=== PATIENT | male | born 1950 | race Caucasian/White ===

== ENCOUNTER 2017-02-10 07:29 | Inpatient (IN) | payer MEDICARE, OTHER ==
[2017-02-10] VITALS (63 sets, daily range): BP systolic 94–143; BP diastolic 42–94; PULSE 73–86; RESP 20–28; TEMP 98.6–99; Ht 170.2 cm; Wt 90.9 kg
[~2017-02-10] VITALS: Ht 170.2 cm; Wt 90.9 kg
[~2017-02-10 07:29] MED LIST: EPINEPHrine 0.1 MG/ML SYG ONE; LIDOCAINE 100 MG SYRINGE ONE; NA BICARBONATE 8.4% 50 ML SYG ONE
--- NOTE | 2017-02-10 08:07 | ERA ---
ER Documentation Chief Complaint Date/Time DATE: 02/10/17 TIME: 728 Chief Complaint cardiac arrest HPI Patient was a witnessed cardiac arrest at approximately 6:50 AM According to paramedics, patient had approximately 7 minutes of downtime prior to biomedical engineering supervisor arrival. 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 tach/V. fib. Patient was intubated in the field with multiple rounds of ACLS protocol. Total transport time was approximately 20 minutes with total downtime of about 30 minutes prior to patient arrival in the emergency room. During that time, patient had no return of spontaneous circulation. Upon arrival, patient does have a pulse. I have reviewed the biomedical engineering supervisor pre-hospital care. Pre-hospital vital signs were reviewed. Pre-hospital diagnostic tests were reviewed. ROS All systems reviewed and are negative except as per history of present illness. Medications Home Meds Unable to Obtain Active Prescriptions or Reported Meds Allergies Allergies: Coded Allergies: Unable to Assess (Verified Allergy, Severe, 02/10/17) FmHx Unknown Physical Exam Vitals Cardiac arrest Physical Exam GENERAL: Patient is well-developed but in full cardiac arrest. HEENT: Airway is intubated. No evidence of head trauma. NECK: C-spine is soft and supple, there is no meningismus. There is no cervical lymphadenopathy. LUNGS: Patient is being ventilated through the endotracheal tube with lung sounds bilaterally. HEART: CPR in progress. ABDOMEN: Soft, nondistended EXTREMITIES: Patient has mottling bilaterally with no obvious trauma NEURO: GCS of 111. Patient has mid range but nonreactive pupils. Patient is making spontaneous respiratory effort. SKIN: Patient is mottled HEME/LYMPHATIC: There is no evidence of excessive bruising or lymphedema. Procedures/MDM Patient was taken immediately to a room where intubation was confirmed via auscultation. CPR was continued. ACLS protocol was continued. Patient received a dose of lidocaine when he returned into a pulseless V. tach. He received full ACLS protocol under my supervision including another episode of defibrillation and CPR. Patient did have good pulses with CPR. Initial EKG upon arrival after the patient regained pulses demonstrating evidence of a discoordinated ventricular wide-complex rhythm with likely ST elevation diffusely. At that time, 732, code STEMI was initiated. I then spoke with the janitor custodian soon thereafter. Patient was taken to the [facility] at that time. EKG interpretation: Uncoordinated ventricular rhythm at approximately 95 bpm Wide-complex QRS Large ST elevations anteriorly with inferior changes. Impression: Wide-complex rhythm with evidence of likely anterior ST elevation myocardial infarction Departure Diagnosis: Primary Impression: Cardiac arrest Additional Impressions: Ventricular fibrillation ST elevation myocardial infarction (STEMI) of anterior wall Condition: Critical DON ESCALANTE Feb 10, 2017 08:07
[2017-02-10 08:17] LABS: CALCIUM 8.3 mg/dl (8.4-10.2); CREATININE 1.31 mg/dl (0.61-1.24); POTASSIUM 3.3 mmol/L (3.5-5.1)
[2017-02-10 08:27] LABS: TROPONIN-I 0.052 ng/ml (0.00-0.12)
[2017-02-10] MEDS ORDERED: HEPARIN 1000 UNITS/ML 10 ML INJ IV ONE (09:00)
[2017-02-10] MEDS ORDERED: HEPARIN 1000 UNITS/ML 10 ML INJ IV PRN (09:00)
[2017-02-10] MEDS ORDERED: PROPOFOL 100 ML ONE (09:16)
--- NOTE | 2017-02-10 09:32 | SP ---
DATE OF PROCEDURE: 02/10/2017 INDICATION FOR PROCEDURE: 1. Cardiac arrest. 2. ST elevation myocardial infarction. 3. Cardiogenic shock. PROCEDURES: 1. Selective right and left coronary angiography. 2. Left heart catheterization with LV pressures. 3. Complex 100% totally occluded circumflex OM. PTCA stent with 2.75 x 32-mm drug-eluting stent. 4. Successful placement of intraaortic balloon pump. 5. Fluoroscopy. 6. Supervised procedural sedation. 7. Triple lumen central line placement. 8. Arterial catheter placement with A-line placement. PROCEDURE DETAILS: The patient is a 66-year-old male who was brought into [facility] Emergency Room via EMS after cardiac arrest. The patient was with his coworker, apparently passe d out. CPR was performed by EMS on arrival. Downtime was on 7 minutes, according to ER attending. The patient had return of circulation in the field, came into the ER. In ER the blood pressure was 110/78, with a pulse. Underwent another cardiac arrest with loss of pulse and ventricular fibrilla tion arrest, status post shock x2 in the ER. While he was arriving in the laboratory cureman he was still get ting CPR. Finally there was return of pulse and circulation on the laboratory cureman table. Immediately car diac catheterization was started. The patient was already intubated. The blood pressure was in the 60s and 70s systolic. Started on pressors. The right groin was accessed with a 6-Greek sheath. St arted with a guide catheter engaged into the left main over an 0.035 wire and found to have a total circumflex large OM1. Once the wire crossed the OM1 and STEVENSON 3 flow was started the patient was on 2 pressors, dopamine, as well as Zach-Synephrine at this time. Successful direct stenting with a 2.7 5 x 32-mm drug-eluting stent was placed. Following that the patient went into ventricular fibrillat ion arrest, status post shock on the cath table x1 again. Return of circulation. The right coronary artery was engaged and there was a mid RCA with a large 70% stenosis, which had STEVENSON 3 flow. At th is time we decided to place a balloon pump on the patient. The patient's blood pressure was 260s to 90s systolic. At this time the patient also had placement of a triple lumen IV fentanyl catheter in the left groin, as well as an A-line in the left groin. Following that the procedure was completed and all the groin and everything was sutured. The procedure was finished without any complications . The patient is on a balloon pump and 2 pressors, with still in cardiogenic shock. Augmented bloo d pressure was 110 to 120. The patient is sedated, intubated, and critically ill, on the cardiac ca th lab table. There is no family on the chart. The phone number which was found on the chart we tr ied to contact them, but unable to contact anybody or any family member. At this time, we have our savannah smith nurse to try to find the patient's family members to inform them of the patient's critical sta tus. CORONARY FINDINGS: 1. Left main: Mild diffuse disease. 2. LAD: Mild diffuse disease. 3. Circumflex: Large OM 100% thrombotic occluded. 4. Right coronary artery: Proximal 25% stenosis. The mid segment has a long segment of 70% stenosis , followed by distal segment mild diffuse disease. LEFT VENTRICULAR FINDINGS: LVEDP was 30 mmHg, very high. CONCLUSION: 1. Cardiac arrest. 2. Cardiogenic shock. 3. Acute closure of OM artery, successful intervention with 2.75 x 32-mm drug-eluting stent. RECOMMENDATIONS: 1. The patient is critically ill, transferred to the ICU. 2. Cangrelor IV continued. Plan to put in NG tube, critical care consultation, intraaortic balloon pump care. 3. A-line and central line placement. Switch medication to A-line and central line. Complete 2D e chocardiography. Try to find a family member. Patient still remains critically ill. Prognosis is ve ry guarded. The patient will require a CT head once the patient is stable to understand the neurol ogical status and brain damage after the multiple code and CPR. Dictated By: LENIN VILLALOBOS/ROLAN Conf#: [id number] DID#: [id number]
[2017-02-10] MEDS: PROPOFOL 100 ML IV SCH ×3 (10:00→21:06)
[2017-02-10] MEDS ORDERED: PHENYLephrine 20MG IN 250 ML 250 ML ONE (10:35)
[2017-02-10] MEDS ORDERED: NORepinephrine 8MG/250 ML (PMX 0 ML ONE (10:35)
--- NOTE | 2017-02-10 10:57 | CONS ---
Date/Time of Note Date/Time of Note DATE: 02/10/17 TIME: 10:53 Assessment/Plan Assessment/Plan Additional Assessment/Plan Ventilator setting; AC of 20, tidal volume 600, PEEP of 5, 100% FiO2. Patient currently on phenylephrine drip at 200 mics per minute, 420 mics per kilogram per minute, amiodarone drip via protocol. Dopamine at 10 mics per kilogram per minute. Assessment recommendations; 1. Patient admitted with cardiac arrest status post along CPR. Patient underwent emergent coronary angiography with stenting of circumflex lesion and placement of intra-aortic balloon pump. 2. At this time it is difficult to assess for any anoxic brain injury. However according to the records the patient was arousable therefore hypothermia protocol was not initiated. 3. Slight increase in serum creatinine possibly baseline. 4. Pulmonary edema. Continue current supportive care. Will obtain a blood gas. Once ABGs done I will make further recommendations. Will obtain follow-up chest x-ray in 24 hours. Add Zosyn 3.375 g every 8 hours. Gnosis is guarded. Consultation Date/Type/Reason Admit Date/Time Feb 10, 2017 at 08:37 Date of Consultation: Feb 10, 2017 Type of Consultation: Pulmonary/critical care Reason for Consultation Pulmonary consultation requested for evaluation and management of respiratory failure. History of presenting any; patient is a 66-year-old male who was brought into the emergency room after he sustained a witnessed cardiac arrest at work. Along CPR was done on site with multiple rounds of defibrillation. The patient was taken to the [facility] where the circumflex lesion was stented. Patient has been brought back to ICU on intra-aortic balloon pump orally intubated. History was obtained from medical records as well as from patient's at bedside. According to the patient has had no medical problems whatsoever until this morning when he had sudden cardiac arrest at work. Past medical history; none. Medications; reviewed. Allergies; none. Social history; most of any smoking alcohol or drug abuse. Family history; patient is he has 3 children. No stiff any coronary artery disease, diabetes or hypertension in the family. 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 Review of systems; unable to be obtained. General exam; elderly male, on ventilator via endotracheal tube. Sedated. Currently in no distress. Exam/Review of Systems Vital Signs Vitals Vital Signs Date Time Temp Pulse Resp B/P Pulse Ox O2 Delivery O2 Flow Rate FiO2 02/10/17 08:07 0 0 0/0 0 Exam HEENT exam is; supple neck, positive JVD. No lymphadenopathy. Midline trachea. No thyromegaly. Patient has fair dentition. Pupils are midsize and reactive to light bilaterally. Orally intubated. Chest examination; diminished but clear vessel. S1-S2 audible, no murmurs. Regular rhythm. Abdomen examination; soft, no organomegaly. Bowel sounds are absent. Extremity examination; no peripheral edema. Pulses 1+ bilaterally. No clubbing. 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 ONCE XX ; Start 02/10/17 at 09: 00; Stop 02/12/17 at 08:59 Propofol 100 ml @ 2.727 mls/ hr Q12H IV ; Start 02/10/17 at 10:00 Norepinephrine 250 ml @ 1.875 mls/ hr TITRATE IV ; Start 02/10/17 at 11:00 Phenylephrine HCl 250 ml @ 75 mls/hr TITRATE IV ; Start 02/10/17 at 11:00 Dopamine HCl/ Dextrose 250 ml @ 6.818 mls/ hr TITRATE IV ; Start 02/10/17 at 11 :00 ANGELINA VALDEZ 16, 2017 10:57
[2017-02-10 11:00] LABS: ADD SCAN DIFF NO
[2017-02-10] MEDS ORDERED: NORepinephrine 8MG/250 ML (PMX 250 ML IV SCH (11:00)
[2017-02-10] MEDS ORDERED: PHENYLephrine 20MG IN 250 ML 250 ML IV SCH (11:00)
[2017-02-10 11:06] LABS: BASOPHIL # 0.1 10^3/ul (0.0-0.1); BASOPHILS % 0.3 % (0.0-2.0); EOSINOPHILS # 0.1 10^3/ul (0.0-0.5); EOSINOPHILS % 0.4 % (0.0-7.0); HEMOGLOBIN 15.9 g/dl (14.0-18.0); LYMPHOCYTES # 2.2 10^3/ul (0.8-2.9); LYMPHOCYTES % 9.7 % (15.0-51.0); MEAN CORPUSCULAR HEMOGLOBIN 31.7 pg (29.0-33.0); MEAN CORPUSCULAR HGB CONC 34.6 g/dl (32.0-37.0); MEAN CORPUSCULAR VOLUME 91.8 fl (82.0-101.0); MEAN PLATELET VOLUME 10.4 fl (7.4-10.4); MONOCYTE # 0.5 10^3/ul (0.3-0.9); MONOCYTES % 2.2 % (0.0-11.0); NEUTROPHIL # 19.2 10^3/ul (1.6-7.5); NUCLEATED RED BLOOD CELLS% 0.1 /100WBC (0.0-0.0); PLATELET COUNT 317 10^3/UL (140-415); RED BLOOD COUNT 5.01 10^6/ul (4.70-6.10); RED CELL DISTRIBUTION WIDTH 12.5 % (11.5-14.5); WHITE BLOOD COUNT 22.9 10^3/ul (4.8-10.8)
[2017-02-10] MEDS: DOPamine-D5W 1.6 MG/ML 250 ML IV SCH ×2 (11:08→17:00)
[2017-02-10 11:11] LABS: AADO2 Arterial 600.6 mmHg (7.0-24.0); Arterial Base Excess -11.4 mmol/L (-3.0-3); Arterial COHb 0.3 % (0.0-3.0); Arterial Fraction of Oxyhgb 94.1 % (93.0-99.0); Arterial HCO3 13.7 mmol/L (22.0-26.0); Arterial MetHb 0.3 % (0.0-1.5); Arterial Total Hemglobin 16.7 g/dl (12.0-18.0); MODE VENT - AC
[2017-02-10 11:29] LABS: INR 1.1; PARTIAL THROMBOPLASTIN TIME 28.4 Sec (25.0-35.0); PROTIME 14.2 Sec (12.2-14.2); PT RATIO 1.1
--- NOTE | 2017-02-10 11:36 | RADRPT ---
PROCEDURE: Retroperitoneal US. CLINICAL INDICATION: Renal insufficiency TECHNIQUE: Multiple sonographic images of the kidneys and retroperitoneum were obtained. The imag es were reviewed on a PACS workstation. COMPARISON: No prior studies are available for comparison. FINDINGS: The kidneys are normal in size, contour, cortical thickness and cortical echogenicity. The right kidney measures 10.3 cm. The left kidney measures 9.6 cm. No kidney stones are visualized. There is no evidence for hydronephrosis. The urinary bladder is decompressed by a Mckeon catheter. RPTAT: AA IMPRESSION: Unremarkable retroperitoneal ultrasound. .Jose Roberto Bruce MD, MD Date Time Electronically viewed and signed by .Jose Roberto Bruce MD, on 02/10/2017 11:36 .S/
[2017-02-10] MEDS: HEPARIN 25000 UNITS/250 ML 250 ML IV SCH (11:56)
[2017-02-10] MEDS: PIPER-TAZO 3.375 GM IV (PMX) 100 ML IVPB SCH ×2 (12:06→21:56)
--- NOTE | 2017-02-10 12:21 | RADRPT ---
PROCEDURE: Chest Radiograph. CLINICAL INDICATION: Endotracheal tube placement TECHNIQUE: Single frontal chest radiograph. COMPARISON: None available FINDINGS: An endotracheal tube is in place with distal tip approximately 6.5 cm above the akiko. The patient is rotated, heart size is poorly evaluated.. There is an apparent balloon pump in place with dista l tip approximately 6 cm proximal to the aortic arch. No infiltrate or effusion is seen. The bone s are intact. IMPRESSION: 1. Endotracheal tube in place with distal tip approximately 6.5 cm above the akiko. 2. There is apparent aortic balloon pump in place with distal tip approximately 6 cm proximal to th e aortic arch. RPTAT: AA .Gagan Keys MD, MD Date Time Electronically viewed and signed by .Gagan Keys MD, on 02/10/2017 12:21 .B/
[2017-02-10] MEDS ORDERED: NACL 0.9% 3 ML SYG IV SCH (12:30)
[2017-02-10] MEDS ORDERED: HYDROCODONE/APAP (5/325) TAB PO PRN (12:30)
[2017-02-10] MEDS ORDERED: PHENYLephrine 160 MG in DEXTROSE 5% 484 ML IV SCH (13:00)
[2017-02-10] MEDS ORDERED: GLUCOSE GEL 15 GRAM TUBE BUCCAL PRN (13:30)
[2017-02-10] MEDS ORDERED: GLUCOSE GEL 15 GRAM TUBE PO PRN ×2 (13:30)
[2017-02-10] MEDS ORDERED: GLUCAGON 1 MG INJ IM PRN (13:30)
[2017-02-10] MEDS: SOD CHLORIDE 0.9% 1,000 ML IV SCH (13:44)
[2017-02-10] MEDS ORDERED: FUROSEMIDE 20 MG INJ IV ONE ×2 (14:00→21:30)
[2017-02-10] MEDS ORDERED: ALBUMIN HUMAN 25% 100 ML IV ONE (14:00)
[2017-02-10 14:05] LABS: ALBUMIN 4.4 g/dl (3.3-4.9); ALBUMIN/GLOBULIN RATIO 4.88; BILIRUBIN,INDIRECT 0.4 mg/dl (0-1.1); BILIRUBIN,TOTAL 0.4 mg/dl (0.2-1.3); CALCIUM 7.9 mg/dl (8.4-10.2); CREATININE 1.95 mg/dl (0.61-1.24); POTASSIUM 4.2 mmol/L (3.5-5.1); TOTAL PROTEIN 5.3 g/dl (6.1-8.1)
--- NOTE | 2017-02-10 14:05 | HP ---
DATE OF ADMISSION: 02/10/2017 TIME OF EVALUATION: 12:30 p.m. REASON FOR ADMISSION: Status post cardiac arrest. CONSULTATIONS: 1. Dr. Eliel Buckner, Interventional Cardiology. 2. Dr. Jay Bueno, Pulmonary. 3. Dr. Carmine Melo, Nephrology. HISTORY OF PRESENT ILLNESS: This is a 66-year-old male who has no past medical history as per the family, who had a witnessed cardiac arrest while he was at work. CPR was performed by EMS on arrival. The approximate downtime was 7 minutes, as per the ER physician. The patient had ROSC in the field. In the ER, the blood pressure was 110/78, with a pulse. He went to another cardiac arrest with loss of pulse and ventricular fibrillation and he had to be shocked twice in the ER, with return of spontaneous circulation. The patient was already intubated. The patient also had a low blood pressure and so he was started on pressors. The patient underwent emergent cardiac catheterization with intervention to the 100% occlusion of the obtuse marginal of left circumflex artery with placement of a drug-eluting stent. The patient was transferred to the intensive care unit for further management. PAST MEDICAL HISTORY: None, as per the family. PAST SURGICAL HISTORY: None, as per the family. HOME MEDICATIONS: None. ALLERGIES: NO KNOWN DRUG ALLERGIES. 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 He smokes tobacco, not on a routine basis. Occasional alcohol drinker. The family denies any illicit drug use. REVIEW OF SYSTEMS: Unable to elicit a review of systems because of the patient' s current status. PHYSICAL EXAMINATION: VITAL SIGNS: Temperature 98.8, pulse rate 88, respiratory rate 20, oxygen saturation 98% on 100% FIO2 via mechanical ventilator. GENERAL: This is an obese male, lying in bed, orally intubated. HEENT: Head is normocephalic and atraumatic. Eyes: Anicteric sclerae. Conjunctivae are clear. ENT: Nasal septum is midline. Oral mucosa is dry. Orally intubated. NECK: Supple. No JVD noticed. RESPIRATORY: Bilaterally diminished breath sounds. Orally intubated and mechanical ventilated, on AC mode ventilation. CARDIAC: S1, S2 heard. Regular rate and rhythm. The patient has an intraaortic balloon pump in place. ABDOMEN: Soft. Bowel sounds hypoactive. GENITOURINARY: The patient has a Mckeon catheter in place. The right groin has an arterial sheath connected to right groin intraaortic balloon pump. EXTREMITIES: No cyanosis, no clubbing, no edema. Peripheral pulses are palpable. NEUROLOGIC: The patient is sedated. He has bilateral soft wrist restraints on. LABORATORY AND DIAGNOSTIC DATA: WBC 22.9, hemoglobin 15.9, hematocrit 46.0, platelet count 317. Sodium 141, potassium 3.6, chloride 102, carbon dioxide 21 , anion gap 21, BUN 19, creatinine 1.3, glucose 295, calcium 8.3. Troponin I 0.052. Blood gas that was done on 100% FIO2 on a mechanical ventilator, pH of 7.28, pCO2 of 29.6, pO2 of 82.8, bicarbonate 13.7, oxygen saturation 94.7, base excess -11.4. PT 14.2, INR 1.13, PTT 28.4. Chest x-ray. Endotracheal tube in place, with the distal tip approximately 6.5 cm above the akiko. Intraaortic balloon pump with the distal tip approximately 6 cm proximal to the aortic arch. IMPRESSION: This is a 66-year-old male who was brought to the emergency room because of cardiac arrest, who had emergent left heart catheterization with angioplasty and placement of a stent to the obtuse marginal artery, with placement of an intraaortic balloon pump because of underlying cardiogenic shock. ASSESSMENT AND PLAN: 1. Cardiac arrest. Status post left heart catheterization and coronary angioplasty with placement of a stent and placement of intraaortic balloon pump. The patient is to be started on dual antiplatelet therapy, as per cardiology. Pending 2D echocardiogram. Cardiac medications to be initiated as per cardiology. The patient's underlying neuro status is unclear at this time. The patient is unstable to undergo any brain imaging at this time. The patient was not started on any hypothermia protocol since the patient was moving and was vaguely following commands. 2. Cardiogenic shock. Most probably secondary to underlying cardiac arrest. The patient is currently on pressors to optimize blood pressure. The patient is also on intraaortic counterpulsation therapy. 3. Leukocytosis. Etiology is unclear, most probably reactive in origin. The patient was started on empiric antibiotics by pulmonary. 4. Metabolic acidosis, most probably secondary to underlying cardiac arrest. Patient to be evaluated by nephrology. Bicarbonate management as per nephrology. 5. Acute kidney injury. Nonoliguric. Unknown baseline creatinine. Nephrotoxic drugs will be avoided on this patient. The patient will be adequately hydrated using IV fluids. 6. Hyperglycemia. A blood glucose of 295. It is unclear if the patient is diabetic. Will obtain a hemoglobin A1c. Will start the patient on sliding scale insulin. Plan. The patient will be admitted to the inpatient intensive care unit. The patient will remain a FULL CODE. Activities will be bed rest. He will be started on DVT prophylaxis and gastrointestinal prophylaxis. The rest of the patient's management will be based on the clinical course, the results of diagnostic studies, and inputs from the consultants. Based on the patient's clinical presentation, he most probably requires more than a 2-midnights' stay for further management and evaluation of his clinical presentation. The case and management of this patient was fully discussed with Dr. Almazan. HUBERT ALMAZAN MD, AM/ROLAN Conf#: [id number] DID#: [id number] [id number]
[2017-02-10 14:22] LABS: TROPONIN-I 52.2 ng/ml (0.00-0.12)
--- NOTE | 2017-02-10 14:35 | RADRPT ---
Vent Rate: 84 bpm RR Interval: 0 msec IN Interval: 162 msec QRS Duration: 78 msec QT Interval: 394 msec QTC Interval: 465 msec P-R-T Bruno: 69 - -10 - -13 degrees Normal sinus rhythm Possible Left atrial enlargement Nonspecific T wave abnormality Prolonged QT Abnormal ECG Electronically Signed By: Gibran Jimenes [id number]
[2017-02-10 14:47] LABS: AADO2 Arterial 321.7 mmHg (7.0-24.0); Arterial Base Excess -7.3 mmol/L (-3.0-3); Arterial COHb 0.3 % (0.0-3.0); Arterial Fraction of Oxyhgb 98.8 % (93.0-99.0); Arterial HCO3 16.8 mmol/L (22.0-26.0); Arterial MetHb 0.4 % (0.0-1.5); Arterial Total Hemglobin 17.3 g/dl (12.0-18.0); MODE VENT - AC
[2017-02-10] MEDS ORDERED: AMIODARONE 900 MG in DEXTROSE 5% 482 ML IV SCH (15:00)
[2017-02-10] MEDS ORDERED: POTASSIUM CHLORIDE 30 MEQ in DEXTROSE 5% 250 ML IVPB ONE (15:00)
[2017-02-10] MEDS: INSULIN ASPART [NOVOLOG] 3 ML PEN SC SCH ×3 (15:08→21:00)
[2017-02-10 15:14] LABS: ADD SCAN DIFF NO
[2017-02-10 15:15] LABS: BASOPHILS % 0.2 % (0.0-2.0); EOSINOPHILS % 0.1 % (0.0-7.0); HEMATOCRIT 45.3 % (42.0-52.0); HEMOGLOBIN 15.5 g/dl (14.0-18.0); LYMPHOCYTES # 1.4 10^3/ul (0.8-2.9); LYMPHOCYTES % 6.7 % (15.0-51.0); MEAN CORPUSCULAR HEMOGLOBIN 30.9 pg (29.0-33.0); MEAN CORPUSCULAR HGB CONC 34.2 g/dl (32.0-37.0); MEAN CORPUSCULAR VOLUME 90.4 fl (82.0-101.0); MEAN PLATELET VOLUME 10.4 fl (7.4-10.4); MONOCYTE # 1.4 10^3/ul (0.3-0.9); MONOCYTES % 6.6 % (0.0-11.0); NEUTROPHIL # 17.3 10^3/ul (1.6-7.5); NEUTROPHILS % 85.1 % (39.0-77.0); NUCLEATED RED BLOOD CELLS% 0.1 /100WBC (0.0-0.0); PLATELET COUNT 297 10^3/UL (140-415); RED BLOOD COUNT 5.01 10^6/ul (4.70-6.10); RED CELL DISTRIBUTION WIDTH 12.5 % (11.5-14.5); WHITE BLOOD COUNT 20.3 10^3/ul (4.8-10.8)
--- NOTE | 2017-02-10 15:55 | RADRPT ---
Echocardiogram Report Patient Name: GALEN UMAÑA Gender: Male Date: 1950 Study Date: 10-Feb-2017 Fence Gate Assembler: Isai Hancock RDCS Location: [facility] Ref. Physician: JOSE BUCKNER Quality: Good Procedures: Transthoracic echocardiogram with complete 2D, M-Mode, and doppler examination. Indications: Evaluate Left Ventricular function. 2D/M Mode Doppler Measurement Value Normal Ranges Measurement Value Normal Ranges LVIDd 2D 4.2 3.5 - 5.6 cm AV Peak Zachary 1.2 m/sec LVIDs 2D 2.4 2.1 - 4.1 cm AV Peak PG 6.0 mmHg FS 2D 42.1 % LVOT Peak Zachary 0.7 m/sec LVPWd 2D 1.2 0.6 - 1.1 cm LVOT Peak PG 2.0 mmHg IVSd 2D 1.4 0.6 - 1.1 cm MV E Peak Zachary 0.8 m/sec IVS/LVPW 2D 1.1 MV A Peak Zachary 0.5 m/sec AoR Diam 2D 2.9 2.0 - 3.7 cm MV E/A 1.6 LA/Ao 2D 1 0 - 1 MV Decel Time 176 msec EDV 2D 74.1 cm3 MV E/A 1.6 ESV 2D 14.3 cm3 TR Peak Zachary 2.7 m/sec LA Dimen 2D 3.6 2.3 - 4.0 cm TR Peak PG 29.0 mmHg RVSP 37.0 mmHg Findings Left Ventricle: Normal left ventricular systolic function. Normal left ventricular cavity size. Moderate concentric left ventricular hypertrophy. Ejection fraction is visually estimated at 55 %. Right Ventricle: Normal right ventricular size. Normal right ventricular systolic function. Left Atrium: The left atrium is normal in size. Right Atrium: The right atrium is normal in size. Mitral Valve: Mitral valve leaflets appear mildly thickened. Mild mitral annular calcification. There is trace to mild mitral valve regurgitation. Aortic Valve: No significant aortic stenosis or insufficiency. Aortic cusps appear mildly calcified. Tricuspid Valve: Normal appearance of the tricuspid valve. Estimated peak PA systolic pressure 37 mmHg. There is mild tricuspid regurgitation. Pulmonic Valve: Normal pulmonic valve appearance. Pericardium: Normal pericardium with no significant pericardial effusion. Aorta: Normal aortic root. IVC: Normal size and no respiratory collapse consistent with elevated right atrial pressure. Conclusions Normal left ventricular systolic function. Normal left ventricular cavity size. Moderate concentric left ventricular hypertrophy. Ejection fraction is visually estimated at 55 %. Normal right ventricular size. Normal right ventricular systolic function. Mitral valve leaflets appear mildly thickened. Mild mitral annular calcification. There is trace to mild mitral valve regurgitation. No significant aortic stenosis or insufficiency. Aortic cusps appear mildly calcified. Normal appearance of the tricuspid valve. Estimated peak PA systolic pressure 37 mmHg. There is mild tricuspid regurgitation. Electronically Signed By: Jose Buckner 10-Feb-2017 15:54:03 -0700 Patient Name: GLAEN UMAÑA Study Date: 10-Feb-2017 [id number]
[2017-02-10 16:27] LABS: ADD UMIC YES; UR BILIRUBIN (Dip) NEGATIVE (NEGATIVE); UR BLOOD (Dip) 3+ (NEGATIVE); UR CLARITY CLOUDY (CLEAR); UR COLOR LT. YELLOW (YELLOW); UR KETONES (Dip) NEGATIVE (NEGATIVE); UR LEUKOCYTE ESTERASE (Dip) NEGATIVE (NEGATIVE); UR NITRITE (Dip) NEGATIVE (NEGATIVE); UR TOTAL PROTEIN (Dip) 2+ (NEGATIVE); UR UROBILINOGEN (Dip) 0.2 E.U./dL (0.1-1.0)
[2017-02-10 17:07] LABS: UR BACTERIA MODERATE; UR TRANSITIONAL EPI CELL FEW
[2017-02-10] MEDS ORDERED: SODIUM BICARBONATE (IV ADD) 100 MEQ in DEXTROSE 5% 1,000 ML IV SCH (20:30)
[2017-02-10 20:53] LABS: TROPONIN-I 88.1 ng/ml (0.00-0.12)
[2017-02-10] MEDS ORDERED: SOD CHLORIDE 0.9% 1,000 ML IV ONE (21:30)
[2017-02-10] MEDS: ACETAMINOPHEN 325 MG TAB PO PRN (21:39)
[2017-02-10] MEDS ORDERED: DOPamine-D5W 1.6 MG/ML 250 ML ONE (23:16)
--- NOTE | 2017-02-10 23:48 | RADRPT ---
PROCEDURE: Abdominal series CLINICAL INDICATION: NG tube placement TECHNIQUE: AP abdomen supine and upright as well as a PA view of the chest. COMPARISON: Chest x-ray 02/10/2017 and abdominal ultrasound 02/10/2017 FINDINGS: An enteric tube is noted in the stomach. Abundance of stool is present in the colon and correlate w ith constipation. Mild spondylosis is present. The visualized lung bases are clear. There is a nonspecific, nonobstructive bowel gas pattern. No air-fluid levels are seen. No free ai r is evident. No abnormal calcifications project over the renal collecting systems. Imaged portions of the heart are normal. The osseus structures are unremarkable. IMPRESSION: 1. An enteric tube in stomach. 2. Abundance of stool in the colon and correlate with constipation RPTAT: HDC .Rebecca Pickens MD, Date Time Electronically viewed and signed by .Rebecca Pickens MD, on 02/10/2017 23:48 .C/
[2017-02-11] VITALS (111 sets, daily range): BP systolic 82–139; BP diastolic 37–81; PULSE 75–84; RESP 20–22; TEMP 98.4–99
--- NOTE | 2017-02-11 00:20 | CONS ---
DATE OF ADMISSION: 02/10/2017 DATE OF CONSULTATION: 02/10/2017 NEPHROLOGY CONSULTATION REFERRING PHYSICIAN: Nicolasa Navarro MD REASON FOR CONSULTATION: Acute kidney injury in a patient who presented with ST-elevation myocardia l infarctions, oliguria to anuria, and severe metabolic acidosis. HISTORY OF PRESENT ILLNESS: This is a 66-year-old male who has no significant past medical history as per the family, who had a witnessed cardiac arrest while he was at work and CPR was performed. E MS brought the patient to the [facility] Emergency Room, the patient is noted to h ave ST elevation myocardial infarction. The patient was immediately taken to cardiac catheterizatio n by Dr. Jose Buckner, and the patient went into cardiac arrest and had to be shocked twice in th e emergency room, with return of spontaneous circulation. He was intubated on ventilator. The deepali ent had a 100% occlusion of the obtuse marginal of the left circumflex artery with placement of a dr ug-eluting stent. Post-catheterization, he had intraaortic balloon pump and he has been admitted to the ICU under the care of the hospitalist service and nephrology was consulted because of oliguria to an anuria associated with acute kidney injury. REVIEW OF SYSTEMS: Unable to obtain from the patient since he is currently intubated and sedated on ventilator. PAST MEDICAL HISTORY: None, as per the family. PAST SURGICAL HISTORY: None, as per the family. HOME MEDICATIONS: None. ALLERGIES: NO KNOWN DRUG ALLERGIES. 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 He smokes tobacco, not on routine basis. Occasionall y drinks alcohol. Family denies any illicit drug use. FAMILY HISTORY: Unable to obtain from the patient. PHYSICAL EXAMINATION: VITAL SIGNS: Temperature 98.6, heart rate 79, respirations 20, blood pressure 127/80, saturation is 100% on FiO2 70%. GENERAL: The patient is currently sedated, intubated on ventilator. HEENT: ET tube in place. NECK: Supple. No jugular venous distention. No lymphadenopathy. LUNGS: Bilateral coarse breath sounds with minimal expiratory wheezing. HEART: S1, S2, tachycardia, no murmur. ABDOMEN: Soft, nontender, nondistended. EXTREMITIES: 1+ pitting edema with intra-aortic balloon pump in. GENITOURINARY: Mckeon catheter in place. The patient had a urine output of approximately 210, since the morning, after having albumin and Lasix. NEUROLOGICAL: Uncooperative for exam. PSYCHIATRIC: Uncooperative for exam. LABORATORY DATA/DIAGNOSTIC IMAGIN. Sodium 140, potassium 4.2, chloride 110, bicarbonate 17, BUN 25, creatinine 1.9, glucose 199, ca lcium 7.9. LFTs are slightly elevated. Troponin 52.2. WBC 22.9, hemoglobin 15.9, platelet count 3 17. Prothrombin time is 14.2, PTT 28.4, INR 1.1. 2. Urinalysis shows 3+ hemoglobin, 0.5% glucose, 2+ protein. IMPRESSION: This is a 66-year-old male who was brought in by paramedics for cardiac arrest and foun d to have ST elevation myocardial infarction. The patient was taken to cardiac catheterization imme diately and had a drug-eluting stent placement in the obtuse marginal. The patient is currently int ubated on ventilator and nephrology was consulted for: 1. Oliguric acute kidney injury, likely secondary to ischemic acute tubular necrosis from ST-elevat ion myocardial infarction and cardiogenic shock. 2. Cardiogenic shock. 3. Acute respiratory failure from cardiac arrest, currently intubated on ventilator. 4. Metabolic acidosis secondary to acute renal failure. 5. No significant past medical history, as per the family. PLAN: Thank you, Dr. Navarro, for this consultation. The patient currently seen in the ICU. He alr jenny received Lasix and albumin that I ordered before. So far, he has a urine output of 210 mL. Th e patient is currently on a Levophed drip and Zach-Synephrine drip for blood pressure support. The p atient is also on amiodarone drip in the morning, currently has been stopped. Due to the patient's acidosis with a bicarbonate level of 16.8, I will start the patient on D5 half NS with 2 ampules of sodium bicarbonate to run at 75 mL per hour. Ventilator care as per the pulmonary service. The patient is currently seen in the ICU. He is stat us post cardiac arrest and resuscitation attempts x2. Rule out any anoxic encephalopathy. We will continue to manage the patient for his renal failure and metabolic acidosis. The further plan will depend on the patient's course in the hospital. Meanwhile, I will order some urine studies, and also order the kidney ultrasound as a part of his re nal failure workup. Once again, thank you, Dr. Navarro, for this consultation. I will continue to follow this patient al simone with you. Total time spent in this patient's consultation, making assessment and plan, communicating with the patient's family member at bedside, and communicating with the nursing staff took more than 60 minut es. Dictated By: SAILAJA LOUIE MD, KP/ROLAN Conf#: [id number] DID#: [id number]
[2017-02-11] MEDS: INSULIN ASPART [NOVOLOG] 3 ML PEN SC SCH ×6 (01:00→20:45)
[2017-02-11] MEDS: PROPOFOL 100 ML IV SCH ×3 (01:39→20:08)
[2017-02-11 05:14] LABS: ADD SCAN DIFF NO
[2017-02-11] MEDS: PIPER-TAZO 3.375 GM IV (PMX) 100 ML IVPB SCH ×3 (05:22→22:04)
[2017-02-11] MEDS: PANTOPRAZOLE 40 MG INJ IV SCH ×2 (05:23→18:00)
[2017-02-11] MEDS: DOPamine 1,600 MG in DEXTROSE 5% 210 ML IV SCH (05:27)
[2017-02-11 05:50] LABS: ALBUMIN 3.4 g/dl (3.3-4.9); ALBUMIN/GLOBULIN RATIO 1.7; BILIRUBIN,INDIRECT 0.4 mg/dl (0-1.1); BILIRUBIN,TOTAL 0.4 mg/dl (0.2-1.3); CALCIUM 7.2 mg/dl (8.4-10.2); CREATININE 3.49 mg/dl (0.61-1.24); POTASSIUM 4.3 mmol/L (3.5-5.1); TOTAL PROTEIN 5.4 g/dl (6.1-8.1)
[2017-02-11 05:55] LABS: MAGNESIUM 1.6 mg/dl (1.7-2.5)
[2017-02-11 05:57] LABS: ABNORMAL IP MESSAGE 1; HEMATOCRIT 40.7 % (42.0-52.0); HEMOGLOBIN 14.4 g/dl (14.0-18.0); MEAN CORPUSCULAR HEMOGLOBIN 31.6 pg (29.0-33.0); MEAN CORPUSCULAR HGB CONC 35.4 g/dl (32.0-37.0); MEAN CORPUSCULAR VOLUME 89.3 fl (82.0-101.0); MEAN PLATELET VOLUME 11.2 fl (7.4-10.4); PLATELET COUNT 218 10^3/UL (140-415); RED BLOOD COUNT 4.56 10^6/ul (4.70-6.10); RED CELL DISTRIBUTION WIDTH 12.7 % (11.5-14.5); WHITE BLOOD COUNT 8.6 10^3/ul (4.8-10.8)
[2017-02-11] MEDS ORDERED: PANTOPRAZOLE 40 MG INJ IV SCH (06:00)
--- NOTE | 2017-02-11 08:06 | CONS ---
Date/Time of Note Date/Time of Note DATE: 02/11/17 TIME: 08:02 Assessment/Plan Assessment/Plan Additional Assessment/Plan Ventilator settings; AC of 20, tidal volume 600, PEEP of 5, 50% FiO2. Patient currently on amiodarone drip 0.5 mg/min, propofol 32 mics per kilogram per minute, IV heparin via protocol. Intra-aortic balloon pump at 1-1 augmentation. Assessment recommendations; 1. Patient admitted with cardiac arrest status post CPR, status post emergent coronary angiography with stenting of left circumflex lesion. 2. Mild pulmonary edema. 3. Worsening renal function. 4. Cardiac arrhythmia, patient currently in sinus rhythm. Continue current treatment. Monitor renal function. Patient maintaining adequate urine output around 30 mL/h. Obtain follow-up chest x-ray in 24 hours. 35 minutes of critical care time was spent E evaluating the patient. Consultation Date/Type/Reason Admit Date/Time Feb 10, 2017 at 08:37 Initial Consult Date 02/10/17 Type of Consultation: Pulmonary/critical care 24 HR Interval Summary Free Text/Dictation Patient condition remains critical. Still requiring full ventilator support. Also requiring intra-aortic balloon pump and one-to-one augmentation. Shins however has remained hemodynamically stable. General exam; elderly male, orally intubated, sedated. Currently in no distress. Exam/Review of Systems Vital Signs Vitals Vital Signs Date Time Temp Pulse Resp B/P Pulse Ox O2 Delivery O2 Flow Rate FiO2 02/11/17 07:00 75 20 95/47 100 02/11/17 06:00 Mechanical Ventilator 02/11/17 05:20 50 02/11/17 04:00 98.0 Intake and Output 02/10/17 02/10/17 02/11/17 15:00 23:00 07:00 Intake Total 755 ml 2336.190 ml 1223.386 ml Output Total 30 ml 340 ml 1200 ml Balance 725 ml 1996.190 ml 23.386 ml Exam HEENT exam is; supple neck, no JVD. No lymphadenopathy. Midline trachea. No thyromegaly. Patient has fair dentition. Pupils are equal and reactive to light. Chest examination; diminished but clear vessel. S1-S2 audible, no murmurs. Regular rhythm. Abdomen examination; soft, no organomegaly. Bowel sounds audible. Extremity examination; no peripheral edema. Patient does have a petechiae involving the abdomen and lower extremities. Pulses 1+ bilaterally. 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 Results Result Diagram: 02/11/17 0400 02/11/17 0400 Results 24 hrs Laboratory Tests Test 02/10/17 10:55 02/10/17 10:58 02/10/17 13:24 02/10/17 13:30 White Blood Count 22.9 H Red Blood Count 5.01 Hemoglobin 15.9 Hematocrit 46.0 Mean Corpuscular Volume 91.8 Mean Corpuscular Hemoglobin 31.7 Mean Corpuscular Hemoglobin Concent 34.6 Red Cell Distribution Width 12.5 Platelet Count 317 Mean Platelet Volume 10.4 Neutrophils % 84.0 H Lymphocytes % 9.7 L Monocytes % 2.2 Eosinophils % 0.4 Basophils % 0.3 Nucleated Red Blood Cells % 0.1 H Neutrophils # 19.2 H Lymphocytes # 2.2 Monocytes # 0.5 Eosinophils # 0.1 Basophils # 0.1 Nucleated Red Blood Cells # 0.0 Prothrombin Time 14.2 Prothrombin Time Ratio 1.1 INR International Normalized Ratio 1.10 Activated Partial Thromboplast Time 28.4 Hemoglobin A1c 6.2 H B-Type Natriuretic Peptide 511 H Thyroid Stimulating Hormone (TSH) 3.820 Free Thyroxine 0.89 Blood Gas Specimen Source Blood arterial Arterial Blood Date Drawn 02/10/2017 11:00:47 AM Arterial Blood pH (Temp corrected) 7.282 *L Arterial Blood pCO2 (Temp correct) 29.6 L Arterial Blood pO2 (Temp corrected) 82.8 Arterial Blood HCO3 13.7 L Arterial Blood Base Excess -11.4 L Arterial Blood Oxygen Saturation 94.7 L Tirso Test N/A Arterial Blood Gas Puncture Site A-Line Arterial Blood Carboxyhemoglobin 0.3 Arterial Blood Methemoglobin 0.3 Blood Gas A-a O2 Differential 600.6 H Oxyhemoglobin Percent 94.1 Total Hemoglobin 16.7 Blood Gas Temperature 37.0 Blood Gas Respiration Rate 20.0 Blood Gas Actual Respiration Rate 20 Blood Gas Modality VENT - AC FiO2 100.0 Blood Gas Tidal Volume 600.0 Blood Gas High PEEP Setting 5.0 Blood Gas Critical Value Read Back Dionne BIGGS RN Blood Gas Notified Whom TM Blood Gas Notified Time 02/10/2017 11:11:01 AM Bedside Glucose 189 Sodium Level 140 Potassium Level 4.2 Chloride Level 110 Carbon Dioxide Level 17 L Anion Gap 17 H Blood Urea Nitrogen 25 H Creatinine 1.95 H Glucose Level 199 Calcium Level 7.9 L Magnesium Level 2.3 Total Bilirubin 0.4 Direct Bilirubin 0.00 Indirect Bilirubin 0.4 Aspartate Amino Transf (AST/SGOT) 584 H Alanine Aminotransferase (ALT/SGPT) 283 H Alkaline Phosphatase 120 Creatine Kinase 8072 H Creatine Kinase Index 3.6 Creatinine Kinase MB (Mass) 287.00 H Troponin I 52.200 *H Total Protein 5.3 L Albumin 4.4 Globulin 0.90 L Albumin/Globulin Ratio 4.88 Test 02/10/17 13:49 02/10/17 14:00 02/10/17 15:05 02/10/17 16:54 Blood Gas Specimen Source Blood arterial Arterial Blood Date Drawn 02/10/2017 2:40:17 PM Arterial Blood pH (Temp corrected) 7.350 Arterial Blood pCO2 (Temp correct) 31.2 L Arterial Blood pO2 (Temp corrected) 360.1 H Arterial Blood HCO3 16.8 L Arterial Blood Base Excess -7.3 L Arterial Blood Oxygen Saturation 99.5 H Tirso Test N/A Arterial Blood Gas Puncture Site A-Line Arterial Blood Carboxyhemoglobin 0.3 Arterial Blood Methemoglobin 0.4 Blood Gas A-a O2 Differential 321.7 H Oxyhemoglobin Percent 98.8 Total Hemoglobin 17.3 Blood Gas Temperature 37.0 Blood Gas Respiration Rate 20.0 Blood Gas Actual Respiration Rate 20 Blood Gas Modality VENT - AC FiO2 100.0 Blood Gas Tidal Volume 600.0 Blood Gas High PEEP Setting 5.0 Blood Gas Notified Whom TM Blood Gas Notified Time 02/10/2017 2:46:55 PM Urine Color LT. YELLOW Urine Clarity CLOUDY H Urine pH 6.0 Urine Specific [place] 1.025 Urine Ketones NEGATIVE Urine Nitrite NEGATIVE Urine Bilirubin NEGATIVE Urine Urobilinogen 0.2 E.U./dL Urine Leukocyte Esterase NEGATIVE Urine Microscopic RBC 10-25 Urine Microscopic WBC 5-10 Urine Transitional Epithelial Cells FEW Urine Bacteria MODERATE Urine Hemoglobin 3+ H Urine Glucose 0.5% H Urine Total Protein 2+ H White Blood Count 20.3 H Red Blood Count 5.01 Hemoglobin 15.5 Hematocrit 45.3 Mean Corpuscular Volume 90.4 Mean Corpuscular Hemoglobin 30.9 Mean Corpuscular Hemoglobin Concent 34.2 Red Cell Distribution Width 12.5 Platelet Count 297 Mean Platelet Volume 10.4 Neutrophils % 85.1 H Lymphocytes % 6.7 L Monocytes % 6.6 Eosinophils % 0.1 Basophils % 0.2 Nucleated Red Blood Cells % 0.1 H Neutrophils # 17.3 H Lymphocytes # 1.4 Monocytes # 1.4 H Eosinophils # 0.0 Basophils # 0.0 Nucleated Red Blood Cells # 0.0 Bedside Glucose 159 Test 02/10/17 18:26 02/10/17 19:30 02/10/17 22:05 02/11/17 00:45 Activated Partial Thromboplast Time 78.9 *H 83.9 *H Creatine Kinase 9458 H Creatine Kinase Index 2.9 Creatinine Kinase MB (Mass) 276.00 H Troponin I 88.100 *H Bedside Glucose 126 Test 02/11/17 01:58 02/11/17 04:00 02/11/17 05:55 Bedside Glucose 117 138 White Blood Count 8.6 # Red Blood Count 4.56 L Hemoglobin 14.4 Hematocrit 40.7 L Mean Corpuscular Volume 89.3 Mean Corpuscular Hemoglobin 31.6 Mean Corpuscular Hemoglobin Concent 35.4 Red Cell Distribution Width 12.7 Platelet Count 218 # Mean Platelet Volume 11.2 H Neutrophils % 71.1 Lymphocytes % 19.7 Monocytes % 8.7 Eosinophils % 0.0 Basophils % 0.2 Nucleated Red Blood Cells % 0.0 Neutrophils # 6.1 Lymphocytes # 1.7 Monocytes # 0.8 Eosinophils # 0.0 Basophils # 0.0 Nucleated Red Blood Cells # 0.0 Activated Partial Thromboplast Time 78.0 *H Sodium Level 136 Potassium Level 4.3 Chloride Level 106 Carbon Dioxide Level 17 L Anion Gap 17 H Blood Urea Nitrogen 40 #H Creatinine 3.49 #H Glucose Level 142 # Uric Acid 8.0 H Calcium Level 7.2 L Phosphorus Level 2.0 L Magnesium Level 1.6 L Total Bilirubin 0.4 Direct Bilirubin 0.00 Indirect Bilirubin 0.4 Aspartate Amino Transf (AST/SGOT) 312 H Alanine Aminotransferase (ALT/SGPT) 190 H Alkaline Phosphatase 56 # Total Protein 5.4 L Albumin 3.4 # Globulin 2.00 Albumin/Globulin Ratio 1.70 Medications Medications Current Medications Miscellaneous Information Hold all Metformin ... ONCE XX ; Start 02/10/17 at 09: 00; Stop 02/12/17 at 08:59 Propofol 100 ml @ 2.727 mls/ hr Q12H IV Last administered on 02/11/17 06:59; Admin Dose 17.987 MLS/HR; Start 02/10/17 at 10:00 Piperacillin Sod/ Tazobactam Sod 100 ml @ 200 mls/hr Q8 IVPB Last administered on 02/11/17 05:22; Admin Dose 200 MLS/HR; Start 02/10/17 at 11:30 Phenylephrine HCl/ Dextrose (Zach-Syneph/D5W) 500 ml @ 18.75 mls/ hr TITRATE IV Last administered on 02/10/17 13:22; Admin Dose 26.25 MLS/HR; Start 02/10/17 at 13:00 Lorazepam (Ativan) 0.5 mg Q6H PRN IV ANXIETY; Start 02/10/17 at 12:30 Ondansetron HCl (Zofran Inj) 4 mg Q6H PRN IV NAUSEA AND/OR VOMITING; Start at 12:30 Acetaminophen (Tylenol Tab) 650 mg Q6H PRN PO PAIN LEVEL 1-3 OR FEVER Last administered on 02/10/17 21:39; Admin Dose 650 MG; Start 02/10/17 at 12:30 Acetaminophen/ Hydrocodone Bitart ([place] (5/325)) 1 tab Q6H PRN PO PAIN LEVEL 4 -6; Start 02/10/17 at 12:30 Morphine Sulfate (morphine) 2 mg Q4H PRN IV PAIN LEVEL 7-10; Start 02/10/17 at 12:30 Insulin Aspart NOVOLOG *MILD* ALGORITHM Q4 SC Last administered on 02/10/17 17 :10; Admin Dose 1 UNIT; Start 02/10/17 at 13:00 Sodium Chloride (NS) 1,000 ml @ 50 mls/hr Q20H IV Last administered on 13:44; Admin Dose 50 MLS/HR; Start 02/10/17 at 13:30 Miscellaneous Information 1 ea NOTE XX ; Start 02/10/17 at 13:30 Glucose (Glutose) 15 gm Q15M PRN PO DECREASED GLUCOSE; Start 02/10/17 at 13:30 Glucose (Glutose) 22.5 gm Q15M PRN PO DECREASED GLUCOSE; Start 02/10/17 at 13: 30 Dextrose (D50w Syringe) 25 ml Q15M PRN IV DECREASED GLUCOSE; Start 02/10/17 at 13:30 Dextrose (D50w Syringe) 50 ml Q15M PRN IV DECREASED GLUCOSE; Start 02/10/17 at 13:30 Glucagon (Glucagen) 1 mg Q15M PRN IM DECREASED GLUCOSE; Start 02/10/17 at 13:30 Glucose 15 gm 15 gm Q15M PRN BUCCAL DECREASED GLUCOSE; Start 02/10/17 at 13:30 Amiodarone HCl 900 mg/Dextrose 500 ml @ 0 mls/hr Q0M IV Last administered on 09:00; Admin Dose 33.4 MLS/HR; Start 02/10/17 at 15:00; Stop 02/11/17 at 14:59 Norepinephrine 16 mg/Dextrose 500 ml @ 0 mls/hr TITRATE IV ; Start 02/10/17 at 21:00 Dopamine HCl 1600 mg/Dextrose 250 ml @ 1.7 mls/hr TITRATE IV Last administered on 02/11/17 05:27; Admin Dose 8.52 MLS/HR; Start 02/10/17 at 18:00 Sodium Bicarbonate/ Dextrose (Na Bicarb/D5W) 1,100 ml @ 80 mls/hr [id number] IV Last administered on 02/10/17 21:06; Admin Dose 80 MLS/HR; Start 02/10/17 at 20 :30 Pantoprazole (Protonix Iv) 40 mg BID@06,18 IV Last administered on 02/11/17 05 :23; Admin Dose 40 MG; Start 02/11/17 at 06:00 ANGELINA VALDEZ 17, 2017 08:06
--- NOTE | 2017-02-11 09:25 | RADRPT ---
PROCEDURE: Chest 1 views. CLINICAL INDICATION: Shortness of breath TECHNIQUE: AP views of the chest was obtained. COMPARISON: Yesterday FINDINGS: The heart is large. Endotracheal tube is stable and appears in grossly appropriate location. Nasoga stric tube has its distal end in the expected location of the stomach. Aortic balloon pump continue s to have its proximal marker over the expected location of the mid descending thoracic aorta. The lungs are hypoinflated. Subsegmental atelectasis is seen in the left lower lobe. No consolidations are identified. No pneumothorax is seen. Osseous structures are unchanged. IMPRESSION: Cardiomegaly . Aortic balloon pump that continues to have its proximal marker in the mid descending thoracic aorta. Advancement by approximately 5 cm can be considered. Nasogastric tube with its distal end in the expected location of the stomach. Subsegmental atelectasis in the left lower lobe. RPTAT: AA .Remington Burgess MD, Date Time Electronically viewed and signed by .Remington Burgess MD, on 02/11/2017 09:25 .P/
[2017-02-11] MEDS: SOD CHLORIDE 0.9% 1,000 ML IV SCH (09:30)
--- NOTE | 2017-02-11 09:49 | PN ---
Date/Time of Note Date/Time of Note DATE: 02/11/17 TIME: 09:48 Assessment/Plan VTE Prophylaxis VTE Prophylaxis Intervention: heparin Lines/Catheters IV Catheter Type (from [facility]): A Line Urinary Cath still in place: Yes Reason Cath still needed: other (indicate) Assessment/Plan Chief Complaint/Hosp Course 1. Cardiac arrest. Status post left heart catheterization and coronary angioplasty with placement of a stent and placement of intraaortic balloon pump. The patient's underlying neuro status is unclear at this time. The patient is unstable to undergo any brain imaging at this time. The patient was not started on any hypothermia protocol since the patient was moving and was vaguely following commands. 2. Cardiogenic shock. Most probably secondary to underlying cardiac arrest. The patient is currently on pressors to optimize blood pressure. The patient is also on intraaortic counterpulsation therapy. 3. CAD. Status post coronary artery stenting. Initiation of antiplatelet therapy and statins will be deferred to cardiology. 2D echocardiogram showing preserved left ventricular ejection fraction. 4. Urinary tract infection. Continue antibiotics. 5. Metabolic acidosis. Most probably secondary to underlying cardiac arrest. Bicarbonate management as per nephrology. 6. Acute kidney injury. Nonoliguric. Unknown baseline creatinine. Nephrotoxic drugs will be avoided on this patient. The patient will be adequately hydrated using IV fluids. 7. Hyperglycemia. Hemoglobin A1c 6.2. Continue sliding scale insulin. 8. Transaminitis without hyperbilirubinemia. Most probably secondary to underlying shock. Trend LFTs. Avoid hepatotoxic medications. 9. Fluids, electrolytes, and nutrition. N.p.o. 10. DVT prophylaxis. On heparin drip. 11. Gastrointestinal prophylaxis. Proton pump inhibitors. 12. Plan. Continue intensive care monitoring. Weaning off IABP as per cardiology. Evaluation of neuro status with CT scan of the brain when the patient is more stable. Case discussed with Dr. Welch. Critical care time: 40 minutes. Problems: Subjective 24 Hr Interval Summary Free Text/Dictation Drips 1. Heparin 2. Amiodarone 3. Propofol 4. Dopamine 5. Zach-Synephrine Patient remains on IABP therapy. Had febrile episodes overnight. Exam/Review of Systems Vital Signs Vitals Vital Signs Date Time Temp Pulse Resp B/P Pulse Ox O2 Delivery O2 Flow Rate FiO2 02/11/17 09:14 79 20 99/53 99 02/11/17 08:00 50 02/11/17 07:59 98.4 02/11/17 06:00 Mechanical Ventilator Intake and Output 02/10/17 02/10/17 02/11/17 15:00 23:00 07:00 Intake Total 755 ml 2336.190 ml 1223.386 ml Output Total 30 ml 340 ml 1200 ml Balance 725 ml 1996.190 ml 23.386 ml Exam GENERAL: This is an obese male, lying in bed, orally intubated. HEENT: Head is normocephalic and atraumatic. Eyes: Anicteric sclerae. Conjunctivae are clear. ENT: Nasal septum is midline. Oral mucosa is dry. Orally intubated. NECK: Supple. No JVD noticed. RESPIRATORY: Bilaterally diminished breath sounds. Orally intubated and mechanical ventilated, on AC mode ventilation. CARDIAC: S1, S2 heard. Regular rate and rhythm. The patient has an intraaortic balloon pump in place. ABDOMEN: Soft. Bowel sounds hypoactive. GENITOURINARY: The patient has a Mckeon catheter in place. The right groin has an arterial sheath connected to right groin intraaortic balloon pump. EXTREMITIES: No cyanosis, no clubbing, no edema. Peripheral pulses are palpable. NEUROLOGIC: The patient is sedated. He has bilateral soft wrist restraints on. Results Result Diagram: 02/11/17 0400 02/11/17 0400 Results 24 hrs Laboratory Tests Test 02/10/17 10:55 02/10/17 10:58 02/10/17 13:24 02/10/17 13:30 White Blood Count 22.9 H Red Blood Count 5.01 Hemoglobin 15.9 Hematocrit 46.0 Mean Corpuscular Volume 91.8 Mean Corpuscular Hemoglobin 31.7 Mean Corpuscular Hemoglobin Concent 34.6 Red Cell Distribution Width 12.5 Platelet Count 317 Mean Platelet Volume 10.4 Neutrophils % 84.0 H Lymphocytes % 9.7 L Monocytes % 2.2 Eosinophils % 0.4 Basophils % 0.3 Nucleated Red Blood Cells % 0.1 H Neutrophils # 19.2 H Lymphocytes # 2.2 Monocytes # 0.5 Eosinophils # 0.1 Basophils # 0.1 Nucleated Red Blood Cells # 0.0 Prothrombin Time 14.2 Prothrombin Time Ratio 1.1 INR International Normalized Ratio 1.10 Activated Partial Thromboplast Time 28.4 Hemoglobin A1c 6.2 H B-Type Natriuretic Peptide 511 H Thyroid Stimulating Hormone (TSH) 3.820 Free Thyroxine 0.89 Blood Gas Specimen Source Blood arterial Arterial Blood Date Drawn 02/10/2017 11:00:47 AM Arterial Blood pH (Temp corrected) 7.282 *L Arterial Blood pCO2 (Temp correct) 29.6 L Arterial Blood pO2 (Temp corrected) 82.8 Arterial Blood HCO3 13.7 L Arterial Blood Base Excess -11.4 L Arterial Blood Oxygen Saturation 94.7 L Tirso Test N/A Arterial Blood Gas Puncture Site A-Line Arterial Blood Carboxyhemoglobin 0.3 Arterial Blood Methemoglobin 0.3 Blood Gas A-a O2 Differential 600.6 H Oxyhemoglobin Percent 94.1 Total Hemoglobin 16.7 Blood Gas Temperature 37.0 Blood Gas Respiration Rate 20.0 Blood Gas Actual Respiration Rate 20 Blood Gas Modality VENT - AC FiO2 100.0 Blood Gas Tidal Volume 600.0 Blood Gas High PEEP Setting 5.0 Blood Gas Critical Value Read Back L KALYAN RN Blood Gas Notified Whom TM Blood Gas Notified Time 02/10/2017 11:11:01 AM Bedside Glucose 189 Sodium Level 140 Potassium Level 4.2 Chloride Level 110 Carbon Dioxide Level 17 L Anion Gap 17 H Blood Urea Nitrogen 25 H Creatinine 1.95 H Glucose Level 199 Calcium Level 7.9 L Magnesium Level 2.3 Total Bilirubin 0.4 Direct Bilirubin 0.00 Indirect Bilirubin 0.4 Aspartate Amino Transf (AST/SGOT) 584 H Alanine Aminotransferase (ALT/SGPT) 283 H Alkaline Phosphatase 120 Creatine Kinase 8072 H Creatine Kinase Index 3.6 Creatinine Kinase MB (Mass) 287.00 H Troponin I 52.200 *H Total Protein 5.3 L Albumin 4.4 Globulin 0.90 L Albumin/Globulin Ratio 4.88 Test 02/10/17 13:49 02/10/17 14:00 02/10/17 15:05 02/10/17 16:54 Blood Gas Specimen Source Blood arterial Arterial Blood Date Drawn 02/10/2017 2:40:17 PM Arterial Blood pH (Temp corrected) 7.350 Arterial Blood pCO2 (Temp correct) 31.2 L Arterial Blood pO2 (Temp corrected) 360.1 H Arterial Blood HCO3 16.8 L Arterial Blood Base Excess -7.3 L Arterial Blood Oxygen Saturation 99.5 H Tirso Test N/A Arterial Blood Gas Puncture Site A-Line Arterial Blood Carboxyhemoglobin 0.3 Arterial Blood Methemoglobin 0.4 Blood Gas A-a O2 Differential 321.7 H Oxyhemoglobin Percent 98.8 Total Hemoglobin 17.3 Blood Gas Temperature 37.0 Blood Gas Respiration Rate 20.0 Blood Gas Actual Respiration Rate 20 Blood Gas Modality VENT - AC FiO2 100.0 Blood Gas Tidal Volume 600.0 Blood Gas High PEEP Setting 5.0 Blood Gas Notified Whom TM Blood Gas Notified Time 02/10/2017 2:46:55 PM Urine Color LT. YELLOW Urine Clarity CLOUDY H Urine pH 6.0 Urine Specific [place] 1.025 Urine Ketones NEGATIVE Urine Nitrite NEGATIVE Urine Bilirubin NEGATIVE Urine Urobilinogen 0.2 E.U./dL Urine Leukocyte Esterase NEGATIVE Urine Microscopic RBC 10-25 Urine Microscopic WBC 5-10 Urine Transitional Epithelial Cells FEW Urine Bacteria MODERATE Urine Hemoglobin 3+ H Urine Glucose 0.5% H Urine Total Protein 2+ H White Blood Count 20.3 H Red Blood Count 5.01 Hemoglobin 15.5 Hematocrit 45.3 Mean Corpuscular Volume 90.4 Mean Corpuscular Hemoglobin 30.9 Mean Corpuscular Hemoglobin Concent 34.2 Red Cell Distribution Width 12.5 Platelet Count 297 Mean Platelet Volume 10.4 Neutrophils % 85.1 H Lymphocytes % 6.7 L Monocytes % 6.6 Eosinophils % 0.1 Basophils % 0.2 Nucleated Red Blood Cells % 0.1 H Neutrophils # 17.3 H Lymphocytes # 1.4 Monocytes # 1.4 H Eosinophils # 0.0 Basophils # 0.0 Nucleated Red Blood Cells # 0.0 Bedside Glucose 159 Test 02/10/17 18:26 02/10/17 19:30 02/10/17 22:05 02/11/17 00:45 Activated Partial Thromboplast Time 78.9 *H 83.9 *H Creatine Kinase 9458 H Creatine Kinase Index 2.9 Creatinine Kinase MB (Mass) 276.00 H Troponin I 88.100 *H Bedside Glucose 126 Test 02/11/17 01:58 02/11/17 04:00 02/11/17 05:55 02/11/17 08:30 Bedside Glucose 117 138 125 White Blood Count 8.6 # Red Blood Count 4.56 L Hemoglobin 14.4 Hematocrit 40.7 L Mean Corpuscular Volume 89.3 Mean Corpuscular Hemoglobin 31.6 Mean Corpuscular Hemoglobin Concent 35.4 Red Cell Distribution Width 12.7 Platelet Count 218 # Mean Platelet Volume 11.2 H Neutrophils % 71.1 Lymphocytes % 19.7 Monocytes % 8.7 Eosinophils % 0.0 Basophils % 0.2 Nucleated Red Blood Cells % 0.0 Neutrophils # 6.1 Lymphocytes # 1.7 Monocytes # 0.8 Eosinophils # 0.0 Basophils # 0.0 Nucleated Red Blood Cells # 0.0 Activated Partial Thromboplast Time 78.0 *H Sodium Level 136 Potassium Level 4.3 Chloride Level 106 Carbon Dioxide Level 17 L Anion Gap 17 H Blood Urea Nitrogen 40 #H Creatinine 3.49 #H Glucose Level 142 # Uric Acid 8.0 H Calcium Level 7.2 L Phosphorus Level 2.0 L Magnesium Level 1.6 L Total Bilirubin 0.4 Direct Bilirubin 0.00 Indirect Bilirubin 0.4 Aspartate Amino Transf (AST/SGOT) 312 H Alanine Aminotransferase (ALT/SGPT) 190 H Alkaline Phosphatase 56 # Total Protein 5.4 L Albumin 3.4 # Globulin 2.00 Albumin/Globulin Ratio 1.70 Medications Medications Current Medications Miscellaneous Information Hold all Metformin ... ONCE XX ; Start 02/10/17 at 09: 00; Stop 02/12/17 at 08:59 Propofol 100 ml @ 2.727 mls/ hr Q12H IV Last administered on 02/11/17 06:59; Admin Dose 17.987 MLS/HR; Start 02/10/17 at 10:00 Piperacillin Sod/ Tazobactam Sod 100 ml @ 200 mls/hr Q8 IVPB Last administered on 02/11/17 05:22; Admin Dose 200 MLS/HR; Start 02/10/17 at 11:30 Phenylephrine HCl/ Dextrose (Zach-Syneph/D5W) 500 ml @ 18.75 mls/ hr TITRATE IV Last administered on 02/10/17 13:22; Admin Dose 26.25 MLS/HR; Start 02/10/17 at 13:00 Lorazepam (Ativan) 0.5 mg Q6H PRN IV ANXIETY; Start 02/10/17 at 12:30 Ondansetron HCl (Zofran Inj) 4 mg Q6H PRN IV NAUSEA AND/OR VOMITING; Start at 12:30 Acetaminophen (Tylenol Tab) 650 mg Q6H PRN PO PAIN LEVEL 1-3 OR FEVER Last administered on 02/10/17 21:39; Admin Dose 650 MG; Start 02/10/17 at 12:30 Acetaminophen/ Hydrocodone Bitart ([place] (5/325)) 1 tab Q6H PRN PO PAIN LEVEL 4 -6; Start 02/10/17 at 12:30 Morphine Sulfate (morphine) 2 mg Q4H PRN IV PAIN LEVEL 7-10; Start 02/10/17 at 12:30 Insulin Aspart NOVOLOG *MILD* ALGORITHM Q4 SC Last administered on 02/10/17 17 :10; Admin Dose 1 UNIT; Start 02/10/17 at 13:00 Sodium Chloride (NS) 1,000 ml @ 50 mls/hr Q20H IV Last administered on 13:44; Admin Dose 50 MLS/HR; Start 02/10/17 at 13:30 Miscellaneous Information 1 ea NOTE XX ; Start 02/10/17 at 13:30 Glucose (Glutose) 15 gm Q15M PRN PO DECREASED GLUCOSE; Start 02/10/17 at 13:30 Glucose (Glutose) 22.5 gm Q15M PRN PO DECREASED GLUCOSE; Start 02/10/17 at 13: 30 Dextrose (D50w Syringe) 25 ml Q15M PRN IV DECREASED GLUCOSE; Start 02/10/17 at 13:30 Dextrose (D50w Syringe) 50 ml Q15M PRN IV DECREASED GLUCOSE; Start 02/10/17 at 13:30 Glucagon (Glucagen) 1 mg Q15M PRN IM DECREASED GLUCOSE; Start 02/10/17 at 13:30 Glucose 15 gm 15 gm Q15M PRN BUCCAL DECREASED GLUCOSE; Start 02/10/17 at 13:30 Amiodarone HCl 900 mg/Dextrose 500 ml @ 0 mls/hr Q0M IV Last administered on 09:00; Admin Dose 33.4 MLS/HR; Start 02/10/17 at 15:00; Stop 02/11/17 at 14:59 Norepinephrine 16 mg/Dextrose 500 ml @ 0 mls/hr TITRATE IV ; Start 02/10/17 at 21:00 Dopamine HCl 1600 mg/Dextrose 250 ml @ 1.7 mls/hr TITRATE IV Last administered on 02/11/17 05:27; Admin Dose 8.52 MLS/HR; Start 02/10/17 at 18:00 Sodium Bicarbonate/ Dextrose (Na Bicarb/D5W) 1,100 ml @ 80 mls/hr [id number] IV Last administered on 02/10/17 21:06; Admin Dose 80 MLS/HR; Start 02/10/17 at 20 :30 Pantoprazole (Protonix Iv) 40 mg BID@06,18 IV Last administered on 02/11/17 05 :23; Admin Dose 40 MG; Start 02/11/17 at 06:00 HUBERT KUNZ NP Feb 11, 2017 09:49
[2017-02-11 09:51] LABS: PROTEIN/CREAT RATIO 1.94 RATIO
[2017-02-11] MEDS ORDERED: MAGNESIUM SULFATE 2 GM/50 ML 50 ML IVPB ONE (10:00)
[2017-02-11 10:04] LABS: LYMPHOCYTES # 1.2 10^3/ul (0.8-2.9); MONOCYTE # 0.4 10^3/ul (0.3-0.9); NEUTROPHIL # 5.2 10^3/ul (1.6-7.5)
[2017-02-11 10:06] LABS: POIKILOCYTOSIS 2+
[2017-02-11 10:07] LABS: BURR CELLS MANY
[2017-02-11 10:08] LABS: BARBITURATES Negative (NEGATIVE); BENZODIAZEPINES Positive (NEGATIVE); CANNABINOIDS Negative (NEGATIVE); COCAINE Negative (NEGATIVE); OPIATES Negative (NEGATIVE)
[2017-02-11] MEDS ORDERED: FUROSEMIDE 20 MG INJ IV ONE (12:00)
[2017-02-11] MEDS ORDERED: SOD CHLORIDE 0.9% 500 ML IV ONE (12:00)
[2017-02-11] MEDS ORDERED: POTASSIUM PHOSPHATE 15 MM in SOD CHLORIDE 0.9% 250 ML IVPB ONE (12:00)
[2017-02-11] MEDS ORDERED: ALBUMIN HUMAN 25% 100 ML IV ONE (12:00)
--- NOTE | 2017-02-11 12:18 | CONS ---
Date/Time of Note Date/Time of Note DATE: 02/11/17 TIME: 11:40 Consult Date/Type/Reason Admit Date/Time Feb 10, 2017 at 08:37 Initial Consult Date 02/10/17 Type of Consultation: Interventional Cardiology Objective Vital Signs Date Time Temp Pulse Resp B/P Pulse Ox O2 Delivery O2 Flow Rate FiO2 02/11/17 09:14 79 20 99/53 99 02/11/17 08:00 50 02/11/17 07:59 98.4 02/11/17 06:00 Mechanical Ventilator Intake and Output 02/10/17 02/10/17 02/11/17 15:00 23:00 07:00 Intake Total 755 ml 2336.190 ml 1223.386 ml Output Total 30 ml 340 ml 1200 ml Balance 725 ml 1996.190 ml 23.386 ml Results/Medications Result Diagram: 02/11/17 0400 02/11/17 0400 Results 24 hrs Laboratory Tests Test 02/10/17 13:24 02/10/17 13:30 02/10/17 13:49 02/10/17 14:00 Bedside Glucose 189 Sodium Level 140 Potassium Level 4.2 Chloride Level 110 Carbon Dioxide Level 17 L Anion Gap 17 H Blood Urea Nitrogen 25 H Creatinine 1.95 H Glucose Level 199 Calcium Level 7.9 L Magnesium Level 2.3 Total Bilirubin 0.4 Direct Bilirubin 0.00 Indirect Bilirubin 0.4 Aspartate Amino Transf (AST/SGOT) 584 H Alanine Aminotransferase (ALT/SGPT) 283 H Alkaline Phosphatase 120 Creatine Kinase 8072 H Creatine Kinase Index 3.6 Creatinine Kinase MB (Mass) 287.00 H Troponin I 52.200 *H Total Protein 5.3 L Albumin 4.4 Globulin 0.90 L Albumin/Globulin Ratio 4.88 Blood Gas Specimen Source Blood arterial Arterial Blood Date Drawn 02/10/2017 2:40:17 PM Arterial Blood pH (Temp corrected) 7.350 Arterial Blood pCO2 (Temp correct) 31.2 L Arterial Blood pO2 (Temp corrected) 360.1 H Arterial Blood HCO3 16.8 L Arterial Blood Base Excess -7.3 L Arterial Blood Oxygen Saturation 99.5 H Tirso Test N/A Arterial Blood Gas Puncture Site A-Line Arterial Blood Carboxyhemoglobin 0.3 Arterial Blood Methemoglobin 0.4 Blood Gas A-a O2 Differential 321.7 H Oxyhemoglobin Percent 98.8 Total Hemoglobin 17.3 Blood Gas Temperature 37.0 Blood Gas Respiration Rate 20.0 Blood Gas Actual Respiration Rate 20 Blood Gas Modality VENT - AC FiO2 100.0 Blood Gas Tidal Volume 600.0 Blood Gas High PEEP Setting 5.0 Blood Gas Notified Whom TM Blood Gas Notified Time 02/10/2017 2:46:55 PM Urine Color LT. YELLOW Urine Clarity CLOUDY H Urine pH 6.0 Urine Specific [place] 1.025 Urine Ketones NEGATIVE Urine Nitrite NEGATIVE Urine Bilirubin NEGATIVE Urine Urobilinogen 0.2 E.U./dL Urine Leukocyte Esterase NEGATIVE Urine Microscopic RBC 10-25 Urine Microscopic WBC 5-10 Urine Transitional Epithelial Cells FEW Urine Bacteria MODERATE Urine Hemoglobin 3+ H Urine Glucose 0.5% H Urine Total Protein 2+ H Test 02/10/17 15:05 02/10/17 16:54 02/10/17 18:26 02/10/17 19:30 White Blood Count 20.3 H Red Blood Count 5.01 Hemoglobin 15.5 Hematocrit 45.3 Mean Corpuscular Volume 90.4 Mean Corpuscular Hemoglobin 30.9 Mean Corpuscular Hemoglobin Concent 34.2 Red Cell Distribution Width 12.5 Platelet Count 297 Mean Platelet Volume 10.4 Neutrophils % 85.1 H Lymphocytes % 6.7 L Monocytes % 6.6 Eosinophils % 0.1 Basophils % 0.2 Nucleated Red Blood Cells % 0.1 H Neutrophils # 17.3 H Lymphocytes # 1.4 Monocytes # 1.4 H Eosinophils # 0.0 Basophils # 0.0 Nucleated Red Blood Cells # 0.0 Bedside Glucose 159 Activated Partial Thromboplast Time 78.9 *H Creatine Kinase 9458 H Creatine Kinase Index 2.9 Creatinine Kinase MB (Mass) 276.00 H Troponin I 88.100 *H Test 02/10/17 22:05 02/11/17 00:45 02/11/17 01:58 02/11/17 04:00 Bedside Glucose 126 117 Activated Partial Thromboplast Time 83.9 *H 78.0 *H White Blood Count 8.6 # Red Blood Count 4.56 L Hemoglobin 14.4 Hematocrit 40.7 L Mean Corpuscular Volume 89.3 Mean Corpuscular Hemoglobin 31.6 Mean Corpuscular Hemoglobin Concent 35.4 Red Cell Distribution Width 12.7 Platelet Count 218 # Mean Platelet Volume 11.2 H Neutrophils % 60.0 Band Neutrophils % 21.0 H Lymphocytes % 14.0 L Monocytes % 5.0 Eosinophils % Basophils % Nucleated Red Blood Cells % Neutrophils # 5.2 Lymphocytes # 1.2 Monocytes # 0.4 Eosinophils # Basophils # Nucleated Red Blood Cells # Poikilocytosis 2+ Sodium Level 136 Potassium Level 4.3 Chloride Level 106 Carbon Dioxide Level 17 L Anion Gap 17 H Blood Urea Nitrogen 40 #H Creatinine 3.49 #H Glucose Level 142 # Uric Acid 8.0 H Calcium Level 7.2 L Phosphorus Level 2.0 L Magnesium Level 1.6 L Total Bilirubin 0.4 Direct Bilirubin 0.00 Indirect Bilirubin 0.4 Aspartate Amino Transf (AST/SGOT) 312 H Alanine Aminotransferase (ALT/SGPT) 190 H Alkaline Phosphatase 56 # Total Protein 5.4 L Albumin 3.4 # Globulin 2.00 Albumin/Globulin Ratio 1.70 Triglycerides Level 102 Cholesterol Level 150 LDL Cholesterol, Calculated 80 HDL Cholesterol 50 Cholesterol/HDL Ratio 3.0 Test 02/11/17 05:55 02/11/17 06:00 02/11/17 08:30 Bedside Glucose 138 125 Urine Eosinophils % 0.0 Urine Random Creatinine 41.57 Urine Random Sodium 67 Urine Protein/Creatinine Ratio 1.94 Urine Total Protein 81.0 H Urine Opiates Screen Negative Urine Barbiturates Negative Urine Amphetamines Screen POSITIVE Urine Benzodiazepines Screen Positive Urine Cocaine Screen Negative Urine Cannabinoids Negative Medications Current Medications Miscellaneous Information Hold all Metformin ... ONCE XX ; Start 02/10/17 at 09: 00; Stop 02/12/17 at 08:59 Propofol 100 ml @ 2.727 mls/ hr Q12H IV Last administered on 02/11/17 06:59; Admin Dose 17.987 MLS/HR; Start 02/10/17 at 10:00 Piperacillin Sod/ Tazobactam Sod 100 ml @ 200 mls/hr Q8 IVPB Last administered on 02/11/17 05:22; Admin Dose 200 MLS/HR; Start 02/10/17 at 11:30 Phenylephrine HCl/ Dextrose (Zach-Syneph/D5W) 500 ml @ 18.75 mls/ hr TITRATE IV Last administered on 02/10/17 13:22; Admin Dose 26.25 MLS/HR; Start 02/10/17 at 13:00 Lorazepam (Ativan) 0.5 mg Q6H PRN IV ANXIETY; Start 02/10/17 at 12:30 Ondansetron HCl (Zofran Inj) 4 mg Q6H PRN IV NAUSEA AND/OR VOMITING; Start at 12:30 Acetaminophen (Tylenol Tab) 650 mg Q6H PRN PO PAIN LEVEL 1-3 OR FEVER Last administered on 02/10/17 21:39; Admin Dose 650 MG; Start 02/10/17 at 12:30 Acetaminophen/ Hydrocodone Bitart ([place] (5/325)) 1 tab Q6H PRN PO PAIN LEVEL 4 -6; Start 02/10/17 at 12:30 Morphine Sulfate (morphine) 2 mg Q4H PRN IV PAIN LEVEL 7-10; Start 02/10/17 at 12:30 Insulin Aspart NOVOLOG *MILD* ALGORITHM Q4 SC Last administered on 02/10/17 17 :10; Admin Dose 1 UNIT; Start 02/10/17 at 13:00 Sodium Chloride (NS) 1,000 ml @ 50 mls/hr Q20H IV Last administered on 13:44; Admin Dose 50 MLS/HR; Start 02/10/17 at 13:30 Miscellaneous Information 1 ea NOTE XX ; Start 02/10/17 at 13:30 Glucose (Glutose) 15 gm Q15M PRN PO DECREASED GLUCOSE; Start 02/10/17 at 13:30 Glucose (Glutose) 22.5 gm Q15M PRN PO DECREASED GLUCOSE; Start 02/10/17 at 13: 30 Dextrose (D50w Syringe) 25 ml Q15M PRN IV DECREASED GLUCOSE; Start 02/10/17 at 13:30 Dextrose (D50w Syringe) 50 ml Q15M PRN IV DECREASED GLUCOSE; Start 02/10/17 at 13:30 Glucagon (Glucagen) 1 mg Q15M PRN IM DECREASED GLUCOSE; Start 02/10/17 at 13:30 Glucose 15 gm 15 gm Q15M PRN BUCCAL DECREASED GLUCOSE; Start 02/10/17 at 13:30 Amiodarone HCl 900 mg/Dextrose 500 ml @ 0 mls/hr Q0M IV Last administered on 09:00; Admin Dose 33.4 MLS/HR; Start 02/10/17 at 15:00; Stop 02/11/17 at 14:59 Norepinephrine 16 mg/Dextrose 500 ml @ 0 mls/hr TITRATE IV ; Start 02/10/17 at 21:00 Dopamine HCl 1600 mg/Dextrose 250 ml @ 1.7 mls/hr TITRATE IV Last administered on 02/11/17 05:27; Admin Dose 8.52 MLS/HR; Start 02/10/17 at 18:00 Sodium Bicarbonate/ Dextrose (Na Bicarb/D5W) 1,100 ml @ 80 mls/hr [id number] IV Last administered on 02/10/17 21:06; Admin Dose 80 MLS/HR; Start 02/10/17 at 20 :30 Pantoprazole 40 mg 40 mg BID@06,18 IV Last administered on 02/11/17 05:23; Admin Dose 40 MG; Start 02/11/17 at 06:00 Magnesium Sulfate 50 ml @ 25 mls/hr ONCE ONCE IVPB ; Start 02/11/17 at 10:00; Stop 02/11/17 at 11:59 Potassium Phosphate/Sodium Chloride (K Phos (Mm)/NS) 255 ml @ 63.75 mls/ hr ONCE ONCE IVPB ; Start 02/11/17 at 12:00; Stop 02/11/17 at 15:59 Ticagrelor (Brilinta) 90 mg BID PO ; Start 02/11/17 at 12:00 Aspirin (Halfprin) 81 mg DAILY PO ; Start 02/11/17 at 12:00 Assessment/Plan Problems: (1) Cardiac arrest (2) Ventricular fibrillation (3) ST elevation myocardial infarction (STEMI) of anterior wall Additional Assessment/Plan Patient is still intubated hemodynamically stable Brandy MAP is 76. Plan to keep MAP around 60-65mmHg Cr bumped up likey shock will improve IV fluid FIO2 changed 30 IABP changed to 2:1 Plan to remove IABP tomorrow LENIN DOSHI MD Feb 11, 2017 12:18
[2017-02-11 12:32] LABS: ALBUMIN 3.1 g/dl (3.3-4.9); ALBUMIN/GLOBULIN RATIO 1.47; BILIRUBIN,INDIRECT 0.4 mg/dl (0-1.1); BILIRUBIN,TOTAL 0.4 mg/dl (0.2-1.3); CALCIUM 6.7 mg/dl (8.4-10.2); CREATININE 4.29 mg/dl (0.61-1.24); POTASSIUM 4.3 mmol/L (3.5-5.1); TOTAL PROTEIN 5.2 g/dl (6.1-8.1)
[2017-02-11 14:05] LABS: AADO2 Arterial 116.8 mmHg (7.0-24.0); Arterial Base Excess -8.3 mmol/L (-3.0-3); Arterial COHb 0.3 % (0.0-3.0); Arterial Fraction of Oxyhgb 93.9 % (93.0-99.0); Arterial HCO3 13.8 mmol/L (22.0-26.0); Arterial MetHb 0.3 % (0.0-1.5); Arterial Total Hemglobin 13.5 g/dl (12.0-18.0); MODE VENT - AC
[2017-02-11 14:05] LABS: AADO2 Arterial 221.8 mmHg (7.0-24.0); Allen Test ACCEPTAB; Arterial Base Excess -8.6 mmol/L (-3.0-3); Arterial COHb 0.2 % (0.0-3.0); Arterial Fraction of Oxyhgb 97.3 % (93.0-99.0); Arterial HCO3 14.2 mmol/L (22.0-26.0); Arterial MetHb 0.4 % (0.0-1.5); MODE VENT - AC
--- NOTE | 2017-02-11 14:27 | CONS ---
Date/Time of Note Date/Time of Note DATE: 02/11/17 TIME: 14:25 Assessment/Plan Assessment/Plan Additional Assessment/Plan 1. Oliguric acute kidney injury, likely secondary to ischemic acute tubular necrosis from ST-elevation myocardial infarction and cardiogenic shock. 2. Cardiogenic shock. 3. Acute respiratory failure from cardiac arrest, currently intubated on ventilator. 4. Metabolic acidosis secondary to acute renal failure. 5. No significant past medical history, as per the family. PLAN: U/o slightly better, but pt presistently acidotic, will increase Three ampoultes ot IVF Drip Continue Dopamine and zach for BP support IV albumin + 500 cc NS bolus followed by lasix 20mg iV x 1 dose today will follow up Consultation Date/Type/Reason Admit Date/Time Feb 10, 2017 at 08:37 Initial Consult Date 02/10/17 Type of Consultation: NEPHROLOGY Referring Provider: MARIAJOSE ALMAZAN 24 HR Interval Summary Free Text/Dictation remains intubated, BP stable with dopamine and neosynephrine, U/o 40 cc/hr BUn/Cr rising, HCo3 still low on ABG Exam/Review of Systems Vital Signs Vitals Vital Signs Date Time Temp Pulse Resp B/P Pulse Ox O2 Delivery O2 Flow Rate FiO2 02/11/17 12:00 76 02/11/17 11:30 20 98 50 02/11/17 09:14 99/53 02/11/17 07:59 98.4 02/11/17 06:00 Mechanical Ventilator Intake and Output 02/10/17 02/10/17 02/11/17 15:00 23:00 07:00 Intake Total 755 ml 2336.190 ml 1223.386 ml Output Total 30 ml 340 ml 1200 ml Balance 725 ml 1996.190 ml 23.386 ml Exam GENERAL: The patient is currently sedated, intubated on ventilator. HEENT: ET tube in place. NECK: Supple. No jugular venous distention. No lymphadenopathy. LUNGS: Bilateral coarse breath sounds with minimal expiratory wheezing. HEART: S1, S2, tachycardia, no murmur. ABDOMEN: Soft, nontender, nondistended. EXTREMITIES: 1+ pitting edema with intra-aortic balloon pump in. GENITOURINARY: Mckeon catheter in place. Results Result Diagram: 02/11/17 0400 02/11/17 1155 Results 24 hrs Laboratory Tests Test 02/10/17 15:05 02/10/17 16:54 02/10/17 18:26 02/10/17 19:30 White Blood Count 20.3 H Red Blood Count 5.01 Hemoglobin 15.5 Hematocrit 45.3 Mean Corpuscular Volume 90.4 Mean Corpuscular Hemoglobin 30.9 Mean Corpuscular Hemoglobin Concent 34.2 Red Cell Distribution Width 12.5 Platelet Count 297 Mean Platelet Volume 10.4 Neutrophils % 85.1 H Lymphocytes % 6.7 L Monocytes % 6.6 Eosinophils % 0.1 Basophils % 0.2 Nucleated Red Blood Cells % 0.1 H Neutrophils # 17.3 H Lymphocytes # 1.4 Monocytes # 1.4 H Eosinophils # 0.0 Basophils # 0.0 Nucleated Red Blood Cells # 0.0 Bedside Glucose 159 Activated Partial Thromboplast Time 78.9 *H Creatine Kinase 9458 H Creatine Kinase Index 2.9 Creatinine Kinase MB (Mass) 276.00 H Troponin I 88.100 *H Test 02/10/17 22:05 02/11/17 00:45 02/11/17 01:58 02/11/17 04:00 Bedside Glucose 126 117 Activated Partial Thromboplast Time 83.9 *H 78.0 *H White Blood Count 8.6 # Red Blood Count 4.56 L Hemoglobin 14.4 Hematocrit 40.7 L Mean Corpuscular Volume 89.3 Mean Corpuscular Hemoglobin 31.6 Mean Corpuscular Hemoglobin Concent 35.4 Red Cell Distribution Width 12.7 Platelet Count 218 # Mean Platelet Volume 11.2 H Neutrophils % 60.0 Band Neutrophils % 21.0 H Lymphocytes % 14.0 L Monocytes % 5.0 Eosinophils % Basophils % Nucleated Red Blood Cells % Neutrophils # 5.2 Lymphocytes # 1.2 Monocytes # 0.4 Eosinophils # Basophils # Nucleated Red Blood Cells # Poikilocytosis 2+ Sodium Level 136 Potassium Level 4.3 Chloride Level 106 Carbon Dioxide Level 17 L Anion Gap 17 H Blood Urea Nitrogen 40 #H Creatinine 3.49 #H Glucose Level 142 # Uric Acid 8.0 H Calcium Level 7.2 L Phosphorus Level 2.0 L Magnesium Level 1.6 L Total Bilirubin 0.4 Direct Bilirubin 0.00 Indirect Bilirubin 0.4 Aspartate Amino Transf (AST/SGOT) 312 H Alanine Aminotransferase (ALT/SGPT) 190 H Alkaline Phosphatase 56 # Total Protein 5.4 L Albumin 3.4 # Globulin 2.00 Albumin/Globulin Ratio 1.70 Triglycerides Level 102 Cholesterol Level 150 LDL Cholesterol, Calculated 80 HDL Cholesterol 50 Cholesterol/HDL Ratio 3.0 Test 02/11/17 05:55 02/11/17 06:00 02/11/17 07:12 02/11/17 08:30 Bedside Glucose 138 125 Urine Eosinophils % 0.0 Urine Random Creatinine 41.57 Urine Random Sodium 67 Urine Protein/Creatinine Ratio 1.94 Urine Total Protein 81.0 H Urine Opiates Screen Negative Urine Barbiturates Negative Urine Amphetamines Screen POSITIVE Urine Benzodiazepines Screen Positive Urine Cocaine Screen Negative Urine Cannabinoids Negative Blood Gas Specimen Source Blood arterial Arterial Blood Date Drawn 02/11/2017 7:50:47 AM Arterial Blood pH (Temp corrected) 7.395 Arterial Blood pCO2 (Temp correct) 23.7 L Arterial Blood pO2 (Temp corrected) 108.0 H Arterial Blood HCO3 14.2 L Arterial Blood Base Excess -8.6 L Arterial Blood Oxygen Saturation 97.9 Tirso Test ACCEPTAB Arterial Blood Gas Puncture Site Right Radial Arterial Blood Carboxyhemoglobin 0.2 Arterial Blood Methemoglobin 0.4 Blood Gas A-a O2 Differential 221.8 H Oxyhemoglobin Percent 97.3 Total Hemoglobin 14.0 Blood Gas Temperature 37.0 Blood Gas Respiration Rate 20.0 Blood Gas Actual Respiration Rate 20 Blood Gas Modality VENT - AC FiO2 50.0 Blood Gas Tidal Volume 600.0 Blood Gas Low PEEP Setting 5.0 Blood Gas Notified Whom RT Blood Gas Notified Time 02/11/2017 8:00:46 AM Test 02/11/17 11:55 02/11/17 12:00 Activated Partial Thromboplast Time 66.0 H Sodium Level 135 Potassium Level 4.3 Chloride Level 104 Carbon Dioxide Level 18 L Anion Gap 17 H Blood Urea Nitrogen 45 H Creatinine 4.29 H Glucose Level 127 Calcium Level 6.7 L Total Bilirubin 0.4 Direct Bilirubin 0.00 Indirect Bilirubin 0.4 Aspartate Amino Transf (AST/SGOT) 226 H Alanine Aminotransferase (ALT/SGPT) 166 H Alkaline Phosphatase 47 Total Protein 5.2 L Albumin 3.1 L Globulin 2.10 Albumin/Globulin Ratio 1.47 Blood Gas Specimen Source Blood arterial Arterial Blood Date Drawn 02/11/2017 1:25:44 PM Arterial Blood pH (Temp corrected) 7.427 Arterial Blood pCO2 (Temp correct) 21.4 L Arterial Blood pO2 (Temp corrected) 72.0 L Arterial Blood HCO3 13.8 L Arterial Blood Base Excess -8.3 L Arterial Blood Oxygen Saturation 94.5 L Tirso Test N/A Arterial Blood Gas Puncture Site A-Line Arterial Blood Carboxyhemoglobin 0.3 Arterial Blood Methemoglobin 0.3 Blood Gas A-a O2 Differential 116.8 H Oxyhemoglobin Percent 93.9 Total Hemoglobin 13.5 Blood Gas Temperature 37.0 Blood Gas Respiration Rate 20.0 Blood Gas Actual Respiration Rate 20 Blood Gas Modality VENT - AC FiO2 30.0 Blood Gas Tidal Volume 600.0 Blood Gas High PEEP Setting 5.0 Blood Gas Notified Whom TM Blood Gas Notified Time 02/11/2017 1:33:21 PM Medications Medications Current Medications Miscellaneous Information Hold all Metformin ... ONCE XX ; Start 02/10/17 at 09: 00; Stop 02/12/17 at 08:59 Propofol 100 ml @ 2.727 mls/ hr Q12H IV Last administered on 02/11/17 06:59; Admin Dose 17.987 MLS/HR; Start 02/10/17 at 10:00 Piperacillin Sod/ Tazobactam Sod 100 ml @ 200 mls/hr Q8 IVPB Last administered on 02/11/17 05:22; Admin Dose 200 MLS/HR; Start 02/10/17 at 11:30 Phenylephrine HCl/ Dextrose (Zach-Syneph/D5W) 500 ml @ 18.75 mls/ hr TITRATE IV Last administered on 02/10/17 13:22; Admin Dose 26.25 MLS/HR; Start 02/10/17 at 13:00 Lorazepam (Ativan) 0.5 mg Q6H PRN IV ANXIETY; Start 02/10/17 at 12:30 Ondansetron HCl (Zofran Inj) 4 mg Q6H PRN IV NAUSEA AND/OR VOMITING; Start at 12:30 Acetaminophen (Tylenol Tab) 650 mg Q6H PRN PO PAIN LEVEL 1-3 OR FEVER Last administered on 02/10/17 21:39; Admin Dose 650 MG; Start 02/10/17 at 12:30 Acetaminophen/ Hydrocodone Bitart ([place] (5/325)) 1 tab Q6H PRN PO PAIN LEVEL 4 -6; Start 02/10/17 at 12:30 Morphine Sulfate (morphine) 2 mg Q4H PRN IV PAIN LEVEL 7-10; Start 02/10/17 at 12:30 Insulin Aspart NOVOLOG *MILD* ALGORITHM Q4 SC Last administered on 02/10/17 17 :10; Admin Dose 1 UNIT; Start 02/10/17 at 13:00 Sodium Chloride (NS) 1,000 ml @ 50 mls/hr Q20H IV Last administered on 13:44; Admin Dose 50 MLS/HR; Start 02/10/17 at 13:30 Miscellaneous Information 1 ea NOTE XX ; Start 02/10/17 at 13:30 Glucose (Glutose) 15 gm Q15M PRN PO DECREASED GLUCOSE; Start 02/10/17 at 13:30 Glucose (Glutose) 22.5 gm Q15M PRN PO DECREASED GLUCOSE; Start 02/10/17 at 13: 30 Dextrose (D50w Syringe) 25 ml Q15M PRN IV DECREASED GLUCOSE; Start 02/10/17 at 13:30 Dextrose (D50w Syringe) 50 ml Q15M PRN IV DECREASED GLUCOSE; Start 02/10/17 at 13:30 Glucagon (Glucagen) 1 mg Q15M PRN IM DECREASED GLUCOSE; Start 02/10/17 at 13:30 Glucose 15 gm 15 gm Q15M PRN BUCCAL DECREASED GLUCOSE; Start 02/10/17 at 13:30 Norepinephrine 16 mg/Dextrose 500 ml @ 0 mls/hr TITRATE IV ; Start 02/10/17 at 21:00 Dopamine HCl 1600 mg/Dextrose 250 ml @ 1.7 mls/hr TITRATE IV Last administered on 02/11/17 05:27; Admin Dose 8.52 MLS/HR; Start 02/10/17 at 18:00 Sodium Bicarbonate/ Dextrose (Na Bicarb/D5W) 1,100 ml @ 80 mls/hr [id number] IV Last administered on 02/10/17 21:06; Admin Dose 80 MLS/HR; Start 02/10/17 at 20 :30 Pantoprazole 40 mg 40 mg BID@06,18 IV Last administered on 02/11/17 05:23; Admin Dose 40 MG; Start 02/11/17 at 06:00 Potassium Phosphate/Sodium Chloride (K Phos (Mm)/NS) 255 ml @ 63.75 mls/ hr ONCE ONCE IVPB ; Start 02/11/17 at 12:00; Stop 02/11/17 at 15:59 Ticagrelor (Brilinta) 90 mg BID PO ; Start 02/11/17 at 12:00 Aspirin (Halfprin) 81 mg DAILY PO ; Start 02/11/17 at 12:00 Atorvastatin Calcium (Lipitor) 80 mg HS NGT ; Start 02/11/17 at 21:00 SAILAJA LOUIE MD Feb 11, 2017 14:27
[2017-02-11] MEDS: SODIUM BICARBONATE (IV ADD) 150 MEQ in DEXTROSE 5% 1,000 ML IV SCH (15:28)
[2017-02-11] MEDS: ASPIRIN (EC) 81 MG TAB PO SCH (15:43)
[2017-02-11] MEDS: TICAGRELOR 90 MG TABLET PO SCH ×2 (15:43→20:37)
[2017-02-11] MEDS: ATORVASTATIN 80 MG TAB NGT SCH (20:37)
[2017-02-11] MEDS ORDERED: TICAGRELOR 90 MG TABLET PO SCH (21:00)
[2017-02-12] VITALS (85 sets, daily range): BP systolic 91–139; BP diastolic 51–83; PULSE 80–95; RESP 18–24
[2017-02-12] MEDS: INSULIN ASPART [NOVOLOG] 3 ML PEN SC SCH ×6 (01:00→21:00)
[2017-02-12] MEDS: PROPOFOL 100 ML IV SCH ×5 (01:51→19:25)
[2017-02-12 04:23] LABS: ADD SCAN DIFF NO
[2017-02-12 04:42] LABS: BASOPHILS % 0.2 % (0.0-2.0); EOSINOPHILS # 0.1 10^3/ul (0.0-0.5); EOSINOPHILS % 0.6 % (0.0-7.0); HEMATOCRIT 32.7 % (42.0-52.0); HEMOGLOBIN 11.5 g/dl (14.0-18.0); LYMPHOCYTES # 1.7 10^3/ul (0.8-2.9); LYMPHOCYTES % 17.3 % (15.0-51.0); MEAN CORPUSCULAR HEMOGLOBIN 31.2 pg (29.0-33.0); MEAN CORPUSCULAR HGB CONC 35.2 g/dl (32.0-37.0); MEAN CORPUSCULAR VOLUME 88.6 fl (82.0-101.0); MEAN PLATELET VOLUME 11.1 fl (7.4-10.4); MONOCYTE # 0.4 10^3/ul (0.3-0.9); MONOCYTES % 3.9 % (0.0-11.0); NEUTROPHIL # 7.5 10^3/ul (1.6-7.5); NEUTROPHILS % 77.3 % (39.0-77.0); PLATELET COUNT 149 10^3/UL (140-415); RED BLOOD COUNT 3.69 10^6/ul (4.70-6.10); RED CELL DISTRIBUTION WIDTH 13.3 % (11.5-14.5); WHITE BLOOD COUNT 9.7 10^3/ul (4.8-10.8)
[2017-02-12] MEDS: DOPamine 1,600 MG in DEXTROSE 5% 210 ML IV SCH (04:51)
[2017-02-12 04:59] LABS: INR 1.27; PT RATIO 1.3
[2017-02-12 05:00] LABS: PARTIAL THROMBOPLASTIN TIME 52.8 Sec (25.0-35.0)
[2017-02-12 05:03] LABS: ALBUMIN 3.3 g/dl (3.3-4.9); ALBUMIN/GLOBULIN RATIO 1.73; BILIRUBIN,INDIRECT 0.2 mg/dl (0-1.1); BILIRUBIN,TOTAL 0.2 mg/dl (0.2-1.3); CREATININE 5.78 mg/dl (0.61-1.24); TOTAL PROTEIN 5.2 g/dl (6.1-8.1)
[2017-02-12] MEDS: SOD CHLORIDE 0.9% 1,000 ML IV SCH (05:45)
[2017-02-12] MEDS: PANTOPRAZOLE 40 MG INJ IV SCH ×2 (05:46→17:15)
[2017-02-12] MEDS: PIPER-TAZO 3.375 GM IV (PMX) 100 ML IVPB SCH ×3 (05:51→21:35)
[2017-02-12 06:45] LABS: PHOSPHORUS 5.8 mg/dl (2.5-4.9)
[2017-02-12] MEDS: morphine 2 MG INJ IV PRN ×2 (07:43→11:43)
[2017-02-12] MEDS: ASPIRIN (EC) 81 MG TAB PO SCH (08:30)
[2017-02-12] MEDS: SODIUM BICARBONATE (IV ADD) 150 MEQ in DEXTROSE 5% 1,000 ML IV SCH ×2 (08:30→21:12)
[2017-02-12] MEDS: LORAZEPAM 2 MG INJ IV PRN ×2 (08:30→14:27)
[2017-02-12] MEDS: TICAGRELOR 90 MG TABLET PO SCH ×2 (08:32→21:11)
[2017-02-12] MEDS: HEPARIN 25000 UNITS/250 ML 250 ML IV SCH (08:35)
--- NOTE | 2017-02-12 09:01 | PN ---
Date/Time of Note Date/Time of Note DATE: 02/12/17 TIME: 08:58 Assessment/Plan VTE Prophylaxis VTE Prophylaxis Intervention: heparin Lines/Catheters IV C[facility]ter Type (from [facility] A Line Central line still needed: Yes Urinary Cath still in place: Yes Reason Cath still needed: other (indicate) Assessment/Plan Chief Complaint/Hosp Course 1. Cardiac arrest. Status post left heart catheterization and coronary angioplasty with placement of a stent and placement of intraaortic balloon pump. The patient's underlying neuro status is unclear at this time. The patient is unstable to undergo any brain imaging at this time. The patient was not started on any hypothermia protocol since the patient was moving and was vaguely following commands. 2. Cardiogenic shock. Most probably secondary to underlying cardiac arrest. The patient is currently on pressors to optimize blood pressure. The patient is also on intraaortic counterpulsation therapy. 3. CAD. Status post coronary artery stenting. Continue antiplatelet therapy. 2D echocardiogram showing preserved left ventricular ejection fraction. 4. Urinary tract infection. Continue antibiotics. 5. Metabolic acidosis. Most probably secondary to underlying cardiac arrest. Bicarbonate management as per nephrology. 6. Acute kidney injury. Nonoliguric. Unknown baseline creatinine. Nephrotoxic drugs will be avoided on this patient. The patient will be adequately hydrated using IV fluids. 7. Hyperglycemia. Hemoglobin A1c 6.2. Continue sliding scale insulin. 8. Transaminitis without hyperbilirubinemia. Most probably secondary to underlying shock. Trend LFTs. Avoid hepatotoxic medications. 9. Diarrhea. Stool studies sent. 10. Fluids, electrolytes, and nutrition. N.p.o. 11. DVT prophylaxis. On heparin drip. 12. Gastrointestinal prophylaxis. Proton pump inhibitors. 13. Plan. Continue intensive care monitoring. Weaning off IABP as per cardiology. Evaluation of neuro status with CT scan of the brain when the patient is more stable. Case discussed with Dr. Welch. Critical care time: 35 minutes. Problems: Subjective 24 Hr Interval Summary Free Text/Dictation Drips 1. Heparin 2. Bicarbonate 3. Propofol 4. Zach-Synephrine The patient remains on IABP. The patient started having diarrhea. Consequently the patient has a rectal tube. Exam/Review of Systems Vital Signs Vitals Vital Signs Date Time Temp Pulse Resp B/P Pulse Ox O2 Delivery O2 Flow Rate FiO2 02/12/17 08:00 30 02/12/17 07:30 93 20 137/83 95 Mechanical Ventilator 02/12/17 04:00 99.1 Intake and Output 02/11/17 02/11/17 02/12/17 15:00 23:00 07:00 Intake Total 157.18 ml 849.77 ml 1277.58 ml Output Total 180 ml 875 ml Balance 157.18 ml 669.77 ml 402.58 ml Exam GENERAL: This is an obese male, lying in bed, orally intubated. HEENT: Head is normocephalic and atraumatic. Eyes: Anicteric sclerae. Conjunctivae are clear. ENT: Nasal septum is midline. Oral mucosa is dry. Orally intubated. Orogastric tube in place NECK: Supple. No JVD noticed. RESPIRATORY: Bilaterally diminished breath sounds. Orally intubated and mechanical ventilated, on AC mode ventilation. CARDIAC: S1, S2 heard. Regular rate and rhythm. The patient has an intraaortic balloon pump in place. ABDOMEN: Soft. Bowel sounds hypoactive. GENITOURINARY: The patient has a Mckeon catheter in place. The right groin has an arterial sheath connected to right groin intraaortic balloon pump. Rectal tube in place. EXTREMITIES: No cyanosis, no clubbing, no edema. Pedal pulses by Doppler. NEUROLOGIC: The patient is sedated. He has bilateral soft wrist restraints on. Results Result Diagram: 02/12/17 0400 02/12/17 0400 Results 24 hrs Laboratory Tests Test 02/11/17 11:55 02/11/17 12:00 02/11/17 18:27 02/11/17 20:45 Activated Partial Thromboplast Time 66.0 H 60.3 H Sodium Level 135 Potassium Level 4.3 Chloride Level 104 Carbon Dioxide Level 18 L Anion Gap 17 H Blood Urea Nitrogen 45 H Creatinine 4.29 H Glucose Level 127 Calcium Level 6.7 L Total Bilirubin 0.4 Direct Bilirubin 0.00 Indirect Bilirubin 0.4 Aspartate Amino Transf (AST/SGOT) 226 H Alanine Aminotransferase (ALT/SGPT) 166 H Alkaline Phosphatase 47 Total Protein 5.2 L Albumin 3.1 L Globulin 2.10 Albumin/Globulin Ratio 1.47 Blood Gas Specimen Source Blood arterial Arterial Blood Date Drawn 02/11/2017 1:25:44 PM Arterial Blood pH (Temp corrected) 7.427 Arterial Blood pCO2 (Temp correct) 21.4 L Arterial Blood pO2 (Temp corrected) 72.0 L Arterial Blood HCO3 13.8 L Arterial Blood Base Excess -8.3 L Arterial Blood Oxygen Saturation 94.5 L Tirso Test N/A Arterial Blood Gas Puncture Site A-Line Arterial Blood Carboxyhemoglobin 0.3 Arterial Blood Methemoglobin 0.3 Blood Gas A-a O2 Differential 116.8 H Oxyhemoglobin Percent 93.9 Total Hemoglobin 13.5 Blood Gas Temperature 37.0 Blood Gas Respiration Rate 20.0 Blood Gas Actual Respiration Rate 20 Blood Gas Modality VENT - AC FiO2 30.0 Blood Gas Tidal Volume 600.0 Blood Gas High PEEP Setting 5.0 Blood Gas Notified Whom TM Blood Gas Notified Time 02/11/2017 1:33:21 PM Bedside Glucose 127 Test 02/12/17 01:06 02/12/17 04:00 02/12/17 04:41 02/12/17 08:29 Bedside Glucose 121 127 94 White Blood Count 9.7 Red Blood Count 3.69 L Hemoglobin 11.5 #L Hematocrit 32.7 L Mean Corpuscular Volume 88.6 Mean Corpuscular Hemoglobin 31.2 Mean Corpuscular Hemoglobin Concent 35.2 Red Cell Distribution Width 13.3 Platelet Count 149 # Mean Platelet Volume 11.1 H Neutrophils % 77.3 H Lymphocytes % 17.3 Monocytes % 3.9 Eosinophils % 0.6 Basophils % 0.2 Nucleated Red Blood Cells % 0.0 Neutrophils # 7.5 Lymphocytes # 1.7 Monocytes # 0.4 Eosinophils # 0.1 Basophils # 0.0 Nucleated Red Blood Cells # 0.0 Prothrombin Time 16.0 H Prothrombin Time Ratio 1.3 INR International Normalized Ratio 1.27 Activated Partial Thromboplast Time 52.8 H Sodium Level 131 L Potassium Level 4.0 Chloride Level 97 Carbon Dioxide Level 21 Anion Gap 17 H Blood Urea Nitrogen 61 H Creatinine 5.78 H Glucose Level 109 Calcium Level 6.0 L Phosphorus Level 5.8 #H Magnesium Level 2.0 Total Bilirubin 0.2 Direct Bilirubin 0.00 Indirect Bilirubin 0.2 Aspartate Amino Transf (AST/SGOT) 145 H Alanine Aminotransferase (ALT/SGPT) 119 H Alkaline Phosphatase 40 L Total Protein 5.2 L Albumin 3.3 Globulin 1.90 Albumin/Globulin Ratio 1.73 Medications Medications Current Medications Miscellaneous Information Hold all Metformin ... ONCE XX ; Start 02/10/17 at 09: 00; Stop 02/12/17 at 08:59 Propofol 100 ml @ 2.727 mls/ hr Q12H IV Last administered on 02/12/17 06:40; Admin Dose 24.543 MLS/HR; Start 02/10/17 at 10:00 Piperacillin Sod/ Tazobactam Sod 100 ml @ 200 mls/hr Q8 IVPB Last administered on 02/12/17 05:51; Admin Dose 200 MLS/HR; Start 02/10/17 at 11:30 Phenylephrine HCl/ Dextrose (Zach-Syneph/D5W) 500 ml @ 18.75 mls/ hr TITRATE IV Last administered on 02/10/17 13:22; Admin Dose 26.25 MLS/HR; Start 02/10/17 at 13:00 Lorazepam (Ativan) 0.5 mg Q6H PRN IV ANXIETY Last administered on 02/12/17 08: 30; Admin Dose 0.5 MG; Start 02/10/17 at 12:30 Ondansetron HCl (Zofran Inj) 4 mg Q6H PRN IV NAUSEA AND/OR VOMITING; Start at 12:30 Acetaminophen (Tylenol Tab) 650 mg Q6H PRN PO PAIN LEVEL 1-3 OR FEVER Last administered on 02/10/17 21:39; Admin Dose 650 MG; Start 02/10/17 at 12:30 Acetaminophen/ Hydrocodone Bitart ([place] (5/325)) 1 tab Q6H PRN PO PAIN LEVEL 4 -6; Start 02/10/17 at 12:30 Morphine Sulfate (morphine) 2 mg Q4H PRN IV PAIN LEVEL 7-10 Last administered on 02/12/17 07:43; Admin Dose 2 MG; Start 02/10/17 at 12:30 Insulin Aspart NOVOLOG *MILD* ALGORITHM Q4 SC Last administered on 02/10/17 17 :10; Admin Dose 1 UNIT; Start 02/10/17 at 13:00 Sodium Chloride (NS) 1,000 ml @ 50 mls/hr Q20H IV Last administered on 05:45; Admin Dose 50 MLS/HR; Start 02/10/17 at 13:30 Miscellaneous Information 1 ea NOTE XX ; Start 02/10/17 at 13:30 Glucose (Glutose) 15 gm Q15M PRN PO DECREASED GLUCOSE; Start 02/10/17 at 13:30 Glucose (Glutose) 22.5 gm Q15M PRN PO DECREASED GLUCOSE; Start 02/10/17 at 13: 30 Dextrose (D50w Syringe) 25 ml Q15M PRN IV DECREASED GLUCOSE; Start 02/10/17 at 13:30 Dextrose (D50w Syringe) 50 ml Q15M PRN IV DECREASED GLUCOSE; Start 02/10/17 at 13:30 Glucagon (Glucagen) 1 mg Q15M PRN IM DECREASED GLUCOSE; Start 02/10/17 at 13:30 Glucose 15 gm 15 gm Q15M PRN BUCCAL DECREASED GLUCOSE; Start 02/10/17 at 13:30 Norepinephrine 16 mg/Dextrose 500 ml @ 0 mls/hr TITRATE IV ; Start 02/10/17 at 21:00 Dopamine HCl/ Dextrose (D5W) 250 ml @ 1.7 mls/hr TITRATE IV Last administered on 02/12/17 04:51; Admin Dose 11.07 MLS/HR; Start 02/10/17 at 18:00 Pantoprazole (Protonix Iv) 40 mg BID@06,18 IV Last administered on 02/12/17 05 :46; Admin Dose 40 MG; Start 02/11/17 at 06:00 Ticagrelor (Brilinta) 90 mg BID PO Last administered on 02/12/17 08:32; Admin Dose 90 MG; Start 02/11/17 at 12:00 Aspirin (Halfprin) 81 mg DAILY PO Last administered on 02/12/17 08:30; Admin Dose 81 MG; Start 02/11/17 at 12:00 Atorvastatin Calcium 80 mg 80 mg HS NGT Last administered on 02/11/17 20:37; Admin Dose 80 MG; Start 02/11/17 at 21:00 Sodium Bicarbonate/ Dextrose (Na Bicarb/D5W) 1,150 ml @ 80 mls/hr [id number] IV Last administered on 02/12/17 08:30; Admin Dose 80 MLS/HR; Start 02/11/17 at 15 :28 HUBERT KUNZ NP Feb 12, 2017 09:01
--- NOTE | 2017-02-12 11:00 | CONS ---
Date/Time of Note Date/Time of Note DATE: 02/12/17 TIME: 10:56 Assessment/Plan Assessment/Plan Additional Assessment/Plan Ventilator setting; AC of 20, tidal volume 600, PEEP of 5, 30% FiO2. The patient currently on IV heparin via protocol dopamine drip at 10 mics per kilogram per minute, propofol 30 mics per kilogram per minute. Chest x-ray is pending. Assessment recommendations; 1. Patient admitted with cardiac arrest status post emergent coronary angiography with stenting of circumflex lesion. 2. Worsening serum creatinine, however patient maintaining adequate urine output at this point. 3. Metabolic acidosis. 4. Mild thrombocytopenia. 5. Patient not tolerating weaning from ventilator because of agitation once off sedation. Patient likely has sustained anoxic brain injury. 6. Currently no evidence of any infective process. Next #7. Improving hemodynamics. Patient however still requiring intra-aortic balloon pump. Continue current treatment. Will obtain follow-up chest x-ray. Patient is been followed by machine scallop cutter. Currently does not require hemodialysis. Prognosis is guarded on account of multiple comorbidities. Next 35 minutes critical care time spent evaluating the patient Consultation Date/Type/Reason Admit Date/Time Feb 10, 2017 at 08:37 Initial Consult Date 02/10/17 Type of Consultation: Pulmonary/critical care Referring Provider: MARIAJOSE ALMAZAN 24 HR Interval Summary Free Text/Dictation Patient condition remains critical. Remains sedated. Still requiring intra- aortic balloon pump although at 1 : 2 augmentation . Urine output is fair. General exam; elderly male, orally intubated, sedated. Currently in no distress. Exam/Review of Systems Vital Signs Vitals Vital Signs Date Time Temp Pulse Resp B/P Pulse Ox O2 Delivery O2 Flow Rate FiO2 02/12/17 10:00 88 20 114/60 96 Mechanical Ventilator 02/12/17 08:00 100.2 02/12/17 08:00 30 Intake and Output 02/11/17 02/11/17 02/12/17 15:00 23:00 07:00 Intake Total 157.18 ml 849.77 ml 1277.58 ml Output Total 180 ml 875 ml Balance 157.18 ml 669.77 ml 402.58 ml Exam HEENT exam is; supple neck, pupils are equal and reactive to light. Patient has fair dentition. Orally intubated. No JVD. No lymphadenopathy. Midline trachea. Chest examination; clear to auscultation. S1-S2 audible, no murmurs. Regular rhythm. Abdomen examination; soft, no organomegaly. Bowel sounds are audible. Extremity exam; no peripheral edema. Pulses 1+ bilaterally. MOBILE ENGINEER examination : patient is sedated. Results Result Diagram: 02/12/1739902/12/17399 Results 24 hrs Laboratory Tests Test 02/11/17 11:55 02/11/17 12:00 02/11/17 18:27 02/11/17 20:45 Activated Partial Thromboplast Time 66.0 H 60.3 H Sodium Level 135 Potassium Level 4.3 Chloride Level 104 Carbon Dioxide Level 18 L Anion Gap 17 H Blood Urea Nitrogen 45 H Creatinine 4.29 H Glucose Level 127 Calcium Level 6.7 L Total Bilirubin 0.4 Direct Bilirubin 0.00 Indirect Bilirubin 0.4 Aspartate Amino Transf (AST/SGOT) 226 H Alanine Aminotransferase (ALT/SGPT) 166 H Alkaline Phosphatase 47 Total Protein 5.2 L Albumin 3.1 L Globulin 2.10 Albumin/Globulin Ratio 1.47 Blood Gas Specimen Source Blood arterial Arterial Blood Date Drawn 02/11/2017 1:25:44 PM Arterial Blood pH (Temp corrected) 7.427 Arterial Blood pCO2 (Temp correct) 21.4 L Arterial Blood pO2 (Temp corrected) 72.0 L Arterial Blood HCO3 13.8 L Arterial Blood Base Excess -8.3 L Arterial Blood Oxygen Saturation 94.5 L Tirso Test N/A Arterial Blood Gas Puncture Site A-Line Arterial Blood Carboxyhemoglobin 0.3 Arterial Blood Methemoglobin 0.3 Blood Gas A-a O2 Differential 116.8 H Oxyhemoglobin Percent 93.9 Total Hemoglobin 13.5 Blood Gas Temperature 37.0 Blood Gas Respiration Rate 20.0 Blood Gas Actual Respiration Rate 20 Blood Gas Modality VENT - AC FiO2 30.0 Blood Gas Tidal Volume 600.0 Blood Gas High PEEP Setting 5.0 Blood Gas Notified Whom TM Blood Gas Notified Time 02/11/2017 1:33:21 PM Bedside Glucose 127 Test 02/12/17 01:06 02/12/17 04:00 02/12/17 04:41 02/12/17 08:29 Bedside Glucose 121 127 94 White Blood Count 9.7 Red Blood Count 3.69 L Hemoglobin 11.5 #L Hematocrit 32.7 L Mean Corpuscular Volume 88.6 Mean Corpuscular Hemoglobin 31.2 Mean Corpuscular Hemoglobin Concent 35.2 Red Cell Distribution Width 13.3 Platelet Count 149 # Mean Platelet Volume 11.1 H Neutrophils % 77.3 H Lymphocytes % 17.3 Monocytes % 3.9 Eosinophils % 0.6 Basophils % 0.2 Nucleated Red Blood Cells % 0.0 Neutrophils # 7.5 Lymphocytes # 1.7 Monocytes # 0.4 Eosinophils # 0.1 Basophils # 0.0 Nucleated Red Blood Cells # 0.0 Prothrombin Time 16.0 H Prothrombin Time Ratio 1.3 INR International Normalized Ratio 1.27 Activated Partial Thromboplast Time 52.8 H Sodium Level 131 L Potassium Level 4.0 Chloride Level 97 Carbon Dioxide Level 21 Anion Gap 17 H Blood Urea Nitrogen 61 H Creatinine 5.78 H Glucose Level 109 Calcium Level 6.0 L Phosphorus Level 5.8 #H Magnesium Level 2.0 Total Bilirubin 0.2 Direct Bilirubin 0.00 Indirect Bilirubin 0.2 Aspartate Amino Transf (AST/SGOT) 145 H Alanine Aminotransferase (ALT/SGPT) 119 H Alkaline Phosphatase 40 L Total Protein 5.2 L Albumin 3.3 Globulin 1.90 Albumin/Globulin Ratio 1.73 Medications Medications Current Medications Propofol 100 ml @ 2.727 mls/ hr Q12H IV Last administered on 02/12/17 06:40; Admin Dose 24.543 MLS/HR; Start 02/10/17 at 10:00 Piperacillin Sod/ Tazobactam Sod 100 ml @ 200 mls/hr Q8 IVPB Last administered on 02/12/17 05:51; Admin Dose 200 MLS/HR; Start 02/10/17 at 11:30 Phenylephrine HCl/ Dextrose (Zach-Syneph/D5W) 500 ml @ 18.75 mls/ hr TITRATE IV Last administered on 02/10/17 13:22; Admin Dose 26.25 MLS/HR; Start 02/10/17 at 13:00 Lorazepam (Ativan) 0.5 mg Q6H PRN IV ANXIETY Last administered on 02/12/17 08: 30; Admin Dose 0.5 MG; Start 02/10/17 at 12:30 Ondansetron HCl (Zofran Inj) 4 mg Q6H PRN IV NAUSEA AND/OR VOMITING; Start at 12:30 Acetaminophen (Tylenol Tab) 650 mg Q6H PRN PO PAIN LEVEL 1-3 OR FEVER Last administered on 02/10/17 21:39; Admin Dose 650 MG; Start 02/10/17 at 12:30 Acetaminophen/ Hydrocodone Bitart ([place] (5/325)) 1 tab Q6H PRN PO PAIN LEVEL 4 -6; Start 02/10/17 at 12:30 Morphine Sulfate (morphine) 2 mg Q4H PRN IV PAIN LEVEL 7-10 Last administered on 02/12/17 07:43; Admin Dose 2 MG; Start 02/10/17 at 12:30 Insulin Aspart NOVOLOG *MILD* ALGORITHM Q4 SC Last administered on 02/10/17 17 :10; Admin Dose 1 UNIT; Start 02/10/17 at 13:00 Sodium Chloride (NS) 1,000 ml @ 50 mls/hr Q20H IV Last administered on 05:45; Admin Dose 50 MLS/HR; Start 02/10/17 at 13:30 Miscellaneous Information 1 ea NOTE XX ; Start 02/10/17 at 13:30 Glucose (Glutose) 15 gm Q15M PRN PO DECREASED GLUCOSE; Start 02/10/17 at 13:30 Glucose (Glutose) 22.5 gm Q15M PRN PO DECREASED GLUCOSE; Start 02/10/17 at 13: 30 Dextrose (D50w Syringe) 25 ml Q15M PRN IV DECREASED GLUCOSE; Start 02/10/17 at 13:30 Dextrose (D50w Syringe) 50 ml Q15M PRN IV DECREASED GLUCOSE; Start 02/10/17 at 13:30 Glucagon (Glucagen) 1 mg Q15M PRN IM DECREASED GLUCOSE; Start 02/10/17 at 13:30 Glucose 15 gm 15 gm Q15M PRN BUCCAL DECREASED GLUCOSE; Start 02/10/17 at 13:30 Norepinephrine 16 mg/Dextrose 500 ml @ 0 mls/hr TITRATE IV ; Start 02/10/17 at 21:00 Dopamine HCl/ Dextrose (D5W) 250 ml @ 1.7 mls/hr TITRATE IV Last administered on 02/12/17 04:51; Admin Dose 11.07 MLS/HR; Start 02/10/17 at 18:00 Pantoprazole (Protonix Iv) 40 mg BID@18 IV Last administered on 02/12/17 05 :46; Admin Dose 40 MG; Start 02/11/17 at 06:00 Ticagrelor (Brilinta) 90 mg BID PO Last administered on 02/12/17 08:32; Admin Dose 90 MG; Start 02/11/17 at 12:00 Aspirin (Halfprin) 81 mg DAILY PO Last administered on 02/12/17 08:30; Admin Dose 81 MG; Start 02/11/17 at 12:00 Atorvastatin Calcium 80 mg 80 mg HS NGT Last administered on 02/11/17 20:37; Admin Dose 80 MG; Start 02/11/17 at 21:00 Sodium Bicarbonate/ Dextrose (Na Bicarb/D5W) 1,150 ml @ 80 mls/hr [id number] IV Last administered on 02/12/17 08:30; Admin Dose 80 MLS/HR; Start 02/11/17 at 15 :28 ANGELINA VALDEZ Feb 12, 2017 11:00
--- NOTE | 2017-02-12 11:26 | CONS ---
Date/Time of Note Date/Time of Note DATE: 02/12/17 TIME: 11:24 Consult Date/Type/Reason Admit Date/Time Feb 10, 2017 at 08:37 Initial Consult Date 02/10/17 Type of Consultation: Cardiology Ordering Provider: MARIAJOSE ALMAZAN Objective Vital Signs Date Time Temp Pulse Resp B/P Pulse Ox O2 Delivery O2 Flow Rate FiO2 02/12/17 10:00 88 20 114/60 96 Mechanical Ventilator 02/12/17 08:00 100.2 02/12/17 08:00 30 Intake and Output 02/11/17 02/11/17 02/12/17 14:59 22:59 06:59 Intake Total 157.18 ml 619.78 ml 1224.05 ml Output Total 150 ml 860 ml Balance 157.18 ml 469.78 ml 364.05 ml Results/Medications Result Diagram: 02/12/17 0400 02/12/17 0400 Results 24 hrs Laboratory Tests Test 02/11/17 11:55 02/11/17 12:00 02/11/17 18:27 02/11/17 20:45 Activated Partial Thromboplast Time 66.0 H 60.3 H Sodium Level 135 Potassium Level 4.3 Chloride Level 104 Carbon Dioxide Level 18 L Anion Gap 17 H Blood Urea Nitrogen 45 H Creatinine 4.29 H Glucose Level 127 Calcium Level 6.7 L Total Bilirubin 0.4 Direct Bilirubin 0.00 Indirect Bilirubin 0.4 Aspartate Amino Transf (AST/SGOT) 226 H Alanine Aminotransferase (ALT/SGPT) 166 H Alkaline Phosphatase 47 Total Protein 5.2 L Albumin 3.1 L Globulin 2.10 Albumin/Globulin Ratio 1.47 Blood Gas Specimen Source Blood arterial Arterial Blood Date Drawn 02/11/2017 1:25:44 PM Arterial Blood pH (Temp corrected) 7.427 Arterial Blood pCO2 (Temp correct) 21.4 L Arterial Blood pO2 (Temp corrected) 72.0 L Arterial Blood HCO3 13.8 L Arterial Blood Base Excess -8.3 L Arterial Blood Oxygen Saturation 94.5 L Tirso Test N/A Arterial Blood Gas Puncture Site A-Line Arterial Blood Carboxyhemoglobin 0.3 Arterial Blood Methemoglobin 0.3 Blood Gas A-a O2 Differential 116.8 H Oxyhemoglobin Percent 93.9 Total Hemoglobin 13.5 Blood Gas Temperature 37.0 Blood Gas Respiration Rate 20.0 Blood Gas Actual Respiration Rate 20 Blood Gas Modality VENT - AC FiO2 30.0 Blood Gas Tidal Volume 600.0 Blood Gas High PEEP Setting 5.0 Blood Gas Notified Whom TM Blood Gas Notified Time 02/11/2017 1:33:21 PM Bedside Glucose 127 Test 02/12/17 01:06 02/12/17 04:00 02/12/17 04:41 02/12/17 08:29 Bedside Glucose 121 127 94 White Blood Count 9.7 Red Blood Count 3.69 L Hemoglobin 11.5 #L Hematocrit 32.7 L Mean Corpuscular Volume 88.6 Mean Corpuscular Hemoglobin 31.2 Mean Corpuscular Hemoglobin Concent 35.2 Red Cell Distribution Width 13.3 Platelet Count 149 # Mean Platelet Volume 11.1 H Neutrophils % 77.3 H Lymphocytes % 17.3 Monocytes % 3.9 Eosinophils % 0.6 Basophils % 0.2 Nucleated Red Blood Cells % 0.0 Neutrophils # 7.5 Lymphocytes # 1.7 Monocytes # 0.4 Eosinophils # 0.1 Basophils # 0.0 Nucleated Red Blood Cells # 0.0 Prothrombin Time 16.0 H Prothrombin Time Ratio 1.3 INR International Normalized Ratio 1.27 Activated Partial Thromboplast Time 52.8 H Sodium Level 131 L Potassium Level 4.0 Chloride Level 97 Carbon Dioxide Level 21 Anion Gap 17 H Blood Urea Nitrogen 61 H Creatinine 5.78 H Glucose Level 109 Calcium Level 6.0 L Phosphorus Level 5.8 #H Magnesium Level 2.0 Total Bilirubin 0.2 Direct Bilirubin 0.00 Indirect Bilirubin 0.2 Aspartate Amino Transf (AST/SGOT) 145 H Alanine Aminotransferase (ALT/SGPT) 119 H Alkaline Phosphatase 40 L Total Protein 5.2 L Albumin 3.3 Globulin 1.90 Albumin/Globulin Ratio 1.73 Medications Current Medications Propofol 100 ml @ 2.727 mls/ hr Q12H IV Last administered on 02/12/17 11:07; Admin Dose 16.362 MLS/HR; Start 02/10/17 at 10:00 Piperacillin Sod/ Tazobactam Sod 100 ml @ 200 mls/hr Q8 IVPB Last administered on 02/12/17 05:51; Admin Dose 200 MLS/HR; Start 02/10/17 at 11:30 Phenylephrine HCl/ Dextrose (Zach-Syneph/D5W) 500 ml @ 18.75 mls/ hr TITRATE IV Last administered on 02/10/17 13:22; Admin Dose 26.25 MLS/HR; Start 02/10/17 at 13:00 Lorazepam (Ativan) 0.5 mg Q6H PRN IV ANXIETY Last administered on 02/12/17 08: 30; Admin Dose 0.5 MG; Start 02/10/17 at 12:30 Ondansetron HCl (Zofran Inj) 4 mg Q6H PRN IV NAUSEA AND/OR VOMITING; Start at 12:30 Acetaminophen (Tylenol Tab) 650 mg Q6H PRN PO PAIN LEVEL 1-3 OR FEVER Last administered on 02/10/17 21:39; Admin Dose 650 MG; Start 02/10/17 at 12:30 Acetaminophen/ Hydrocodone Bitart ([place] (5/325)) 1 tab Q6H PRN PO PAIN LEVEL 4 -6; Start 02/10/17 at 12:30 Morphine Sulfate (morphine) 2 mg Q4H PRN IV PAIN LEVEL 7-10 Last administered on 02/12/17 07:43; Admin Dose 2 MG; Start 02/10/17 at 12:30 Insulin Aspart NOVOLOG *MILD* ALGORITHM Q4 SC Last administered on 02/10/17 17 :10; Admin Dose 1 UNIT; Start 02/10/17 at 13:00 Sodium Chloride (NS) 1,000 ml @ 50 mls/hr Q20H IV Last administered on 05:45; Admin Dose 50 MLS/HR; Start 02/10/17 at 13:30 Miscellaneous Information 1 ea NOTE XX ; Start 02/10/17 at 13:30 Glucose (Glutose) 15 gm Q15M PRN PO DECREASED GLUCOSE; Start 02/10/17 at 13:30 Glucose (Glutose) 22.5 gm Q15M PRN PO DECREASED GLUCOSE; Start 02/10/17 at 13: 30 Dextrose (D50w Syringe) 25 ml Q15M PRN IV DECREASED GLUCOSE; Start 02/10/17 at 13:30 Dextrose (D50w Syringe) 50 ml Q15M PRN IV DECREASED GLUCOSE; Start 02/10/17 at 13:30 Glucagon (Glucagen) 1 mg Q15M PRN IM DECREASED GLUCOSE; Start 02/10/17 at 13:30 Glucose 15 gm 15 gm Q15M PRN BUCCAL DECREASED GLUCOSE; Start 02/10/17 at 13:30 Norepinephrine 16 mg/Dextrose 500 ml @ 0 mls/hr TITRATE IV ; Start 02/10/17 at 21:00 Dopamine HCl/ Dextrose (D5W) 250 ml @ 1.7 mls/hr TITRATE IV Last administered on 02/12/17 04:51; Admin Dose 11.07 MLS/HR; Start 02/10/17 at 18:00 Pantoprazole (Protonix Iv) 40 mg BID@06,18 IV Last administered on 02/12/17 05 :46; Admin Dose 40 MG; Start 02/11/17 at 06:00 Ticagrelor (Brilinta) 90 mg BID PO Last administered on 02/12/17 08:32; Admin Dose 90 MG; Start 02/11/17 at 12:00 Aspirin (Halfprin) 81 mg DAILY PO Last administered on 02/12/17 08:30; Admin Dose 81 MG; Start 02/11/17 at 12:00 Atorvastatin Calcium 80 mg 80 mg HS NGT Last administered on 02/11/17 20:37; Admin Dose 80 MG; Start 02/11/17 at 21:00 Sodium Bicarbonate/ Dextrose (Na Bicarb/D5W) 1,150 ml @ 80 mls/hr [id number] IV Last administered on 02/12/17 08:30; Admin Dose 80 MLS/HR; Start 02/11/17 at 15 :28 Vancomycin HCl (Vancomycin Oral Syringe) 250 mg Q6 NGT ; Start 02/12/17 at 12:00 Assessment/Plan Problems: (1) Cardiac arrest (2) Ventricular fibrillation (3) ST elevation myocardial infarction (STEMI) of anterior wall Additional Assessment/Plan Pt off IABP removed doing fine BP stable Cr bumped up I will start IV fluid on him will give him bolus 500cc off dopamine as well slowly plan to extubate him tomrorow if possible PSV trial as per critical care. LENIN Blankenship MD Feb 12, 2017 11:25
[2017-02-12] MEDS ORDERED: SOD CHLORIDE 0.9% 500 ML IV ONE (11:30)
[2017-02-12] MEDS: VANCOMYCIN HCL 250 MG/5ML POSYG NGT SCH ×2 (12:15→17:15)
[2017-02-12] MEDS ORDERED: SOD CHLORIDE 0.9% 1,000 ML IV SCH (12:30)
--- NOTE | 2017-02-12 14:38 | RADRPT ---
PROCEDURE: XR Abdomen. CLINICAL INDICATION: Abdomen pain. TECHNIQUE: AP supine abdomen x-ray. COMPARISON: 02/10/2017. FINDINGS: There is an enteric tube in the stomach. The bowel gas pattern is normal with no evidence of obstruction. There are no abnormal calcifications overlying the urinary tracts. There are mild degenerative changes of the spine. There is an intra-aortic balloon pump catheter en tering via the right femoral region and there are left femoral arterial and venous catheters. A Fol ey catheter is present in the bladder. IMPRESSION: 1. Tubes and lines as described above. 2. No evidence of bowel obstruction. RPTAT: QQ .Gt Johnson MD, MD Date Time Electronically viewed and signed by .Gt Johnson MD, MD on 02/12/2017 14:37 .R/
--- NOTE | 2017-02-12 16:24 | RADRPT ---
PROCEDURE: XR Chest. CLINICAL INDICATION: Shortness of breath. TECHNIQUE: Single frontal view. COMPARISON: 02/11/2017. FINDINGS: The endotracheal tube and nasogastric tube remain in satisfactory position. There is air space dise ase in the right mid and lower lung zones, worse than seen previously. Previously noted intra-aorti c balloon is not visualized. The heart is enlarged. There is a small right pleural effusion. There is no left pleural effusion. There is no pneumothorax. IMPRESSION: 1. Worse appearance of the right lung and small right pleural effusion. 2. Previously noted intra-aortic balloon pump not visualized. 3. Otherwise unremarkable study. RPTAT: QQ .Gt Johnson MD, MD Date Time Electronically viewed and signed by .Gt Johnson MD, on 02/12/2017 16:24 .R/
--- NOTE | 2017-02-12 20:46 | CONS ---
Date/Time of Note Date/Time of Note DATE: 02/12/17 TIME: 20:43 Assessment/Plan Assessment/Plan Additional Assessment/Plan 1. Oliguric acute kidney injury, likely secondary to ischemic acute tubular necrosis from ST-elevation myocardial infarction and cardiogenic shock. 2. Cardiogenic shock. 3. Acute respiratory failure from cardiac arrest, currently intubated on ventilator. 4. Metabolic acidosis secondary to acute renal failure. 5. No significant past medical history, as per the family. PLAN: on sodium bicarbonate drip, Yesterday pt received IVF, IV albumin with lasix, BUN/Cr rising, still Urine out put marginal, will avoid lasix today- continue IVF bicarbonate drip, IABP removed today, expecting renal function to improve after Ballon pump removal if no improvement in renal function by tomorrow then we will talk with family about possible need of dialysis Continue Dopamine and zach for BP support will follow up Consultation Date/Type/Reason Admit Date/Time Feb 10, 2017 at 08:37 Initial Consult Date 02/10/17 Type of Consultation: NEPHROLOGY Referring Provider: MARIAJOSE ALMAZAN 24 HR Interval Summary Free Text/Dictation s/p IV albumin with lasix and also given IVF bolus yesterday, today BUN/Cr rising, IABP removed today Exam/Review of Systems Vital Signs Vitals Vital Signs Date Time Temp Pulse Resp B/P Pulse Ox O2 Delivery O2 Flow Rate FiO2 02/12/17 19:37 84 20 100 30 02/12/17 18:00 106/59 Mechanical Ventilator 02/12/17 16:00 98.4 Intake and Output 02/11/17 02/11/17 02/12/17 15:00 23:00 07:00 Intake Total 157.18 ml 849.77 ml 1277.58 ml Output Total 180 ml 875 ml Balance 157.18 ml 669.77 ml 402.58 ml Exam GENERAL: The patient is currently sedated, intubated on ventilator. HEENT: ET tube in place. NECK: Supple. No jugular venous distention. No lymphadenopathy. LUNGS: Bilateral coarse breath sounds with minimal expiratory wheezing. HEART: S1, S2, tachycardia, no murmur. ABDOMEN: Soft, nontender, nondistended. EXTREMITIES: 1+ pitting edema GENITOURINARY: Mckeon catheter in place. Results Result Diagram: 6/18/17 0400 6/18/17 0400 Results 24 hrs Laboratory Tests Test 02/11/17 20:45 02/12/17 01:06 02/12/17 04:00 02/12/17 04:41 Bedside Glucose 127 121 127 White Blood Count 9.7 Red Blood Count 3.69 L Hemoglobin 11.5 #L Hematocrit 32.7 L Mean Corpuscular Volume 88.6 Mean Corpuscular Hemoglobin 31.2 Mean Corpuscular Hemoglobin Concent 35.2 Red Cell Distribution Width 13.3 Platelet Count 149 # Mean Platelet Volume 11.1 H Neutrophils % 77.3 H Lymphocytes % 17.3 Monocytes % 3.9 Eosinophils % 0.6 Basophils % 0.2 Nucleated Red Blood Cells % 0.0 Neutrophils # 7.5 Lymphocytes # 1.7 Monocytes # 0.4 Eosinophils # 0.1 Basophils # 0.0 Nucleated Red Blood Cells # 0.0 Prothrombin Time 16.0 H Prothrombin Time Ratio 1.3 INR International Normalized Ratio 1.27 Activated Partial Thromboplast Time 52.8 H Sodium Level 131 L Potassium Level 4.0 Chloride Level 97 Carbon Dioxide Level 21 Anion Gap 17 H Blood Urea Nitrogen 61 H Creatinine 5.78 H Glucose Level 109 Calcium Level 6.0 L Phosphorus Level 5.8 #H Magnesium Level 2.0 Total Bilirubin 0.2 Direct Bilirubin 0.00 Indirect Bilirubin 0.2 Aspartate Amino Transf (AST/SGOT) 145 H Alanine Aminotransferase (ALT/SGPT) 119 H Alkaline Phosphatase 40 L Total Protein 5.2 L Albumin 3.3 Globulin 1.90 Albumin/Globulin Ratio 1.73 Test 02/12/17 08:29 02/12/17 12:25 02/12/17 16:36 Bedside Glucose 94 100 104 Medications Medications Current Medications Propofol 100 ml @ 2.727 mls/ hr Q12H IV Last administered on 02/12/17 19:25; Admin Dose 16.362 MLS/HR; Start 02/10/17 at 10:00 Piperacillin Sod/ Tazobactam Sod 100 ml @ 200 mls/hr Q8 IVPB Last administered on 02/12/17 13:07; Admin Dose 200 MLS/HR; Start 02/10/17 at 11:30 Phenylephrine HCl/ Dextrose (Zach-Syneph/D5W) 500 ml @ 18.75 mls/ hr TITRATE IV Last administered on 02/10/17 13:22; Admin Dose 26.25 MLS/HR; Start 02/10/17 at 13:00 Lorazepam (Ativan) 0.5 mg Q6H PRN IV ANXIETY Last administered on 02/12/17 14: 27; Admin Dose 0.5 MG; Start 02/10/17 at 12:30 Ondansetron HCl (Zofran Inj) 4 mg Q6H PRN IV NAUSEA AND/OR VOMITING; Start at 12:30 Acetaminophen (Tylenol Tab) 650 mg Q6H PRN PO PAIN LEVEL 1-3 OR FEVER Last administered on 02/10/17 21:39; Admin Dose 650 MG; Start 02/10/17 at 12:30 Acetaminophen/ Hydrocodone Bitart ([place] (5/325)) 1 tab Q6H PRN PO PAIN LEVEL 4 -6; Start 02/10/17 at 12:30 Morphine Sulfate (morphine) 2 mg Q4H PRN IV PAIN LEVEL 7-10 Last administered on 02/12/17 11:43; Admin Dose 2 MG; Start 02/10/17 at 12:30 Insulin Aspart (Novolog Insulin Pen) NOVOLOG *MILD* ALGORITHM Q4 SC Last administered on 02/10/17 17:10; Admin Dose 1 UNIT; Start 02/10/17 at 13:00 Miscellaneous Information 1 ea NOTE XX ; Start 02/10/17 at 13:30 Glucose (Glutose) 15 gm Q15M PRN PO DECREASED GLUCOSE; Start 02/10/17 at 13:30 Glucose (Glutose) 22.5 gm Q15M PRN PO DECREASED GLUCOSE; Start 02/10/17 at 13: 30 Dextrose (D50w Syringe) 25 ml Q15M PRN IV DECREASED GLUCOSE; Start 02/10/17 at 13:30 Dextrose (D50w Syringe) 50 ml Q15M PRN IV DECREASED GLUCOSE; Start 02/10/17 at 13:30 Glucagon (Glucagen) 1 mg Q15M PRN IM DECREASED GLUCOSE; Start 02/10/17 at 13:30 Glucose 15 gm 15 gm Q15M PRN BUCCAL DECREASED GLUCOSE; Start 02/10/17 at 13:30 Norepinephrine 16 mg/Dextrose 500 ml @ 0 mls/hr TITRATE IV ; Start 02/10/17 at 21:00 Dopamine HCl/ Dextrose (D5W) 250 ml @ 1.7 mls/hr TITRATE IV Last administered on 02/12/17 04:51; Admin Dose 11.07 MLS/HR; Start 02/10/17 at 18:00 Pantoprazole (Protonix Iv) 40 mg BID@06,18 IV Last administered on 02/12/17 17 :15; Admin Dose 40 MG; Start 02/11/17 at 06:00 Ticagrelor (Brilinta) 90 mg BID PO Last administered on 02/12/17 08:32; Admin Dose 90 MG; Start 02/11/17 at 12:00 Aspirin (Halfprin) 81 mg DAILY PO Last administered on 02/12/17 08:30; Admin Dose 81 MG; Start 02/11/17 at 12:00 Atorvastatin Calcium 80 mg 80 mg HS NGT Last administered on 02/11/17 20:37; Admin Dose 80 MG; Start 02/11/17 at 21:00 Sodium Bicarbonate/ Dextrose (Na Bicarb/D5W) 1,150 ml @ 80 mls/hr [id number] IV Last administered on 02/12/17 08:30; Admin Dose 80 MLS/HR; Start 02/11/17 at 15 :28 Vancomycin HCl 250 mg 250 mg Q6 NGT Last administered on 02/12/17 17:15; Admin Dose 250 MG; Start 02/12/17 at 12:00 Sodium Chloride (NS) 1,000 ml @ 75 mls/hr [id number] IV Last administered on 02/12 11:55; Admin Dose 75 MLS/HR; Start 02/12/17 at 12:30 SAILAJA LOUIE MD Feb 12, 2017 20:46
[2017-02-12] MEDS: DEXTROSE 50% 50 ML SYRINGE IV PRN ×3 (21:09→21:39)
[2017-02-12] MEDS: ATORVASTATIN 80 MG TAB NGT SCH (21:10)
[2017-02-12] MEDS: DEXTROSE 5%-0.45% NACL 1,000 ML IV SCH (21:35)
[2017-02-12] MEDS ORDERED: DEXTROSE 50% 50 ML SYRINGE IV ONE (22:00)
[2017-02-13] VITALS (54 sets, daily range): BP systolic 92–134; BP diastolic 50–88; PULSE 70–96; RESP 18–24
[2017-02-13] MEDS: VANCOMYCIN HCL 250 MG/5ML POSYG NGT SCH ×3 (00:59→11:26)
[2017-02-13] MEDS: INSULIN ASPART [NOVOLOG] 3 ML PEN SC SCH ×6 (00:59→21:00)
[2017-02-13] MEDS: PIPER-TAZO 3.375 GM IV (PMX) 100 ML IVPB SCH ×3 (05:34→21:00)
[2017-02-13] MEDS: PANTOPRAZOLE 40 MG INJ IV SCH ×2 (05:34→18:28)
[2017-02-13] MEDS: PROPOFOL 100 ML IV SCH ×4 (05:35→20:07)
[2017-02-13 06:45] LABS: ADD SCAN DIFF NO
[2017-02-13 06:56] LABS: ABNORMAL IP MESSAGE 1; BASOPHILS % 0.1 % (0.0-2.0); EOSINOPHILS # 0.1 10^3/ul (0.0-0.5); EOSINOPHILS % 1.6 % (0.0-7.0); HEMOGLOBIN 10.4 g/dl (14.0-18.0); LYMPHOCYTES % 12.3 % (15.0-51.0); MEAN CORPUSCULAR HGB CONC 34.7 g/dl (32.0-37.0); MEAN CORPUSCULAR VOLUME 89.3 fl (82.0-101.0); MEAN PLATELET VOLUME 11.8 fl (7.4-10.4); MONOCYTE # 0.4 10^3/ul (0.3-0.9); MONOCYTES % 4.5 % (0.0-11.0); NEUTROPHIL # 6.7 10^3/ul (1.6-7.5); NEUTROPHILS % 81.3 % (39.0-77.0); PLATELET COUNT 116 10^3/UL (140-415); RED BLOOD COUNT 3.36 10^6/ul (4.70-6.10); RED CELL DISTRIBUTION WIDTH 13.7 % (11.5-14.5); WHITE BLOOD COUNT 8.3 10^3/ul (4.8-10.8)
--- NOTE | 2017-02-13 07:11 | PN ---
Date/Time of Note Date/Time of Note DATE: 02/13/17 TIME: 07:07 Assessment/Plan VTE Prophylaxis VTE Prophylaxis Intervention: SCD's Lines/Catheters IV Catheter Type (from [facility]): Peripheral IV Urinary Cath still in place: Yes Reason Cath still needed: other (indicate) Assessment/Plan Chief Complaint/Hosp Course 1. Cardiac arrest. Status post left heart catheterization and coronary angioplasty with placement of a stent and placement of intraaortic balloon pump. The patient's underlying neuro status is unclear at this time. The patient was not started on any hypothermia protocol since the patient was moving and was vaguely following commands. 2. Cardiogenic shock. Most probably secondary to underlying cardiac arrest. The patient is currently on pressors to optimize blood pressure. The patient is S/P intraaortic counterpulsation therapy. 3. CAD. Status post coronary artery stenting. Continue antiplatelet therapy. 2D echocardiogram showing preserved left ventricular ejection fraction. 4. Urinary tract infection. Continue antibiotics. 5. Metabolic acidosis. Most probably secondary to underlying cardiac arrest. Bicarbonate management as per nephrology. 6. Acute kidney injury. Nonoliguric. Unknown baseline creatinine. Nephrotoxic drugs will be avoided on this patient. The patient will be adequately hydrated using IV fluids. 7. Hyperglycemia. Hemoglobin A1c 6.2. Continue sliding scale insulin. 8. Transaminitis without hyperbilirubinemia. Most probably secondary to underlying shock. Trend LFTs. Avoid hepatotoxic medications. 9. C. difficile colitis. Continue enteric precautions. On enteral vancomycin. 10. Hypocalcemia. Most probably secondary to hypoalbuminemia. Will provide calcium supplements. 11. Fluids, electrolytes, and nutrition. N.p.o. 12. DVT prophylaxis. SCDs. 13. Gastrointestinal prophylaxis. Proton pump inhibitors. 14. Plan. Continue intensive care monitoring. Obtain neurology evaluation. Start OG tube feedings if not weaning. Case discussed with Dr. Weiss. Critical care time: 35 minutes. Problems: Subjective 24 Hr Interval Summary Free Text/Dictation The patient is off heparin drip. IABP was removed. Hypoglycemic last night. Exam/Review of Systems Vital Signs Vitals Vital Signs Date Time Temp Pulse Resp B/P Pulse Ox O2 Delivery O2 Flow Rate FiO2 02/13/17 05:25 91 20 92 30 02/13/17 02:15 118/63 Mechanical Ventilator 02/13/17 00:00 98.4 Intake and Output 02/12/17 02/12/17 02/13/17 15:00 23:00 07:00 Intake Total 2031.106 ml 1271.364 ml 679 ml Output Total 720 ml 160 ml 390 ml Balance 1311.106 ml 1111.364 ml 289 ml Exam GENERAL: This is an obese male, lying in bed, orally intubated. HEENT: Head is normocephalic and atraumatic. Eyes: Anicteric sclerae. Conjunctivae are clear. ENT: Nasal septum is midline. Oral mucosa is dry. Orally intubated. Orogastric tube in place NECK: Supple. No JVD noticed. RESPIRATORY: Bilaterally diminished breath sounds. Orally intubated and mechanical ventilated, on AC mode ventilation. CARDIAC: S1, S2 heard. Regular rate and rhythm. ABDOMEN: Soft. Bowel sounds hypoactive. GENITOURINARY: The patient has a Mckeon catheter in place. Rectal tube in place. EXTREMITIES: No cyanosis, no clubbing, no edema. Pedal pulses by Doppler. NEUROLOGIC: The patient is sedated. Results Result Diagram: 02/12/17 0400 02/12/17 0400 Results 24 hrs Laboratory Tests Test 02/12/17 08:29 02/12/17 12:25 02/12/17 16:36 02/12/17 21:05 Bedside Glucose 94 100 104 63 L Test 02/12/17 21:23 02/12/17 21:37 02/12/17 21:53 02/12/17 22:13 Bedside Glucose 61 L 54 L 100 166 Test 02/13/17 00:26 Bedside Glucose 141 Medications Medications Current Medications Propofol 100 ml @ 2.727 mls/ hr Q12H IV Last administered on 02/13/17 05:35; Admin Dose 21.816 MLS/HR; Start 02/10/17 at 10:00 Piperacillin Sod/ Tazobactam Sod 100 ml @ 200 mls/hr Q8 IVPB Last administered on 02/13/17 05:34; Admin Dose 200 MLS/HR; Start 02/10/17 at 11:30 Phenylephrine HCl/ Dextrose (Zach-Syneph/D5W) 500 ml @ 18.75 mls/ hr TITRATE IV Last administered on 02/10/17 13:22; Admin Dose 26.25 MLS/HR; Start 02/10/17 at 13:00 Lorazepam (Ativan) 0.5 mg Q6H PRN IV ANXIETY Last administered on 02/12/17 14: 27; Admin Dose 0.5 MG; Start 02/10/17 at 12:30 Ondansetron HCl (Zofran Inj) 4 mg Q6H PRN IV NAUSEA AND/OR VOMITING; Start at 12:30 Acetaminophen (Tylenol Tab) 650 mg Q6H PRN PO PAIN LEVEL 1-3 OR FEVER Last administered on 02/10/17 21:39; Admin Dose 650 MG; Start 02/10/17 at 12:30 Acetaminophen/ Hydrocodone Bitart ([place] (5/325)) 1 tab Q6H PRN PO PAIN LEVEL 4 -6; Start 02/10/17 at 12:30 Morphine Sulfate (morphine) 2 mg Q4H PRN IV PAIN LEVEL 7-10 Last administered on 02/12/17 11:43; Admin Dose 2 MG; Start 02/10/17 at 12:30 Insulin Aspart (Novolog Insulin Pen) NOVOLOG *MILD* ALGORITHM Q4 SC Last administered on 02/10/17 17:10; Admin Dose 1 UNIT; Start 02/10/17 at 13:00 Miscellaneous Information 1 ea NOTE XX ; Start 02/10/17 at 13:30 Glucose (Glutose) 15 gm Q15M PRN PO DECREASED GLUCOSE; Start 02/10/17 at 13:30 Glucose (Glutose) 22.5 gm Q15M PRN PO DECREASED GLUCOSE; Start 02/10/17 at 13: 30 Dextrose (D50w Syringe) 25 ml Q15M PRN IV DECREASED GLUCOSE Last administered on 02/12/17 21:23; Admin Dose 25 ML; Start 02/10/17 at 13:30 Dextrose (D50w Syringe) 50 ml Q15M PRN IV DECREASED GLUCOSE Last administered on 02/12/17 21:39; Admin Dose 50 ML; Start 02/10/17 at 13:30 Glucagon (Glucagen) 1 mg Q15M PRN IM DECREASED GLUCOSE; Start 02/10/17 at 13:30 Glucose 15 gm 15 gm Q15M PRN BUCCAL DECREASED GLUCOSE; Start 02/10/17 at 13:30 Norepinephrine 16 mg/Dextrose 500 ml @ 0 mls/hr TITRATE IV ; Start 02/10/17 at 21:00 Dopamine HCl/ Dextrose (D5W) 250 ml @ 1.7 mls/hr TITRATE IV Last administered on 02/12/17 04:51; Admin Dose 11.07 MLS/HR; Start 02/10/17 at 18:00 Pantoprazole (Protonix Iv) 40 mg BID@06,18 IV Last administered on 02/13/17 05 :34; Admin Dose 40 MG; Start 02/11/17 at 06:00 Ticagrelor (Brilinta) 90 mg BID PO Last administered on 02/12/17 21:11; Admin Dose 90 MG; Start 02/11/17 at 12:00 Aspirin (Halfprin) 81 mg DAILY PO Last administered on 02/12/17 08:30; Admin Dose 81 MG; Start 02/11/17 at 12:00 Atorvastatin Calcium 80 mg 80 mg HS NGT Last administered on 02/12/17 21:10; Admin Dose 80 MG; Start 02/11/17 at 21:00 Sodium Bicarbonate/ Dextrose (Na Bicarb/D5W) 1,150 ml @ 80 mls/hr [id number] IV Last administered on 02/12/17 21:12; Admin Dose 80 MLS/HR; Start 02/11/17 at 15 :28 Vancomycin HCl 250 mg 250 mg Q6 NGT Last administered on 02/13/17 05:34; Admin Dose 250 MG; Start 02/12/17 at 12:00 Dextrose/Sodium Chloride (D5-1/2ns) 1,000 ml @ 75 mls/hr [id number] IV Last administered on 02/12/17 21:35; Admin Dose 75 MLS/HR; Start 02/12/17 at 21:30 HUBERT KUNZ NP Feb 13, 2017 07:11
[2017-02-13 07:26] LABS: ALBUMIN 2.9 g/dl (3.3-4.9); ALBUMIN/GLOBULIN RATIO 1.38; BILIRUBIN,DIRECT 0.3 mg/dl (0.00-0.20); BILIRUBIN,INDIRECT 0.1 mg/dl (0-1.1); BILIRUBIN,TOTAL 0.4 mg/dl (0.2-1.3); CREATININE 6.95 mg/dl (0.61-1.24); POTASSIUM 3.4 mmol/L (3.5-5.1)
[2017-02-13 07:29] LABS: MAGNESIUM 1.8 mg/dl (1.7-2.5); PHOSPHORUS 6.6 mg/dl (2.5-4.9)
[2017-02-13 07:43] LABS: CALCIUM 5.3 mg/dl (8.4-10.2)
[2017-02-13] MEDS: ASPIRIN (EC) 81 MG TAB PO SCH (08:06)
[2017-02-13] MEDS: TICAGRELOR 90 MG TABLET PO SCH ×2 (08:07→21:01)
[2017-02-13] MEDS ORDERED: POTASSIUM CHLORIDE 250 ML IVPB ONE (09:00)
[2017-02-13] MEDS ORDERED: CALCIUM GLUCONATE 10% 1 GM in SOD CHLORIDE 0.9% 100 ML IVPB ONE (09:00)
[2017-02-13] MEDS: morphine 2 MG INJ IV PRN (10:10)
[2017-02-13] MEDS: SODIUM BICARBONATE (IV ADD) 150 MEQ in DEXTROSE 5% 1,000 ML IV SCH (10:23)
[2017-02-13] MEDS: DEXTROSE 5%-0.45% NACL 1,000 ML IV SCH (10:27)
--- NOTE | 2017-02-13 10:55 | RADRPT ---
PROCEDURE: CHEST 1VW CLINICAL INDICATION: Shortness of breath TECHNIQUE: Single frontal view of the chest was obtained COMPARISON: 02/12/2017 FINDINGS: Interval placement of endotracheal tube with the tip 5.3 cm akiko. The cardiac size is normal. Aortic vascular calcifications are demonstrated. There is no pulmonary vascular congestion. Stable trace bilateral effusions, right greater than left, with associated atelectasis.. Mild degenerative changes of the visualized osseous structures are visualized. IMPRESSION: 1. Interval intubation. 2. Stable bilateral effusions with associated atelectasis. RPTAT:PP .Levi Canas MD, MD Date Time Electronically viewed and signed by .Levi Canas MD, on 02/13/2017 10:55 .V/
[2017-02-13] MEDS: LORAZEPAM 2 MG INJ IV PRN (11:26)
--- NOTE | 2017-02-13 11:53 | CONS ---
Date/Time of Note Date/Time of Note DATE: 02/13/17 TIME: 11:49 Assessment/Plan Assessment/Plan Additional Assessment/Plan Chest x-ray was reviewed from today which is showing pulmonary vascular congestion and mild pulmonary edema. Endotracheal tube is at an adequate level. Assessment recommendations; 1. Patient admitted with cardiac arrest status post emergent angiography with stenting of circumflex lesion. 2. Patient also required intra-aortic balloon pump which has subsequently been removed now. Patient maintaining adequate hemodynamics. 3. Worsening renal failure. Oliguric. 4. Patient currently not in a position to be extubated. On account of renal failure and fluid overload. 5. Difficult to rule out some element of aspiration pneumonia. Discontinue vancomycin. Patient has been re-sedated and reverted back to assist control mode. Patient will need to be dialyzed. I did have a very detailed discussion the patient's family at bedside and answered all their questions. Prognosis is fair. 35 minutes of critical care time was spent evaluating the patient. Consultation Date/Type/Reason Admit Date/Time Feb 10, 2017 at 08:37 Initial Consult Date 02/10/17 Type of Consultation: Pulmonary/critical care Referring Provider: MARIAJOSE ALMAZAN 24 HR Interval Summary Free Text/Dictation Patient condition is markedly improved. The patient has been off sedation and is completely awake and alert and follows commands and moves all 4 extremities on command. The patient however was switched over to CPAP mode but is not able to handle that because of ensuing tachypnea and respiratory distress. The patient has been reverted back to assist control mode and re-sedated. General exam; elderly male, orally intubated, sedated. Currently in no distress. Exam/Review of Systems Vital Signs Vitals Vital Signs Date Time Temp Pulse Resp B/P Pulse Ox O2 Delivery O2 Flow Rate FiO2 02/13/17 11:27 105 20 86 30 02/13/17 11:00 124/62 CPAP Mechanical Ventilator 02/13/17 08:00 98.9 Intake and Output 02/12/17 02/12/17 02/13/17 15:00 23:00 07:00 Intake Total 2031.106 ml 1271.364 ml 955.816 ml Output Total 720 ml 160 ml 400 ml Balance 1311.106 ml 1111.364 ml 555.816 ml Exam HEENT exam; supple neck, positive JVD. No lymphadenopathy. Midline trachea. No thyromegaly. Orally intubated. Patient has good dentition. Pupils are midsize and reactive to light bilaterally. Chest examination; diminished but clear breath sounds bilaterally. S1-S2 audible, no murmurs. Regular rhythm. Abdomen examination; soft, no organomegaly. Bowel sounds audible. Nontender. Extremity examination; no peripheral edema. Pulses 1+ bilaterally. 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 Results Result Diagram: 02/13/17 0430 02/13/17 0430 Results 24 hrs Laboratory Tests Test 02/12/17 12:25 02/12/17 16:36 02/12/17 21:05 02/12/17 21:23 Bedside Glucose 100 104 63 L 61 L Test 02/12/17 21:37 02/12/17 21:53 02/12/17 22:13 02/13/17 00:26 Bedside Glucose 54 L 100 166 141 Test 02/13/17 04:30 02/13/17 07:03 02/13/17 08:03 02/13/17 09:24 White Blood Count 8.3 Red Blood Count 3.36 L Hemoglobin 10.4 L Hematocrit 30.0 L Mean Corpuscular Volume 89.3 Mean Corpuscular Hemoglobin 31.0 Mean Corpuscular Hemoglobin Concent 34.7 Red Cell Distribution Width 13.7 Platelet Count 116 #L Mean Platelet Volume 11.8 H Neutrophils % 81.3 H Lymphocytes % 12.3 L Monocytes % 4.5 Eosinophils % 1.6 Basophils % 0.1 Nucleated Red Blood Cells % 0.0 Neutrophils # 6.7 Lymphocytes # 1.0 Monocytes # 0.4 Eosinophils # 0.1 Basophils # 0.0 Nucleated Red Blood Cells # 0.0 Differential Comment AUTO w/SCAN Sodium Level 130 L Potassium Level 3.4 L Chloride Level 93 L Carbon Dioxide Level 24 Anion Gap 16 Blood Urea Nitrogen 72 H Creatinine 6.95 H Glucose Level 90 Calcium Level 5.3 *L Phosphorus Level 6.6 H Magnesium Level 1.8 Total Bilirubin 0.4 Direct Bilirubin 0.30 #H Indirect Bilirubin 0.1 Aspartate Amino Transf (AST/SGOT) 99 H Alanine Aminotransferase (ALT/SGPT) 91 H Alkaline Phosphatase 83 # Total Protein 5.0 L Albumin 2.9 L Globulin 2.10 Albumin/Globulin Ratio 1.38 Bedside Glucose 94 94 Ionized Calcium (Measured) 0.7 L Medications Medications Current Medications Propofol 100 ml @ 2.727 mls/ hr Q12H IV Last administered on 02/13/17 11:26; Admin Dose 21.816 MLS/HR; Start 02/10/17 at 10:00 Piperacillin Sod/ Tazobactam Sod 100 ml @ 200 mls/hr Q8 IVPB Last administered on 02/13/17 05:34; Admin Dose 200 MLS/HR; Start 02/10/17 at 11:30 Phenylephrine HCl/ Dextrose (Zach-Syneph/D5W) 500 ml @ 18.75 mls/ hr TITRATE IV Last administered on 02/10/17 13:22; Admin Dose 26.25 MLS/HR; Start 02/10/17 at 13:00 Lorazepam (Ativan) 0.5 mg Q6H PRN IV ANXIETY Last administered on 02/13/17 11: 26; Admin Dose 0.5 MG; Start 02/10/17 at 12:30 Ondansetron HCl (Zofran Inj) 4 mg Q6H PRN IV NAUSEA AND/OR VOMITING; Start at 12:30 Acetaminophen (Tylenol Tab) 650 mg Q6H PRN PO PAIN LEVEL 1-3 OR FEVER Last administered on 02/10/17 21:39; Admin Dose 650 MG; Start 02/10/17 at 12:30 Acetaminophen/ Hydrocodone Bitart ([place] (5/325)) 1 tab Q6H PRN PO PAIN LEVEL 4 -6; Start 02/10/17 at 12:30 Morphine Sulfate (morphine) 2 mg Q4H PRN IV PAIN LEVEL 7-10 Last administered on 02/13/17 10:10; Admin Dose 2 MG; Start 02/10/17 at 12:30 Insulin Aspart (Novolog Insulin Pen) NOVOLOG *MILD* ALGORITHM Q4 SC Last administered on 02/10/17 17:10; Admin Dose 1 UNIT; Start 02/10/17 at 13:00 Miscellaneous Information 1 ea NOTE XX ; Start 02/10/17 at 13:30 Glucose (Glutose) 15 gm Q15M PRN PO DECREASED GLUCOSE; Start 02/10/17 at 13:30 Glucose (Glutose) 22.5 gm Q15M PRN PO DECREASED GLUCOSE; Start 02/10/17 at 13: 30 Dextrose (D50w Syringe) 25 ml Q15M PRN IV DECREASED GLUCOSE Last administered on 02/12/17 21:23; Admin Dose 25 ML; Start 02/10/17 at 13:30 Dextrose (D50w Syringe) 50 ml Q15M PRN IV DECREASED GLUCOSE Last administered on 02/12/17 21:39; Admin Dose 50 ML; Start 02/10/17 at 13:30 Glucagon (Glucagen) 1 mg Q15M PRN IM DECREASED GLUCOSE; Start 02/10/17 at 13:30 Glucose 15 gm 15 gm Q15M PRN BUCCAL DECREASED GLUCOSE; Start 02/10/17 at 13:30 Norepinephrine 16 mg/Dextrose 500 ml @ 0 mls/hr TITRATE IV ; Start 02/10/17 at 21:00 Dopamine HCl/ Dextrose (D5W) 250 ml @ 1.7 mls/hr TITRATE IV Last administered on 02/12/17 04:51; Admin Dose 11.07 MLS/HR; Start 02/10/17 at 18:00 Pantoprazole (Protonix Iv) 40 mg BID@06,18 IV Last administered on 02/13/17 05 :34; Admin Dose 40 MG; Start 02/11/17 at 06:00 Ticagrelor (Brilinta) 90 mg BID PO Last administered on 02/13/17 08:07; Admin Dose 90 MG; Start 02/11/17 at 12:00 Aspirin (Halfprin) 81 mg DAILY PO Last administered on 02/13/17 08:06; Admin Dose 81 MG; Start 02/11/17 at 12:00 Atorvastatin Calcium 80 mg 80 mg HS NGT Last administered on 02/12/17 21:10; Admin Dose 80 MG; Start 02/11/17 at 21:00 Sodium Bicarbonate/ Dextrose (Na Bicarb/D5W) 1,150 ml @ 80 mls/hr [id number] IV Last administered on 02/13/17 10:23; Admin Dose 80 MLS/HR; Start 02/11/17 at 15 :28 Vancomycin HCl 250 mg 250 mg Q6 NGT Last administered on 02/13/17 11:26; Admin Dose 250 MG; Start 02/12/17 at 12:00 Dextrose/Sodium Chloride 1,000 ml @ 75 mls/hr [id number] IV Last administered on 02/13/17 10:27; Admin Dose 75 MLS/HR; Start 02/12/17 at 21:30 Potassium Chloride 250 ml @ 62.5 mls/hr ONCE ONCE IVPB Last administered on 10:22; Admin Dose 62.5 MLS/HR; Start 02/13/17 at 09:00; Stop 02/13/17 at 12:59 Fentanyl (Sublimaze) 100 ml @ 2.5 mls/hr TITRATE IV ; Start 02/13/17 at 11:30 ANGELINA VALDEZ Feb 13, 2017 11:53
--- NOTE | 2017-02-13 12:37 | CONS ---
Date/Time of Note Date/Time of Note DATE: 02/13/17 TIME: 12:31 Assessment/Plan Assessment/Plan Chief Complaint/Hosp Course 66 year old male admitted with STEMI with 100% left circumflex vessel occlusion requiring MIRA with intra-aortic balloon pump admitted to ICU for further management, remains intubated on sedation limited examination. Recommendations: may obtain baseline Routine EEG no seizures have been reported MRI Brain without contrast to assess for hypoxic injury will follow up again and reexamine off sedation Problems: Consultation Date/Type/Reason Admit Date/Time Feb 10, 2017 at 08:37 Date of Consultation: Feb 13, 2017 Type of Consultation: Neurology Reason for Consultation post cardiac arrest evaluate for hypoxic injury Referring Provider: HUBERT KUNZ [employer] Hx of Present Illness 66 year old male with no significant past medical history witnessed cardiac arrest while at work with CPR performed admitted with STEMI, requiring shock twice in ER with ROSC underwent emergent cardiac catheterization with 100% occlusion left circumflex artery s/p MIRA requiring intra-aortic balloon pump admitted to the ICU for further care, did not require hypothermia protocol, hospital course also c/by NEFTALI with severe metabolic acidosis. When sedation is held he is able to open his eyes, can follow simple commands, nods yes when family member asks if he in pain, requiring sedation due to severe agitation at this time. Subjective hx not possible: pt non-verbal, pt critical Social History Smoking Status: Unknown if ever smoked Exam/Review of Systems Vital Signs Vitals Vital Signs Date Time Temp Pulse Resp B/P Pulse Ox O2 Delivery O2 Flow Rate FiO2 02/13/17 11:27 105 20 86 30 02/13/17 11:00 124/62 CPAP Mechanical Ventilator 02/13/17 08:00 98.9 Intake and Output 02/12/17 02/12/17 02/13/17 15:00 23:00 07:00 Intake Total 2031.106 ml 1271.364 ml 955.816 ml Output Total 720 ml 160 ml 400 ml Balance 1311.106 ml 1111.364 ml 555.816 ml Exam intubated on sedation unable to arouse limited exam CN: pupils are 1 mm limited Doll's corneals and gag are present Motor no withdrawal to noxious Results Result Diagram: 02/13/17 0430 02/13/17 0430 Results 24 hrs Laboratory Tests Test 02/12/17 16:36 02/12/17 21:05 02/12/17 21:23 02/12/17 21:37 Bedside Glucose 104 63 L 61 L 54 L Test 02/12/17 21:53 02/12/17 22:13 02/13/17 00:26 02/13/17 04:30 Bedside Glucose 100 166 141 White Blood Count 8.3 Red Blood Count 3.36 L Hemoglobin 10.4 L Hematocrit 30.0 L Mean Corpuscular Volume 89.3 Mean Corpuscular Hemoglobin 31.0 Mean Corpuscular Hemoglobin Concent 34.7 Red Cell Distribution Width 13.7 Platelet Count 116 #L Mean Platelet Volume 11.8 H Neutrophils % 81.3 H Lymphocytes % 12.3 L Monocytes % 4.5 Eosinophils % 1.6 Basophils % 0.1 Nucleated Red Blood Cells % 0.0 Neutrophils # 6.7 Lymphocytes # 1.0 Monocytes # 0.4 Eosinophils # 0.1 Basophils # 0.0 Nucleated Red Blood Cells # 0.0 Differential Comment AUTO w/SCAN Sodium Level 130 L Potassium Level 3.4 L Chloride Level 93 L Carbon Dioxide Level 24 Anion Gap 16 Blood Urea Nitrogen 72 H Creatinine 6.95 H Glucose Level 90 Calcium Level 5.3 *L Phosphorus Level 6.6 H Magnesium Level 1.8 Total Bilirubin 0.4 Direct Bilirubin 0.30 #H Indirect Bilirubin 0.1 Aspartate Amino Transf (AST/SGOT) 99 H Alanine Aminotransferase (ALT/SGPT) 91 H Alkaline Phosphatase 83 # Total Protein 5.0 L Albumin 2.9 L Globulin 2.10 Albumin/Globulin Ratio 1.38 Test 02/13/17 07:03 02/13/17 08:03 02/13/17 09:24 02/13/17 11:58 Bedside Glucose 94 94 115 Ionized Calcium (Measured) 0.7 L Medications Medications Current Medications Propofol 100 ml @ 2.727 mls/ hr Q12H IV Last administered on 02/13/17 11:26; Admin Dose 21.816 MLS/HR; Start 02/10/17 at 10:00 Piperacillin Sod/ Tazobactam Sod 100 ml @ 200 mls/hr Q8 IVPB Last administered on 02/13/17 05:34; Admin Dose 200 MLS/HR; Start 02/10/17 at 11:30 Phenylephrine HCl/ Dextrose (Zach-Syneph/D5W) 500 ml @ 18.75 mls/ hr TITRATE IV Last administered on 02/10/17 13:22; Admin Dose 26.25 MLS/HR; Start 02/10/17 at 13:00 Lorazepam (Ativan) 0.5 mg Q6H PRN IV ANXIETY Last administered on 02/13/17 11: 26; Admin Dose 0.5 MG; Start 02/10/17 at 12:30 Ondansetron HCl (Zofran Inj) 4 mg Q6H PRN IV NAUSEA AND/OR VOMITING; Start at 12:30 Acetaminophen (Tylenol Tab) 650 mg Q6H PRN PO PAIN LEVEL 1-3 OR FEVER Last administered on 02/10/17 21:39; Admin Dose 650 MG; Start 02/10/17 at 12:30 Acetaminophen/ Hydrocodone Bitart ([place] (5/325)) 1 tab Q6H PRN PO PAIN LEVEL 4 -6; Start 02/10/17 at 12:30 Morphine Sulfate (morphine) 2 mg Q4H PRN IV PAIN LEVEL 7-10 Last administered on 02/13/17 10:10; Admin Dose 2 MG; Start 02/10/17 at 12:30 Insulin Aspart (Novolog Insulin Pen) NOVOLOG *MILD* ALGORITHM Q4 SC Last administered on 02/10/17 17:10; Admin Dose 1 UNIT; Start 02/10/17 at 13:00 Miscellaneous Information 1 ea NOTE XX ; Start 02/10/17 at 13:30 Glucose (Glutose) 15 gm Q15M PRN PO DECREASED GLUCOSE; Start 02/10/17 at 13:30 Glucose (Glutose) 22.5 gm Q15M PRN PO DECREASED GLUCOSE; Start 02/10/17 at 13: 30 Dextrose (D50w Syringe) 25 ml Q15M PRN IV DECREASED GLUCOSE Last administered on 02/12/17 21:23; Admin Dose 25 ML; Start 02/10/17 at 13:30 Dextrose (D50w Syringe) 50 ml Q15M PRN IV DECREASED GLUCOSE Last administered on 02/12/17 21:39; Admin Dose 50 ML; Start 02/10/17 at 13:30 Glucagon (Glucagen) 1 mg Q15M PRN IM DECREASED GLUCOSE; Start 02/10/17 at 13:30 Glucose 15 gm 15 gm Q15M PRN BUCCAL DECREASED GLUCOSE; Start 02/10/17 at 13:30 Norepinephrine 16 mg/Dextrose 500 ml @ 0 mls/hr TITRATE IV ; Start 02/10/17 at 21:00 Dopamine HCl/ Dextrose (D5W) 250 ml @ 1.7 mls/hr TITRATE IV Last administered on 02/12/17 04:51; Admin Dose 11.07 MLS/HR; Start 02/10/17 at 18:00 Pantoprazole (Protonix Iv) 40 mg BID@06,18 IV Last administered on 02/13/17 05 :34; Admin Dose 40 MG; Start 02/11/17 at 06:00 Ticagrelor (Brilinta) 90 mg BID PO Last administered on 02/13/17 08:07; Admin Dose 90 MG; Start 02/11/17 at 12:00 Aspirin (Halfprin) 81 mg DAILY PO Last administered on 02/13/17 08:06; Admin Dose 81 MG; Start 02/11/17 at 12:00 Atorvastatin Calcium 80 mg 80 mg HS NGT Last administered on 02/12/17 21:10; Admin Dose 80 MG; Start 02/11/17 at 21:00 Sodium Bicarbonate 150 meq/Dextrose 1,150 ml @ 80 mls/hr [id number] IV Last administered on 02/13/17 10:23; Admin Dose 80 MLS/HR; Start 02/11/17 at 15:28 Dextrose/Sodium Chloride 1,000 ml @ 75 mls/hr [id number] IV Last administered on 02/13/17 10:27; Admin Dose 75 MLS/HR; Start 02/12/17 at 21:30 Potassium Chloride 250 ml @ 62.5 mls/hr ONCE ONCE IVPB Last administered on 10:22; Admin Dose 62.5 MLS/HR; Start 02/13/17 at 09:00; Stop 02/13/17 at 12:59 Fentanyl (Sublimaze) 100 ml @ 2.5 mls/hr TITRATE IV ; Start 02/13/17 at 11:30 CRISTOPHER NEWELL MD Feb 13, 2017 12:37
[2017-02-13] MEDS: FENTAnyl (DRIP) 1000 mcg/100mL 100 ML IV SCH ×2 (13:27→15:49)
--- NOTE | 2017-02-13 15:18 | CONS ---
Date/Time of Note Date/Time of Note DATE: 02/13/17 TIME: 15:17 Consult Date/Type/Reason Admit Date/Time Feb 10, 2017 at 08:37 Initial Consult Date 02/10/17 Type of Consultation: Interventional Cardiology Ordering Provider: HUBERT KUNZ CLINICAL DATA SPECIALIST Objective Vital Signs Date Time Temp Pulse Resp B/P Pulse Ox O2 Delivery O2 Flow Rate FiO2 02/13/17 13:30 72 20 113/62 96 Mechanical Ventilator 02/13/17 13:20 30 02/13/17 12:00 98.9 Intake and Output 02/12/17 02/12/17 02/13/17 15:00 23:00 07:00 Intake Total 2031.106 ml 1271.364 ml 955.816 ml Output Total 720 ml 160 ml 400 ml Balance 1311.106 ml 1111.364 ml 555.816 ml Results/Medications Result Diagram: 02/13/17 0430 02/13/17 0430 Results 24 hrs Laboratory Tests Test 02/12/17 16:36 02/12/17 21:05 02/12/17 21:23 02/12/17 21:37 Bedside Glucose 104 63 L 61 L 54 L Test 02/12/17 21:53 02/12/17 22:13 02/13/17 00:26 02/13/17 04:30 Bedside Glucose 100 166 141 White Blood Count 8.3 Red Blood Count 3.36 L Hemoglobin 10.4 L Hematocrit 30.0 L Mean Corpuscular Volume 89.3 Mean Corpuscular Hemoglobin 31.0 Mean Corpuscular Hemoglobin Concent 34.7 Red Cell Distribution Width 13.7 Platelet Count 116 #L Mean Platelet Volume 11.8 H Neutrophils % 81.3 H Lymphocytes % 12.3 L Monocytes % 4.5 Eosinophils % 1.6 Basophils % 0.1 Nucleated Red Blood Cells % 0.0 Neutrophils # 6.7 Lymphocytes # 1.0 Monocytes # 0.4 Eosinophils # 0.1 Basophils # 0.0 Nucleated Red Blood Cells # 0.0 Differential Comment AUTO w/SCAN Sodium Level 130 L Potassium Level 3.4 L Chloride Level 93 L Carbon Dioxide Level 24 Anion Gap 16 Blood Urea Nitrogen 72 H Creatinine 6.95 H Glucose Level 90 Calcium Level 5.3 *L Phosphorus Level 6.6 H Magnesium Level 1.8 Total Bilirubin 0.4 Direct Bilirubin 0.30 #H Indirect Bilirubin 0.1 Aspartate Amino Transf (AST/SGOT) 99 H Alanine Aminotransferase (ALT/SGPT) 91 H Alkaline Phosphatase 83 # Total Protein 5.0 L Albumin 2.9 L Globulin 2.10 Albumin/Globulin Ratio 1.38 Test 02/13/17 07:03 02/13/17 08:03 02/13/17 09:24 02/13/17 11:58 Bedside Glucose 94 94 115 Ionized Calcium (Measured) 0.7 L Medications Current Medications Propofol 100 ml @ 2.727 mls/ hr Q12H IV Last administered on 02/13/17 11:26; Admin Dose 21.816 MLS/HR; Start 02/10/17 at 10:00 Piperacillin Sod/ Tazobactam Sod 100 ml @ 200 mls/hr Q8 IVPB Last administered on 02/13/17 13:28; Admin Dose 200 MLS/HR; Start 02/10/17 at 11:30 Phenylephrine HCl/ Dextrose (Zach-Syneph/D5W) 500 ml @ 18.75 mls/ hr TITRATE IV Last administered on 02/10/17 13:22; Admin Dose 26.25 MLS/HR; Start 02/10/17 at 13:00 Lorazepam (Ativan) 0.5 mg Q6H PRN IV ANXIETY Last administered on 02/13/17 11: 26; Admin Dose 0.5 MG; Start 02/10/17 at 12:30 Ondansetron HCl (Zofran Inj) 4 mg Q6H PRN IV NAUSEA AND/OR VOMITING; Start at 12:30 Acetaminophen (Tylenol Tab) 650 mg Q6H PRN PO PAIN LEVEL 1-3 OR FEVER Last administered on 02/10/17 21:39; Admin Dose 650 MG; Start 02/10/17 at 12:30 Acetaminophen/ Hydrocodone Bitart ([place] (5/325)) 1 tab Q6H PRN PO PAIN LEVEL 4 -6; Start 02/10/17 at 12:30 Morphine Sulfate (morphine) 2 mg Q4H PRN IV PAIN LEVEL 7-10 Last administered on 02/13/17 10:10; Admin Dose 2 MG; Start 02/10/17 at 12:30 Insulin Aspart (Novolog Insulin Pen) NOVOLOG *MILD* ALGORITHM Q4 SC Last administered on 02/10/17 17:10; Admin Dose 1 UNIT; Start 02/10/17 at 13:00 Miscellaneous Information 1 ea NOTE XX ; Start 02/10/17 at 13:30 Glucose (Glutose) 15 gm Q15M PRN PO DECREASED GLUCOSE; Start 02/10/17 at 13:30 Glucose (Glutose) 22.5 gm Q15M PRN PO DECREASED GLUCOSE; Start 02/10/17 at 13: 30 Dextrose (D50w Syringe) 25 ml Q15M PRN IV DECREASED GLUCOSE Last administered on 02/12/17 21:23; Admin Dose 25 ML; Start 02/10/17 at 13:30 Dextrose (D50w Syringe) 50 ml Q15M PRN IV DECREASED GLUCOSE Last administered on 02/12/17 21:39; Admin Dose 50 ML; Start 02/10/17 at 13:30 Glucagon (Glucagen) 1 mg Q15M PRN IM DECREASED GLUCOSE; Start 02/10/17 at 13:30 Glucose 15 gm 15 gm Q15M PRN BUCCAL DECREASED GLUCOSE; Start 02/10/17 at 13:30 Norepinephrine 16 mg/Dextrose 500 ml @ 0 mls/hr TITRATE IV ; Start 02/10/17 at 21:00 Dopamine HCl/ Dextrose (D5W) 250 ml @ 1.7 mls/hr TITRATE IV Last administered on 02/12/17 04:51; Admin Dose 11.07 MLS/HR; Start 02/10/17 at 18:00 Pantoprazole (Protonix Iv) 40 mg BID@06,18 IV Last administered on 02/13/17 05 :34; Admin Dose 40 MG; Start 02/11/17 at 06:00 Ticagrelor (Brilinta) 90 mg BID PO Last administered on 02/13/17 08:07; Admin Dose 90 MG; Start 02/11/17 at 12:00 Aspirin (Halfprin) 81 mg DAILY PO Last administered on 02/13/17 08:06; Admin Dose 81 MG; Start 02/11/17 at 12:00 Atorvastatin Calcium 80 mg 80 mg HS NGT Last administered on 02/12/17 21:10; Admin Dose 80 MG; Start 02/11/17 at 21:00 Dextrose/Sodium Chloride 1,000 ml @ 75 mls/hr [id number] IV Last administered on 02/13/17 10:27; Admin Dose 75 MLS/HR; Start 02/12/17 at 21:30 Fentanyl (Sublimaze) 100 ml @ 2.5 mls/hr TITRATE IV Last administered on 13:27; Admin Dose 5 MLS/HR; Start 02/13/17 at 11:30 Assessment/Plan Problems: (1) Cardiac arrest (2) Ventricular fibrillation (3) ST elevation myocardial infarction (STEMI) of anterior wall Additional Assessment/Plan S/P Cardiac arrest STEMI Vfib s/p PCI of OM doing fine off IABP BP is good EEG done pt is moving plan to do PSV trial tomorrow lebron lin and asa will ./LENIN Damon MD Feb 13, 2017 15:18
--- NOTE | 2017-02-13 17:37 | CONS ---
Date/Time of Note Date/Time of Note DATE: 02/13/17 TIME: 17:35 Assessment/Plan Assessment/Plan Additional Assessment/Plan 1. Oliguric acute kidney injury, likely secondary to ischemic acute tubular necrosis from ST-elevation myocardial infarction and cardiogenic shock. 2. Cardiogenic shock. 3. Acute respiratory failure from cardiac arrest, currently intubated on ventilator. 4. Metabolic acidosis secondary to acute renal failure. 5. No significant past medical history, as per the family. PLAN: d/c bicarbonate drip, continue tube feeding and D51/2 NS Urine output marginally low in last 24 hr, BUN/Cr rising, no plan for HD today, will monitor Renal function and urine output in AM and decide for it Continue Dopamine and zach for BP support will follow up Consultation Date/Type/Reason Admit Date/Time Feb 10, 2017 at 08:37 Initial Consult Date 02/10/17 Type of Consultation: NEPHROLOGY Referring Provider: HUBERT KUNZ NP 24 HR Interval Summary Free Text/Dictation urine output marginally low, only 400 Cc, BUN/Cr rising, Bp stable, getting EEG Exam/Review of Systems Vital Signs Vitals Vital Signs Date Time Temp Pulse Resp B/P Pulse Ox O2 Delivery O2 Flow Rate FiO2 02/13/17 16:00 73 02/13/17 15:16 20 93 30 02/13/17 13:30 113/62 Mechanical Ventilator 02/13/17 12:00 98.9 Intake and Output 02/12/17 02/12/17 02/13/17 15:00 23:00 07:00 Intake Total 2031.106 ml 1271.364 ml 955.816 ml Output Total 720 ml 160 ml 400 ml Balance 1311.106 ml 1111.364 ml 555.816 ml Results Result Diagram: 02/13/17 0430 02/13/17 0430 Results 24 hrs Laboratory Tests Test 02/12/17 21:05 02/12/17 21:23 02/12/17 21:37 02/12/17 21:53 Bedside Glucose 63 L 61 L 54 L 100 Test 02/12/17 22:13 02/13/17 00:26 02/13/17 04:30 02/13/17 07:03 Bedside Glucose 166 141 94 White Blood Count 8.3 Red Blood Count 3.36 L Hemoglobin 10.4 L Hematocrit 30.0 L Mean Corpuscular Volume 89.3 Mean Corpuscular Hemoglobin 31.0 Mean Corpuscular Hemoglobin Concent 34.7 Red Cell Distribution Width 13.7 Platelet Count 116 #L Mean Platelet Volume 11.8 H Neutrophils % 81.3 H Lymphocytes % 12.3 L Monocytes % 4.5 Eosinophils % 1.6 Basophils % 0.1 Nucleated Red Blood Cells % 0.0 Neutrophils # 6.7 Lymphocytes # 1.0 Monocytes # 0.4 Eosinophils # 0.1 Basophils # 0.0 Nucleated Red Blood Cells # 0.0 Differential Comment AUTO w/SCAN Sodium Level 130 L Potassium Level 3.4 L Chloride Level 93 L Carbon Dioxide Level 24 Anion Gap 16 Blood Urea Nitrogen 72 H Creatinine 6.95 H Glucose Level 90 Calcium Level 5.3 *L Phosphorus Level 6.6 H Magnesium Level 1.8 Total Bilirubin 0.4 Direct Bilirubin 0.30 #H Indirect Bilirubin 0.1 Aspartate Amino Transf (AST/SGOT) 99 H Alanine Aminotransferase (ALT/SGPT) 91 H Alkaline Phosphatase 83 # Total Protein 5.0 L Albumin 2.9 L Globulin 2.10 Albumin/Globulin Ratio 1.38 Test 02/13/17 08:03 02/13/17 09:24 02/13/17 11:58 02/13/17 16:09 Bedside Glucose 94 115 111 Ionized Calcium (Measured) 0.7 L Medications Medications Current Medications Propofol 100 ml @ 2.727 mls/ hr Q12H IV Last administered on 02/13/17 15:51; Admin Dose 21.816 MLS/HR; Start 02/10/17 at 10:00 Piperacillin Sod/ Tazobactam Sod 100 ml @ 200 mls/hr Q8 IVPB Last administered on 02/13/17 13:28; Admin Dose 200 MLS/HR; Start 02/10/17 at 11:30 Phenylephrine HCl/ Dextrose (Zach-Syneph/D5W) 500 ml @ 18.75 mls/ hr TITRATE IV Last administered on 02/10/17 13:22; Admin Dose 26.25 MLS/HR; Start 02/10/17 at 13:00 Lorazepam (Ativan) 0.5 mg Q6H PRN IV ANXIETY Last administered on 02/13/17 11: 26; Admin Dose 0.5 MG; Start 02/10/17 at 12:30 Ondansetron HCl (Zofran Inj) 4 mg Q6H PRN IV NAUSEA AND/OR VOMITING; Start at 12:30 Acetaminophen (Tylenol Tab) 650 mg Q6H PRN PO PAIN LEVEL 1-3 OR FEVER Last administered on 02/10/17 21:39; Admin Dose 650 MG; Start 02/10/17 at 12:30 Acetaminophen/ Hydrocodone Bitart ([place] (5/325)) 1 tab Q6H PRN PO PAIN LEVEL 4 -6; Start 02/10/17 at 12:30 Morphine Sulfate (morphine) 2 mg Q4H PRN IV PAIN LEVEL 7-10 Last administered on 02/13/17 10:10; Admin Dose 2 MG; Start 02/10/17 at 12:30 Insulin Aspart (Novolog Insulin Pen) NOVOLOG *MILD* ALGORITHM Q4 SC Last administered on 02/10/17 17:10; Admin Dose 1 UNIT; Start 02/10/17 at 13:00 Miscellaneous Information 1 ea NOTE XX ; Start 02/10/17 at 13:30 Glucose (Glutose) 15 gm Q15M PRN PO DECREASED GLUCOSE; Start 02/10/17 at 13:30 Glucose (Glutose) 22.5 gm Q15M PRN PO DECREASED GLUCOSE; Start 02/10/17 at 13: 30 Dextrose (D50w Syringe) 25 ml Q15M PRN IV DECREASED GLUCOSE Last administered on 02/12/17 21:23; Admin Dose 25 ML; Start 02/10/17 at 13:30 Dextrose (D50w Syringe) 50 ml Q15M PRN IV DECREASED GLUCOSE Last administered on 02/12/17 21:39; Admin Dose 50 ML; Start 02/10/17 at 13:30 Glucagon (Glucagen) 1 mg Q15M PRN IM DECREASED GLUCOSE; Start 02/10/17 at 13:30 Glucose 15 gm 15 gm Q15M PRN BUCCAL DECREASED GLUCOSE; Start 02/10/17 at 13:30 Norepinephrine 16 mg/Dextrose 500 ml @ 0 mls/hr TITRATE IV ; Start 02/10/17 at 21:00 Dopamine HCl/ Dextrose (D5W) 250 ml @ 1.7 mls/hr TITRATE IV Last administered on 02/12/17 04:51; Admin Dose 11.07 MLS/HR; Start 02/10/17 at 18:00 Pantoprazole (Protonix Iv) 40 mg BID@06,18 IV Last administered on 02/13/17 05 :34; Admin Dose 40 MG; Start 02/11/17 at 06:00 Ticagrelor (Brilinta) 90 mg BID PO Last administered on 02/13/17 08:07; Admin Dose 90 MG; Start 02/11/17 at 12:00 Aspirin (Halfprin) 81 mg DAILY PO Last administered on 02/13/17 08:06; Admin Dose 81 MG; Start 02/11/17 at 12:00 Atorvastatin Calcium 80 mg 80 mg HS NGT Last administered on 02/12/17 21:10; Admin Dose 80 MG; Start 02/11/17 at 21:00 Dextrose/Sodium Chloride 1,000 ml @ 75 mls/hr [id number] IV Last administered on 02/13/17 10:27; Admin Dose 75 MLS/HR; Start 02/12/17 at 21:30 Fentanyl (Sublimaze) 100 ml @ 2.5 mls/hr TITRATE IV Last administered on 15:49; Admin Dose 10 MLS/HR; Start 02/13/17 at 11:30 SAILAJA LOUIE MD Feb 13, 2017 17:37
[2017-02-13] MEDS: ATORVASTATIN 80 MG TAB NGT SCH (21:00)
[2017-02-14] VITALS (56 sets, daily range): BP systolic 89–167; BP diastolic 52–84; PULSE 71–93; RESP 11–27
[2017-02-14] MEDS: PROPOFOL 100 ML IV SCH ×8 (00:13→22:54)
[2017-02-14] MEDS: INSULIN ASPART [NOVOLOG] 3 ML PEN SC SCH ×6 (01:00→21:00)
[2017-02-14] MEDS: DEXTROSE 5%-0.45% NACL 1,000 ML IV SCH ×2 (01:02→14:07)
[2017-02-14] MEDS: FENTAnyl (DRIP) 1000 mcg/100mL 100 ML IV SCH ×3 (01:03→19:28)
[2017-02-14] MEDS: PANTOPRAZOLE 40 MG INJ IV SCH ×2 (06:17→17:45)
[2017-02-14] MEDS: PIPER-TAZO 3.375 GM IV (PMX) 100 ML IVPB SCH ×3 (06:17→21:10)
[2017-02-14 06:29] LABS: ADD SCAN DIFF NO
[2017-02-14 06:44] LABS: BASOPHILS % 0.2 % (0.0-2.0); EOSINOPHILS # 0.2 10^3/ul (0.0-0.5); EOSINOPHILS % 1.9 % (0.0-7.0); HEMOGLOBIN 9.7 g/dl (14.0-18.0); LYMPHOCYTES # 1.1 10^3/ul (0.8-2.9); LYMPHOCYTES % 12.6 % (15.0-51.0); MEAN CORPUSCULAR HEMOGLOBIN 32.1 pg (29.0-33.0); MEAN CORPUSCULAR HGB CONC 35.9 g/dl (32.0-37.0); MEAN CORPUSCULAR VOLUME 89.4 fl (82.0-101.0); MEAN PLATELET VOLUME 11.3 fl (7.4-10.4); MONOCYTE # 0.4 10^3/ul (0.3-0.9); MONOCYTES % 5.2 % (0.0-11.0); NEUTROPHIL # 6.7 10^3/ul (1.6-7.5); NEUTROPHILS % 79.6 % (39.0-77.0); PLATELET COUNT 141 10^3/UL (140-415); RED BLOOD COUNT 3.02 10^6/ul (4.70-6.10); RED CELL DISTRIBUTION WIDTH 13.8 % (11.5-14.5); WHITE BLOOD COUNT 8.4 10^3/ul (4.8-10.8)
[2017-02-14 07:04] LABS: ALBUMIN 2.9 g/dl (3.3-4.9); ALBUMIN/GLOBULIN RATIO 1.26; BILIRUBIN,DIRECT 0.8 mg/dl (0.00-0.20); BILIRUBIN,TOTAL 0.8 mg/dl (0.2-1.3); CREATININE 7.53 mg/dl (0.61-1.24); POTASSIUM 3.5 mmol/L (3.5-5.1); TOTAL PROTEIN 5.2 g/dl (6.1-8.1)
[2017-02-14 07:07] LABS: PHOSPHORUS 6.7 mg/dl (2.5-4.9)
[2017-02-14 07:13] LABS: CALCIUM 5.7 mg/dl (8.4-10.2)
[2017-02-14] MEDS: ASPIRIN (EC) 81 MG TAB PO SCH (08:33)
[2017-02-14] MEDS: TICAGRELOR 90 MG TABLET PO SCH ×2 (08:38→21:13)
--- NOTE | 2017-02-14 09:10 | CONS ---
Date/Time of Note Date/Time of Note DATE: 02/14/17 TIME: 09:06 Assessment/Plan Assessment/Plan Additional Assessment/Plan Ventilator setting; AC of 20, tidal volume 600, PEEP of 5, 30% FiO2. Patient currently on fentanyl drip at 100 mics per hour, propofol 50 mics per milligram per minute. Assessment recommendations; next 1. Patient admitted with cardiac arrest status post emergent coronary angiography with stenting of circumflex lesion. 2. Congestive heart failure with pulmonary edema. 3. Acute oliguric renal failure. 4. Possibly aspiration pneumonia. Continue current treatment. Patient will need to be dialyzed. Weaning from ventilator will be attempted once patient undergoes at least a couple of dialysis sessions for relief of pulmonary edema and fluid overload. Prognosis is guarded. Consultation Date/Type/Reason Admit Date/Time Feb 10, 2017 at 08:37 Initial Consult Date 02/10/17 Type of Consultation: Pulmonary/critical care Referring Provider: HUBERT KUNZ NP 24 HR Interval Summary Free Text/Dictation Patient condition remains critical. Patient failed a weaning trial from ventilator yesterday because of ensuing tachypnea and hypoxemia. Patient had to be re-sedated and reverted back to assist control mode. Patient has remained hemodynamically stable overnight and no untoward events reported. Brett; elderly male, on ventilator via endotracheal tube, sedated and currently in no distress. Exam/Review of Systems Vital Signs Vitals Vital Signs Date Time Temp Pulse Resp B/P Pulse Ox O2 Delivery O2 Flow Rate FiO2 02/14/17 08:00 30 02/14/17 06:30 82 20 89/67 96 02/14/17 06:00 Mechanical Ventilator 02/14/17 04:00 98.1 Intake and Output 02/13/17 02/13/17 02/14/17 15:00 23:00 07:00 Intake Total 1637.264 ml 1145.436 ml 1335.89 ml Output Total 445 ml 225 ml 305 ml Balance 1192.264 ml 920.436 ml 1030.89 ml Exam HEENT examination; supple neck, no JVD. No lymphadenopathy. Midline trachea. No thyromegaly. Patient has fair dentition. Pupils are equal and reactive to light bilaterally. Orally intubated. Chest examined; diminished breath sounds bilaterally. S1-S2 audible, no murmurs. Regular rhythm. Abdomen examination; soft, protuberant. No organomegaly. Bowel sounds audible. Extremity exam is; no peripheral edema. Pulses 1+ bilaterally. [place] TURNER exam is; patient is sedated. Results Result Diagram: 02/14/17 0430 02/14/17 0430 Results 24 hrs Laboratory Tests Test 02/13/17 09:24 02/13/17 11:58 02/13/17 16:09 02/13/17 20:59 Ionized Calcium (Measured) 0.7 L Bedside Glucose 115 111 93 Test 02/14/17 00:51 02/14/17 04:30 02/14/17 06:18 02/14/17 08:28 Bedside Glucose 95 117 113 White Blood Count 8.4 Red Blood Count 3.02 L Hemoglobin 9.7 L Hematocrit 27.0 L Mean Corpuscular Volume 89.4 Mean Corpuscular Hemoglobin 32.1 Mean Corpuscular Hemoglobin Concent 35.9 Red Cell Distribution Width 13.8 Platelet Count 141 # Mean Platelet Volume 11.3 H Neutrophils % 79.6 H Lymphocytes % 12.6 L Monocytes % 5.2 Eosinophils % 1.9 Basophils % 0.2 Nucleated Red Blood Cells % 0.0 Neutrophils # 6.7 Lymphocytes # 1.1 Monocytes # 0.4 Eosinophils # 0.2 Basophils # 0.0 Nucleated Red Blood Cells # 0.0 Sodium Level 132 L Potassium Level 3.5 Chloride Level 94 L Carbon Dioxide Level 20 L Anion Gap 22 H Blood Urea Nitrogen 81 H Creatinine 7.53 H Glucose Level 95 Calcium Level 5.7 *L Phosphorus Level 6.7 H Magnesium Level 2.0 Total Bilirubin 0.8 Direct Bilirubin 0.80 #H Indirect Bilirubin 0.0 Aspartate Amino Transf (AST/SGOT) 136 H Alanine Aminotransferase (ALT/SGPT) 102 H Alkaline Phosphatase 158 #H Total Protein 5.2 L Albumin 2.9 L Globulin 2.30 Albumin/Globulin Ratio 1.26 Medications Medications Current Medications Propofol 100 ml @ 2.727 mls/ hr Q12H IV Last administered on 02/14/17 06:21; Admin Dose 27.27 MLS/HR; Start 02/10/17 at 10:00 Piperacillin Sod/ Tazobactam Sod 100 ml @ 200 mls/hr Q8 IVPB Last administered on 02/14/17 06:17; Admin Dose 200 MLS/HR; Start 02/10/17 at 11:30 Phenylephrine HCl/ Dextrose (Zach-Syneph/D5W) 500 ml @ 18.75 mls/ hr TITRATE IV Last administered on 02/10/17 13:22; Admin Dose 26.25 MLS/HR; Start 02/10/17 at 13:00 Lorazepam (Ativan) 0.5 mg Q6H PRN IV ANXIETY Last administered on 02/13/17 11: 26; Admin Dose 0.5 MG; Start 02/10/17 at 12:30 Ondansetron HCl (Zofran Inj) 4 mg Q6H PRN IV NAUSEA AND/OR VOMITING; Start at 12:30 Acetaminophen (Tylenol Tab) 650 mg Q6H PRN PO PAIN LEVEL 1-3 OR FEVER Last administered on 02/10/17 21:39; Admin Dose 650 MG; Start 02/10/17 at 12:30 Acetaminophen/ Hydrocodone Bitart ([place] (5/325)) 1 tab Q6H PRN PO PAIN LEVEL 4 -6; Start 02/10/17 at 12:30 Morphine Sulfate (morphine) 2 mg Q4H PRN IV PAIN LEVEL 7-10 Last administered on 02/13/17 10:10; Admin Dose 2 MG; Start 02/10/17 at 12:30 Insulin Aspart (Novolog Insulin Pen) NOVOLOG *MILD* ALGORITHM Q4 SC Last administered on 02/10/17 17:10; Admin Dose 1 UNIT; Start 02/10/17 at 13:00 Miscellaneous Information 1 ea NOTE XX ; Start 02/10/17 at 13:30 Glucose (Glutose) 15 gm Q15M PRN PO DECREASED GLUCOSE; Start 02/10/17 at 13:30 Glucose (Glutose) 22.5 gm Q15M PRN PO DECREASED GLUCOSE; Start 02/10/17 at 13: 30 Dextrose (D50w Syringe) 25 ml Q15M PRN IV DECREASED GLUCOSE Last administered on 02/12/17 21:23; Admin Dose 25 ML; Start 02/10/17 at 13:30 Dextrose (D50w Syringe) 50 ml Q15M PRN IV DECREASED GLUCOSE Last administered on 02/12/17 21:39; Admin Dose 50 ML; Start 02/10/17 at 13:30 Glucagon (Glucagen) 1 mg Q15M PRN IM DECREASED GLUCOSE; Start 02/10/17 at 13:30 Glucose 15 gm 15 gm Q15M PRN BUCCAL DECREASED GLUCOSE; Start 02/10/17 at 13:30 Norepinephrine 16 mg/Dextrose 500 ml @ 0 mls/hr TITRATE IV ; Start 02/10/17 at 21:00 Dopamine HCl/ Dextrose (D5W) 250 ml @ 1.7 mls/hr TITRATE IV Last administered on 02/12/17 04:51; Admin Dose 11.07 MLS/HR; Start 02/10/17 at 18:00 Pantoprazole (Protonix Iv) 40 mg BID@06,18 IV Last administered on 02/14/17 06 :17; Admin Dose 40 MG; Start 02/11/17 at 06:00 Ticagrelor (Brilinta) 90 mg BID PO Last administered on 02/14/17 08:38; Admin Dose 90 MG; Start 02/11/17 at 12:00 Aspirin (Halfprin) 81 mg DAILY PO Last administered on 02/14/17 08:33; Admin Dose 81 MG; Start 02/11/17 at 12:00 Atorvastatin Calcium 80 mg 80 mg HS NGT Last administered on 02/13/17 21:00; Admin Dose 80 MG; Start 02/11/17 at 21:00 Dextrose/Sodium Chloride 1,000 ml @ 75 mls/hr [id number] IV Last administered on 02/14/17 01:02; Admin Dose 75 MLS/HR; Start 02/12/17 at 21:30 Fentanyl (Sublimaze) 100 ml @ 2.5 mls/hr TITRATE IV Last administered on 01:03; Admin Dose 10 MLS/HR; Start 02/13/17 at 11:30 ANGELINA VALDEZ 20, 2017 09:10
--- NOTE | 2017-02-14 09:48 | PN ---
Date/Time of Note Date/Time of Note DATE: 02/14/17 TIME: 09:34 Assessment/Plan VTE Prophylaxis VTE Prophylaxis Intervention: SCD's Lines/Catheters IV [facility] Central Line Central line still needed: Yes (pressor support) Urinary Cath still in place: Yes Reason Cath still needed: urinary retention Assessment/Plan Assessment/Plan 1. Cardiac arrest. Status post left heart catheterization and coronary angioplasty with placement of a stent and placement of intraaortic balloon pump. The patient's underlying neuro status is unclear at this time - MRI pending. The patient was not started on any hypothermia protocol since the patient was moving and was vaguely following commands. 2. Cardiogenic shock. Most probably secondary to underlying cardiac arrest. The patient is currently on pressors to optimize blood pressure. The patient is S/P intraaortic counterpulsation therapy + amphetamines 3. CAD. Status post coronary artery stenting. Continue antiplatelet therapy. 2D echocardiogram showing preserved left ventricular ejection fraction EF 55% 4. Sepsis 2/2 UTI + C diff . Continue antibiotics\ - added flagyl 5. Metabolic acidosis. Most probably secondary to underlying cardiac arrest. HCO3 weaned off - needs dialysis 6. Acute renal failure - multifactorial - 2/2 to cardiogenic shock - sepsis. Nonoliguric. Unknown baseline creatinine. Nephrotoxic drugs will be avoided on this patient. The patient will be adequately hydrated using IV fluids - recommend dialysis 7. Hyperglycemia. Hemoglobin A1c 6.2. Continue sliding scale insulin. 8. Transaminitis without hyperbilirubinemia. Most probably secondary to underlying shock. Trend LFTs. Avoid hepatotoxic medications. 9. Hypocalcemia. Most probably secondary to hypoalbuminemia. Will provide calcium supplements. - replete with dialysis 10. Fluids, electrolytes, and nutrition. N.p.o. 11. DVT prophylaxis. SCDs. 12. Gastrointestinal prophylaxis. Proton pump inhibitors. . Plan. Continue intensive care monitoring. Obtain neurology evaluation. Start OG tube feedings if not weaning. - Dialysis needs to be initiated. Critical care time: 55 minutes. Subjective 24 Hr Interval Summary Free Text/Dictation Patient had no overnight events. Was actively vomiting, spoke to his daughter, Marilin about the care plan. 30 minutes spent. Exam/Review of Systems Vital Signs Vitals Vital Signs Date Time Temp Pulse Resp B/P Pulse Ox O2 Delivery O2 Flow Rate FiO2 02/14/17 08:00 30 02/14/17 06:30 82 20 89/67 96 02/14/17 06:00 Mechanical Ventilator 02/14/17 04:00 98.1 Intake and Output 02/13/17 02/13/17 02/14/17 15:00 23:00 07:00 Intake Total 1637.264 ml 1145.436 ml 1335.89 ml Output Total 445 ml 225 ml 305 ml Balance 1192.264 ml 920.436 ml 1030.89 ml Exam Gen Christiano: intubated and sedated, responsive to suctioning HEENT: NC/AT, PERRLA, ETT in place, active mucus/vomiting noted around mouth NECK: supple, no thyromegaly THORAX: symmetrical, no obvious deformities CV: S1S2, RRR, no M/G/R Lungs: CTAB no W/C/R/R Abd: soft, NT/ND, +BS, no rebound, no guarding, protuberant, with rectal tube EXT: 1+ bilateral pitting edema, no ecchymosis, no clubbing, FROM Neuro: arousable, no acute changes noted Psych: difficult to assess Skin: C/D/I Results Result Diagram: 02/14/17 0430 02/14/17 0430 Results 24 hrs Laboratory Tests Test 02/13/17 11:58 02/13/17 16:09 02/13/17 20:59 02/14/17 00:51 Bedside Glucose 115 111 93 95 Test 02/14/17 04:30 02/14/17 06:18 02/14/17 08:28 White Blood Count 8.4 Red Blood Count 3.02 L Hemoglobin 9.7 L Hematocrit 27.0 L Mean Corpuscular Volume 89.4 Mean Corpuscular Hemoglobin 32.1 Mean Corpuscular Hemoglobin Concent 35.9 Red Cell Distribution Width 13.8 Platelet Count 141 # Mean Platelet Volume 11.3 H Neutrophils % 79.6 H Lymphocytes % 12.6 L Monocytes % 5.2 Eosinophils % 1.9 Basophils % 0.2 Nucleated Red Blood Cells % 0.0 Neutrophils # 6.7 Lymphocytes # 1.1 Monocytes # 0.4 Eosinophils # 0.2 Basophils # 0.0 Nucleated Red Blood Cells # 0.0 Sodium Level 132 L Potassium Level 3.5 Chloride Level 94 L Carbon Dioxide Level 20 L Anion Gap 22 H Blood Urea Nitrogen 81 H Creatinine 7.53 H Glucose Level 95 Calcium Level 5.7 *L Phosphorus Level 6.7 H Magnesium Level 2.0 Total Bilirubin 0.8 Direct Bilirubin 0.80 #H Indirect Bilirubin 0.0 Aspartate Amino Transf (AST/SGOT) 136 H Alanine Aminotransferase (ALT/SGPT) 102 H Alkaline Phosphatase 158 #H Total Protein 5.2 L Albumin 2.9 L Globulin 2.30 Albumin/Globulin Ratio 1.26 Bedside Glucose 117 113 Medications Medications Current Medications Propofol 100 ml @ 2.727 mls/ hr Q12H IV Last administered on 02/14/17 06:21; Admin Dose 27.27 MLS/HR; Start 02/10/17 at 10:00 Piperacillin Sod/ Tazobactam Sod 100 ml @ 200 mls/hr Q8 IVPB Last administered on 02/14/17 06:17; Admin Dose 200 MLS/HR; Start 02/10/17 at 11:30 Phenylephrine HCl/ Dextrose (Zach-Syneph/D5W) 500 ml @ 18.75 mls/ hr TITRATE IV Last administered on 02/10/17 13:22; Admin Dose 26.25 MLS/HR; Start 02/10/17 at 13:00 Lorazepam (Ativan) 0.5 mg Q6H PRN IV ANXIETY Last administered on 02/13/17 11: 26; Admin Dose 0.5 MG; Start 02/10/17 at 12:30 Ondansetron HCl (Zofran Inj) 4 mg Q6H PRN IV NAUSEA AND/OR VOMITING; Start at 12:30 Acetaminophen (Tylenol Tab) 650 mg Q6H PRN PO PAIN LEVEL 1-3 OR FEVER Last administered on 02/10/17 21:39; Admin Dose 650 MG; Start 02/10/17 at 12:30 Acetaminophen/ Hydrocodone Bitart ([place] (5/325)) 1 tab Q6H PRN PO PAIN LEVEL 4 -6; Start 02/10/17 at 12:30 Morphine Sulfate (morphine) 2 mg Q4H PRN IV PAIN LEVEL 7-10 Last administered on 02/13/17 10:10; Admin Dose 2 MG; Start 02/10/17 at 12:30 Insulin Aspart (Novolog Insulin Pen) NOVOLOG *MILD* ALGORITHM Q4 SC Last administered on 02/10/17 17:10; Admin Dose 1 UNIT; Start 02/10/17 at 13:00 Miscellaneous Information 1 ea NOTE XX ; Start 02/10/17 at 13:30 Glucose (Glutose) 15 gm Q15M PRN PO DECREASED GLUCOSE; Start 02/10/17 at 13:30 Glucose (Glutose) 22.5 gm Q15M PRN PO DECREASED GLUCOSE; Start 02/10/17 at 13: 30 Dextrose (D50w Syringe) 25 ml Q15M PRN IV DECREASED GLUCOSE Last administered on 02/12/17 21:23; Admin Dose 25 ML; Start 02/10/17 at 13:30 Dextrose (D50w Syringe) 50 ml Q15M PRN IV DECREASED GLUCOSE Last administered on 02/12/17 21:39; Admin Dose 50 ML; Start 02/10/17 at 13:30 Glucagon (Glucagen) 1 mg Q15M PRN IM DECREASED GLUCOSE; Start 02/10/17 at 13:30 Glucose 15 gm 15 gm Q15M PRN BUCCAL DECREASED GLUCOSE; Start 02/10/17 at 13:30 Norepinephrine 16 mg/Dextrose 500 ml @ 0 mls/hr TITRATE IV ; Start 02/10/17 at 21:00 Dopamine HCl/ Dextrose (D5W) 250 ml @ 1.7 mls/hr TITRATE IV Last administered on 02/12/17 04:51; Admin Dose 11.07 MLS/HR; Start 02/10/17 at 18:00 Pantoprazole (Protonix Iv) 40 mg BID@06,18 IV Last administered on 02/14/17 06 :17; Admin Dose 40 MG; Start 02/11/17 at 06:00 Ticagrelor (Brilinta) 90 mg BID PO Last administered on 02/14/17 08:38; Admin Dose 90 MG; Start 02/11/17 at 12:00 Aspirin (Halfprin) 81 mg DAILY PO Last administered on 02/14/17 08:33; Admin Dose 81 MG; Start 02/11/17 at 12:00 Atorvastatin Calcium 80 mg 80 mg HS NGT Last administered on 02/13/17 21:00; Admin Dose 80 MG; Start 02/11/17 at 21:00 Dextrose/Sodium Chloride 1,000 ml @ 75 mls/hr [id number] IV Last administered on 02/14/17 01:02; Admin Dose 75 MLS/HR; Start 02/12/17 at 21:30 Fentanyl 100 ml @ 2.5 mls/hr TITRATE IV Last administered on 02/14/17 01:03; Admin Dose 10 MLS/HR; Start 02/13/17 at 11:30 Metronidazole (Flagyl 500 Mg (Pmx)) 100 ml @ 100 mls/hr Q8 IVPB ; Start at 10:00; Status MIHIR SAUNDERS MD Feb 14, 2017 09:44
[2017-02-14] MEDS: metroNIDAZOLE 500 MG/NS (PMX) 100 ML IVPB SCH ×3 (10:07→21:10)
--- NOTE | 2017-02-14 10:26 | RADRPT ---
PROCEDURE: XR Chest. CLINICAL INDICATION: CHF TECHNIQUE: An AP view of the chest was obtained. COMPARISON: Chest x-ray dated 02/13/2017 FINDINGS: The endotracheal tube tip is approximately 3.8 cm above the akiko. The tip of the enteric tube ex tends below the left diaphragm. There are diffuse bilateral interstitial opacities with small bilateral pleural effusions. No pneu mothorax is seen. The cardiomediastinal silhouette is mildly enlarged . The osseous structures ar e unremarkable. IMPRESSION: 1. Diffuse bilateral interstitial opacities, most likely reflecting interstitial edema, although mu ltifocal pneumonia could have a similar appearance. Findings are increased when compared to the almas or examination. 2. Small bilateral pleural effusions. 3. Mild cardiomegaly. 4. Tubes and lines, as described above. RPTAT: HH .Sissy James MD, Date Time Electronically viewed and signed by .Sissy James MD, on 02/14/2017 10:25 .G/
--- NOTE | 2017-02-14 11:13 | CONS ---
Date/Time of Note Date/Time of Note DATE: 02/14/17 TIME: 11:08 Consult Date/Type/Reason Admit Date/Time Feb 10, 2017 at 08:37 Initial Consult Date 02/13/17 Type of Consultation: Neurology Reason for Consultation cardiac arrest eval for hypoxic injury, encephalopathy Ordering Provider: HUBERT KUNZ FIRE MANAGEMENT SPECIALIST Subjective This morning family at bedside, propofol held and he opens his eyes moving both arms in plane of bed spontaneously not following commands. He failed weaning trial from ventilator due to tachypnea, hypoxia yesterday, requiring sedation for agitation. ARF will require dialysis. Objective Vital Signs Date Time Temp Pulse Resp B/P Pulse Ox O2 Delivery O2 Flow Rate FiO2 02/14/17 10:30 77 20 110/58 96 02/14/17 10:00 Mechanical Ventilator 02/14/17 09:00 30 02/14/17 08:00 98.4 Intake and Output 02/13/17 02/13/17 02/14/17 15:00 23:00 07:00 Intake Total 1637.264 ml 1145.436 ml 1345.89 ml Output Total 445 ml 225 ml 305 ml Balance 1192.264 ml 920.436 ml 1040.89 ml Exam sedation held opens his eyes maintains arousal no specific gaze preference, orthophoric gaze CN: pupils 2 mm, corneals intact gag present Motor : moving arms in plane of the bed not following commands, asked to show 2 fingers on left hand unable to perform does raise his right arm spontaneously no spontaneous movement of legs minimal withdrawal to noxious stimuli Results/Medications Result Diagram: 02/14/17 0430 02/14/17 0430 Results 24 hrs Laboratory Tests Test 02/13/17 11:58 02/13/17 16:09 02/13/17 20:59 02/14/17 00:51 Bedside Glucose 115 111 93 95 Test 02/14/17 04:30 02/14/17 06:18 02/14/17 08:28 White Blood Count 8.4 Red Blood Count 3.02 L Hemoglobin 9.7 L Hematocrit 27.0 L Mean Corpuscular Volume 89.4 Mean Corpuscular Hemoglobin 32.1 Mean Corpuscular Hemoglobin Concent 35.9 Red Cell Distribution Width 13.8 Platelet Count 141 # Mean Platelet Volume 11.3 H Neutrophils % 79.6 H Lymphocytes % 12.6 L Monocytes % 5.2 Eosinophils % 1.9 Basophils % 0.2 Nucleated Red Blood Cells % 0.0 Neutrophils # 6.7 Lymphocytes # 1.1 Monocytes # 0.4 Eosinophils # 0.2 Basophils # 0.0 Nucleated Red Blood Cells # 0.0 Sodium Level 132 L Potassium Level 3.5 Chloride Level 94 L Carbon Dioxide Level 20 L Anion Gap 22 H Blood Urea Nitrogen 81 H Creatinine 7.53 H Glucose Level 95 Calcium Level 5.7 *L Phosphorus Level 6.7 H Magnesium Level 2.0 Total Bilirubin 0.8 Direct Bilirubin 0.80 #H Indirect Bilirubin 0.0 Aspartate Amino Transf (AST/SGOT) 136 H Alanine Aminotransferase (ALT/SGPT) 102 H Alkaline Phosphatase 158 #H Total Protein 5.2 L Albumin 2.9 L Globulin 2.30 Albumin/Globulin Ratio 1.26 Bedside Glucose 117 113 Medications Current Medications Propofol 100 ml @ 2.727 mls/ hr Q12H IV Last administered on 02/14/17 10:04; Admin Dose 27.27 MLS/HR; Start 02/10/17 at 10:00 Piperacillin Sod/ Tazobactam Sod 100 ml @ 200 mls/hr Q8 IVPB Last administered on 02/14/17 06:17; Admin Dose 200 MLS/HR; Start 02/10/17 at 11:30 Phenylephrine HCl/ Dextrose (Zach-Syneph/D5W) 500 ml @ 18.75 mls/ hr TITRATE IV Last administered on 02/10/17 13:22; Admin Dose 26.25 MLS/HR; Start 02/10/17 at 13:00 Lorazepam (Ativan) 0.5 mg Q6H PRN IV ANXIETY Last administered on 02/13/17 11: 26; Admin Dose 0.5 MG; Start 02/10/17 at 12:30 Ondansetron HCl (Zofran Inj) 4 mg Q6H PRN IV NAUSEA AND/OR VOMITING; Start at 12:30 Acetaminophen (Tylenol Tab) 650 mg Q6H PRN PO PAIN LEVEL 1-3 OR FEVER Last administered on 02/10/17 21:39; Admin Dose 650 MG; Start 02/10/17 at 12:30 Acetaminophen/ Hydrocodone Bitart ([place] (5/325)) 1 tab Q6H PRN PO PAIN LEVEL 4 -6; Start 02/10/17 at 12:30 Morphine Sulfate (morphine) 2 mg Q4H PRN IV PAIN LEVEL 7-10 Last administered on 02/13/17 10:10; Admin Dose 2 MG; Start 02/10/17 at 12:30 Insulin Aspart (Novolog Insulin Pen) NOVOLOG *MILD* ALGORITHM Q4 SC Last administered on 02/10/17 17:10; Admin Dose 1 UNIT; Start 02/10/17 at 13:00 Miscellaneous Information 1 ea NOTE XX ; Start 02/10/17 at 13:30 Glucose (Glutose) 15 gm Q15M PRN PO DECREASED GLUCOSE; Start 02/10/17 at 13:30 Glucose (Glutose) 22.5 gm Q15M PRN PO DECREASED GLUCOSE; Start 02/10/17 at 13: 30 Dextrose (D50w Syringe) 25 ml Q15M PRN IV DECREASED GLUCOSE Last administered on 02/12/17 21:23; Admin Dose 25 ML; Start 02/10/17 at 13:30 Dextrose (D50w Syringe) 50 ml Q15M PRN IV DECREASED GLUCOSE Last administered on 02/12/17 21:39; Admin Dose 50 ML; Start 02/10/17 at 13:30 Glucagon (Glucagen) 1 mg Q15M PRN IM DECREASED GLUCOSE; Start 02/10/17 at 13:30 Glucose 15 gm 15 gm Q15M PRN BUCCAL DECREASED GLUCOSE; Start 02/10/17 at 13:30 Norepinephrine 16 mg/Dextrose 500 ml @ 0 mls/hr TITRATE IV ; Start 02/10/17 at 21:00 Dopamine HCl/ Dextrose (D5W) 250 ml @ 1.7 mls/hr TITRATE IV Last administered on 02/12/17 04:51; Admin Dose 11.07 MLS/HR; Start 02/10/17 at 18:00 Pantoprazole (Protonix Iv) 40 mg BID@06,18 IV Last administered on 02/14/17 06 :17; Admin Dose 40 MG; Start 02/11/17 at 06:00 Ticagrelor (Brilinta) 90 mg BID PO Last administered on 02/14/17 08:38; Admin Dose 90 MG; Start 02/11/17 at 12:00 Aspirin (Halfprin) 81 mg DAILY PO Last administered on 02/14/17 08:33; Admin Dose 81 MG; Start 02/11/17 at 12:00 Atorvastatin Calcium 80 mg 80 mg HS NGT Last administered on 02/13/17 21:00; Admin Dose 80 MG; Start 02/11/17 at 21:00 Dextrose/Sodium Chloride 1,000 ml @ 75 mls/hr [id number] IV Last administered on 02/14/17 01:02; Admin Dose 75 MLS/HR; Start 02/12/17 at 21:30 Fentanyl 100 ml @ 2.5 mls/hr TITRATE IV Last administered on 02/14/17 10:04; Admin Dose 10 MLS/HR; Start 02/13/17 at 11:30 Metronidazole 100 ml @ 100 mls/hr Q8 IVPB Last administered on 02/14/17 10:07 ; Admin Dose 100 MLS/HR; Start 02/14/17 at 10:01 Calcium Gluconate/ Sodium Chloride (Ca Gluc/NS) 120 ml @ 60 mls/hr ONCE ONCE IVPB ; Start 02/14/17 at 11:30; Stop 02/14/17 at 13:29 Assessment/Plan Chief Complaint/Hosp Course 66 year old male admitted with STEMI with 100% left circumflex vessel occlusion requiring MIRA with intra-aortic balloon pump admitted to ICU for further management severe encephalopathy, failed weaning trial with ARF also planned for dialysis. Recommendations: severe encephalopathy- planned for dialysis difficult to assess his prognosis at this time due to active metabolic issues Baseline EEG performed, pending official review MRI Brain without contrast to assess for hypoxic injury discussed plan with family at bedside, advised to appoint a general merchandise salesperson for the entire family will continue to follow w further recommendations Problems: CRISTOPHER NEWELL MD Feb 14, 2017 11:13
[2017-02-14] MEDS ORDERED: CALCIUM GLUCONATE 10% 2 GM in SOD CHLORIDE 0.9% 100 ML IVPB ONE (11:30)
--- NOTE | 2017-02-14 16:26 | RADRPT ---
PROCEDURE: MR Brain without contrast. CLINICAL INDICATION: Cardiac arrest, evaluate for possible hypoxic injury. TECHNIQUE: An MRI of the brain was performed without contrast utilizing the following sequences: Sagittal T1 weighted, sagittal FLAIR, axial T1, axial FLAIR, axial T2 weighted, axial diffusion weig hted, axial ADC mapping. Images were reviewed on a PACS workstation. COMPARISON: No prior studies are available for comparison. FINDINGS: Diffusion weighted sequences demonstrate 2 mm area of white matter infarction involving the right co milly radiata white matter (axial series image 7). No additional areas of diffusion restriction is s een. There is expected normal anisotropy on the diffusion weighted sequences. There is susceptibil ity artifact overlying the left temporal lobe, which appears to be related to hearing aid, limiting evaluation of the left temporal lobe on several sequences. There is no intracranial hemorrhage, ext ra-axial fluid collection, mass lesion, midline shift or hydrocephalous. There is mild prominence o f the cerebral sulci, lateral and third ventricles. The basal cisterns are patent. There is mild to moderate patchy and confluent periventricular and subcortical white matter hypodensity Normal flow voids are visible the proximal intracranial arteries and dural sinuses, indicating patency. The mi dline structures are intact. There are moderate inflammatory changes of the bilateral ethmoid air cells and left sphenoid sinus a s well as mild inflammatory changes of the bilateral maxillary sinuses. The mastoid air cells and m iddle ear cavities are normally aerated. The orbits, calvarium and extracranial soft tissues are no rmal in appearance. The cerebellopontine angles are normal. No evidence of internal acoustic canal or cerebellopontine angle mass. IMPRESSION: 1. Punctate 2 mm area of diffusion restriction right martines radiata white matter, suggestive of acu te/recent white matter ischemia. 2. No intracranial hemorrhage, mass lesion or hydrocephalous. 3. Mild peripheral and central cerebral volume loss, within normal limits for age. 4. Mild to moderate patchy periventricular and subcortical white matter lesions, and a chronic micr oangiopathic changes. 5. No evidence of abnormal signal in the basal ganglia or loss of normal and a soft to the to sugge st extensive hypoxic ischemic injury at this time. The above findings were discussed with Patient's Nurse Margaret by telephone on 02/14/2017 4:23:34 PM. RPTAT: [facility]AS .Rohan Esparza MD, MD Date Time Electronically viewed and signed by .Rohan Esparza MD, MD on 02/14/2017 16:26 .S/
--- NOTE | 2017-02-14 17:27 | CONS ---
Date/Time of Note Date/Time of Note DATE: 02/14/17 TIME: 17:24 Consult Date/Type/Reason Admit Date/Time Feb 10, 2017 at 08:37 Initial Consult Date 02/10/17 Type of Consultation: Cardiology Ordering Provider: HUBERT KUNZ TYPEWRITER ALIGNER Objective Vital Signs Date Time Temp Pulse Resp B/P Pulse Ox O2 Delivery O2 Flow Rate FiO2 02/14/17 16:30 76 20 120/68 96 02/14/17 16:00 98.4 Mechanical Ventilator 02/14/17 12:55 30 Intake and Output 02/13/17 02/13/17 02/14/17 15:00 23:00 07:00 Intake Total 1637.264 ml 1145.436 ml 1345.89 ml Output Total 445 ml 225 ml 305 ml Balance 1192.264 ml 920.436 ml 1040.89 ml Results/Medications Result Diagram: 02/14/17 0430 02/14/17 0430 Results 24 hrs Laboratory Tests Test 02/13/17 20:59 02/14/17 00:51 02/14/17 04:30 02/14/17 06:18 Bedside Glucose 93 95 117 White Blood Count 8.4 Red Blood Count 3.02 L Hemoglobin 9.7 L Hematocrit 27.0 L Mean Corpuscular Volume 89.4 Mean Corpuscular Hemoglobin 32.1 Mean Corpuscular Hemoglobin Concent 35.9 Red Cell Distribution Width 13.8 Platelet Count 141 # Mean Platelet Volume 11.3 H Neutrophils % 79.6 H Lymphocytes % 12.6 L Monocytes % 5.2 Eosinophils % 1.9 Basophils % 0.2 Nucleated Red Blood Cells % 0.0 Neutrophils # 6.7 Lymphocytes # 1.1 Monocytes # 0.4 Eosinophils # 0.2 Basophils # 0.0 Nucleated Red Blood Cells # 0.0 Sodium Level 132 L Potassium Level 3.5 Chloride Level 94 L Carbon Dioxide Level 20 L Anion Gap 22 H Blood Urea Nitrogen 81 H Creatinine 7.53 H Glucose Level 95 Calcium Level 5.7 *L Phosphorus Level 6.7 H Magnesium Level 2.0 Total Bilirubin 0.8 Direct Bilirubin 0.80 #H Indirect Bilirubin 0.0 Aspartate Amino Transf (AST/SGOT) 136 H Alanine Aminotransferase (ALT/SGPT) 102 H Alkaline Phosphatase 158 #H Total Protein 5.2 L Albumin 2.9 L Globulin 2.30 Albumin/Globulin Ratio 1.26 Test 02/14/17 08:28 02/14/17 13:00 02/14/17 16:21 Bedside Glucose 113 125 88 Medications Current Medications Propofol 100 ml @ 2.727 mls/ hr Q12H IV Last administered on 02/14/17 15:59; Admin Dose 27.27 MLS/HR; Start 02/10/17 at 10:00 Piperacillin Sod/ Tazobactam Sod 100 ml @ 200 mls/hr Q8 IVPB Last administered on 02/14/17 14:06; Admin Dose 200 MLS/HR; Start 02/10/17 at 11:30 Phenylephrine HCl/ Dextrose (Zach-Syneph/D5W) 500 ml @ 18.75 mls/ hr TITRATE IV Last administered on 02/10/17 13:22; Admin Dose 26.25 MLS/HR; Start 02/10/17 at 13:00 Lorazepam (Ativan) 0.5 mg Q6H PRN IV ANXIETY Last administered on 02/13/17 11: 26; Admin Dose 0.5 MG; Start 02/10/17 at 12:30 Ondansetron HCl (Zofran Inj) 4 mg Q6H PRN IV NAUSEA AND/OR VOMITING; Start at 12:30 Acetaminophen (Tylenol Tab) 650 mg Q6H PRN PO PAIN LEVEL 1-3 OR FEVER Last administered on 02/10/17 21:39; Admin Dose 650 MG; Start 02/10/17 at 12:30 Acetaminophen/ Hydrocodone Bitart ([place] (5/325)) 1 tab Q6H PRN PO PAIN LEVEL 4 -6; Start 02/10/17 at 12:30 Morphine Sulfate (morphine) 2 mg Q4H PRN IV PAIN LEVEL 7-10 Last administered on 02/13/17 10:10; Admin Dose 2 MG; Start 02/10/17 at 12:30 Insulin Aspart (Novolog Insulin Pen) NOVOLOG *MILD* ALGORITHM Q4 SC Last administered on 02/10/17 17:10; Admin Dose 1 UNIT; Start 02/10/17 at 13:00 Miscellaneous Information 1 ea NOTE XX ; Start 02/10/17 at 13:30 Glucose (Glutose) 15 gm Q15M PRN PO DECREASED GLUCOSE; Start 02/10/17 at 13:30 Glucose (Glutose) 22.5 gm Q15M PRN PO DECREASED GLUCOSE; Start 02/10/17 at 13: 30 Dextrose (D50w Syringe) 25 ml Q15M PRN IV DECREASED GLUCOSE Last administered on 02/12/17 21:23; Admin Dose 25 ML; Start 02/10/17 at 13:30 Dextrose (D50w Syringe) 50 ml Q15M PRN IV DECREASED GLUCOSE Last administered on 02/12/17 21:39; Admin Dose 50 ML; Start 02/10/17 at 13:30 Glucagon (Glucagen) 1 mg Q15M PRN IM DECREASED GLUCOSE; Start 02/10/17 at 13:30 Glucose 15 gm 15 gm Q15M PRN BUCCAL DECREASED GLUCOSE; Start 02/10/17 at 13:30 Norepinephrine 16 mg/Dextrose 500 ml @ 0 mls/hr TITRATE IV ; Start 02/10/17 at 21:00 Dopamine HCl/ Dextrose (D5W) 250 ml @ 1.7 mls/hr TITRATE IV Last administered on 02/12/17 04:51; Admin Dose 11.07 MLS/HR; Start 02/10/17 at 18:00 Pantoprazole (Protonix Iv) 40 mg BID@06,18 IV Last administered on 02/14/17 06 :17; Admin Dose 40 MG; Start 02/11/17 at 06:00 Ticagrelor (Brilinta) 90 mg BID PO Last administered on 02/14/17 08:38; Admin Dose 90 MG; Start 02/11/17 at 12:00 Aspirin (Halfprin) 81 mg DAILY PO Last administered on 02/14/17 08:33; Admin Dose 81 MG; Start 02/11/17 at 12:00 Atorvastatin Calcium 80 mg 80 mg HS NGT Last administered on 02/13/17 21:00; Admin Dose 80 MG; Start 02/11/17 at 21:00 Dextrose/Sodium Chloride 1,000 ml @ 75 mls/hr [id number] IV Last administered on 02/14/17 14:07; Admin Dose 75 MLS/HR; Start 02/12/17 at 21:30 Fentanyl 100 ml @ 2.5 mls/hr TITRATE IV Last administered on 02/14/17 10:04; Admin Dose 10 MLS/HR; Start 02/13/17 at 11:30 Metronidazole (Flagyl 500 Mg (Pmx)) 100 ml @ 100 mls/hr Q8 IVPB Last administered on 02/14/17t 14:06; Admin Dose 100 MLS/HR; Start 02/14/17 at 10:01 Assessment/Plan Problems: (1) Cardiac arrest (2) Ventricular fibrillation (3) ST elevation myocardial infarction (STEMI) of anterior wall Additional Assessment/Plan Pt s/p [place] Cardiac arrest Intubated ARF pt cr bumpting up may need HD, K is stable Pt also has CT scan of head Pt has jarad in by Dr coleman will require HD MRI showing infarct likely ischemic due to arrest. will fu pt condition is still guarded. critically ill. d/w family with ur[place]ayan interpritor. LENIN DOSHI MD Feb 14, 2017 17:27
--- NOTE | 2017-02-14 17:35 | OPR ---
DATE OF OPERATION: PREOPERATIVE DIAGNOSIS: Renal failure. POSTOPERATIVE DIAGNOSIS: Renal failure. PROCEDURE PERFORMED: Right femoral hemodialysis catheter placement. SURGEON: Victorino Sanchez MD ANESTHESIA: Local. CONSENT: Risks, benefits, complications, alternative therapies explained to the patient and the [facility] addis and consent obtained. OPERATIVE TECHNIQUE: The patient was placed in supine position, prepped and draped in usual sterile fashion. Lidocaine 1% was used throughout the operation for local anesthesia. Access was gained i n the right common femoral vein. Guidewire was advanced through without any difficulty. Subcutaneo us tissues dilated. A 20 cm dialysis catheter advanced over guidewire, secured to skin using silk s utures. Both ports of the catheter were aspirated and injected using saline solution. The patient tolerated the procedure well. Dictated By: VICTORINO KABA/ROLAN Conf#: [id number] DID#: [id number]
--- NOTE | 2017-02-14 19:27 | CONS ---
Date/Time of Note Date/Time of Note DATE: 02/14/17 TIME: 19:24 Assessment/Plan Assessment/Plan Additional Assessment/Plan 1. Oliguric acute kidney injury, likely secondary to ischemic acute tubular necrosis from ST-elevation myocardial infarction and cardiogenic shock. did not improve,d started on HD on due to Oliguric NEFTALI with fluid overaload 2. Cardiogenic shock. 3. Acute respiratory failure from cardiac arrest, currently intubated on ventilator. 4. Metabolic acidosis secondary to acute renal failure. 5. No significant past medical history, as per the family. PLAN: Urine out put very low pt remains fluid overloaded and failed weaning, will plan for HD Initiation, to place [facility] HD catheter, Plan for 2 hr HD today and 3 hr HD tomorrow. will follow up Consultation Date/Type/Reason Admit Date/Time Feb 10, 2017 at 08:37 Initial Consult Date 02/10/17 Type of Consultation: NEPHROLOGY Referring Provider: HUBERT KUNZ VISCOSITY INSPECTOR 24 HR Interval Summary Free Text/Dictation failed weaning due to Pulmonary edema, BP stable Exam/Review of Systems Vital Signs Vitals Vital Signs Date Time Temp Pulse Resp B/P Pulse Ox O2 Delivery O2 Flow Rate FiO2 02/14/17 19:11 80 02/14/17 18:00 20 116/57 97 Mechanical Ventilator 02/14/17 17:20 30 02/14/17 16:00 98.4 Intake and Output 02/13/17 02/13/17 02/14/17 15:00 23:00 07:00 Intake Total 1637.264 ml 1145.436 ml 1345.89 ml Output Total 445 ml 225 ml 305 ml Balance 1192.264 ml 920.436 ml 1040.89 ml Exam GENERAL: The patient is currently sedated, intubated on ventilator. HEENT: ET tube in place. NECK: Supple. No jugular venous distention. No lymphadenopathy. LUNGS: Bilateral coarse breath sounds with minimal expiratory wheezing. HEART: S1, S2, tachycardia, no murmur. ABDOMEN: Soft, nontender, nondistended. EXTREMITIES: 1+ pitting edema GENITOURINARY: Mckeon catheter in place. Results Result Diagram: 02/14/17 0430 02/14/17 0430 Results 24 hrs Laboratory Tests Test 02/13/17 20:59 02/14/17 00:51 02/14/17 04:30 02/14/17 06:18 Bedside Glucose 93 95 117 White Blood Count 8.4 Red Blood Count 3.02 L Hemoglobin 9.7 L Hematocrit 27.0 L Mean Corpuscular Volume 89.4 Mean Corpuscular Hemoglobin 32.1 Mean Corpuscular Hemoglobin Concent 35.9 Red Cell Distribution Width 13.8 Platelet Count 141 # Mean Platelet Volume 11.3 H Neutrophils % 79.6 H Lymphocytes % 12.6 L Monocytes % 5.2 Eosinophils % 1.9 Basophils % 0.2 Nucleated Red Blood Cells % 0.0 Neutrophils # 6.7 Lymphocytes # 1.1 Monocytes # 0.4 Eosinophils # 0.2 Basophils # 0.0 Nucleated Red Blood Cells # 0.0 Sodium Level 132 L Potassium Level 3.5 Chloride Level 94 L Carbon Dioxide Level 20 L Anion Gap 22 H Blood Urea Nitrogen 81 H Creatinine 7.53 H Glucose Level 95 Calcium Level 5.7 *L Phosphorus Level 6.7 H Magnesium Level 2.0 Total Bilirubin 0.8 Direct Bilirubin 0.80 #H Indirect Bilirubin 0.0 Aspartate Amino Transf (AST/SGOT) 136 H Alanine Aminotransferase (ALT/SGPT) 102 H Alkaline Phosphatase 158 #H Total Protein 5.2 L Albumin 2.9 L Globulin 2.30 Albumin/Globulin Ratio 1.26 Test 02/14/17 08:28 02/14/17 13:00 02/14/17 16:21 Bedside Glucose 113 125 88 Medications Medications Current Medications Propofol 100 ml @ 2.727 mls/ hr Q12H IV Last administered on 02/14/17 15:59; Admin Dose 27.27 MLS/HR; Start 02/10/17 at 10:00 Piperacillin Sod/ Tazobactam Sod 100 ml @ 200 mls/hr Q8 IVPB Last administered on 02/14/17 14:06; Admin Dose 200 MLS/HR; Start 02/10/17 at 11:30 Phenylephrine HCl/ Dextrose (Zach-Syneph/D5W) 500 ml @ 18.75 mls/ hr TITRATE IV Last administered on 02/10/17 13:22; Admin Dose 26.25 MLS/HR; Start 02/10/17 at 13:00 Lorazepam (Ativan) 0.5 mg Q6H PRN IV ANXIETY Last administered on 02/13/17 11: 26; Admin Dose 0.5 MG; Start 02/10/17 at 12:30 Ondansetron HCl (Zofran Inj) 4 mg Q6H PRN IV NAUSEA AND/OR VOMITING; Start at 12:30 Acetaminophen (Tylenol Tab) 650 mg Q6H PRN PO PAIN LEVEL 1-3 OR FEVER Last administered on 02/10/17 21:39; Admin Dose 650 MG; Start 02/10/17 at 12:30 Acetaminophen/ Hydrocodone Bitart ([place] (5/325)) 1 tab Q6H PRN PO PAIN LEVEL 4 -6; Start 02/10/17 at 12:30 Morphine Sulfate (morphine) 2 mg Q4H PRN IV PAIN LEVEL 7-10 Last administered on 02/13/17 10:10; Admin Dose 2 MG; Start 02/10/17 at 12:30 Insulin Aspart (Novolog Insulin Pen) NOVOLOG *MILD* ALGORITHM Q4 SC Last administered on 02/10/17 17:10; Admin Dose 1 UNIT; Start 02/10/17 at 13:00 Miscellaneous Information 1 ea NOTE XX ; Start 02/10/17 at 13:30 Glucose (Glutose) 15 gm Q15M PRN PO DECREASED GLUCOSE; Start 02/10/17 at 13:30 Glucose (Glutose) 22.5 gm Q15M PRN PO DECREASED GLUCOSE; Start 02/10/17 at 13: 30 Dextrose (D50w Syringe) 25 ml Q15M PRN IV DECREASED GLUCOSE Last administered on 02/12/17 21:23; Admin Dose 25 ML; Start 02/10/17 at 13:30 Dextrose (D50w Syringe) 50 ml Q15M PRN IV DECREASED GLUCOSE Last administered on 02/12/17 21:39; Admin Dose 50 ML; Start 02/10/17 at 13:30 Glucagon (Glucagen) 1 mg Q15M PRN IM DECREASED GLUCOSE; Start 02/10/17 at 13:30 Glucose 15 gm 15 gm Q15M PRN BUCCAL DECREASED GLUCOSE; Start 02/10/17 at 13:30 Norepinephrine 16 mg/Dextrose 500 ml @ 0 mls/hr TITRATE IV ; Start 02/10/17 at 21:00 Dopamine HCl/ Dextrose (D5W) 250 ml @ 1.7 mls/hr TITRATE IV Last administered on 02/12/17 04:51; Admin Dose 11.07 MLS/HR; Start 02/10/17 at 18:00 Pantoprazole (Protonix Iv) 40 mg BID@06,18 IV Last administered on 02/14/17 17 :45; Admin Dose 40 MG; Start 02/11/17 at 06:00 Ticagrelor (Brilinta) 90 mg BID PO Last administered on 02/14/17 08:38; Admin Dose 90 MG; Start 02/11/17 at 12:00 Aspirin (Halfprin) 81 mg DAILY PO Last administered on 02/14/17 08:33; Admin Dose 81 MG; Start 02/11/17 at 12:00 Atorvastatin Calcium 80 mg 80 mg HS NGT Last administered on 02/13/17 21:00; Admin Dose 80 MG; Start 02/11/17 at 21:00 Dextrose/Sodium Chloride 1,000 ml @ 75 mls/hr [id number] IV Last administered on 02/14/17 14:07; Admin Dose 75 MLS/HR; Start 02/12/17 at 21:30 Fentanyl 100 ml @ 2.5 mls/hr TITRATE IV Last administered on 02/14/17 10:04; Admin Dose 10 MLS/HR; Start 02/13/17 at 11:30 Metronidazole (Flagyl 500 Mg (Pmx)) 100 ml @ 100 mls/hr Q8 IVPB Last administered on 02/14/17 14:06; Admin Dose 100 MLS/HR; Start 02/14/17 at 10:01 SAILAJA LOUIE MD Feb 14, 2017 19:27
[2017-02-14] MEDS: ATORVASTATIN 80 MG TAB NGT SCH (21:10)
[2017-02-14] MEDS: MIDAZOLAM (DRIP) 50 mg/50 mL 50 ML IV SCH (22:54)
[2017-02-15] VITALS (63 sets, daily range): BP systolic 97–141; BP diastolic 52–87; PULSE 65–94; RESP 15–22
[2017-02-15] MEDS: DEXTROSE 5%-0.45% NACL 1,000 ML IV SCH ×2 (02:03→17:32)
[2017-02-15] MEDS: INSULIN ASPART [NOVOLOG] 3 ML PEN SC SCH ×6 (02:03→21:00)
[2017-02-15] MEDS: PROPOFOL 100 ML IV SCH ×5 (02:04→22:11)
[2017-02-15] MEDS: PANTOPRAZOLE 40 MG INJ IV SCH ×2 (05:04→17:35)
[2017-02-15] MEDS: PIPER-TAZO 3.375 GM IV (PMX) 100 ML IVPB SCH (05:04)
[2017-02-15] MEDS: FENTAnyl (DRIP) 1000 mcg/100mL 100 ML IV SCH ×2 (05:05→14:22)
[2017-02-15] MEDS: MIDAZOLAM (DRIP) 50 mg/50 mL 50 ML IV SCH (05:05)
[2017-02-15] MEDS: metroNIDAZOLE 500 MG/NS (PMX) 100 ML IVPB SCH (05:05)
[2017-02-15 06:37] LABS: ADD SCAN DIFF NO
[2017-02-15 07:09] LABS: PHOSPHORUS 6.7 mg/dl (2.5-4.9)
[2017-02-15 07:21] LABS: ALBUMIN 3.1 g/dl (3.3-4.9); ALBUMIN/GLOBULIN RATIO 1.29; BILIRUBIN,DIRECT 1.2 mg/dl (0.00-0.20); BILIRUBIN,INDIRECT 0.1 mg/dl (0-1.1); BILIRUBIN,TOTAL 1.3 mg/dl (0.2-1.3); CREATININE 6.76 mg/dl (0.61-1.24); POTASSIUM 3.6 mmol/L (3.5-5.1); TOTAL PROTEIN 5.5 g/dl (6.1-8.1)
[2017-02-15 07:24] LABS: CALCIUM 5.8 mg/dl (8.4-10.2)
[2017-02-15 08:08] LABS: ABNORMAL IP MESSAGE 1; BASOPHILS % 0.2 % (0.0-2.0); EOSINOPHILS # 0.2 10^3/ul (0.0-0.5); EOSINOPHILS % 3.4 % (0.0-7.0); HEMATOCRIT 25.6 % (42.0-52.0); LYMPHOCYTES # 0.8 10^3/ul (0.8-2.9); LYMPHOCYTES % 15.8 % (15.0-51.0); MEAN CORPUSCULAR HGB CONC 34.4 g/dl (32.0-37.0); MEAN CORPUSCULAR VOLUME 93.1 fl (82.0-101.0); MONOCYTE # 0.4 10^3/ul (0.3-0.9); MONOCYTES % 7.8 % (0.0-11.0); NEUTROPHIL # 3.8 10^3/ul (1.6-7.5); NEUTROPHILS % 71.5 % (39.0-77.0); NUCLEATED RED BLOOD CELLS% 0.6 /100WBC (0.0-0.0); RED BLOOD COUNT 2.75 10^6/ul (4.70-6.10); RED CELL DISTRIBUTION WIDTH 14.3 % (11.5-14.5)
[2017-02-15 08:14] LABS: HEMOGLOBIN 8.8 g/dl (14.0-18.0); PLATELET COUNT 165 10^3/UL (140-415); WHITE BLOOD COUNT 5.5 10^3/ul (4.8-10.8)
[2017-02-15] MEDS: TICAGRELOR 90 MG TABLET PO SCH ×2 (08:33→21:55)
[2017-02-15] MEDS: ASPIRIN (EC) 81 MG TAB PO SCH (08:36)
--- NOTE | 2017-02-15 11:17 | CONS ---
Date/Time of Note Date/Time of Note DATE: 02/15/17 TIME: 11:11 Assessment/Plan Assessment/Plan Additional Assessment/Plan Ventilator setting; AC of 20, tidal volume 600, PEEP of 5, 80% FiO2. Patient currently on propofol drip at 30 mics per kilogram per minute. Fentanyl drip 100 mics per hour. Assessment recommendations; 1. Patient admitted with cardiac arrest status post emergent coronary angiography with stenting of circumflex lesion. 2. Oliguric renal failure, now requiring hemodialysis. 3. Fluid overload and pulmonary edema. 4. Episode of vomiting this morning. 5. Mild hyponatremia. 6. Possibly some element of aspiration pneumonia. Continue current treatment. Patient will need at least couple of more hemodialysis session before he can be evaluated for weaning from ventilator. Obtain a follow-up chest x-ray. Continue current antibiotics. Prognosis is guarded. 35 minutes critical care time was spent evaluating the patient. Consultation Date/Type/Reason Admit Date/Time Feb 10, 2017 at 08:37 Initial Consult Date 02/10/17 Type of Consultation: Pulmonary/critical care Referring Provider: HUBERT KUNZ NP 24 HR Interval Summary Free Text/Dictation Patient condition remains critical. Patient required hemodialysis yesterday. Has remained hemodynamically stable. No untoward events reported. General exam; elderly male, currently in no distress. Orally intubated. Exam/Review of Systems Vital Signs Vitals Vital Signs Date Time Temp Pulse Resp B/P Pulse Ox O2 Delivery O2 Flow Rate FiO2 02/15/17 09:00 78 20 101/58 95 Mechanical Ventilator 02/15/17 08:00 30 02/15/17 08:00 98.7 Intake and Output 02/14/17 02/14/17 02/15/17 14:59 22:59 06:59 Intake Total 910.89 ml 1548.62 ml 1117.89 ml Output Total 20 ml 2490 ml 210 ml Balance 890.89 ml -941.38 ml 907.89 ml Exam HEENT exam; supple neck, positive JVD. No lymphadenopathy. Midline trachea. No thyromegaly. Patient is orally intubated. Dentition is fair. Pupils are small bilaterally. Chest examination; diminished but clear vessel. S1-S2 audible, no murmurs. Regular rhythm. Abdomen examination; soft, protuberant. No organomegaly. Bowel sounds audible. Extremity exam is; trace edema. Pulses 1+ bilaterally. TWO WAY RADIO TECHNICIAN examination; patient is sedated. Results Result Diagram: 02/15/17 0621 02/15/17 0621 Results 24 hrs Laboratory Tests Test 02/14/17 13:00 02/14/17 16:21 02/14/17 21:09 02/15/17 02:03 Bedside Glucose 125 88 106 108 Test 02/15/17 05:04 02/15/17 06:21 02/15/17 08:43 Bedside Glucose 105 92 White Blood Count 5.5 # Red Blood Count 2.75 L Hemoglobin 8.8 L Hematocrit 25.6 L Mean Corpuscular Volume 93.1 Mean Corpuscular Hemoglobin 32.0 Mean Corpuscular Hemoglobin Concent 34.4 Red Cell Distribution Width 14.3 Platelet Count 165 Mean Platelet Volume 12.0 H Neutrophils % 71.5 Lymphocytes % 15.8 Monocytes % 7.8 Eosinophils % 3.4 Basophils % 0.2 Nucleated Red Blood Cells % 0.6 H Neutrophils # 3.8 Lymphocytes # 0.8 Monocytes # 0.4 Eosinophils # 0.2 Basophils # 0.0 Nucleated Red Blood Cells # 0.0 Sodium Level 128 L Potassium Level 3.6 Chloride Level 93 L Carbon Dioxide Level 20 L Anion Gap 19 H Blood Urea Nitrogen 69 H Creatinine 6.76 H Glucose Level 83 Calcium Level 5.8 *L Phosphorus Level 6.7 H Magnesium Level 2.0 Total Bilirubin 1.3 Direct Bilirubin 1.20 H Indirect Bilirubin 0.1 Aspartate Amino Transf (AST/SGOT) 217 #H Alanine Aminotransferase (ALT/SGPT) 132 H Alkaline Phosphatase 314 #H Total Protein 5.5 L Albumin 3.1 L Globulin 2.40 Albumin/Globulin Ratio 1.29 Medications Medications Current Medications Propofol 100 ml @ 2.727 mls/ hr Q12H IV Last administered on 02/15/17 10:41; Admin Dose 16.362 MLS/HR; Start 02/10/17 at 10:00 Piperacillin Sod/ Tazobactam Sod 100 ml @ 200 mls/hr Q8 IVPB Last administered on 02/15/17 05:04; Admin Dose 200 MLS/HR; Start 02/10/17 at 11:30 Phenylephrine HCl/ Dextrose (Zach-Syneph/D5W) 500 ml @ 18.75 mls/ hr TITRATE IV Last administered on 02/10/17 13:22; Admin Dose 26.25 MLS/HR; Start 02/10/17 at 13:00 Lorazepam (Ativan) 0.5 mg Q6H PRN IV ANXIETY Last administered on 02/13/17 11: 26; Admin Dose 0.5 MG; Start 02/10/17 at 12:30 Ondansetron HCl (Zofran Inj) 4 mg Q6H PRN IV NAUSEA AND/OR VOMITING; Start at 12:30 Acetaminophen (Tylenol Tab) 650 mg Q6H PRN PO PAIN LEVEL 1-3 OR FEVER Last administered on 02/10/17 21:39; Admin Dose 650 MG; Start 02/10/17 at 12:30 Acetaminophen/ Hydrocodone Bitart ([place] (5/325)) 1 tab Q6H PRN PO PAIN LEVEL 4 -6; Start 02/10/17 at 12:30 Morphine Sulfate (morphine) 2 mg Q4H PRN IV PAIN LEVEL 7-10 Last administered on 02/13/17 10:10; Admin Dose 2 MG; Start 02/10/17 at 12:30 Insulin Aspart (Novolog Insulin Pen) NOVOLOG *MILD* ALGORITHM Q4 SC Last administered on 02/10/17 17:10; Admin Dose 1 UNIT; Start 02/10/17 at 13:00 Miscellaneous Information 1 ea NOTE XX ; Start 02/10/17 at 13:30 Glucose (Glutose) 15 gm Q15M PRN PO DECREASED GLUCOSE; Start 02/10/17 at 13:30 Glucose (Glutose) 22.5 gm Q15M PRN PO DECREASED GLUCOSE; Start 02/10/17 at 13: 30 Dextrose (D50w Syringe) 25 ml Q15M PRN IV DECREASED GLUCOSE Last administered on 02/12/17 21:23; Admin Dose 25 ML; Start 02/10/17 at 13:30 Dextrose (D50w Syringe) 50 ml Q15M PRN IV DECREASED GLUCOSE Last administered on 02/12/17 21:39; Admin Dose 50 ML; Start 02/10/17 at 13:30 Glucagon (Glucagen) 1 mg Q15M PRN IM DECREASED GLUCOSE; Start 02/10/17 at 13:30 Glucose 15 gm 15 gm Q15M PRN BUCCAL DECREASED GLUCOSE; Start 02/10/17 at 13:30 Norepinephrine 16 mg/Dextrose 500 ml @ 0 mls/hr TITRATE IV ; Start 02/10/17 at 21:00 Dopamine HCl/ Dextrose (D5W) 250 ml @ 1.7 mls/hr TITRATE IV Last administered on 02/12/17 04:51; Admin Dose 11.07 MLS/HR; Start 02/10/17 at 18:00 Pantoprazole (Protonix Iv) 40 mg BID@06,18 IV Last administered on 02/15/17 05 :04; Admin Dose 40 MG; Start 02/11/17 at 06:00 Ticagrelor (Brilinta) 90 mg BID PO Last administered on 02/15/17 08:33; Admin Dose 90 MG; Start 02/11/17 at 12:00 Aspirin (Halfprin) 81 mg DAILY PO Last administered on 02/15/17 08:36; Admin Dose 81 MG; Start 02/11/17 at 12:00 Atorvastatin Calcium 80 mg 80 mg HS NGT Last administered on 02/14/17 21:10; Admin Dose 80 MG; Start 02/11/17 at 21:00 Dextrose/Sodium Chloride 1,000 ml @ 75 mls/hr [id number] IV Last administered on 02/15/17 02:03; Admin Dose 75 MLS/HR; Start 02/12/17 at 21:30 Fentanyl 100 ml @ 2.5 mls/hr TITRATE IV Last administered on 02/15/17 05:05; Admin Dose 10 MLS/HR; Start 02/13/17 at 11:30 Metronidazole 100 ml @ 100 mls/hr Q8 IVPB Last administered on 02/15/17 05:05 ; Admin Dose 100 MLS/HR; Start 02/14/17 at 10:01 Midazolam HCl (Versed) 50 ml @ 1 mls/hr TITRATE IV Last administered on 05:05; Admin Dose 3 MLS/HR; Start 02/14/17 at 23:00 Metoclopramide HCl (Reglan) 10 mg Q8 IV ; Start 02/15/17 at 14:00; Stop at 06:01 ANGELINA VALDEZ 21, 2017 11:16
--- NOTE | 2017-02-15 11:43 | CONS ---
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 WORKER Subjective remains on sedation due to agitation episodes of vomiting, received dialysis 02/14 for fluid overload, pulmonary edema ARF MRI Brain showed a tiny right martines radiata infarct no seizures Objective Vital Signs Date Time Temp Pulse Resp B/P Pulse Ox O2 Delivery O2 Flow Rate FiO2 02/15/17 09:00 78 20 101/58 95 Mechanical Ventilator 02/15/17 08:00 30 02/15/17 08:00 98.7 Intake and Output 02/14/17 02/14/17 02/15/17 15:00 23:00 07:00 Intake Total 1148.16 ml 1413.62 ml 1109.982 ml Output Total 30 ml 2495 ml 200 ml Balance 1118.16 ml -1081.38 ml 909.982 ml Exam sedation held opens his eyes maintains arousal no specific gaze preference, orthophoric gaze CN: pupils 2 mm, corneals intact gag present Motor : moving arms in plane of the bed not following commands, asked to show 2 fingers on left hand unable to perform does raise his right arm spontaneously no spontaneous movement of legs minimal withdrawal to noxious stimuli Results/Medications Result Diagram: 02/15/1762002/15/17 0621 Results 24 hrs Laboratory Tests Test 02/14/17 13:00 02/14/17 16:21 02/14/17 21:09 02/15/17 02:03 Bedside Glucose 125 88 106 108 Test 02/15/17 05:04 02/15/17 06:21 02/15/17 08:43 Bedside Glucose 105 92 White Blood Count 5.5 # Red Blood Count 2.75 L Hemoglobin 8.8 L Hematocrit 25.6 L Mean Corpuscular Volume 93.1 Mean Corpuscular Hemoglobin 32.0 Mean Corpuscular Hemoglobin Concent 34.4 Red Cell Distribution Width 14.3 Platelet Count 165 Mean Platelet Volume 12.0 H Neutrophils % 71.5 Lymphocytes % 15.8 Monocytes % 7.8 Eosinophils % 3.4 Basophils % 0.2 Nucleated Red Blood Cells % 0.6 H Neutrophils # 3.8 Lymphocytes # 0.8 Monocytes # 0.4 Eosinophils # 0.2 Basophils # 0.0 Nucleated Red Blood Cells # 0.0 Sodium Level 128 L Potassium Level 3.6 Chloride Level 93 L Carbon Dioxide Level 20 L Anion Gap 19 H Blood Urea Nitrogen 69 H Creatinine 6.76 H Glucose Level 83 Calcium Level 5.8 *L Phosphorus Level 6.7 H Magnesium Level 2.0 Total Bilirubin 1.3 Direct Bilirubin 1.20 H Indirect Bilirubin 0.1 Aspartate Amino Transf (AST/SGOT) 217 #H Alanine Aminotransferase (ALT/SGPT) 132 H Alkaline Phosphatase 314 #H Total Protein 5.5 L Albumin 3.1 L Globulin 2.40 Albumin/Globulin Ratio 1.29 Medications Current Medications Propofol 100 ml @ 2.727 mls/ hr Q12H IV Last administered on 02/15/17 10:41; Admin Dose 16.362 MLS/HR; Start 02/10/17 at 10:00 Piperacillin Sod/ Tazobactam Sod 100 ml @ 200 mls/hr Q8 IVPB Last administered on 02/15/17 05:04; Admin Dose 200 MLS/HR; Start 02/10/17 at 11:30 Phenylephrine HCl/ Dextrose (Zach-Syneph/D5W) 500 ml @ 18.75 mls/ hr TITRATE IV Last administered on 02/10/17 13:22; Admin Dose 26.25 MLS/HR; Start 02/10/17 at 13:00 Lorazepam (Ativan) 0.5 mg Q6H PRN IV ANXIETY Last administered on 02/13/17 11: 26; Admin Dose 0.5 MG; Start 02/10/17 at 12:30 Ondansetron HCl (Zofran Inj) 4 mg Q6H PRN IV NAUSEA AND/OR VOMITING; Start at 12:30 Acetaminophen (Tylenol Tab) 650 mg Q6H PRN PO PAIN LEVEL 1-3 OR FEVER Last administered on 02/10/17 21:39; Admin Dose 650 MG; Start 02/10/17 at 12:30 Acetaminophen/ Hydrocodone Bitart ([place] (5/325)) 1 tab Q6H PRN PO PAIN LEVEL 4 -6; Start 02/10/17 at 12:30 Morphine Sulfate (morphine) 2 mg Q4H PRN IV PAIN LEVEL 7-10 Last administered on 02/13/17 10:10; Admin Dose 2 MG; Start 02/10/17 at 12:30 Insulin Aspart (Novolog Insulin Pen) NOVOLOG *MILD* ALGORITHM Q4 SC Last administered on 02/10/17 17:10; Admin Dose 1 UNIT; Start 02/10/17 at 13:00 Miscellaneous Information 1 ea NOTE XX ; Start 02/10/17 at 13:30 Glucose (Glutose) 15 gm Q15M PRN PO DECREASED GLUCOSE; Start 02/10/17 at 13:30 Glucose (Glutose) 22.5 gm Q15M PRN PO DECREASED GLUCOSE; Start 02/10/17 at 13: 30 Dextrose (D50w Syringe) 25 ml Q15M PRN IV DECREASED GLUCOSE Last administered on 02/12/17 21:23; Admin Dose 25 ML; Start 02/10/17 at 13:30 Dextrose (D50w Syringe) 50 ml Q15M PRN IV DECREASED GLUCOSE Last administered on 02/12/17 21:39; Admin Dose 50 ML; Start 02/10/17 at 13:30 Glucagon (Glucagen) 1 mg Q15M PRN IM DECREASED GLUCOSE; Start 02/10/17 at 13:30 Glucose 15 gm 15 gm Q15M PRN BUCCAL DECREASED GLUCOSE; Start 02/10/17 at 13:30 Norepinephrine 16 mg/Dextrose 500 ml @ 0 mls/hr TITRATE IV ; Start 02/10/17 at 21:00 Dopamine HCl/ Dextrose (D5W) 250 ml @ 1.7 mls/hr TITRATE IV Last administered on 02/12/17 04:51; Admin Dose 11.07 MLS/HR; Start 02/10/17 at 18:00 Pantoprazole (Protonix Iv) 40 mg BID@06,18 IV Last administered on 02/15/17 05 :04; Admin Dose 40 MG; Start 02/11/17 at 06:00 Ticagrelor (Brilinta) 90 mg BID PO Last administered on 02/15/17 08:33; Admin Dose 90 MG; Start 02/11/17 at 12:00 Aspirin (Halfprin) 81 mg DAILY PO Last administered on 02/15/17 08:36; Admin Dose 81 MG; Start 02/11/17 at 12:00 Atorvastatin Calcium 80 mg 80 mg HS NGT Last administered on 02/14/17 21:10; Admin Dose 80 MG; Start 02/11/17 at 21:00 Dextrose/Sodium Chloride 1,000 ml @ 75 mls/hr [id number] IV Last administered on 02/15/17 02:03; Admin Dose 75 MLS/HR; Start 02/12/17 at 21:30 Fentanyl 100 ml @ 2.5 mls/hr TITRATE IV Last administered on 02/15/17 05:05; Admin Dose 10 MLS/HR; Start 02/13/17 at 11:30 Metronidazole 100 ml @ 100 mls/hr Q8 IVPB Last administered on 02/15/17 05:05 ; Admin Dose 100 MLS/HR; Start 02/14/17 at 10:01 Midazolam HCl (Versed) 50 ml @ 1 mls/hr TITRATE IV Last administered on 05:05; Admin Dose 3 MLS/HR; Start 02/14/17 at 23:00 Metoclopramide HCl (Reglan) 10 mg Q8 IV ; Start 02/15/17 at 14:00; Stop at 06:01 Assessment/Plan Chief Complaint/Hosp Course 66 year old male admitted with STEMI with 100% left circumflex vessel occlusion requiring MIRA with intra-aortic balloon pump admitted to ICU for further management severe encephalopathy, failed weaning trial with ARF receiving dialysis. MRI showed a tiny right martines radiata infarct presumably cardioembolic, no areas of involvement to suggest hypoxic ischemic encephalopathy Recommendations: severe encephalopathy due to metabolic issues receiving dialysis will continue serial exams to assess for improvement Problems: CRISTOPHER NEWELL MD Feb 15, 2017 11:43
--- NOTE | 2017-02-15 12:05 | PN ---
Date/Time of Note Date/Time of Note DATE: 02/15/17 TIME: 12:04 Assessment/Plan VTE Prophylaxis VTE Prophylaxis Intervention: SCD's Lines/Catheters IV Catheter Type (from Nrsg): Peripheral IV Urinary Cath still in place: Yes Reason Cath still needed: other (indicate) (critically ill) Assessment/Plan Assessment/Plan 66 yo M admitted following cardiac arrest 2/2 STEMI. #neuro: wean sedation as tolerated encephalopathy/agitation 2/2 ?anoxic component? from cardiac arrest: MRI with small infarct, neuro following EEG results pending #CV: cardiac arrest: sp LHC with angioplasty and IABP cardiogenic shock: cont BP control CAD: previous h/o stenting. most recent ED 55% #pulm: not yet ready for vent weaning per pipeliner #GI: LFTs elevated, suspect 2.2 shock. cont to trend stress ulcer prophx #renal: NEFTALI + metabolic acidosis. HD as per renal hypocalcemia: suspect 2/2 low albumin. replete as per renal #ID: sepsis 2/2 UTI +CDiff: abx as per ID #endo: preDm with a1c 6.2, cont SSI DVT prophx Had family meeting today facilitated by SW and video bread room hand. Family updated. Explained that plan is to monitor mental status closely and hopefully extubate pt within next 1-2 days. All questions answered to family's satisfaction Subjective 24 Hr Interval Summary Free Text/Dictation Pt seen this AM. Still not yet ready to wean off vent per nursing/pulm Exam/Review of Systems Vital Signs Vitals Vital Signs Date Time Temp Pulse Resp B/P Pulse Ox O2 Delivery O2 Flow Rate FiO2 02/15/17 12:03 68 02/15/17 09:00 20 101/58 95 Mechanical Ventilator 02/15/17 08:00 30 02/15/17 08:00 98.7 Intake and Output 02/14/17 02/14/17 02/15/17 14:59 22:59 06:59 Intake Total 910.89 ml 1548.62 ml 1117.89 ml Output Total 20 ml 2490 ml 210 ml Balance 890.89 ml -941.38 ml 907.89 ml Exam nad rrr lungs clear abd soft no rashes Results Result Diagram: 02/15/17 0621 02/15/17 0621 Results 24 hrs Laboratory Tests Test 02/14/17 13:00 02/14/17 16:21 02/14/17 21:09 02/15/17 02:03 Bedside Glucose 125 88 106 108 Test 02/15/17 05:04 02/15/17 06:21 02/15/17 08:43 Bedside Glucose 105 92 White Blood Count 5.5 # Red Blood Count 2.75 L Hemoglobin 8.8 L Hematocrit 25.6 L Mean Corpuscular Volume 93.1 Mean Corpuscular Hemoglobin 32.0 Mean Corpuscular Hemoglobin Concent 34.4 Red Cell Distribution Width 14.3 Platelet Count 165 Mean Platelet Volume 12.0 H Neutrophils % 71.5 Lymphocytes % 15.8 Monocytes % 7.8 Eosinophils % 3.4 Basophils % 0.2 Nucleated Red Blood Cells % 0.6 H Neutrophils # 3.8 Lymphocytes # 0.8 Monocytes # 0.4 Eosinophils # 0.2 Basophils # 0.0 Nucleated Red Blood Cells # 0.0 Sodium Level 128 L Potassium Level 3.6 Chloride Level 93 L Carbon Dioxide Level 20 L Anion Gap 19 H Blood Urea Nitrogen 69 H Creatinine 6.76 H Glucose Level 83 Calcium Level 5.8 *L Phosphorus Level 6.7 H Magnesium Level 2.0 Total Bilirubin 1.3 Direct Bilirubin 1.20 H Indirect Bilirubin 0.1 Aspartate Amino Transf (AST/SGOT) 217 #H Alanine Aminotransferase (ALT/SGPT) 132 H Alkaline Phosphatase 314 #H Total Protein 5.5 L Albumin 3.1 L Globulin 2.40 Albumin/Globulin Ratio 1.29 Medications Medications Current Medications Propofol 100 ml @ 2.727 mls/ hr Q12H IV Last administered on 02/15/17 10:41; Admin Dose 16.362 MLS/HR; Start 02/10/17 at 10:00 Piperacillin Sod/ Tazobactam Sod 100 ml @ 200 mls/hr Q8 IVPB Last administered on 02/15/17 05:04; Admin Dose 200 MLS/HR; Start 02/10/17 at 11:30 Phenylephrine HCl/ Dextrose (Zach-Syneph/D5W) 500 ml @ 18.75 mls/ hr TITRATE IV Last administered on 02/10/17 13:22; Admin Dose 26.25 MLS/HR; Start 02/10/17 at 13:00 Lorazepam (Ativan) 0.5 mg Q6H PRN IV ANXIETY Last administered on 02/13/17 11: 26; Admin Dose 0.5 MG; Start 02/10/17 at 12:30 Ondansetron HCl (Zofran Inj) 4 mg Q6H PRN IV NAUSEA AND/OR VOMITING; Start at 12:30 Acetaminophen (Tylenol Tab) 650 mg Q6H PRN PO PAIN LEVEL 1-3 OR FEVER Last administered on 02/10/17 21:39; Admin Dose 650 MG; Start 02/10/17 at 12:30 Acetaminophen/ Hydrocodone Bitart ([place] (5/325)) 1 tab Q6H PRN PO PAIN LEVEL 4 -6; Start 02/10/17 at 12:30 Morphine Sulfate (morphine) 2 mg Q4H PRN IV PAIN LEVEL 7-10 Last administered on 02/13/17 10:10; Admin Dose 2 MG; Start 02/10/17 at 12:30 Insulin Aspart (Novolog Insulin Pen) NOVOLOG *MILD* ALGORITHM Q4 SC Last administered on 02/10/17 17:10; Admin Dose 1 UNIT; Start 02/10/17 at 13:00 Miscellaneous Information 1 ea NOTE XX ; Start 02/10/17 at 13:30 Glucose (Glutose) 15 gm Q15M PRN PO DECREASED GLUCOSE; Start 02/10/17 at 13:30 Glucose (Glutose) 22.5 gm Q15M PRN PO DECREASED GLUCOSE; Start 02/10/17 at 13: 30 Dextrose (D50w Syringe) 25 ml Q15M PRN IV DECREASED GLUCOSE Last administered on 02/12/17 21:23; Admin Dose 25 ML; Start 02/10/17 at 13:30 Dextrose (D50w Syringe) 50 ml Q15M PRN IV DECREASED GLUCOSE Last administered on 02/12/17 21:39; Admin Dose 50 ML; Start 02/10/17 at 13:30 Glucagon (Glucagen) 1 mg Q15M PRN IM DECREASED GLUCOSE; Start 02/10/17 at 13:30 Glucose 15 gm 15 gm Q15M PRN BUCCAL DECREASED GLUCOSE; Start 02/10/17 at 13:30 Norepinephrine 16 mg/Dextrose 500 ml @ 0 mls/hr TITRATE IV ; Start 02/10/17 at 21:00 Dopamine HCl/ Dextrose (D5W) 250 ml @ 1.7 mls/hr TITRATE IV Last administered on 02/12/17 04:51; Admin Dose 11.07 MLS/HR; Start 02/10/17 at 18:00 Pantoprazole (Protonix Iv) 40 mg BID@06,18 IV Last administered on 02/15/17 05 :04; Admin Dose 40 MG; Start 02/11/17 at 06:00 Ticagrelor (Brilinta) 90 mg BID PO Last administered on 02/15/17 08:33; Admin Dose 90 MG; Start 02/11/17 at 12:00 Aspirin (Halfprin) 81 mg DAILY PO Last administered on 02/15/17 08:36; Admin Dose 81 MG; Start 02/11/17 at 12:00 Atorvastatin Calcium 80 mg 80 mg HS NGT Last administered on 02/14/17 21:10; Admin Dose 80 MG; Start 02/11/17 at 21:00 Dextrose/Sodium Chloride 1,000 ml @ 75 mls/hr [id number] IV Last administered on 02/15/17 02:03; Admin Dose 75 MLS/HR; Start 02/12/17 at 21:30 Fentanyl 100 ml @ 2.5 mls/hr TITRATE IV Last administered on 02/15/17 05:05; Admin Dose 10 MLS/HR; Start 02/13/17 at 11:30 Metronidazole 100 ml @ 100 mls/hr Q8 IVPB Last administered on 02/15/17 05:05 ; Admin Dose 100 MLS/HR; Start 02/14/17 at 10:01 Midazolam HCl (Versed) 50 ml @ 1 mls/hr TITRATE IV Last administered on 05:05; Admin Dose 3 MLS/HR; Start 02/14/17 at 23:00 Metoclopramide HCl (Reglan) 10 mg Q8 IV ; Start 02/15/17 at 14:00; Stop at 06:01 ROSA BOOTH MD Feb 15, 2017 12:05
--- NOTE | 2017-02-15 13:50 | RADRPT ---
PROCEDURE: Carotid ultrasound CLINICAL INDICATION: Stroke, carotid bruits TECHNIQUE: Kennedy scale, color doppler, spectral doppler ultrasound of the bilateral carotid and chay tebral arteries. This study indirectly references the measurement of the distal ICA diameter as the denominator for s tenosis measurement. Validated velocity measurements with angiographic measurements, velocity criter ia are extrapolated from diameter data as defined by: *Cartoid artery stenosis: kennedy-scale and Doppl er US diagnosis. Society of Radiologists in Ultrasound Consensus Conference. Radiology 2003; 229: 34 0-346. SRU Consensus Conference Criteria for the Diagnosis of Carotid Artery Stenosis* Degree of Stenosis, % ICA PSV, cm/sec Plaque Estimate, % ICA/CCA PSV Ratio Normal <125 None <2.0 <50 <125 <50 <2.0 50 69 125-230 >50 2.0-4.0 >70 but less than near occlusion >230 >50 <4.0 Near occlusion High, low, or undetectable Visible Variable Total occlusion Undetectable Visible, no detectable lumen Not applicable COMPARISON: No prior studies are available for comparison. FINDINGS: Location Right IXA654 cm/sec Prox ICA 75 cm/sec Mid ICA57 cm/sec Dist ICA50 cm/sec ECA92 cm/sec ICA/CCA0.8 Left NLH079 cm/sec Prox ICA 100 cm/sec Mid ICA91 cm/sec Dist ICA60 cm/sec PJU954 cm/sec ICA/CCA1.1 Plaque burden: Noncalcified appearing plaque involving the distal left common carotid artery without evidence of flow acceleration to suggest a hemodynamically significant stenosis.. Antegrade flow is seen within the vertebral arteries bilaterally. IMPRESSION: No evidence of a hemodynamically significant carotid stenosis. RPTAT: AADD .Wally Treviño MD, Date Time Electronically viewed and signed by .Wally Treviño MD, on 02/15/2017 13:50 .B/
[2017-02-15] MEDS ORDERED: LIDOCAINE 1% (MPF) 5 ML VIAL SC ONE (14:00)
[2017-02-15] MEDS: PIPER-TAZO 2.25 GM (PMX) 50 ML IVPB SCH ×2 (14:50→21:30)
[2017-02-15] MEDS: METOCLOPRAMIDE 10 MG INJ IV SCH ×2 (14:50→21:30)
[2017-02-15 16:02] LABS: AADO2 Arterial 497.3 mmHg (7.0-24.0); Allen Test ACCEPTAB; Arterial Base Excess -1.7 mmol/L (-3.0-3); Arterial COHb 0.3 % (0.0-3.0); Arterial Fraction of Oxyhgb 98.1 % (93.0-99.0); Arterial HCO3 21.7 mmol/L (22.0-26.0); Arterial MetHb 0.5 % (0.0-1.5); Arterial Total Hemglobin 8.8 g/dl (12.0-18.0); MODE VENT - AC
--- NOTE | 2017-02-15 16:04 | CONS ---
Date/Time of Note Date/Time of Note DATE: 02/15/17 TIME: 16:02 Assessment/Plan Assessment/Plan Additional Assessment/Plan 1. Oliguric acute kidney injury, likely secondary to ischemic acute tubular necrosis from ST-elevation myocardial infarction and cardiogenic shock. did not improve,d started on HD on due to Oliguric NEFTALI with fluid overaload 2. Cardiogenic shock. 3. Acute respiratory failure from cardiac arrest, currently intubated on ventilator. 4. Metabolic acidosis secondary to acute renal failure. 5. No significant past medical history, as per the family. PLAN: started on HD for fluid overload, BP stable Kirsten has stanley HD catheter, will continue HD today and also tomorrow CXR in AM to assess for pul congestion will follow up Consultation Date/Type/Reason Admit Date/Time Feb 10, 2017 at 08:37 Initial Consult Date 02/10/17 Type of Consultation: NEPHROLOGY Referring Provider: HUBERT KUNZ NP 24 HR Interval Summary Free Text/Dictation pt gets started on HD yesterday, remains intubated, BP stable, plan for HD today Exam/Review of Systems Vital Signs Vitals Vital Signs Date Time Temp Pulse Resp B/P Pulse Ox O2 Delivery O2 Flow Rate FiO2 02/15/17 14:42 66 20 02/15/17 13:03 100 30 02/15/17 12:00 98.5 102/67 Mechanical Ventilator Intake and Output 02/14/17 02/14/17 02/15/17 15:00 23:00 07:00 Intake Total 1148.16 ml 1413.62 ml 1109.982 ml Output Total 30 ml 2495 ml 200 ml Balance 1118.16 ml -1081.38 ml 909.982 ml Exam GENERAL: The patient is currently sedated, intubated on ventilator. HEENT: ET tube in place. NECK: Supple. No jugular venous distention. No lymphadenopathy. LUNGS: Bilateral coarse breath sounds with minimal expiratory wheezing. HEART: S1, S2, tachycardia, no murmur. ABDOMEN: Soft, nontender, nondistended. EXTREMITIES: 1+ pitting edema GENITOURINARY: Mckeon catheter in place. Results Result Diagram: 02/15/17 0621 02/15/17 0621 Results 24 hrs Laboratory Tests Test 02/14/17 16:21 02/14/17 21:09 02/15/17 02:03 02/15/17 05:04 Bedside Glucose 88 106 108 105 Test 02/15/17 06:21 02/15/17 08:43 02/15/17 13:47 White Blood Count 5.5 # Red Blood Count 2.75 L Hemoglobin 8.8 L Hematocrit 25.6 L Mean Corpuscular Volume 93.1 Mean Corpuscular Hemoglobin 32.0 Mean Corpuscular Hemoglobin Concent 34.4 Red Cell Distribution Width 14.3 Platelet Count 165 Mean Platelet Volume 12.0 H Neutrophils % 71.5 Lymphocytes % 15.8 Monocytes % 7.8 Eosinophils % 3.4 Basophils % 0.2 Nucleated Red Blood Cells % 0.6 H Neutrophils # 3.8 Lymphocytes # 0.8 Monocytes # 0.4 Eosinophils # 0.2 Basophils # 0.0 Nucleated Red Blood Cells # 0.0 Sodium Level 128 L Potassium Level 3.6 Chloride Level 93 L Carbon Dioxide Level 20 L Anion Gap 19 H Blood Urea Nitrogen 69 H Creatinine 6.76 H Glucose Level 83 Calcium Level 5.8 *L Phosphorus Level 6.7 H Magnesium Level 2.0 Total Bilirubin 1.3 Direct Bilirubin 1.20 H Indirect Bilirubin 0.1 Aspartate Amino Transf (AST/SGOT) 217 #H Alanine Aminotransferase (ALT/SGPT) 132 H Alkaline Phosphatase 314 #H Total Protein 5.5 L Albumin 3.1 L Globulin 2.40 Albumin/Globulin Ratio 1.29 Bedside Glucose 92 108 Medications Medications Current Medications Propofol 100 ml @ 2.727 mls/ hr Q12H IV Last administered on 02/15/17 10:41; Admin Dose 16.362 MLS/HR; Start 02/10/17 at 10:00 Phenylephrine HCl/ Dextrose (Zach-Syneph/D5W) 500 ml @ 18.75 mls/ hr TITRATE IV Last administered on 02/10/17 13:22; Admin Dose 26.25 MLS/HR; Start 02/10/17 at 13:00 Lorazepam (Ativan) 0.5 mg Q6H PRN IV ANXIETY Last administered on 02/13/17 11: 26; Admin Dose 0.5 MG; Start 02/10/17 at 12:30 Ondansetron HCl (Zofran Inj) 4 mg Q6H PRN IV NAUSEA AND/OR VOMITING; Start at 12:30 Acetaminophen (Tylenol Tab) 650 mg Q6H PRN PO PAIN LEVEL 1-3 OR FEVER Last administered on 02/10/17 21:39; Admin Dose 650 MG; Start 02/10/17 at 12:30 Acetaminophen/ Hydrocodone Bitart ([place] (5/325)) 1 tab Q6H PRN PO PAIN LEVEL 4 -6; Start 02/10/17 at 12:30 Morphine Sulfate (morphine) 2 mg Q4H PRN IV PAIN LEVEL 7-10 Last administered on 02/13/17 10:10; Admin Dose 2 MG; Start 02/10/17 at 12:30 Insulin Aspart (Novolog Insulin Pen) NOVOLOG *MILD* ALGORITHM Q4 SC Last administered on 02/10/17 17:10; Admin Dose 1 UNIT; Start 02/10/17 at 13:00 Miscellaneous Information 1 ea NOTE XX ; Start 02/10/17 at 13:30 Glucose (Glutose) 15 gm Q15M PRN PO DECREASED GLUCOSE; Start 02/10/17 at 13:30 Glucose (Glutose) 22.5 gm Q15M PRN PO DECREASED GLUCOSE; Start 02/10/17 at 13: 30 Dextrose (D50w Syringe) 25 ml Q15M PRN IV DECREASED GLUCOSE Last administered on 02/12/17 21:23; Admin Dose 25 ML; Start 02/10/17 at 13:30 Dextrose (D50w Syringe) 50 ml Q15M PRN IV DECREASED GLUCOSE Last administered on 02/12/17 21:39; Admin Dose 50 ML; Start 02/10/17 at 13:30 Glucagon (Glucagen) 1 mg Q15M PRN IM DECREASED GLUCOSE; Start 02/10/17 at 13:30 Glucose 15 gm 15 gm Q15M PRN BUCCAL DECREASED GLUCOSE; Start 02/10/17 at 13:30 Norepinephrine 16 mg/Dextrose 500 ml @ 0 mls/hr TITRATE IV ; Start 02/10/17 at 21:00 Dopamine HCl/ Dextrose (D5W) 250 ml @ 1.7 mls/hr TITRATE IV Last administered on 02/12/17 04:51; Admin Dose 11.07 MLS/HR; Start 02/10/17 at 18:00 Pantoprazole (Protonix Iv) 40 mg BID@,18 IV Last administered on 02/15/17 05 :04; Admin Dose 40 MG; Start 02/11/17 at 06:00 Ticagrelor (Brilinta) 90 mg BID PO Last administered on 02/15/17 08:33; Admin Dose 90 MG; Start 02/11/17 at 12:00 Aspirin (Halfprin) 81 mg DAILY PO Last administered on 02/15/17 08:36; Admin Dose 81 MG; Start 02/11/17 at 12:00 Atorvastatin Calcium 80 mg 80 mg HS NGT Last administered on 02/14/17 21:10; Admin Dose 80 MG; Start 02/11/17 at 21:00 Dextrose/Sodium Chloride 1,000 ml @ 75 mls/hr [id number] IV Last administered on 02/15/17 02:03; Admin Dose 75 MLS/HR; Start 02/12/17 at 21:30 Fentanyl 100 ml @ 2.5 mls/hr TITRATE IV Last administered on 02/15/17 14:22; Admin Dose 10 MLS/HR; Start 02/13/17 at 11:30 Midazolam HCl (Versed) 50 ml @ 1 mls/hr TITRATE IV Last administered on 05:05; Admin Dose 3 MLS/HR; Start 02/14/17 at 23:00 Metoclopramide HCl 10 mg 10 mg Q8 IV Last administered on 02/15/17 14:50; Admin Dose 10 MG; Start 02/15/17 at 14:00; Stop 02/16/17 at 06:01 Piperacillin Sod/ Tazobactam Sod (Zosyn 2.25gm/ 50ml (Pmx)) 50 ml @ 200 mls/hr Q8 IVPB Last administered on 02/15/17 14:50; Admin Dose 200 MLS/HR; Start at 13:00 Vancomycin HCl (Vancomycin Oral Syringe) 250 mg Q6 NGT ; Start 02/15/17 at 18:00 SAILAJA LOUIE MD Feb 15, 2017 16:03
[2017-02-15] MEDS: VANCOMYCIN HCL 250 MG/5ML POSYG NGT SCH ×2 (17:35→23:49)
[2017-02-15] MEDS: DEXTROSE 50% 50 ML SYRINGE IV PRN (17:53)
[2017-02-15] MEDS ORDERED: AMPICILLIN 500 MG CAP PO SCH (18:00)
--- NOTE | 2017-02-15 18:51 | CONS ---
Date/Time of Note Date/Time of Note DATE: 02/15/17 TIME: 18:50 Consult Date/Type/Reason Admit Date/Time Feb 10, 2017 at 08:37 Initial Consult Date 02/10/17 Type of Consultation: Cardiology Ordering Provider: HUBERT KUNZ NP Objective Vital Signs Date Time Temp Pulse Resp B/P Pulse Ox O2 Delivery O2 Flow Rate FiO2 02/15/17 17:15 74 22 100 70 02/15/17 12:00 98.5 102/67 Mechanical Ventilator Intake and Output 02/14/17 02/14/17 02/15/17 15:00 23:00 07:00 Intake Total 1148.16 ml 1413.62 ml 1109.982 ml Output Total 30 ml 2495 ml 200 ml Balance 1118.16 ml -1081.38 ml 909.982 ml Results/Medications Result Diagram: 02/15/17 0621 02/15/17 0621 Results 24 hrs Laboratory Tests Test 02/14/17 21:09 02/15/17 02:03 02/15/17 05:04 02/15/17 06:21 Bedside Glucose 106 108 105 White Blood Count 5.5 # Red Blood Count 2.75 L Hemoglobin 8.8 L Hematocrit 25.6 L Mean Corpuscular Volume 93.1 Mean Corpuscular Hemoglobin 32.0 Mean Corpuscular Hemoglobin Concent 34.4 Red Cell Distribution Width 14.3 Platelet Count 165 Mean Platelet Volume 12.0 H Neutrophils % 71.5 Lymphocytes % 15.8 Monocytes % 7.8 Eosinophils % 3.4 Basophils % 0.2 Nucleated Red Blood Cells % 0.6 H Neutrophils # 3.8 Lymphocytes # 0.8 Monocytes # 0.4 Eosinophils # 0.2 Basophils # 0.0 Nucleated Red Blood Cells # 0.0 Sodium Level 128 L Potassium Level 3.6 Chloride Level 93 L Carbon Dioxide Level 20 L Anion Gap 19 H Blood Urea Nitrogen 69 H Creatinine 6.76 H Glucose Level 83 Calcium Level 5.8 *L Phosphorus Level 6.7 H Magnesium Level 2.0 Total Bilirubin 1.3 Direct Bilirubin 1.20 H Indirect Bilirubin 0.1 Aspartate Amino Transf (AST/SGOT) 217 #H Alanine Aminotransferase (ALT/SGPT) 132 H Alkaline Phosphatase 314 #H Total Protein 5.5 L Albumin 3.1 L Globulin 2.40 Albumin/Globulin Ratio 1.29 Test 02/15/17 08:43 02/15/17 11:47 02/15/17 13:47 02/15/17 17:50 Bedside Glucose 92 108 68 L Blood Gas Specimen Source Blood arterial Arterial Blood Date Drawn 02/15/2017 3:55:34 PM Arterial Blood pH (Temp corrected) 7.456 H Arterial Blood pCO2 (Temp correct) 31.5 L Arterial Blood pO2 (Temp corrected) 184.2 H Arterial Blood HCO3 21.7 L Arterial Blood Base Excess -1.7 Arterial Blood Oxygen Saturation 98.9 H Tirso Test ACCEPTAB Arterial Blood Gas Puncture Site Right Radial Arterial Blood Carboxyhemoglobin 0.3 Arterial Blood Methemoglobin 0.5 Blood Gas A-a O2 Differential 497.3 H Oxyhemoglobin Percent 98.1 Total Hemoglobin 8.8 L Blood Gas Temperature 37.0 Blood Gas Respiration Rate 20.0 Blood Gas Actual Respiration Rate 20 Blood Gas Modality VENT - AC FiO2 100.0 Blood Gas Tidal Volume 600.0 Blood Gas Low PEEP Setting 5.0 Blood Gas Notified Whom [place] Blood Gas Notified Time 02/15/2017 4:02:16 PM Test 02/15/17 18:20 02/15/17 18:24 Bedside Glucose 152 173 Medications Current Medications Propofol 100 ml @ 2.727 mls/ hr Q12H IV Last administered on 02/15/17 17:31; Admin Dose 16.362 MLS/HR; Start 02/10/17 at 10:00 Phenylephrine HCl/ Dextrose (Zach-Syneph/D5W) 500 ml @ 18.75 mls/ hr TITRATE IV Last administered on 02/10/17 13:22; Admin Dose 26.25 MLS/HR; Start 02/10/17 at 13:00 Lorazepam (Ativan) 0.5 mg Q6H PRN IV ANXIETY Last administered on 02/13/17 11: 26; Admin Dose 0.5 MG; Start 02/10/17 at 12:30 Ondansetron HCl (Zofran Inj) 4 mg Q6H PRN IV NAUSEA AND/OR VOMITING; Start at 12:30 Acetaminophen (Tylenol Tab) 650 mg Q6H PRN PO PAIN LEVEL 1-3 OR FEVER Last administered on 02/10/17 21:39; Admin Dose 650 MG; Start 02/10/17 at 12:30 Acetaminophen/ Hydrocodone Bitart ([place] (5/325)) 1 tab Q6H PRN PO PAIN LEVEL 4 -6; Start 02/10/17 at 12:30 Morphine Sulfate (morphine) 2 mg Q4H PRN IV PAIN LEVEL 7-10 Last administered on 02/13/17 10:10; Admin Dose 2 MG; Start 02/10/17 at 12:30 Insulin Aspart (Novolog Insulin Pen) NOVOLOG *MILD* ALGORITHM Q4 SC Last administered on 02/15/17 18:29; Admin Dose 1 UNIT; Start 02/10/17 at 13:00 Miscellaneous Information 1 ea NOTE XX ; Start 02/10/17 at 13:30 Glucose (Glutose) 15 gm Q15M PRN PO DECREASED GLUCOSE; Start 02/10/17 at 13:30 Glucose (Glutose) 22.5 gm Q15M PRN PO DECREASED GLUCOSE; Start 02/10/17 at 13: 30 Dextrose (D50w Syringe) 25 ml Q15M PRN IV DECREASED GLUCOSE Last administered on 02/15/17 17:53; Admin Dose 25 ML; Start 02/10/17 at 13:30 Dextrose (D50w Syringe) 50 ml Q15M PRN IV DECREASED GLUCOSE Last administered on 02/12/17 21:39; Admin Dose 50 ML; Start 02/10/17 at 13:30 Glucagon (Glucagen) 1 mg Q15M PRN IM DECREASED GLUCOSE; Start 02/10/17 at 13:30 Glucose 15 gm 15 gm Q15M PRN BUCCAL DECREASED GLUCOSE; Start 02/10/17 at 13:30 Norepinephrine 16 mg/Dextrose 500 ml @ 0 mls/hr TITRATE IV ; Start 02/10/17 at 21:00 Dopamine HCl/ Dextrose (D5W) 250 ml @ 1.7 mls/hr TITRATE IV Last administered on 02/12/17 04:51; Admin Dose 11.07 MLS/HR; Start 02/10/17 at 18:00 Pantoprazole (Protonix Iv) 40 mg BID@06,18 IV Last administered on 02/15/17 17 :35; Admin Dose 40 MG; Start 02/11/17 at 06:00 Ticagrelor (Brilinta) 90 mg BID PO Last administered on 02/15/17 08:33; Admin Dose 90 MG; Start 02/11/17 at 12:00 Aspirin (Halfprin) 81 mg DAILY PO Last administered on 02/15/17 08:36; Admin Dose 81 MG; Start 02/11/17 at 12:00 Atorvastatin Calcium 80 mg 80 mg HS NGT Last administered on 02/14/17 21:10; Admin Dose 80 MG; Start 02/11/17 at 21:00 Dextrose/Sodium Chloride 1,000 ml @ 75 mls/hr [id number] IV Last administered on 02/15/17 17:32; Admin Dose 75 MLS/HR; Start 02/12/17 at 21:30 Fentanyl 100 ml @ 2.5 mls/hr TITRATE IV Last administered on 02/15/17 14:22; Admin Dose 10 MLS/HR; Start 02/13/17 at 11:30 Midazolam HCl (Versed) 50 ml @ 1 mls/hr TITRATE IV Last administered on 05:05; Admin Dose 3 MLS/HR; Start 02/14/17 at 23:00 Metoclopramide HCl 10 mg 10 mg Q8 IV Last administered on 02/15/17 14:50; Admin Dose 10 MG; Start 02/15/17 at 14:00; Stop 02/16/17 at 06:01 Piperacillin Sod/ Tazobactam Sod (Zosyn 2.25gm/ 50ml (Pmx)) 50 ml @ 200 mls/hr Q8 IVPB Last administered on 02/15/17 14:50; Admin Dose 200 MLS/HR; Start at 13:00 Vancomycin HCl (Vancomycin Oral Syringe) 250 mg Q6 NGT Last administered on 17:35; Admin Dose 250 MG; Start 02/15/17 at 18:00 Assessment/Plan Problems: (1) Cardiac arrest (2) Ventricular fibrillation (3) ST elevation myocardial infarction (STEMI) of anterior wall Additional Assessment/Plan Pt s/p Cardiac arrest Anoxic brain injury PCi of LCx Neurology eval MRI brain EEG pending HD started as per Dr Melo plan to have Neuro eval if failed extubation consider Trach and Peg contineu meds BP stable getting PICC line today LENIN DOSHI MD Feb 15, 2017 18:51
--- NOTE | 2017-02-15 19:28 | RADRPT ---
PROCEDURE: XR Chest. CLINICAL INDICATION: Air space disease. TECHNIQUE: Single frontal view of the chest. COMPARISON: Prior film dated 02/14/2017 is not available for comparison at the time of this interpr etation. FINDINGS: Endotracheal intubation is seen with tip about 45 mm above the akiko. Nasogastric tube in place wi th tip and side port in the proximal to mid stomach. Bilateral dense patchy air space disease is se en, right greater than left with bilateral small pleural effusions, right greater than left. No riri dent pneumothorax. The osseous structures and soft tissues are unremarkable. IMPRESSION: 1. Endotracheal intubation is seen with tip about 45 mm above the akiko. 2. Nasogastric tube in place with tip and side port in the proximal to mid stomach. 3. Bilateral dense patchy air space disease and pleural effusions, right greater than left. RPTAT: [facility] Physician Victoriano Date Time Electronically viewed and signed by Physician Victoriano on 02/15/2017 19:28 RS/
[2017-02-15] MEDS: ATORVASTATIN 80 MG TAB NGT SCH (21:30)
--- NOTE | 2017-02-15 21:59 | RADRPT ---
PROCEDURE: XR Chest. CLINICAL INDICATION: New left central venous line in place. TECHNIQUE: Single frontal view of the chest. COMPARISON: Today, about 4 hours ago. FINDINGS: New left central venous line in place with tip in the right atrium and recommend withdrawing same ab out 4 cm and re-imaging. Endotracheal intubation is seen with tip about 5 cm above the akiko. Nasogastric tube again seen wi th side port in the region of the gastroesophageal junction and recommend advancing same about 5-10 cm and re-imaging. Bilateral pleural effusions, right greater than left. Bilateral patchy air space disease in the ledy gs, right greater than left. No evident pneumothorax. IMPRESSION: No central venous line in place with tip in the right atrium, and recommend withdrawing same about 4 cm and re-imaging. RPTAT: [facility] Physician Victoriano Date Time Electronically viewed and signed by Physician Victoriano on 02/15/2017 21:59 RS/
[2017-02-16] VITALS (59 sets, daily range): BP systolic 88–140; BP diastolic 45–103; PULSE 67–99; RESP 17–22
[2017-02-16] MEDS: FENTAnyl (DRIP) 1000 mcg/100mL 100 ML IV SCH ×3 (00:29→21:18)
[2017-02-16] MEDS: MIDAZOLAM (DRIP) 50 mg/50 mL 50 ML IV SCH ×2 (00:32→11:04)
[2017-02-16] MEDS: INSULIN ASPART [NOVOLOG] 3 ML PEN SC SCH ×6 (01:00→21:00)
[2017-02-16] MEDS: PROPOFOL 100 ML IV SCH ×5 (01:42→19:32)
[2017-02-16] MEDS: PIPER-TAZO 2.25 GM (PMX) 50 ML IVPB SCH ×3 (05:29→21:24)
[2017-02-16] MEDS: PANTOPRAZOLE 40 MG INJ IV SCH ×2 (05:30→17:49)
[2017-02-16] MEDS: VANCOMYCIN HCL 250 MG/5ML POSYG NGT SCH ×3 (05:30→17:49)
[2017-02-16] MEDS: METOCLOPRAMIDE 10 MG INJ IV SCH ×2 (05:30→17:49)
[2017-02-16] MEDS: DEXTROSE 5%-0.45% NACL 1,000 ML IV SCH ×2 (08:18→18:50)
--- NOTE | 2017-02-16 08:33 | SP ---
DATE OF PROCEDURE: EEG REPORT HISTORY: This is a 66-year-old male admitted with a STEMI, requiring an intraaortic balloon pump, w ho was admitted for management of severe encephalopathy. EEG is to rule out seizure activity. CURRENT MEDICATIONS: 1. Propofol. 2. Lorazepam. 3. Morphine. 4. Dopamine. PROCEDURE: Utilizing a 16-channel EEG machine, cap scalp electrodes were applied in accordance with the International 10-20 system. [id number] and [id number] montages were displayed. Electric al impedances were measured and reported. DESCRIPTION: During the resting state a posterior dominant rhythm of about 7 to 8 Hz were seen bihe mispherically with low amplitude waves in bihemispheric distribution. Photic stimulation and hyperv entilation was not performed. There was no focal lateralizing or epileptiform discharge identified. INTERPRETATION: This is an abnormal EEG because of the presence of generalized bihemispheric backgr ound slowing with low amplitude waves without any epileptiform activity, consistent with encephalopa thy. Please correlate these findings with the patient's clinical picture. Dictated By: DONALD FELIPE/ROLAN Conf#: [id number] DID#: [id number]
[2017-02-16] MEDS: ASPIRIN (EC) 81 MG TAB PO SCH (08:42)
[2017-02-16] MEDS: TICAGRELOR 90 MG TABLET PO SCH ×2 (08:44→21:20)
--- NOTE | 2017-02-16 08:56 | RADRPT ---
PROCEDURE: US guidance for PICC line CLINICAL INDICATION: PICC line placement TECHNIQUE: Multiple real-time images were acquired of the patient's arm utilizing a high resolutio n transducer. This was performed by the PICC line nurse for venous access. COMPARISON: None FINDINGS: Ultrasound guidance for PICC line placement. There is a patent and compressible left upper extremity vein. IMPRESSION: Ultrasound guidance for PICC line placement. RPTAT: AA Physician Hemant Date Time Electronically viewed and signed by Physician Hemant on 02/16/2017 08:56 RA/
--- NOTE | 2017-02-16 10:56 | CONS ---
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 Subjective receiving dialysis on sedation, when taking off sedation becomes agitated unable to follow commands receiving abx for urinary sepsis Objective Vital Signs Date Time Temp Pulse Resp B/P Pulse Ox O2 Delivery O2 Flow Rate FiO2 02/16/17 08:00 76 02/16/17 06:00 20 91/58 95 02/16/17 05:17 65 02/16/17 04:00 98.4 02/15/17 20:00 Mechanical Ventilator Intake and Output 02/15/17 02/15/17 02/16/17 15:00 23:00 07:00 Intake Total 1429.896 ml 904.386 ml 758.6 ml Output Total 3020 ml 200 ml 15 ml Balance -1590.104 ml 704.386 ml 743.6 ml Exam sedation held opens his eyes maintains arousal no specific gaze preference, orthophoric gaze CN: pupils 2 mm, corneals intact gag present Motor : moving arms in plane of the bed not following commands, asked to show 2 fingers on left hand unable to perform does raise his right arm spontaneously no spontaneous movement of legs minimal withdrawal to noxious stimuli Results/Medications Result Diagram: 02/15/1762002/15/17620 Results 24 hrs Laboratory Tests Test 02/15/17 11:47 02/15/17 13:47 02/15/17 17:50 02/15/17 18:20 Blood Gas Specimen Source Blood arterial Arterial Blood Date Drawn 02/15/2017 3:55:34 PM Arterial Blood pH (Temp corrected) 7.456 H Arterial Blood pCO2 (Temp correct) 31.5 L Arterial Blood pO2 (Temp corrected) 184.2 H Arterial Blood HCO3 21.7 L Arterial Blood Base Excess -1.7 Arterial Blood Oxygen Saturation 98.9 H Tirso Test ACCEPTAB Arterial Blood Gas Puncture Site Right Radial Arterial Blood Carboxyhemoglobin 0.3 Arterial Blood Methemoglobin 0.5 Blood Gas A-a O2 Differential 497.3 H Oxyhemoglobin Percent 98.1 Total Hemoglobin 8.8 L Blood Gas Temperature 37.0 Blood Gas Respiration Rate 20.0 Blood Gas Actual Respiration Rate 20 Blood Gas Modality VENT - AC FiO2 100.0 Blood Gas Tidal Volume 600.0 Blood Gas Low PEEP Setting 5.0 Blood Gas Notified Whom [place] Blood Gas Notified Time 02/15/2017 4:02:16 PM Bedside Glucose 108 68 L 152 Test 02/15/17 18:24 02/15/17 21:33 02/16/17 01:17 02/16/17 05:39 Bedside Glucose 173 98 92 90 Test 02/16/17 09:16 Bedside Glucose 96 Medications Current Medications Propofol 100 ml @ 2.727 mls/ hr Q12H IV Last administered on 02/16/17 05:29; Admin Dose 21.816 MLS/HR; Start 02/10/17 at 10:00 Phenylephrine HCl/ Dextrose (Zach-Syneph/D5W) 500 ml @ 18.75 mls/ hr TITRATE IV Last administered on 02/10/17 13:22; Admin Dose 26.25 MLS/HR; Start 02/10/17 at 13:00 Lorazepam (Ativan) 0.5 mg Q6H PRN IV ANXIETY Last administered on 02/13/17 11: 26; Admin Dose 0.5 MG; Start 02/10/17 at 12:30 Ondansetron HCl (Zofran Inj) 4 mg Q6H PRN IV NAUSEA AND/OR VOMITING; Start at 12:30 Acetaminophen (Tylenol Tab) 650 mg Q6H PRN PO PAIN LEVEL 1-3 OR FEVER Last administered on 02/10/17 21:39; Admin Dose 650 MG; Start 02/10/17 at 12:30 Acetaminophen/ Hydrocodone Bitart ([place] (5/325)) 1 tab Q6H PRN PO PAIN LEVEL 4 -6; Start 02/10/17 at 12:30 Morphine Sulfate (morphine) 2 mg Q4H PRN IV PAIN LEVEL 7-10 Last administered on 02/13/17 10:10; Admin Dose 2 MG; Start 02/10/17 at 12:30 Insulin Aspart (Novolog Insulin Pen) NOVOLOG *MILD* ALGORITHM Q4 SC Last administered on 02/15/17 18:29; Admin Dose 1 UNIT; Start 02/10/17 at 13:00 Miscellaneous Information 1 ea NOTE XX ; Start 02/10/17 at 13:30 Glucose (Glutose) 15 gm Q15M PRN PO DECREASED GLUCOSE; Start 02/10/17 at 13:30 Glucose (Glutose) 22.5 gm Q15M PRN PO DECREASED GLUCOSE; Start 02/10/17 at 13: 30 Dextrose (D50w Syringe) 25 ml Q15M PRN IV DECREASED GLUCOSE Last administered on 02/15/17 17:53; Admin Dose 25 ML; Start 02/10/17 at 13:30 Dextrose (D50w Syringe) 50 ml Q15M PRN IV DECREASED GLUCOSE Last administered on 02/12/17 21:39; Admin Dose 50 ML; Start 02/10/17 at 13:30 Glucagon (Glucagen) 1 mg Q15M PRN IM DECREASED GLUCOSE; Start 02/10/17 at 13:30 Glucose 15 gm 15 gm Q15M PRN BUCCAL DECREASED GLUCOSE; Start 02/10/17 at 13:30 Norepinephrine 16 mg/Dextrose 500 ml @ 0 mls/hr TITRATE IV ; Start 02/10/17 at 21:00 Dopamine HCl/ Dextrose (D5W) 250 ml @ 1.7 mls/hr TITRATE IV Last administered on 02/12/17 04:51; Admin Dose 11.07 MLS/HR; Start 02/10/17 at 18:00 Pantoprazole (Protonix Iv) 40 mg BID@06,18 IV Last administered on 02/16/17 05 :30; Admin Dose 40 MG; Start 02/11/17 at 06:00 Ticagrelor (Brilinta) 90 mg BID PO Last administered on 02/16/17 08:44; Admin Dose 90 MG; Start 02/11/17 at 12:00 Aspirin (Halfprin) 81 mg DAILY PO Last administered on 02/16/17 08:42; Admin Dose 81 MG; Start 02/11/17 at 12:00 Atorvastatin Calcium 80 mg 80 mg HS NGT Last administered on 02/15/17 21:30; Admin Dose 80 MG; Start 02/11/17 at 21:00 Dextrose/Sodium Chloride 1,000 ml @ 75 mls/hr [id number] IV Last administered on 02/16/17 08:18; Admin Dose 75 MLS/HR; Start 02/12/17 at 21:30 Fentanyl 100 ml @ 2.5 mls/hr TITRATE IV Last administered on 02/16/17 09:38; Admin Dose 8 MLS/HR; Start 02/13/17 at 11:30 Midazolam HCl 50 ml @ 1 mls/hr TITRATE IV Last administered on 02/16/17 00:32 ; Admin Dose 3 MLS/HR; Start 02/14/17 at 23:00 Piperacillin Sod/ Tazobactam Sod (Zosyn 2.25gm/ 50ml (Pmx)) 50 ml @ 200 mls/hr Q8 IVPB Last administered on 02/16/17 05:29; Admin Dose 200 MLS/HR; Start at 13:00 Vancomycin HCl (Vancomycin Oral Syringe) 250 mg Q6 NGT Last administered on 05:30; Admin Dose 250 MG; Start 02/15/17 at 18:00 IV Flush (NS 10 ml) 10 ml PRN PRN IV FLUSH LINE; Start 02/15/17 at 20:00 Assessment/Plan Chief Complaint/Hosp Course 66 year old male admitted with STEMI with 100% left circumflex vessel occlusion requiring MIRA with intra-aortic balloon pump admitted to ICU for further management severe encephalopathy, failed weaning trial with ARF receiving dialysis. MRI showed a tiny right martines radiata infarct presumably cardioembolic, no areas of involvement to suggest hypoxic ischemic encephalopathy Carotid Duplex: unrevealing EEG: consistent with encephalopathy without epileptiform discharges Recommendations: severe encephalopathy due to metabolic issues receiving dialysis planned for management of metabolic issues and trial for extubation in a few days EEG shows slowing consistent with encephalopathy MRI Brain with small martines radiata infarct, may continue on current antiplatelet regimen ASA and Brilinta maintain normotensive blood pressure will follow Problems: CRISTOPHER NEWELL MD Feb 16, 2017 10:56
[2017-02-16] MEDS ORDERED: VANCOMYCIN IV PER PHARMACY XX SCH (11:30)
--- NOTE | 2017-02-16 11:36 | CONS ---
Date/Time of Note Date/Time of Note DATE: 02/16/17 TIME: 11:32 Assessment/Plan Assessment/Plan Additional Assessment/Plan Chest x-ray was reviewed from yesterday evening which is showing bilateral pneumonia. Endotracheal tube is at an adequate level. Ventilator setting; AC of 20, tidal volume 600, PEEP of 5, 80% FiO2. Patient currently on fentanyl drip at 50 mics per hour, propofol 40 mics per kilogram per minute. Assessment recommendations; 1. P patient admitted with cardiac arrest status post emergent coronary angiography with stenting of circumflex lesion. 2. Acute renal failure, oliguric, getting hemodialysis. 3. Severe bilateral pneumonia. 4. Underlying obesity. Continue current treatment. Add vancomycin. Obtain follow-up chest x-ray in 24 hours. Prognosis is guarded. 35 minutes of critical care time was spent evaluating the patient. Consultation Date/Type/Reason Admit Date/Time Feb 10, 2017 at 08:37 Initial Consult Date 02/10/17 Type of Consultation: Pulmonary/critical care Referring Provider: HUBERT KUNZ NP 24 HR Interval Summary Free Text/Dictation Patient condition remains critical. Still requiring full ventilator support. Has remained hemodynamically stable. Currently getting hemodialysis at bedside. General exam; elderly male, morbidly obese, currently in no distress. Sedated. Exam/Review of Systems Vital Signs Vitals Vital Signs Date Time Temp Pulse Resp B/P Pulse Ox O2 Delivery O2 Flow Rate FiO2 02/16/17 11:00 80 22 130/66 94 Mechanical Ventilator 02/16/17 08:00 98.1 02/16/17 05:17 65 Intake and Output 02/15/17 02/15/17 02/16/17 15:00 23:00 07:00 Intake Total 1429.896 ml 904.386 ml 758.6 ml Output Total 3020 ml 200 ml 15 ml Balance -1590.104 ml 704.386 ml 743.6 ml Exam HEENT exam; supple neck, positive JVD. No lymphadenopathy. Midline trachea. No thyromegaly. Patient is orally intubated. Dentition is fair. Pupils are small bilaterally. Chest examination; diminished breath sound bilaterally. S1-S2 audible, no murmurs. Regular rhythm. Abdomen examination; soft, protuberant. No organomegaly. Bowel sounds audible. Extremity exam; trace edema. 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 Results Result Diagram: 02/15/17 0621 02/15/17 0621 Results 24 hrs Laboratory Tests Test 02/15/17 11:47 02/15/17 13:47 02/15/17 17:50 02/15/17 18:20 Blood Gas Specimen Source Blood arterial Arterial Blood Date Drawn 02/15/2017 3:55:34 PM Arterial Blood pH (Temp corrected) 7.456 H Arterial Blood pCO2 (Temp correct) 31.5 L Arterial Blood pO2 (Temp corrected) 184.2 H Arterial Blood HCO3 21.7 L Arterial Blood Base Excess -1.7 Arterial Blood Oxygen Saturation 98.9 H Tirso Test ACCEPTAB Arterial Blood Gas Puncture Site Right Radial Arterial Blood Carboxyhemoglobin 0.3 Arterial Blood Methemoglobin 0.5 Blood Gas A-a O2 Differential 497.3 H Oxyhemoglobin Percent 98.1 Total Hemoglobin 8.8 L Blood Gas Temperature 37.0 Blood Gas Respiration Rate 20.0 Blood Gas Actual Respiration Rate 20 Blood Gas Modality VENT - AC FiO2 100.0 Blood Gas Tidal Volume 600.0 Blood Gas Low PEEP Setting 5.0 Blood Gas Notified Whom KS Blood Gas Notified Time 02/15/2017 4:02:16 PM Bedside Glucose 108 68 L 152 Test 02/15/17 18:24 02/15/17 21:33 02/16/17 01:17 02/16/17 05:39 Bedside Glucose 173 98 92 90 Test 02/16/17 09:16 Bedside Glucose 96 Medications Medications Current Medications Propofol 100 ml @ 2.727 mls/ hr Q12H IV Last administered on 02/16/17 05:29; Admin Dose 21.816 MLS/HR; Start 02/10/17 at 10:00 Phenylephrine HCl/ Dextrose (Zach-Syneph/D5W) 500 ml @ 18.75 mls/ hr TITRATE IV Last administered on 02/10/17 13:22; Admin Dose 26.25 MLS/HR; Start 02/10/17 at 13:00 Lorazepam (Ativan) 0.5 mg Q6H PRN IV ANXIETY Last administered on 02/13/17 11: 26; Admin Dose 0.5 MG; Start 02/10/17 at 12:30 Ondansetron HCl (Zofran Inj) 4 mg Q6H PRN IV NAUSEA AND/OR VOMITING; Start at 12:30 Acetaminophen (Tylenol Tab) 650 mg Q6H PRN PO PAIN LEVEL 1-3 OR FEVER Last administered on 02/10/17 21:39; Admin Dose 650 MG; Start 02/10/17 at 12:30 Acetaminophen/ Hydrocodone Bitart ([place] (5/325)) 1 tab Q6H PRN PO PAIN LEVEL 4 -6; Start 02/10/17 at 12:30 Morphine Sulfate (morphine) 2 mg Q4H PRN IV PAIN LEVEL 7-10 Last administered on 02/13/17 10:10; Admin Dose 2 MG; Start 02/10/17 at 12:30 Insulin Aspart (Novolog Insulin Pen) NOVOLOG *MILD* ALGORITHM Q4 SC Last administered on 02/15/17 18:29; Admin Dose 1 UNIT; Start 02/10/17 at 13:00 Miscellaneous Information 1 ea NOTE XX ; Start 02/10/17 at 13:30 Glucose (Glutose) 15 gm Q15M PRN PO DECREASED GLUCOSE; Start 02/10/17 at 13:30 Glucose (Glutose) 22.5 gm Q15M PRN PO DECREASED GLUCOSE; Start 02/10/17 at 13: 30 Dextrose (D50w Syringe) 25 ml Q15M PRN IV DECREASED GLUCOSE Last administered on 02/15/17 17:53; Admin Dose 25 ML; Start 02/10/17 at 13:30 Dextrose (D50w Syringe) 50 ml Q15M PRN IV DECREASED GLUCOSE Last administered on 02/12/17 21:39; Admin Dose 50 ML; Start 02/10/17 at 13:30 Glucagon (Glucagen) 1 mg Q15M PRN IM DECREASED GLUCOSE; Start 02/10/17 at 13:30 Glucose 15 gm 15 gm Q15M PRN BUCCAL DECREASED GLUCOSE; Start 02/10/17 at 13:30 Norepinephrine 16 mg/Dextrose 500 ml @ 0 mls/hr TITRATE IV ; Start 02/10/17 at 21:00 Dopamine HCl/ Dextrose (D5W) 250 ml @ 1.7 mls/hr TITRATE IV Last administered on 02/12/17 04:51; Admin Dose 11.07 MLS/HR; Start 02/10/17 at 18:00 Pantoprazole (Protonix Iv) 40 mg BID@,18 IV Last administered on 02/16/17 05 :30; Admin Dose 40 MG; Start 02/11/17 at 06:00 Ticagrelor (Brilinta) 90 mg BID PO Last administered on 02/16/17 08:44; Admin Dose 90 MG; Start 02/11/17 at 12:00 Aspirin (Halfprin) 81 mg DAILY PO Last administered on 02/16/17 08:42; Admin Dose 81 MG; Start 02/11/17 at 12:00 Atorvastatin Calcium 80 mg 80 mg HS NGT Last administered on 02/15/17 21:30; Admin Dose 80 MG; Start 02/11/17 at 21:00 Dextrose/Sodium Chloride 1,000 ml @ 75 mls/hr [id number] IV Last administered on 02/16/17 08:18; Admin Dose 75 MLS/HR; Start 02/12/17 at 21:30 Fentanyl 100 ml @ 2.5 mls/hr TITRATE IV Last administered on 02/16/17 09:38; Admin Dose 8 MLS/HR; Start 02/13/17 at 11:30 Midazolam HCl 50 ml @ 1 mls/hr TITRATE IV Last administered on 02/16/17 11:04 ; Admin Dose 3 MLS/HR; Start 02/14/17 at 23:00 Piperacillin Sod/ Tazobactam Sod (Zosyn 2.25gm/ 50ml (Pmx)) 50 ml @ 200 mls/hr Q8 IVPB Last administered on 02/16/17 05:29; Admin Dose 200 MLS/HR; Start at 13:00 Vancomycin HCl (Vancomycin Oral Syringe) 250 mg Q6 NGT Last administered on 05:30; Admin Dose 250 MG; Start 02/15/17 at 18:00 IV Flush (NS 10 ml) 10 ml PRN PRN IV FLUSH LINE; Start 02/15/17 at 20:00 ANGELINA VALDEZ Feb 16, 2017 11:36
--- NOTE | 2017-02-16 11:59 | PN ---
Date/Time of Note Date/Time of Note DATE: 02/16/17 TIME: 11:42 Assessment/Plan VTE Prophylaxis VTE Prophylaxis Intervention: SCD's (Patient is also on aspirin and brillinta) Lines/Catheters IV Catheter Type (from [facility]): PICC Line Central line still needed: Yes Urinary Cath still in place: Yes Reason Cath still needed: other (indicate) Assessment/Plan Assessment/Plan 66-year-old male who presented to the emergency room after witnessed cardiac arrest at work found to have ST elevation myocardial infarction managed as follows: 1. Cardiac arrest. Status post left heart catheterization and coronary angioplasty with placement of a stent and placement of intraaortic balloon pump. * Not a candidate for hypothermia protocol since he was noticed to be moving postangioplasty 2. S/p Cardiogenic shock: now off pressor support 3. Severe CAD with preserved EF 55%. Status post coronary artery stenting. 4. Sepsis 2/2 UTI + C diff . 5. Acute renal failure - multifactorial - 2/2 to cardiogenic shock - sepsis. Nonoliguric. Unknown baseline creatinine. Now on HD 6. Transaminitis likely secondary to shock liver superimposed on mild chronic liver disease from substance abuse 7. Chronic substance abuse with tox screen positive for amphetamines which likely precipitated #1 8. Normocytic anemia of chronic kidney disease: Stable 9. Hyponatremia 10. Hypocalcemia 11. Tiny cardioembolic right-sided CVA not likely to cause hypoxicischemic ischemic encephalopathy per neurology 12. Acute encephalopathy likely multifactorial in origin Plan. * Continue hemodialysis per renal * Continue to wean ventilator / appreciate pulmonary input * Continue current antibiotics : P.o. Vancomycin / renally dosed Zosyn * Trend LFTs. Avoid hepatotoxic medications. * Repeat labs, and replace electrolytes if indicated * Closely monitor hemoglobin levels * Appreciate all consultants review and recommendations * Fluids, electrolytes, and nutrition: D5 half NS at 75 cc an hour / resume tube feeds and gent;y advance. add reglan * Prophylaxis: SCDS / IV Protonix twice daily CC time : >35mins Subjective 24 Hr Interval Summary Free Text/Dictation Patient seen and examined. Remains intubated, said to have vomited last night, tube feeds on hold for now, Exam/Review of Systems Vital Signs Vitals Vital Signs Date Time Temp Pulse Resp B/P Pulse Ox O2 Delivery O2 Flow Rate FiO2 02/16/17 11:00 80 22 130/66 94 Mechanical Ventilator 02/16/17 08:00 98.1 02/16/17 05:17 65 Intake and Output 02/15/17 02/15/17 02/16/17 15:00 23:00 07:00 Intake Total 1429.896 ml 904.386 ml 758.6 ml Output Total 3020 ml 200 ml 15 ml Balance -1590.104 ml 704.386 ml 743.6 ml Exam GENERAL: Intubated and comfortably sedated HEENT: JOHANA, Intubated, Vent settings noted , High o2 requirement / high peep LUNGS: diffusely diminished and coarse BS HEART: S1, S2. No murmur, gallops or rubs. Tachycardic ABDOMEN: Soft, non distended, Normoactive bowel sounds. GENITOURINARY: Normal male external genitalia, Mckeon to bedside drainage EXTREMITIES: Mild 1+ nonpitting edema bilaterally, also some hand edema bilaterally NEUROLOGIC: The patient is currently sedated. SKIN: Otherwise, unremarkable. Results Result Diagram: 02/15/1762002/15/17620 Results 24 hrs Laboratory Tests Test 02/15/17 11:47 02/15/17 13:47 02/15/17 17:50 02/15/17 18:20 Blood Gas Specimen Source Blood arterial Arterial Blood Date Drawn 02/15/2017 3:55:34 PM Arterial Blood pH (Temp corrected) 7.456 H Arterial Blood pCO2 (Temp correct) 31.5 L Arterial Blood pO2 (Temp corrected) 184.2 H Arterial Blood HCO3 21.7 L Arterial Blood Base Excess -1.7 Arterial Blood Oxygen Saturation 98.9 H Tirso Test ACCEPTAB Arterial Blood Gas Puncture Site Right Radial Arterial Blood Carboxyhemoglobin 0.3 Arterial Blood Methemoglobin 0.5 Blood Gas A-a O2 Differential 497.3 H Oxyhemoglobin Percent 98.1 Total Hemoglobin 8.8 L Blood Gas Temperature 37.0 Blood Gas Respiration Rate 20.0 Blood Gas Actual Respiration Rate 20 Blood Gas Modality VENT - AC FiO2 100.0 Blood Gas Tidal Volume 600.0 Blood Gas Low PEEP Setting 5.0 Blood Gas Notified Whom KS Blood Gas Notified Time 02/15/2017 4:02:16 PM Bedside Glucose 108 68 L 152 Test 02/15/17 18:24 02/15/17 21:33 02/16/17 01:17 02/16/17 05:39 Bedside Glucose 173 98 92 90 Test 02/16/17 09:16 02/16/17 11:41 Bedside Glucose 96 Lab Scanned Report REFERENCE LAB Medications Medications Current Medications Propofol 100 ml @ 2.727 mls/ hr Q12H IV Last administered on 02/16/17 05:29; Admin Dose 21.816 MLS/HR; Start 02/10/17 at 10:00 Phenylephrine HCl/ Dextrose (Zach-Syneph/D5W) 500 ml @ 18.75 mls/ hr TITRATE IV Last administered on 02/10/17 13:22; Admin Dose 26.25 MLS/HR; Start 02/10/17 at 13:00 Lorazepam (Ativan) 0.5 mg Q6H PRN IV ANXIETY Last administered on 02/13/17 11: 26; Admin Dose 0.5 MG; Start 02/10/17 at 12:30 Ondansetron HCl (Zofran Inj) 4 mg Q6H PRN IV NAUSEA AND/OR VOMITING; Start at 12:30 Acetaminophen (Tylenol Tab) 650 mg Q6H PRN PO PAIN LEVEL 1-3 OR FEVER Last administered on 02/10/17 21:39; Admin Dose 650 MG; Start 02/10/17 at 12:30 Acetaminophen/ Hydrocodone Bitart ([place] (5/325)) 1 tab Q6H PRN PO PAIN LEVEL 4 -6; Start 02/10/17 at 12:30 Morphine Sulfate (morphine) 2 mg Q4H PRN IV PAIN LEVEL 7-10 Last administered on 02/13/17 10:10; Admin Dose 2 MG; Start 02/10/17 at 12:30 Insulin Aspart (Novolog Insulin Pen) NOVOLOG *MILD* ALGORITHM Q4 SC Last administered on 02/15/17 18:29; Admin Dose 1 UNIT; Start 02/10/17 at 13:00 Miscellaneous Information 1 ea NOTE XX ; Start 02/10/17 at 13:30 Glucose (Glutose) 15 gm Q15M PRN PO DECREASED GLUCOSE; Start 02/10/17 at 13:30 Glucose (Glutose) 22.5 gm Q15M PRN PO DECREASED GLUCOSE; Start 02/10/17 at 13: 30 Dextrose (D50w Syringe) 25 ml Q15M PRN IV DECREASED GLUCOSE Last administered on 02/15/17 17:53; Admin Dose 25 ML; Start 02/10/17 at 13:30 Dextrose (D50w Syringe) 50 ml Q15M PRN IV DECREASED GLUCOSE Last administered on 02/12/17 21:39; Admin Dose 50 ML; Start 02/10/17 at 13:30 Glucagon (Glucagen) 1 mg Q15M PRN IM DECREASED GLUCOSE; Start 02/10/17 at 13:30 Glucose 15 gm 15 gm Q15M PRN BUCCAL DECREASED GLUCOSE; Start 02/10/17 at 13:30 Norepinephrine 16 mg/Dextrose 500 ml @ 0 mls/hr TITRATE IV ; Start 02/10/17 at 21:00 Dopamine HCl/ Dextrose (D5W) 250 ml @ 1.7 mls/hr TITRATE IV Last administered on 02/12/17 04:51; Admin Dose 11.07 MLS/HR; Start 02/10/17 at 18:00 Pantoprazole (Protonix Iv) 40 mg BID@06,18 IV Last administered on 02/16/17 05 :30; Admin Dose 40 MG; Start 02/11/17 at 06:00 Ticagrelor (Brilinta) 90 mg BID PO Last administered on 02/16/17 08:44; Admin Dose 90 MG; Start 02/11/17 at 12:00 Aspirin (Halfprin) 81 mg DAILY PO Last administered on 02/16/17 08:42; Admin Dose 81 MG; Start 02/11/17 at 12:00 Atorvastatin Calcium 80 mg 80 mg HS NGT Last administered on 02/15/17 21:30; Admin Dose 80 MG; Start 02/11/17 at 21:00 Dextrose/Sodium Chloride 1,000 ml @ 75 mls/hr [id number] IV Last administered on 02/16/17 08:18; Admin Dose 75 MLS/HR; Start 02/12/17 at 21:30 Fentanyl 100 ml @ 2.5 mls/hr TITRATE IV Last administered on 02/16/17 09:38; Admin Dose 8 MLS/HR; Start 02/13/17 at 11:30 Midazolam HCl 50 ml @ 1 mls/hr TITRATE IV Last administered on 02/16/17 11:04 ; Admin Dose 3 MLS/HR; Start 02/14/17 at 23:00 Piperacillin Sod/ Tazobactam Sod (Zosyn 2.25gm/ 50ml (Pmx)) 50 ml @ 200 mls/hr Q8 IVPB Last administered on 02/16/17 05:29; Admin Dose 200 MLS/HR; Start at 13:00 Vancomycin HCl (Vancomycin Oral Syringe) 250 mg Q6 NGT Last administered on 05:30; Admin Dose 250 MG; Start 02/15/17 at 18:00 IV Flush (NS 10 ml) 10 ml PRN PRN IV FLUSH LINE; Start 02/15/17 at 20:00 MARIAJOSE ALMAZAN Feb 16, 2017 11:53
[2017-02-16] MEDS ORDERED: VANCOMYCIN 1.75 GM in NS 500 ML IVPB SCH (13:00)
[2017-02-16] MEDS: DEXTROSE 50% 50 ML SYRINGE IV PRN (16:21)
--- NOTE | 2017-02-16 18:55 | CONS ---
Date/Time of Note Date/Time of Note DATE: 02/16/17 TIME: 18:54 Assessment/Plan Assessment/Plan Additional Assessment/Plan 1. Oliguric acute kidney injury, likely secondary to ischemic acute tubular necrosis from ST-elevation myocardial infarction and cardiogenic shock. did not improve,d started on HD on due to Oliguric NEFTALI with fluid overaload 2. Cardiogenic shock. 3. Acute respiratory failure from cardiac arrest, currently intubated on ventilator. 4. Metabolic acidosis secondary to acute renal failure. 5. No significant past medical history, as per the family. PLAN: started on HD for fluid overload, BP stable remains intubated, s/p HD 3 days in a row, no plan for HD tomorro,w will plan next HD on monday will follow up Consultation Date/Type/Reason Admit Date/Time Feb 10, 2017 at 08:37 Initial Consult Date 02/10/17 Type of Consultation: NEPHROLOGY Referring Provider: HUBERT KUNZ PARKER Exam/Review of Systems Vital Signs Vitals Vital Signs Date Time Temp Pulse Resp B/P Pulse Ox O2 Delivery O2 Flow Rate FiO2 02/16/17 18:00 83 20 99/54 93 Mechanical Ventilator 02/16/17 17:20 75 02/16/17 16:00 98.7 Intake and Output 02/15/17 02/15/17 02/16/17 15:00 23:00 07:00 Intake Total 1429.896 ml 904.386 ml 866.4 ml Output Total 3020 ml 200 ml 15 ml Balance -1590.104 ml 704.386 ml 851.4 ml Exam GENERAL: The patient is currently sedated, intubated on ventilator. HEENT: ET tube in place. NECK: Supple. No jugular venous distention. No lymphadenopathy. LUNGS: Bilateral coarse breath sounds with minimal expiratory wheezing. HEART: S1, S2, tachycardia, no murmur. ABDOMEN: Soft, nontender, nondistended. EXTREMITIES: 1+ pitting edema GENITOURINARY: Mckeon catheter in place. Results Result Diagram: 02/15/17 0621 02/15/17 0621 Results 24 hrs Laboratory Tests Test 02/15/17 21:33 02/16/17 01:17 02/16/17 05:39 02/16/17 09:16 Bedside Glucose 98 92 90 96 Test 02/16/17 11:41 02/16/17 12:45 02/16/17 16:17 02/16/17 16:36 Lab Scanned Report REFERENCE LAB Bedside Glucose 99 48 *L 137 Test 02/16/17 16:40 Bedside Glucose 124 Medications Medications Current Medications Propofol 100 ml @ 2.727 mls/ hr Q12H IV Last administered on 02/16/17 14:43; Admin Dose 21.816 MLS/HR; Start 02/10/17 at 10:00 Phenylephrine HCl/ Dextrose (Zach-Syneph/D5W) 500 ml @ 18.75 mls/ hr TITRATE IV Last administered on 02/10/17 13:22; Admin Dose 26.25 MLS/HR; Start 02/10/17 at 13:00 Lorazepam (Ativan) 0.5 mg Q6H PRN IV ANXIETY Last administered on 02/13/17 11: 26; Admin Dose 0.5 MG; Start 02/10/17 at 12:30 Ondansetron HCl (Zofran Inj) 4 mg Q6H PRN IV NAUSEA AND/OR VOMITING; Start at 12:30 Acetaminophen (Tylenol Tab) 650 mg Q6H PRN PO PAIN LEVEL 1-3 OR FEVER Last administered on 02/10/17 21:39; Admin Dose 650 MG; Start 02/10/17 at 12:30 Acetaminophen/ Hydrocodone Bitart ([place] (5/325)) 1 tab Q6H PRN PO PAIN LEVEL 4 -6; Start 02/10/17 at 12:30 Morphine Sulfate (morphine) 2 mg Q4H PRN IV PAIN LEVEL 7-10 Last administered on 02/13/17 10:10; Admin Dose 2 MG; Start 02/10/17 at 12:30 Insulin Aspart (Novolog Insulin Pen) NOVOLOG *MILD* ALGORITHM Q4 SC Last administered on 02/15/17 18:29; Admin Dose 1 UNIT; Start 02/10/17 at 13:00 Miscellaneous Information 1 ea NOTE XX ; Start 02/10/17 at 13:30 Glucose (Glutose) 15 gm Q15M PRN PO DECREASED GLUCOSE; Start 02/10/17 at 13:30 Glucose (Glutose) 22.5 gm Q15M PRN PO DECREASED GLUCOSE; Start 02/10/17 at 13: 30 Dextrose (D50w Syringe) 25 ml Q15M PRN IV DECREASED GLUCOSE Last administered on 02/15/17 17:53; Admin Dose 25 ML; Start 02/10/17 at 13:30 Dextrose (D50w Syringe) 50 ml Q15M PRN IV DECREASED GLUCOSE Last administered on 02/16/17 16:21; Admin Dose 50 ML; Start 02/10/17 at 13:30 Glucagon (Glucagen) 1 mg Q15M PRN IM DECREASED GLUCOSE; Start 02/10/17 at 13:30 Glucose 15 gm 15 gm Q15M PRN BUCCAL DECREASED GLUCOSE; Start 02/10/17 at 13:30 Norepinephrine 16 mg/Dextrose 500 ml @ 0 mls/hr TITRATE IV ; Start 02/10/17 at 21:00 Dopamine HCl/ Dextrose (D5W) 250 ml @ 1.7 mls/hr TITRATE IV Last administered on 02/12/17 04:51; Admin Dose 11.07 MLS/HR; Start 02/10/17 at 18:00 Pantoprazole (Protonix Iv) 40 mg BID@06,18 IV Last administered on 02/16/17 17 :49; Admin Dose 40 MG; Start 02/11/17 at 06:00 Ticagrelor (Brilinta) 90 mg BID PO Last administered on 02/16/17 08:44; Admin Dose 90 MG; Start 02/11/17 at 12:00 Aspirin (Halfprin) 81 mg DAILY PO Last administered on 02/16/17 08:42; Admin Dose 81 MG; Start 02/11/17 at 12:00 Atorvastatin Calcium 80 mg 80 mg HS NGT Last administered on 02/15/17 21:30; Admin Dose 80 MG; Start 02/11/17 at 21:00 Dextrose/Sodium Chloride 1,000 ml @ 75 mls/hr [id number] IV Last administered on 02/16/17 08:18; Admin Dose 75 MLS/HR; Start 02/12/17 at 21:30 Fentanyl 100 ml @ 2.5 mls/hr TITRATE IV Last administered on 02/16/17 09:38; Admin Dose 8 MLS/HR; Start 02/13/17 at 11:30 Midazolam HCl 50 ml @ 1 mls/hr TITRATE IV Last administered on 02/16/17 11:04 ; Admin Dose 3 MLS/HR; Start 02/14/17 at 23:00 Piperacillin Sod/ Tazobactam Sod (Zosyn 2.25gm/ 50ml (Pmx)) 50 ml @ 200 mls/hr Q8 IVPB Last administered on 02/16/17 13:21; Admin Dose 200 MLS/HR; Start at 13:00 Vancomycin HCl (Vancomycin Oral Syringe) 250 mg Q6 NGT Last administered on 17:49; Admin Dose 250 MG; Start 02/15/17 at 18:00 IV Flush (NS 10 ml) 10 ml PRN PRN IV FLUSH LINE; Start 02/15/17 at 20:00 Metoclopramide HCl (Reglan) 5 mg Q6 IV Last administered on 02/16/17 17:49; Admin Dose 5 MG; Start 02/16/17 at 18:00; Stop 02/17/17 at 17:59 SAILAJA LOUIE MD Feb 16, 2017 18:55
[2017-02-16] MEDS: ATORVASTATIN 80 MG TAB NGT SCH (21:18)
[2017-02-17] VITALS (43 sets, daily range): BP systolic 91–143; BP diastolic 48–112; PULSE 81–110; RESP 16–23
[2017-02-17] MEDS: VANCOMYCIN HCL 250 MG/5ML POSYG NGT SCH ×4 (00:28→18:22)
[2017-02-17] MEDS: PROPOFOL 100 ML IV SCH ×5 (00:28→21:54)
[2017-02-17] MEDS: METOCLOPRAMIDE 10 MG INJ IV SCH ×3 (00:29→11:49)
[2017-02-17] MEDS: INSULIN ASPART [NOVOLOG] 3 ML PEN SC SCH ×6 (00:29→20:55)
[2017-02-17] MEDS: DEXTROSE 5%-0.45% NACL 1,000 ML IV SCH ×2 (03:48→16:35)
[2017-02-17] MEDS: MIDAZOLAM (DRIP) 50 mg/50 mL 50 ML IV SCH ×2 (04:31→22:58)
[2017-02-17 04:46] LABS: ADD SCAN DIFF NO
[2017-02-17 04:50] LABS: BASOPHILS % 0.1 % (0.0-2.0); EOSINOPHILS # 0.3 10^3/ul (0.0-0.5); EOSINOPHILS % 2.6 % (0.0-7.0); LYMPHOCYTES # 0.7 10^3/ul (0.8-2.9); LYMPHOCYTES % 7.3 % (15.0-51.0); MEAN PLATELET VOLUME 10.1 fl (7.4-10.4); MONOCYTE # 0.7 10^3/ul (0.3-0.9); MONOCYTES % 7.3 % (0.0-11.0); NEUTROPHIL # 7.8 10^3/ul (1.6-7.5); NEUTROPHILS % 81.1 % (39.0-77.0); PLATELET COUNT 288 10^3/UL (140-415); RED BLOOD COUNT 3.06 10^6/ul (4.70-6.10); RED CELL DISTRIBUTION WIDTH 14.5 % (11.5-14.5); WHITE BLOOD COUNT 9.6 10^3/ul (4.8-10.8)
[2017-02-17 05:26] LABS: ALBUMIN 3.1 g/dl (3.3-4.9); ALBUMIN/GLOBULIN RATIO 1.06; BILIRUBIN,DIRECT 1.1 mg/dl (0.00-0.20); BILIRUBIN,INDIRECT 0.1 mg/dl (0-1.1); BILIRUBIN,TOTAL 1.2 mg/dl (0.2-1.3); CALCIUM 7.7 mg/dl (8.4-10.2); CREATININE 6.47 mg/dl (0.61-1.24); MAGNESIUM 2.3 mg/dl (1.7-2.5); PHOSPHORUS 8.9 mg/dl (2.5-4.9); POTASSIUM 4.4 mmol/L (3.5-5.1)
[2017-02-17] MEDS: PANTOPRAZOLE 40 MG INJ IV SCH ×2 (05:28→18:22)
[2017-02-17] MEDS: PIPER-TAZO 2.25 GM (PMX) 50 ML IVPB SCH ×3 (06:15→21:26)
[2017-02-17 07:32] LABS: HEMATOCRIT 30.7 % (42.0-52.0); MEAN CORPUSCULAR HEMOGLOBIN 31.2 pg (29.0-33.0); MEAN CORPUSCULAR HGB CONC 33.6 g/dl (32.0-37.0)
[2017-02-17 07:34] LABS: HEMOGLOBIN 10.3 g/dl (14.0-18.0)
[2017-02-17] MEDS: ASPIRIN (EC) 81 MG TAB PO SCH (08:32)
[2017-02-17] MEDS: TICAGRELOR 90 MG TABLET PO SCH ×2 (08:32→21:01)
--- NOTE | 2017-02-17 09:39 | RADRPT ---
PROCEDURE: Chest 1 views. CLINICAL INDICATION: Shortness of breath. TECHNIQUE: AP views of the chest was obtained. COMPARISON: February 15, 2017 FINDINGS: The heart is large. Endotracheal and nasogastric tubes are stable and appear in grossly appropriate location. Left-sided PICC line is unchanged. Patchy infiltrates in both lungs are stable. Lungs ar e hypoinflated. The osseous structures are osteopenic, but appear grossly intact. IMPRESSION: Cardiomegaly . Stable patchy infiltrates throughout both lungs. Hypoinflated lungs. RPTAT: AA .Remington Burgess MD, MD Date Time Electronically viewed and signed by .Remington Burgess MD, MD on 02/17/2017 09:39 .P/
--- NOTE | 2017-02-17 09:46 | CONS ---
Date/Time of Note Date/Time of Note DATE: 02/17/17 TIME: 09:43 Assessment/Plan Assessment/Plan Additional Assessment/Plan Ventilator setting; AC of 20, tidal volume 600, PEEP of 5, 85% FiO2. Patient currently on propofol at 35 mcg per kilogram per minute.. Fentanyl 70 mics per hour. Chest x-ray was reviewed from today which is again showing bilateral pneumonia. Endotracheal tube is at an adequate level. Assessment recommendations; 1. P patient admitted with cardiac arrest status post CPR with emergent coronary angiography with stenting of circumflex lesion. 2. Development of severe bilateral pneumonia. 3. Acute renal failure, on hemodialysis. Continue current treatment. Prognosis is guarded. Consultation Date/Type/Reason Admit Date/Time Feb 10, 2017 at 08:37 Initial Consult Date 02/10/17 Type of Consultation: Pulmonary/critical care Referring Provider: HUBERT KUNZ NP 24 HR Interval Summary Free Text/Dictation Patient condition remains critical. Requiring high FiO2 for O2 saturation maintenance. Patient however has remained hemodynamically stable. No untoward events reported. General exam; elderly male, orally intubated, currently in no distress. Sedated. Exam/Review of Systems Vital Signs Vitals Vital Signs Date Time Temp Pulse Resp B/P Pulse Ox O2 Delivery O2 Flow Rate FiO2 02/17/17 09:00 85 20 98/48 99 Mechanical Ventilator 02/17/17 08:00 98.5 02/17/17 08:00 85 Intake and Output 02/16/17 02/16/17 02/17/17 15:00 23:00 07:00 Intake Total 1222.4 ml 1351.4 ml 998.689 ml Output Total 3310 ml 10 ml 0 ml Balance -2087.6 ml 1341.4 ml 998.689 ml Exam HEENT examination; supple neck, positive JVD. No lymphadenopathy. Midline trachea. No thyromegaly. Orally intubated. Patient has fair dentition. Pupils are small bilaterally. No neck masses. Chest examined; diminished breath sounds bilaterally. With scattered crackles. S1-S2 audible, no murmurs. Regular rhythm. Abdomen examination; soft, nondistended. No organomegaly. Bowel sounds audible. Extremity exam; trace peripheral edema. Pulses 1+ bilaterally. 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 Results Result Diagram: 02/17/1742402/17/17424 Results 24 hrs Laboratory Tests Test 02/16/17 11:41 02/16/17 12:45 02/16/17 16:17 02/16/17 16:36 Lab Scanned Report REFERENCE LAB Bedside Glucose 99 48 *L 137 Test 02/16/17 16:40 02/16/17 21:19 02/17/17 00:28 02/17/17 04:25 Bedside Glucose 124 98 106 White Blood Count 9.6 # Red Blood Count 3.06 L Hemoglobin 10.3 L Hematocrit 30.7 L Mean Corpuscular Volume 93.0 Mean Corpuscular Hemoglobin 31.2 Mean Corpuscular Hemoglobin Concent 33.6 Red Cell Distribution Width 14.5 Platelet Count 288 # Mean Platelet Volume 10.1 Neutrophils % 81.1 H Lymphocytes % 7.3 L Monocytes % 7.3 Eosinophils % 2.6 Basophils % 0.1 Nucleated Red Blood Cells % 0.0 Neutrophils # 7.8 H Lymphocytes # 0.7 L Monocytes # 0.7 Eosinophils # 0.3 Basophils # 0.0 Nucleated Red Blood Cells # 0.0 Sodium Level 132 L Potassium Level 4.4 Chloride Level 98 Carbon Dioxide Level 18 L Anion Gap 20 H Blood Urea Nitrogen 50 H Creatinine 6.47 H Glucose Level 95 Calcium Level 7.7 L Phosphorus Level 8.9 #H Magnesium Level 2.3 Total Bilirubin 1.2 Direct Bilirubin 1.10 H Indirect Bilirubin 0.1 Aspartate Amino Transf (AST/SGOT) 253 H Alanine Aminotransferase (ALT/SGPT) 151 H Alkaline Phosphatase 598 #H Total Protein 6.0 L Albumin 3.1 L Globulin 2.90 Albumin/Globulin Ratio 1.06 Test 02/17/17 05:27 02/17/17 08:30 Bedside Glucose 106 118 Medications Medications Current Medications Propofol 100 ml @ 2.727 mls/ hr Q12H IV Last administered on 02/17/17 08:33; Admin Dose 19.089 MLS/HR; Start 02/10/17 at 10:00 Phenylephrine HCl/ Dextrose (Zach-Syneph/D5W) 500 ml @ 18.75 mls/ hr TITRATE IV Last administered on 02/10/17 13:22; Admin Dose 26.25 MLS/HR; Start 02/10/17 at 13:00 Lorazepam (Ativan) 0.5 mg Q6H PRN IV ANXIETY Last administered on 02/13/17 11: 26; Admin Dose 0.5 MG; Start 02/10/17 at 12:30 Ondansetron HCl (Zofran Inj) 4 mg Q6H PRN IV NAUSEA AND/OR VOMITING; Start at 12:30 Acetaminophen (Tylenol Tab) 650 mg Q6H PRN PO PAIN LEVEL 1-3 OR FEVER Last administered on 02/10/17 21:39; Admin Dose 650 MG; Start 02/10/17 at 12:30 Acetaminophen/ Hydrocodone Bitart ([place] (5/325)) 1 tab Q6H PRN PO PAIN LEVEL 4 -6; Start 02/10/17 at 12:30 Morphine Sulfate (morphine) 2 mg Q4H PRN IV PAIN LEVEL 7-10 Last administered on 02/13/17 10:10; Admin Dose 2 MG; Start 02/10/17 at 12:30 Insulin Aspart (Novolog Insulin Pen) NOVOLOG *MILD* ALGORITHM Q4 SC Last administered on 02/15/17 18:29; Admin Dose 1 UNIT; Start 02/10/17 at 13:00 Miscellaneous Information 1 ea NOTE XX ; Start 02/10/17 at 13:30 Glucose (Glutose) 15 gm Q15M PRN PO DECREASED GLUCOSE; Start 02/10/17 at 13:30 Glucose (Glutose) 22.5 gm Q15M PRN PO DECREASED GLUCOSE; Start 02/10/17 at 13: 30 Dextrose (D50w Syringe) 25 ml Q15M PRN IV DECREASED GLUCOSE Last administered on 02/15/17 17:53; Admin Dose 25 ML; Start 02/10/17 at 13:30 Dextrose (D50w Syringe) 50 ml Q15M PRN IV DECREASED GLUCOSE Last administered on 02/16/17 16:21; Admin Dose 50 ML; Start 02/10/17 at 13:30 Glucagon (Glucagen) 1 mg Q15M PRN IM DECREASED GLUCOSE; Start 02/10/17 at 13:30 Glucose 15 gm 15 gm Q15M PRN BUCCAL DECREASED GLUCOSE; Start 02/10/17 at 13:30 Norepinephrine 16 mg/Dextrose 500 ml @ 0 mls/hr TITRATE IV ; Start 02/10/17 at 21:00 Dopamine HCl/ Dextrose (D5W) 250 ml @ 1.7 mls/hr TITRATE IV Last administered on 02/12/17 04:51; Admin Dose 11.07 MLS/HR; Start 02/10/17 at 18:00 Pantoprazole (Protonix Iv) 40 mg BID@06,18 IV Last administered on 02/17/17 05 :28; Admin Dose 40 MG; Start 02/11/17 at 06:00 Ticagrelor (Brilinta) 90 mg BID PO Last administered on 02/17/17 08:32; Admin Dose 90 MG; Start 02/11/17 at 12:00 Aspirin (Halfprin) 81 mg DAILY PO Last administered on 02/17/17 08:32; Admin Dose 81 MG; Start 02/11/17 at 12:00 Atorvastatin Calcium 80 mg 80 mg HS NGT Last administered on 02/16/17 21:18; Admin Dose 80 MG; Start 02/11/17 at 21:00 Dextrose/Sodium Chloride 1,000 ml @ 75 mls/hr [id number] IV Last administered on 02/17/17 03:48; Admin Dose 75 MLS/HR; Start 02/12/17 at 21:30 Fentanyl 100 ml @ 2.5 mls/hr TITRATE IV Last administered on 02/16/17 21:18; Admin Dose 8 MLS/HR; Start 02/13/17 at 11:30 Midazolam HCl 50 ml @ 1 mls/hr TITRATE IV Last administered on 02/17/17 04:31 ; Admin Dose 3 MLS/HR; Start 02/14/17 at 23:00 Piperacillin Sod/ Tazobactam Sod (Zosyn 2.25gm/ 50ml (Pmx)) 50 ml @ 200 mls/hr Q8 IVPB Last administered on 02/17/17 06:15; Admin Dose 200 MLS/HR; Start at 13:00 Vancomycin HCl (Vancomycin Oral Syringe) 250 mg Q6 NGT Last administered on 05:29; Admin Dose 250 MG; Start 02/15/17 at 18:00 IV Flush (NS 10 ml) 10 ml PRN PRN IV FLUSH LINE; Start 02/15/17 at 20:00 Metoclopramide HCl (Reglan) 5 mg Q6 IV Last administered on 02/17/17 05:29; Admin Dose 5 MG; Start 02/16/17 at 18:00; Stop 02/17/17 at 17:59 ANGELINA VALDEZ Feb 17, 2017 09:46
[2017-02-17] MEDS: FENTAnyl (DRIP) 1000 mcg/100mL 100 ML IV SCH ×2 (11:43→22:58)
--- NOTE | 2017-02-17 12:26 | CONS ---
Date/Time of Note Date/Time of Note DATE: 02/17/17 TIME: 12:25 Assessment/Plan Assessment/Plan Additional Assessment/Plan 1. Oliguric acute kidney injury, likely secondary to ischemic acute tubular necrosis from ST-elevation myocardial infarction and cardiogenic shock. did not improve,d started on HD on due to Oliguric NEFTALI with fluid overaload 2. Cardiogenic shock. 3. Acute respiratory failure from cardiac arrest, currently intubated on ventilator. 4. Metabolic acidosis secondary to acute renal failure. 5. No significant past medical history, as per the family. 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 Consultation Date/Type/Reason Admit Date/Time Feb 10, 2017 at 08:37 Initial Consult Date 02/10/17 Type of Consultation: NEPHROLOGY Referring Provider: HUBERT KUNZ GARDENING SUPERVISOR 24 HR Interval Summary Free Text/Dictation pt remains intubated, not waking up off sedation, CXR showed infiltrates no congestion, BP stable Exam/Review of Systems Vital Signs Vitals Vital Signs Date Time Temp Pulse Resp B/P Pulse Ox O2 Delivery O2 Flow Rate FiO2 02/17/17 11:45 99.1 96 20 117/60 97 Mechanical Ventilator 02/17/17 08:00 85 Intake and Output 02/16/17 02/16/17 02/17/17 15:00 23:00 07:00 Intake Total 1222.4 ml 1351.4 ml 998.689 ml Output Total 3310 ml 10 ml 0 ml Balance -2087.6 ml 1341.4 ml 998.689 ml Exam GENERAL: The patient is currently sedated, intubated on ventilator. HEENT: ET tube in place. NECK: Supple. No jugular venous distention. No lymphadenopathy. LUNGS: Bilateral coarse breath sounds with minimal expiratory wheezing. HEART: S1, S2, tachycardia, no murmur. ABDOMEN: Soft, nontender, nondistended. EXTREMITIES: 1+ pitting edema GENITOURINARY: Mckeon catheter in place. Results Result Diagram: 02/17/17 0425 02/17/17 0425 Results 24 hrs Laboratory Tests Test 02/16/17 12:45 02/16/17 16:17 02/16/17 16:36 02/16/17 16:40 Bedside Glucose 99 48 *L 137 124 Test 02/16/17 21:19 02/17/17 00:28 02/17/17 04:25 02/17/17 05:27 Bedside Glucose 98 106 106 White Blood Count 9.6 # Red Blood Count 3.06 L Hemoglobin 10.3 L Hematocrit 30.7 L Mean Corpuscular Volume 93.0 Mean Corpuscular Hemoglobin 31.2 Mean Corpuscular Hemoglobin Concent 33.6 Red Cell Distribution Width 14.5 Platelet Count 288 # Mean Platelet Volume 10.1 Neutrophils % 81.1 H Lymphocytes % 7.3 L Monocytes % 7.3 Eosinophils % 2.6 Basophils % 0.1 Nucleated Red Blood Cells % 0.0 Neutrophils # 7.8 H Lymphocytes # 0.7 L Monocytes # 0.7 Eosinophils # 0.3 Basophils # 0.0 Nucleated Red Blood Cells # 0.0 Sodium Level 132 L Potassium Level 4.4 Chloride Level 98 Carbon Dioxide Level 18 L Anion Gap 20 H Blood Urea Nitrogen 50 H Creatinine 6.47 H Glucose Level 95 Calcium Level 7.7 L Phosphorus Level 8.9 #H Magnesium Level 2.3 Total Bilirubin 1.2 Direct Bilirubin 1.10 H Indirect Bilirubin 0.1 Aspartate Amino Transf (AST/SGOT) 253 H Alanine Aminotransferase (ALT/SGPT) 151 H Alkaline Phosphatase 598 #H Total Protein 6.0 L Albumin 3.1 L Globulin 2.90 Albumin/Globulin Ratio 1.06 Test 02/17/17 08:30 Bedside Glucose 118 Medications Medications Current Medications Propofol 100 ml @ 2.727 mls/ hr Q12H IV Last administered on 02/17/17 08:33; Admin Dose 19.089 MLS/HR; Start 02/10/17 at 10:00 Phenylephrine HCl/ Dextrose (Zach-Syneph/D5W) 500 ml @ 18.75 mls/ hr TITRATE IV Last administered on 02/10/17 13:22; Admin Dose 26.25 MLS/HR; Start 02/10/17 at 13:00 Lorazepam (Ativan) 0.5 mg Q6H PRN IV ANXIETY Last administered on 02/13/17 11: 26; Admin Dose 0.5 MG; Start 02/10/17 at 12:30 Ondansetron HCl (Zofran Inj) 4 mg Q6H PRN IV NAUSEA AND/OR VOMITING; Start at 12:30 Acetaminophen (Tylenol Tab) 650 mg Q6H PRN PO PAIN LEVEL 1-3 OR FEVER Last administered on 02/10/17 21:39; Admin Dose 650 MG; Start 02/10/17 at 12:30 Acetaminophen/ Hydrocodone Bitart ([place] (5/325)) 1 tab Q6H PRN PO PAIN LEVEL 4 -6; Start 02/10/17 at 12:30 Morphine Sulfate (morphine) 2 mg Q4H PRN IV PAIN LEVEL 7-10 Last administered on 02/13/17 10:10; Admin Dose 2 MG; Start 02/10/17 at 12:30 Insulin Aspart (Novolog Insulin Pen) NOVOLOG *MILD* ALGORITHM Q4 SC Last administered on 02/15/17 18:29; Admin Dose 1 UNIT; Start 02/10/17 at 13:00 Miscellaneous Information 1 ea NOTE XX ; Start 02/10/17 at 13:30 Glucose (Glutose) 15 gm Q15M PRN PO DECREASED GLUCOSE; Start 02/10/17 at 13:30 Glucose (Glutose) 22.5 gm Q15M PRN PO DECREASED GLUCOSE; Start 02/10/17 at 13: 30 Dextrose (D50w Syringe) 25 ml Q15M PRN IV DECREASED GLUCOSE Last administered on 02/15/17 17:53; Admin Dose 25 ML; Start 02/10/17 at 13:30 Dextrose (D50w Syringe) 50 ml Q15M PRN IV DECREASED GLUCOSE Last administered on 02/16/17 16:21; Admin Dose 50 ML; Start 02/10/17 at 13:30 Glucagon (Glucagen) 1 mg Q15M PRN IM DECREASED GLUCOSE; Start 02/10/17 at 13:30 Glucose 15 gm 15 gm Q15M PRN BUCCAL DECREASED GLUCOSE; Start 02/10/17 at 13:30 Norepinephrine 16 mg/Dextrose 500 ml @ 0 mls/hr TITRATE IV ; Start 02/10/17 at 21:00 Dopamine HCl/ Dextrose (D5W) 250 ml @ 1.7 mls/hr TITRATE IV Last administered on 02/12/17 04:51; Admin Dose 11.07 MLS/HR; Start 02/10/17 at 18:00 Pantoprazole (Protonix Iv) 40 mg BID@06,18 IV Last administered on 02/17/17 05 :28; Admin Dose 40 MG; Start 02/11/17 at 06:00 Ticagrelor (Brilinta) 90 mg BID PO Last administered on 02/17/17 08:32; Admin Dose 90 MG; Start 02/11/17 at 12:00 Aspirin (Halfprin) 81 mg DAILY PO Last administered on 02/17/17 08:32; Admin Dose 81 MG; Start 02/11/17 at 12:00 Atorvastatin Calcium 80 mg 80 mg HS NGT Last administered on 02/16/17 21:18; Admin Dose 80 MG; Start 02/11/17 at 21:00 Dextrose/Sodium Chloride 1,000 ml @ 75 mls/hr [id number] IV Last administered on 02/17/17 03:48; Admin Dose 75 MLS/HR; Start 02/12/17 at 21:30 Fentanyl 100 ml @ 2.5 mls/hr TITRATE IV Last administered on 02/17/17 11:43; Admin Dose 7.5 MLS/HR; Start 02/13/17 at 11:30 Midazolam HCl 50 ml @ 1 mls/hr TITRATE IV Last administered on 02/17/17 04:31 ; Admin Dose 3 MLS/HR; Start 02/14/17 at 23:00 Piperacillin Sod/ Tazobactam Sod (Zosyn 2.25gm/ 50ml (Pmx)) 50 ml @ 200 mls/hr Q8 IVPB Last administered on 02/17/17 06:15; Admin Dose 200 MLS/HR; Start at 13:00 Vancomycin HCl (Vancomycin Oral Syringe) 250 mg Q6 NGT Last administered on 11:49; Admin Dose 250 MG; Start 02/15/17 at 18:00 IV Flush (NS 10 ml) 10 ml PRN PRN IV FLUSH LINE; Start 02/15/17 at 20:00 Metoclopramide HCl (Reglan) 5 mg Q6 IV Last administered on 02/17/17 11:49; Admin Dose 5 MG; Start 02/16/17 at 18:00; Stop 02/17/17 at 17:59 SAILAJA LOUIE MD Feb 17, 2017 12:26
--- NOTE | 2017-02-17 13:20 | CONS ---
Date/Time of Note Date/Time of Note DATE: 02/17/17 TIME: 13:18 Assessment/Plan Assessment/Plan Chief Complaint/Hosp Course Altered mental status Problems: Additional Assessment/Plan 66 year old male admitted with STEMI with 100% left circumflex vessel occlusion requiring MIRA with intra-aortic balloon pump admitted to ICU for further management severe encephalopathy, failed weaning trial with ARF receiving dialysis. MRI showed a tiny right martines radiata infarct presumably cardioembolic, no areas of involvement to suggest hypoxic ischemic encephalopathy Carotid Duplex: unrevealing EEG: consistent with encephalopathy without epileptiform discharges Recommendations: severe encephalopathy due to metabolic issues receiving dialysis planned for management of metabolic issues and trial for extubation in a few days EEG shows slowing consistent with encephalopathy MRI Brain with small martines radiata infarct, may continue on current antiplatelet regimen ASA and Brilinta maintain normotensive blood pressure will follow Consultation Date/Type/Reason Admit Date/Time Feb 10, 2017 at 08:37 Initial Consult Date 02/13/17 Type of Consultation: NEPHROLOGY Referring Provider: HUBERT KUNZ DEER FARMER 24 HR Interval Summary Free Text/Dictation Unchanged Exam/Review of Systems Vital Signs Vitals Vital Signs Date Time Temp Pulse Resp B/P Pulse Ox O2 Delivery O2 Flow Rate FiO2 02/17/17 13:00 96 20 100/56 96 Mechanical Ventilator 02/17/17 11:45 99.1 02/17/17 11:40 85 Intake and Output 02/16/17 02/16/17 02/17/17 15:00 23:00 07:00 Intake Total 1222.4 ml 1351.4 ml 998.689 ml Output Total 3310 ml 10 ml 0 ml Balance -2087.6 ml 1341.4 ml 998.689 ml Exam Constitutional: non-verbal Head: atraumatic, normocephalic Eyes: EOMI, nl conjunctiva, nl lids, nl sclera ENMT: mucosa pink and moist, nl external ears & nose, nl lips & teeth, nl nasal mucosa & septum Neck: non-tender, supple Cardiovascular: nl pulses, regular rate and rhythm Extremities: normal pulses Neurological: other (Unresponsive, does open eyes but does not follow commands or noxious stimulus, limited exam) Results Result Diagram: 02/17/17 0425 02/17/17 0425 Results 24 hrs Laboratory Tests Test 02/16/17 16:17 02/16/17 16:36 02/16/17 16:40 02/16/17 21:19 Bedside Glucose 48 *L 137 124 98 Test 02/17/17 00:28 02/17/17 04:25 02/17/17 05:27 02/17/17 08:30 Bedside Glucose 106 106 118 White Blood Count 9.6 # Red Blood Count 3.06 L Hemoglobin 10.3 L Hematocrit 30.7 L Mean Corpuscular Volume 93.0 Mean Corpuscular Hemoglobin 31.2 Mean Corpuscular Hemoglobin Concent 33.6 Red Cell Distribution Width 14.5 Platelet Count 288 # Mean Platelet Volume 10.1 Neutrophils % 81.1 H Lymphocytes % 7.3 L Monocytes % 7.3 Eosinophils % 2.6 Basophils % 0.1 Nucleated Red Blood Cells % 0.0 Neutrophils # 7.8 H Lymphocytes # 0.7 L Monocytes # 0.7 Eosinophils # 0.3 Basophils # 0.0 Nucleated Red Blood Cells # 0.0 Sodium Level 132 L Potassium Level 4.4 Chloride Level 98 Carbon Dioxide Level 18 L Anion Gap 20 H Blood Urea Nitrogen 50 H Creatinine 6.47 H Glucose Level 95 Calcium Level 7.7 L Phosphorus Level 8.9 #H Magnesium Level 2.3 Total Bilirubin 1.2 Direct Bilirubin 1.10 H Indirect Bilirubin 0.1 Aspartate Amino Transf (AST/SGOT) 253 H Alanine Aminotransferase (ALT/SGPT) 151 H Alkaline Phosphatase 598 #H Total Protein 6.0 L Albumin 3.1 L Globulin 2.90 Albumin/Globulin Ratio 1.06 Medications Medications Current Medications Propofol 100 ml @ 2.727 mls/ hr Q12H IV Last administered on 02/17/17 08:33; Admin Dose 19.089 MLS/HR; Start 02/10/17 at 10:00 Phenylephrine HCl/ Dextrose (Zach-Syneph/D5W) 500 ml @ 18.75 mls/ hr TITRATE IV Last administered on 02/10/17 13:22; Admin Dose 26.25 MLS/HR; Start 02/10/17 at 13:00 Lorazepam (Ativan) 0.5 mg Q6H PRN IV ANXIETY Last administered on 02/13/17 11: 26; Admin Dose 0.5 MG; Start 02/10/17 at 12:30 Ondansetron HCl (Zofran Inj) 4 mg Q6H PRN IV NAUSEA AND/OR VOMITING; Start at 12:30 Acetaminophen (Tylenol Tab) 650 mg Q6H PRN PO PAIN LEVEL 1-3 OR FEVER Last administered on 02/10/17 21:39; Admin Dose 650 MG; Start 02/10/17 at 12:30 Acetaminophen/ Hydrocodone Bitart ([place] (5/325)) 1 tab Q6H PRN PO PAIN LEVEL 4 -6; Start 02/10/17 at 12:30 Morphine Sulfate (morphine) 2 mg Q4H PRN IV PAIN LEVEL 7-10 Last administered on 02/13/17 10:10; Admin Dose 2 MG; Start 02/10/17 at 12:30 Insulin Aspart (Novolog Insulin Pen) NOVOLOG *MILD* ALGORITHM Q4 SC Last administered on 02/15/17 18:29; Admin Dose 1 UNIT; Start 02/10/17 at 13:00 Miscellaneous Information 1 ea NOTE XX ; Start 02/10/17 at 13:30 Glucose (Glutose) 15 gm Q15M PRN PO DECREASED GLUCOSE; Start 02/10/17 at 13:30 Glucose (Glutose) 22.5 gm Q15M PRN PO DECREASED GLUCOSE; Start 02/10/17 at 13: 30 Dextrose (D50w Syringe) 25 ml Q15M PRN IV DECREASED GLUCOSE Last administered on 02/15/17 17:53; Admin Dose 25 ML; Start 02/10/17 at 13:30 Dextrose (D50w Syringe) 50 ml Q15M PRN IV DECREASED GLUCOSE Last administered on 02/16/17 16:21; Admin Dose 50 ML; Start 02/10/17 at 13:30 Glucagon (Glucagen) 1 mg Q15M PRN IM DECREASED GLUCOSE; Start 02/10/17 at 13:30 Glucose 15 gm 15 gm Q15M PRN BUCCAL DECREASED GLUCOSE; Start 02/10/17 at 13:30 Norepinephrine 16 mg/Dextrose 500 ml @ 0 mls/hr TITRATE IV ; Start 02/10/17 at 21:00 Dopamine HCl/ Dextrose (D5W) 250 ml @ 1.7 mls/hr TITRATE IV Last administered on 02/12/17 04:51; Admin Dose 11.07 MLS/HR; Start 02/10/17 at 18:00 Pantoprazole (Protonix Iv) 40 mg BID@06,18 IV Last administered on 02/17/17 05 :28; Admin Dose 40 MG; Start 02/11/17 at 06:00 Ticagrelor (Brilinta) 90 mg BID PO Last administered on 02/17/17 08:32; Admin Dose 90 MG; Start 02/11/17 at 12:00 Aspirin (Halfprin) 81 mg DAILY PO Last administered on 02/17/17 08:32; Admin Dose 81 MG; Start 02/11/17 at 12:00 Atorvastatin Calcium 80 mg 80 mg HS NGT Last administered on 02/16/17 21:18; Admin Dose 80 MG; Start 02/11/17 at 21:00 Dextrose/Sodium Chloride 1,000 ml @ 75 mls/hr [id number] IV Last administered on 02/17/17 03:48; Admin Dose 75 MLS/HR; Start 02/12/17 at 21:30 Fentanyl 100 ml @ 2.5 mls/hr TITRATE IV Last administered on 02/17/17 11:43; Admin Dose 7.5 MLS/HR; Start 02/13/17 at 11:30 Midazolam HCl 50 ml @ 1 mls/hr TITRATE IV Last administered on 02/17/17 04:31 ; Admin Dose 3 MLS/HR; Start 02/14/17 at 23:00 Piperacillin Sod/ Tazobactam Sod (Zosyn 2.25gm/ 50ml (Pmx)) 50 ml @ 200 mls/hr Q8 IVPB Last administered on 02/17/17 06:15; Admin Dose 200 MLS/HR; Start at 13:00 Vancomycin HCl (Vancomycin Oral Syringe) 250 mg Q6 NGT Last administered on 11:49; Admin Dose 250 MG; Start 02/15/17 at 18:00 IV Flush (NS 10 ml) 10 ml PRN PRN IV FLUSH LINE; Start 02/15/17 at 20:00 Metoclopramide HCl (Reglan) 5 mg Q6 IV Last administered on 02/17/17 11:49; Admin Dose 5 MG; Start 02/16/17 at 18:00; Stop 02/17/17 at 17:59 Miscellaneous Information (*Rx Drug Level Order Reminder*) 1 ONCE ONCE XX ; Start 02/18/17 at 05:00; Stop 02/18/17 at 05:01 DONALD ERICKSON MD Feb 17, 2017 13:19
--- NOTE | 2017-02-17 16:47 | PN ---
Date/Time of Note Date/Time of Note DATE: 02/17/17 TIME: 16:43 Assessment/Plan VTE Prophylaxis VTE Prophylaxis Intervention: SCD's VTE Contraindication Reason: thrombocytopenia Lines/Catheters IV Catheter Type (from Nrsg): PICC Line Central line still needed: Yes Urinary Cath still in place: Yes Reason Cath still needed: other (indicate) Assessment/Plan Assessment/Plan 66-year-old male who presented to the emergency room after witnessed cardiac arrest at work found to have ST elevation myocardial infarction managed as follows: 1. Cardiac arrest. Status post left heart catheterization and coronary angioplasty with placement of a stent and placement of intraaortic balloon pump. * Not a candidate for hypothermia protocol since he was noticed to be moving postangioplasty 2. S/p Cardiogenic shock: now off pressor support 3. Severe CAD with preserved EF 55%. Status post coronary artery stenting. 4. Sepsis 2/2 UTI + C diff . 5. Acute renal failure - multifactorial - 2/2 to cardiogenic shock - sepsis. Nonoliguric. Unknown baseline creatinine. Now on HD 6. Transaminitis likely secondary to shock liver superimposed on mild chronic liver disease from substance abuse 7. Chronic substance abuse with tox screen positive for amphetamines which likely precipitated #1 8. Normocytic anemia of chronic kidney disease: Stable 9. Hyponatremia: improving 10. Hypocalcemia: improved 11. Tiny cardioembolic right-sided CVA not likely to cause hypoxicischemic ischemic encephalopathy per neurology 12. Acute encephalopathy likely multifactorial in origin Plan. * Continue hemodialysis per renal and wean as tolerated * Continue to wean ventilator / appreciate pulmonary input / remains sedated with fentanyl and propofol * Continue current antibiotics : P.o. Vancomycin / renally dosed Zosyn * Trend LFTs. Avoid hepatotoxic medications. * Repeat labs, and replace electrolytes if indicated * Closely monitor hemoglobin levels * Appreciate all consultants review and recommendations * Fluids, electrolytes, and nutrition: D5 half NS at 75 cc an hour / resume tube feeds and gently advance to goal * Prophylaxis: SCDS / IV Protonix twice daily CC time : >35mins Spoke with family in detail Subjective 24 Hr Interval Summary Free Text/Dictation Patient seen and examined. Nursing reports no acute overnight events. Intubated and sedated for comfort, but no pressor support. Subjective hx not possible: pt non-verbal, pt critical status Exam/Review of Systems Vital Signs Vitals Vital Signs Date Time Temp Pulse Resp B/P Pulse Ox O2 Delivery O2 Flow Rate FiO2 02/17/17 15:40 95 21 95 85 02/17/17 13:00 100/56 Mechanical Ventilator 02/17/17 11:45 99.1 Intake and Output 02/16/17 02/16/17 02/17/17 15:00 23:00 07:00 Intake Total 1222.4 ml 1351.4 ml 998.689 ml Output Total 3310 ml 10 ml 0 ml Balance -2087.6 ml 1341.4 ml 998.689 ml Exam GENERAL: Intubated and comfortably sedated HEENT: JOHANA, Intubated, Vent settings noted , High o2 requirement / high peep LUNGS: diffusely diminished and coarse BS HEART: S1, S2. No murmur, gallops or rubs. Tachycardic ABDOMEN: Soft, non distended, Normoactive bowel sounds. GENITOURINARY: Normal male external genitalia, Mckeon to bedside drainage EXTREMITIES: Mild 1+ nonpitting edema bilaterally, also some hand edema bilaterally NEUROLOGIC: The patient is currently sedated. SKIN: Otherwise, unremarkable. Results Result Diagram: 02/17/17 0425 02/17/17 0425 Results 24 hrs Laboratory Tests Test 02/16/17 21:19 02/17/17 00:28 02/17/17 04:25 02/17/17 05:27 Bedside Glucose 98 106 106 White Blood Count 9.6 # Red Blood Count 3.06 L Hemoglobin 10.3 L Hematocrit 30.7 L Mean Corpuscular Volume 93.0 Mean Corpuscular Hemoglobin 31.2 Mean Corpuscular Hemoglobin Concent 33.6 Red Cell Distribution Width 14.5 Platelet Count 288 # Mean Platelet Volume 10.1 Neutrophils % 81.1 H Lymphocytes % 7.3 L Monocytes % 7.3 Eosinophils % 2.6 Basophils % 0.1 Nucleated Red Blood Cells % 0.0 Neutrophils # 7.8 H Lymphocytes # 0.7 L Monocytes # 0.7 Eosinophils # 0.3 Basophils # 0.0 Nucleated Red Blood Cells # 0.0 Sodium Level 132 L Potassium Level 4.4 Chloride Level 98 Carbon Dioxide Level 18 L Anion Gap 20 H Blood Urea Nitrogen 50 H Creatinine 6.47 H Glucose Level 95 Calcium Level 7.7 L Phosphorus Level 8.9 #H Magnesium Level 2.3 Total Bilirubin 1.2 Direct Bilirubin 1.10 H Indirect Bilirubin 0.1 Aspartate Amino Transf (AST/SGOT) 253 H Alanine Aminotransferase (ALT/SGPT) 151 H Alkaline Phosphatase 598 #H Total Protein 6.0 L Albumin 3.1 L Globulin 2.90 Albumin/Globulin Ratio 1.06 Test 02/17/17 08:30 02/17/17 13:18 Bedside Glucose 118 114 Medications Medications Current Medications Propofol 100 ml @ 2.727 mls/ hr Q12H IV Last administered on 02/17/17 13:23; Admin Dose 16.362 MLS/HR; Start 02/10/17 at 10:00 Phenylephrine HCl/ Dextrose (Zach-Syneph/D5W) 500 ml @ 18.75 mls/ hr TITRATE IV Last administered on 02/10/17 13:22; Admin Dose 26.25 MLS/HR; Start 02/10/17 at 13:00 Lorazepam (Ativan) 0.5 mg Q6H PRN IV ANXIETY Last administered on 02/13/17 11: 26; Admin Dose 0.5 MG; Start 02/10/17 at 12:30 Ondansetron HCl (Zofran Inj) 4 mg Q6H PRN IV NAUSEA AND/OR VOMITING; Start at 12:30 Acetaminophen (Tylenol Tab) 650 mg Q6H PRN PO PAIN LEVEL 1-3 OR FEVER Last administered on 02/10/17 21:39; Admin Dose 650 MG; Start 02/10/17 at 12:30 Acetaminophen/ Hydrocodone Bitart ([place] (5/325)) 1 tab Q6H PRN PO PAIN LEVEL 4 -6; Start 02/10/17 at 12:30 Morphine Sulfate (morphine) 2 mg Q4H PRN IV PAIN LEVEL 7-10 Last administered on 02/13/17 10:10; Admin Dose 2 MG; Start 02/10/17 at 12:30 Insulin Aspart (Novolog Insulin Pen) NOVOLOG *MILD* ALGORITHM Q4 SC Last administered on 02/15/17 18:29; Admin Dose 1 UNIT; Start 02/10/17 at 13:00 Miscellaneous Information 1 ea NOTE XX ; Start 02/10/17 at 13:30 Glucose (Glutose) 15 gm Q15M PRN PO DECREASED GLUCOSE; Start 02/10/17 at 13:30 Glucose (Glutose) 22.5 gm Q15M PRN PO DECREASED GLUCOSE; Start 02/10/17 at 13: 30 Dextrose (D50w Syringe) 25 ml Q15M PRN IV DECREASED GLUCOSE Last administered on 02/15/17 17:53; Admin Dose 25 ML; Start 02/10/17 at 13:30 Dextrose (D50w Syringe) 50 ml Q15M PRN IV DECREASED GLUCOSE Last administered on 02/16/17 16:21; Admin Dose 50 ML; Start 02/10/17 at 13:30 Glucagon (Glucagen) 1 mg Q15M PRN IM DECREASED GLUCOSE; Start 02/10/17 at 13:30 Glucose 15 gm 15 gm Q15M PRN BUCCAL DECREASED GLUCOSE; Start 02/10/17 at 13:30 Norepinephrine 16 mg/Dextrose 500 ml @ 0 mls/hr TITRATE IV ; Start 02/10/17 at 21:00 Dopamine HCl/ Dextrose (D5W) 250 ml @ 1.7 mls/hr TITRATE IV Last administered on 02/12/17 04:51; Admin Dose 11.07 MLS/HR; Start 02/10/17 at 18:00 Pantoprazole (Protonix Iv) 40 mg BID@06,18 IV Last administered on 02/17/17 05 :28; Admin Dose 40 MG; Start 02/11/17 at 06:00 Ticagrelor (Brilinta) 90 mg BID PO Last administered on 02/17/17 08:32; Admin Dose 90 MG; Start 02/11/17 at 12:00 Aspirin (Halfprin) 81 mg DAILY PO Last administered on 02/17/17 08:32; Admin Dose 81 MG; Start 02/11/17 at 12:00 Atorvastatin Calcium 80 mg 80 mg HS NGT Last administered on 02/16/17 21:18; Admin Dose 80 MG; Start 02/11/17 at 21:00 Dextrose/Sodium Chloride 1,000 ml @ 75 mls/hr [id number] IV Last administered on 02/17/17 16:35; Admin Dose 75 MLS/HR; Start 02/12/17 at 21:30 Fentanyl 100 ml @ 2.5 mls/hr TITRATE IV Last administered on 02/17/17 11:43; Admin Dose 7.5 MLS/HR; Start 02/13/17 at 11:30 Midazolam HCl 50 ml @ 1 mls/hr TITRATE IV Last administered on 02/17/17 04:31 ; Admin Dose 3 MLS/HR; Start 02/14/17 at 23:00 Piperacillin Sod/ Tazobactam Sod (Zosyn 2.25gm/ 50ml (Pmx)) 50 ml @ 200 mls/hr Q8 IVPB Last administered on 02/17/17 13:19; Admin Dose 200 MLS/HR; Start at 13:00 Vancomycin HCl (Vancomycin Oral Syringe) 250 mg Q6 NGT Last administered on 11:49; Admin Dose 250 MG; Start 02/15/17 at 18:00 IV Flush (NS 10 ml) 10 ml PRN PRN IV FLUSH LINE; Start 02/15/17 at 20:00 Metoclopramide HCl (Reglan) 5 mg Q6 IV Last administered on 02/17/17 11:49; Admin Dose 5 MG; Start 02/16/17 at 18:00; Stop 02/17/17 at 17:59 Miscellaneous Information (*Rx Drug Level Order Reminder*) 1 ONCE ONCE XX ; Start 02/18/17 at 05:00; Stop 02/18/17 at 05:01 MARIAJOSE ALMAZAN Feb 17, 2017 16:47
[2017-02-17] MEDS: ONDANSETRON 4 MG INJ IV PRN (18:22)
[2017-02-17] MEDS: ACETAMINOPHEN 325 MG TAB PO PRN (18:26)
[2017-02-17] MEDS: ATORVASTATIN 80 MG TAB NGT SCH (20:55)
[2017-02-18] VITALS (76 sets, daily range): BP systolic 95–154; BP diastolic 46–141; PULSE 79–155; RESP 20
[2017-02-18] MEDS: INSULIN ASPART [NOVOLOG] 3 ML PEN SC SCH ×5 (01:00→18:00)
[2017-02-18] MEDS: VANCOMYCIN HCL 250 MG/5ML POSYG NGT SCH ×4 (01:31→18:08)
[2017-02-18] MEDS: ONDANSETRON 4 MG INJ IV PRN (03:15)
[2017-02-18 05:09] LABS: ADD SCAN DIFF NO
[2017-02-18] MEDS: PIPER-TAZO 2.25 GM (PMX) 50 ML IVPB SCH ×3 (05:36→21:43)
[2017-02-18] MEDS: PANTOPRAZOLE 40 MG INJ IV SCH ×2 (05:36→18:08)
[2017-02-18] MEDS: DEXTROSE 5%-0.45% NACL 1,000 ML IV SCH ×2 (05:40→21:43)
[2017-02-18 05:48] LABS: ALBUMIN/GLOBULIN RATIO 0.85
[2017-02-18 06:18] LABS: BILIRUBIN,DIRECT 1.5 mg/dl (0.00-0.20); BILIRUBIN,TOTAL 1.5 mg/dl (0.2-1.3); CREATININE 7.87 mg/dl (0.61-1.24); POTASSIUM 5.2 mmol/L (3.5-5.1); TOTAL PROTEIN 6.5 g/dl (6.1-8.1)
[2017-02-18] MEDS: PROPOFOL 100 ML IV SCH ×2 (07:41→15:17)
[2017-02-18 08:18] LABS: WHITE BLOOD COUNT 14.5 10^3/ul (4.8-10.8)
[2017-02-18 08:19] LABS: HEMOGLOBIN 9.1 g/dl (14.0-18.0); MEAN CORPUSCULAR HEMOGLOBIN 31.7 pg (29.0-33.0); MEAN CORPUSCULAR HGB CONC 33.5 g/dl (32.0-37.0); MEAN CORPUSCULAR VOLUME 94.8 fl (82.0-101.0); MEAN PLATELET VOLUME 10.2 fl (7.4-10.4); PLATELET COUNT 359 10^3/UL (140-440); RED BLOOD COUNT 2.87 10^6/ul (4.70-6.10); RED CELL DISTRIBUTION WIDTH 15.2 % (11.5-14.5)
[2017-02-18 08:20] LABS: BASOPHILS % 0.1 % (0.0-2.0); EOSINOPHILS # 0.3 10^3/ul (0.0-0.5); EOSINOPHILS % 1.9 % (0.0-7.0); LYMPHOCYTES # 0.9 10^3/ul (0.8-2.9); LYMPHOCYTES % 6.1 % (15.0-51.0); MONOCYTE # 0.8 10^3/ul (0.3-0.9); MONOCYTES % 5.6 % (0.0-11.0); NEUTROPHIL # 12.2 10^3/ul (1.6-7.5); NEUTROPHILS % 84.4 % (39.0-77.0); NUCLEATED RED BLOOD CELLS% 0.1 /100WBC (0.0-0.0)
[2017-02-18 08:22] LABS: HEMATOCRIT 27.2 % (42.0-52.0)
[2017-02-18] MEDS ORDERED: AMIODARONE 900 MG in DEXTROSE 5% 482 ML IV SCH (08:30)
[2017-02-18] MEDS ORDERED: AMIODARONE 150MG/D5W BOLUS 100 ML IV ONE (08:30)
--- NOTE | 2017-02-18 09:23 | CONS ---
Date/Time of Note Date/Time of Note DATE: 02/18/17 TIME: 09:20 Assessment/Plan Assessment/Plan Additional Assessment/Plan Ventilator setting; AC of 20, tidal volume 600, PEEP of 10, 85% FiO2. Patient currently on fentanyl drip at 50 mics per hour, propofol 20 mics per kilogram per minute. Assessment recommendations; next 1. Patient admitted with cardiac arrest status post CPR with emergent coronary angiography with stenting of circumflex lesion. 2. Acute renal failure, on hemodialysis now. 3. Hyponatremia. 4. Anemia. 5. Severe bilateral pneumonia. 6. Atrial fibrillation with rapid ventricular response. Continue current treatment. Obtain follow-up chest x-ray. Start amiodarone drip. Prognosis is guarded. 35 minutes of critical care time was spent evaluating the patient. Consultation Date/Type/Reason Admit Date/Time Feb 10, 2017 at 08:37 Initial Consult Date 02/10/17 Type of Consultation: Pulmonary/critical care Referring Provider: HUBERT KUNZ NP 24 HR Interval Summary Free Text/Dictation Patient condition remains critical. Still requiring high FiO2 for O2 saturation maintenance. Currently getting hemodialysis at bedside. Patient however is hemodynamically unstable now developing atrial fibrillation with rapid ventricular response. General exam; elderly male, obese, orally intubated, sedated. Currently no distress. Exam/Review of Systems Vital Signs Vitals Vital Signs Date Time Temp Pulse Resp B/P Pulse Ox O2 Delivery O2 Flow Rate FiO2 02/18/17 08:30 124 20 118/56 Mechanical Ventilator 02/18/17 08:00 99.0 100 02/18/17 05:15 85 Intake and Output 02/17/17 02/17/17 02/18/17 15:00 23:00 07:00 Intake Total 1013.674 ml 830.360 ml 826 ml Output Total 0 ml 100 ml 110 ml Balance 1013.674 ml 730.360 ml 716 ml Exam HEENT exam is; supple neck, no JVD. No lymphadenopathy. Midline trachea. No thyromegaly. Patient has fair dentition. Orally intubated. Chest examination; diminished breath sounds bilaterally. No added sound. S1- S2 audible, tachycardic, irregular rhythm. Abdomen examination; soft, protuberant. Bowel sounds are audible. No organomegaly. Extremity exam; 2+ generalized edema. Pulses 1+ bilaterally. 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 Results Result Diagram: 02/18/17 0415 02/18/17 0415 Results 24 hrs Laboratory Tests Test 02/17/17 13:18 02/17/17 16:38 02/17/17 20:54 02/18/17 01:32 Bedside Glucose 114 117 108 102 Test 02/18/17 04:15 02/18/17 05:33 White Blood Count 14.5 #H Red Blood Count 2.87 L Hemoglobin 9.1 L Hematocrit 27.2 L Mean Corpuscular Volume 94.8 Mean Corpuscular Hemoglobin 31.7 Mean Corpuscular Hemoglobin Concent 33.5 Red Cell Distribution Width 15.2 H Platelet Count 359 Mean Platelet Volume 10.2 Neutrophils % 84.4 H Lymphocytes % 6.1 L Monocytes % 5.6 Eosinophils % 1.9 Basophils % 0.1 Nucleated Red Blood Cells % 0.1 H Neutrophils # 12.2 H Lymphocytes # 0.9 Monocytes # 0.8 Eosinophils # 0.3 Basophils # 0.0 Nucleated Red Blood Cells # 0.0 Sodium Level 126 L Potassium Level 5.2 H Chloride Level 94 L Carbon Dioxide Level 15 L Anion Gap 22 H Blood Urea Nitrogen 54 H Creatinine 7.87 H Glucose Level 80 Calcium Level 7.0 L Total Bilirubin 1.5 H Direct Bilirubin 1.50 H Indirect Bilirubin 0.0 Aspartate Amino Transf (AST/SGOT) 226 H Alanine Aminotransferase (ALT/SGPT) 131 H Alkaline Phosphatase 829 H Total Protein 6.5 Albumin 3.0 L Globulin 3.50 H Albumin/Globulin Ratio 0.85 Random Vancomycin Level 17.2 Bedside Glucose 93 Medications Medications Current Medications Propofol 100 ml @ 2.727 mls/ hr Q12H IV Last administered on 02/18/17 07:41; Admin Dose 10.908 MLS/HR; Start 02/10/17 at 10:00 Phenylephrine HCl/ Dextrose (Zach-Syneph/D5W) 500 ml @ 18.75 mls/ hr TITRATE IV Last administered on 02/10/17 13:22; Admin Dose 26.25 MLS/HR; Start 02/10/17 at 13:00 Lorazepam (Ativan) 0.5 mg Q6H PRN IV ANXIETY Last administered on 02/13/17 11: 26; Admin Dose 0.5 MG; Start 02/10/17 at 12:30 Ondansetron HCl (Zofran Inj) 4 mg Q6H PRN IV NAUSEA AND/OR VOMITING Last administered on 02/18/17 03:15; Admin Dose 4 MG; Start 02/10/17 at 12:30 Acetaminophen (Tylenol Tab) 650 mg Q6H PRN PO PAIN LEVEL 1-3 OR FEVER Last administered on 02/17/17 18:26; Admin Dose 650 MG; Start 02/10/17 at 12:30 Acetaminophen/ Hydrocodone Bitart ([place] (5/325)) 1 tab Q6H PRN PO PAIN LEVEL 4 -6; Start 02/10/17 at 12:30 Morphine Sulfate (morphine) 2 mg Q4H PRN IV PAIN LEVEL 7-10 Last administered on 02/13/17 10:10; Admin Dose 2 MG; Start 02/10/17 at 12:30 Miscellaneous Information 1 ea NOTE XX ; Start 02/10/17 at 13:30 Glucose (Glutose) 15 gm Q15M PRN PO DECREASED GLUCOSE; Start 02/10/17 at 13:30 Glucose (Glutose) 22.5 gm Q15M PRN PO DECREASED GLUCOSE; Start 02/10/17 at 13: 30 Dextrose (D50w Syringe) 25 ml Q15M PRN IV DECREASED GLUCOSE Last administered on 02/15/17 17:53; Admin Dose 25 ML; Start 02/10/17 at 13:30 Dextrose (D50w Syringe) 50 ml Q15M PRN IV DECREASED GLUCOSE Last administered on 02/16/17 16:21; Admin Dose 50 ML; Start 02/10/17 at 13:30 Glucagon (Glucagen) 1 mg Q15M PRN IM DECREASED GLUCOSE; Start 02/10/17 at 13:30 Glucose 15 gm 15 gm Q15M PRN BUCCAL DECREASED GLUCOSE; Start 02/10/17 at 13:30 Norepinephrine 16 mg/Dextrose 500 ml @ 0 mls/hr TITRATE IV ; Start 02/10/17 at 21:00 Dopamine HCl/ Dextrose (D5W) 250 ml @ 1.7 mls/hr TITRATE IV Last administered on 02/12/17 04:51; Admin Dose 11.07 MLS/HR; Start 02/10/17 at 18:00 Pantoprazole (Protonix Iv) 40 mg BID@18 IV Last administered on 02/18/17 05 :36; Admin Dose 40 MG; Start 02/11/17 at 06:00 Ticagrelor (Brilinta) 90 mg BID PO Last administered on 02/17/17 21:01; Admin Dose 90 MG; Start 02/11/17 at 12:00 Aspirin (Halfprin) 81 mg DAILY PO Last administered on 02/17/17 08:32; Admin Dose 81 MG; Start 02/11/17 at 12:00 Atorvastatin Calcium 80 mg 80 mg HS NGT Last administered on 02/17/17 20:55; Admin Dose 80 MG; Start 02/11/17 at 21:00 Dextrose/Sodium Chloride 1,000 ml @ 75 mls/hr [id number] IV Last administered on 02/18/17 05:40; Admin Dose 75 MLS/HR; Start 02/12/17 at 21:30 Fentanyl 100 ml @ 2.5 mls/hr TITRATE IV Last administered on 02/17/17 22:58; Admin Dose 7.5 MLS/HR; Start 02/13/17 at 11:30 Midazolam HCl 50 ml @ 1 mls/hr TITRATE IV Last administered on 02/17/17 22:58 ; Admin Dose 3 MLS/HR; Start 02/14/17 at 23:00 Piperacillin Sod/ Tazobactam Sod (Zosyn 2.25gm/ 50ml (Pmx)) 50 ml @ 200 mls/hr Q8 IVPB Last administered on 02/18/17 05:36; Admin Dose 200 MLS/HR; Start at 13:00 Vancomycin HCl (Vancomycin Oral Syringe) 250 mg Q6 NGT Last administered on 05:36; Admin Dose 250 MG; Start 02/15/17 at 18:00 IV Flush (NS 10 ml) 10 ml PRN PRN IV FLUSH LINE; Start 02/15/17 at 20:00 Insulin Aspart NOVOLOG *MILD* ALGORI... Q6 SC ; Start 02/18/17 at 06:00 Amiodarone HCl 900 mg/Dextrose 500 ml @ 0 mls/hr Q0M IV ; Start 02/18/17 at 08: 30; Stop 02/19/17 at 08:29 Vancomycin HCl (Vancocin) 250 ml @ 125 mls/hr 12 IVPB ; Start 02/18/17 at 12:00 ; Stop 02/18/17 at 19:00 ANGELINA VALDEZ Feb 18, 2017 09:23
[2017-02-18] MEDS: ASPIRIN (EC) 81 MG TAB PO SCH (10:21)
[2017-02-18] MEDS: TICAGRELOR 90 MG TABLET PO SCH ×2 (10:24→21:44)
--- NOTE | 2017-02-18 11:01 | PN ---
Date/Time of Note Date/Time of Note DATE: 02/18/17 TIME: 10:55 Assessment/Plan VTE Prophylaxis VTE Prophylaxis Intervention: SCD's Lines/Catheters IV [facility]ter Type (from [facility]): PICC Line Central line still needed: Yes Urinary Cath still in place: Yes Reason Cath still needed: urinary retention Assessment/Plan Chief Complaint/Hosp Course Assessment/Plan 66-year-old male who presented to the emergency room after witnessed cardiac arrest at work found to have ST elevation myocardial infarction managed as follows: 1. Cardiac arrest. Status post left heart catheterization and coronary angioplasty with placement of a stent and placement of intraaortic balloon pump. * apparently not a candidate for hypothermia protocol since he was noticed to be moving postangioplasty 2. S/p Cardiogenic shock: now off pressor support 3. Severe CAD with preserved EF 55%. Status post coronary artery stenting. 4. Sepsis 2/2 UTI + C diff . 5. Acute renal failure - multifactorial - 2/2 to cardiogenic shock - sepsis. Nonoliguric. Unknown baseline creatinine. Now on HD 6. Transaminitis likely secondary to shock liver superimposed on mild chronic liver disease from substance abuse 7. Chronic substance abuse with tox screen positive for amphetamines which likely precipitated #1 8. Normocytic anemia of chronic kidney disease: Stable 9. Hyponatremia: improving 10. Hypocalcemia: improved 11. Tiny cardioembolic right-sided CVA not likely to cause hypoxicischemic ischemic encephalopathy per neurology 12. Acute encephalopathy likely multifactorial in origin Plan. * Continue hemodialysis per renal and wean as tolerated, started on amiodarone IV drip as well * Continue to wean ventilator / appreciate pulmonary input / remains sedated with fentanyl and propofol * Continue current antibiotics : P.o. Vancomycin / renally dosed Zosyn * Trend LFTs. Avoid hepatotoxic medications. * Repeat labs, and replace electrolytes if indicated * Closely monitor hemoglobin levels * Appreciate all consultants review and recommendations * Fluids, electrolytes, and nutrition: D5 half NS at 75 cc an hour / resume tube feeds and gently advance to goal * Prophylaxis: SCDS / IV Protonix twice daily CC time : >40 mins Problems: Subjective 24 Hr Interval Summary Free Text/Dictation Pt started on amiodarone IV drip for afib w/RVR. Still intubated. Exam/Review of Systems Vital Signs Vitals Vital Signs Date Time Temp Pulse Resp B/P Pulse Ox O2 Delivery O2 Flow Rate FiO2 02/18/17 10:30 109 20 97/57 100 Mechanical Ventilator 02/18/17 08:00 99.0 02/18/17 05:15 85 Intake and Output 02/17/17 02/17/17 02/18/17 15:00 23:00 07:00 Intake Total 1013.674 ml 830.360 ml 826 ml Output Total 0 ml 100 ml 110 ml Balance 1013.674 ml 730.360 ml 716 ml Exam GENERAL: Intubated and sedated HEENT: JOHANA, Intubated, Vent settings noted , High o2 requirement / high peep LUNGS: diffusely diminished and coarse BS HEART: irregular, No murmur, gallops or rubs. Tachycardic ABDOMEN: Soft, non distended, Normoactive bowel sounds. GENITOURINARY: Normal male external genitalia, Mckeon to bedside drainage EXTREMITIES: Mild 1+ nonpitting edema bilaterally, also some hand edema bilaterally NEUROLOGIC: The patient is currently sedated. SKIN: Otherwise, unremarkable. Results Result Diagram: 02/18/17 0415 02/18/17 0415 Results 24 hrs Laboratory Tests Test 02/17/17 13:18 02/17/17 16:38 02/17/17 20:54 02/18/17 01:32 Bedside Glucose 114 117 108 102 Test 02/18/17 04:15 02/18/17 05:33 02/18/17 10:20 White Blood Count 14.5 #H Red Blood Count 2.87 L Hemoglobin 9.1 L Hematocrit 27.2 L Mean Corpuscular Volume 94.8 Mean Corpuscular Hemoglobin 31.7 Mean Corpuscular Hemoglobin Concent 33.5 Red Cell Distribution Width 15.2 H Platelet Count 359 Mean Platelet Volume 10.2 Neutrophils % 84.4 H Lymphocytes % 6.1 L Monocytes % 5.6 Eosinophils % 1.9 Basophils % 0.1 Nucleated Red Blood Cells % 0.1 H Neutrophils # 12.2 H Lymphocytes # 0.9 Monocytes # 0.8 Eosinophils # 0.3 Basophils # 0.0 Nucleated Red Blood Cells # 0.0 Sodium Level 126 L Potassium Level 5.2 H Chloride Level 94 L Carbon Dioxide Level 15 L Anion Gap 22 H Blood Urea Nitrogen 54 H Creatinine 7.87 H Glucose Level 80 Calcium Level 7.0 L Total Bilirubin 1.5 H Direct Bilirubin 1.50 H Indirect Bilirubin 0.0 Aspartate Amino Transf (AST/SGOT) 226 H Alanine Aminotransferase (ALT/SGPT) 131 H Alkaline Phosphatase 829 H Total Protein 6.5 Albumin 3.0 L Globulin 3.50 H Albumin/Globulin Ratio 0.85 Random Vancomycin Level 17.2 Bedside Glucose 93 135 Medications Medications Current Medications Propofol 100 ml @ 2.727 mls/ hr Q12H IV Last administered on 02/18/17 07:41; Admin Dose 10.908 MLS/HR; Start 02/10/17 at 10:00 Phenylephrine HCl/ Dextrose (Zach-Syneph/D5W) 500 ml @ 18.75 mls/ hr TITRATE IV Last administered on 02/10/17 13:22; Admin Dose 26.25 MLS/HR; Start 02/10/17 at 13:00 Lorazepam (Ativan) 0.5 mg Q6H PRN IV ANXIETY Last administered on 02/13/17 11: 26; Admin Dose 0.5 MG; Start 02/10/17 at 12:30 Ondansetron HCl (Zofran Inj) 4 mg Q6H PRN IV NAUSEA AND/OR VOMITING Last administered on 02/18/17 03:15; Admin Dose 4 MG; Start 02/10/17 at 12:30 Acetaminophen (Tylenol Tab) 650 mg Q6H PRN PO PAIN LEVEL 1-3 OR FEVER Last administered on 02/17/17 18:26; Admin Dose 650 MG; Start 02/10/17 at 12:30 Acetaminophen/ Hydrocodone Bitart ([place] (5/325)) 1 tab Q6H PRN PO PAIN LEVEL 4 -6; Start 02/10/17 at 12:30 Morphine Sulfate (morphine) 2 mg Q4H PRN IV PAIN LEVEL 7-10 Last administered on 02/13/17 10:10; Admin Dose 2 MG; Start 02/10/17 at 12:30 Miscellaneous Information 1 ea NOTE XX ; Start 02/10/17 at 13:30 Glucose (Glutose) 15 gm Q15M PRN PO DECREASED GLUCOSE; Start 02/10/17 at 13:30 Glucose (Glutose) 22.5 gm Q15M PRN PO DECREASED GLUCOSE; Start 02/10/17 at 13: 30 Dextrose (D50w Syringe) 25 ml Q15M PRN IV DECREASED GLUCOSE Last administered on 02/15/17 17:53; Admin Dose 25 ML; Start 02/10/17 at 13:30 Dextrose (D50w Syringe) 50 ml Q15M PRN IV DECREASED GLUCOSE Last administered on 02/16/17 16:21; Admin Dose 50 ML; Start 02/10/17 at 13:30 Glucagon (Glucagen) 1 mg Q15M PRN IM DECREASED GLUCOSE; Start 02/10/17 at 13:30 Glucose 15 gm 15 gm Q15M PRN BUCCAL DECREASED GLUCOSE; Start 02/10/17 at 13:30 Norepinephrine 16 mg/Dextrose 500 ml @ 0 mls/hr TITRATE IV ; Start 02/10/17 at 21:00 Dopamine HCl/ Dextrose (D5W) 250 ml @ 1.7 mls/hr TITRATE IV Last administered on 02/12/17 04:51; Admin Dose 11.07 MLS/HR; Start 02/10/17 at 18:00 Pantoprazole (Protonix Iv) 40 mg BID@06,18 IV Last administered on 02/18/17 05 :36; Admin Dose 40 MG; Start 02/11/17 at 06:00 Ticagrelor (Brilinta) 90 mg BID PO Last administered on 02/18/17 10:24; Admin Dose 90 MG; Start 02/11/17 at 12:00 Aspirin (Halfprin) 81 mg DAILY PO Last administered on 02/18/17 10:21; Admin Dose 81 MG; Start 02/11/17 at 12:00 Atorvastatin Calcium 80 mg 80 mg HS NGT Last administered on 02/17/17 20:55; Admin Dose 80 MG; Start 02/11/17 at 21:00 Dextrose/Sodium Chloride 1,000 ml @ 75 mls/hr [id number] IV Last administered on 02/18/17 05:40; Admin Dose 75 MLS/HR; Start 02/12/17 at 21:30 Fentanyl 100 ml @ 2.5 mls/hr TITRATE IV Last administered on 02/17/17 22:58; Admin Dose 7.5 MLS/HR; Start 02/13/17 at 11:30 Midazolam HCl 50 ml @ 1 mls/hr TITRATE IV Last administered on 02/17/17 22:58 ; Admin Dose 3 MLS/HR; Start 02/14/17 at 23:00 Piperacillin Sod/ Tazobactam Sod (Zosyn 2.25gm/ 50ml (Pmx)) 50 ml @ 200 mls/hr Q8 IVPB Last administered on 02/18/17 05:36; Admin Dose 200 MLS/HR; Start at 13:00 Vancomycin HCl (Vancomycin Oral Syringe) 250 mg Q6 NGT Last administered on 05:36; Admin Dose 250 MG; Start 02/15/17 at 18:00 IV Flush (NS 10 ml) 10 ml PRN PRN IV FLUSH LINE; Start 02/15/17 at 20:00 Insulin Aspart NOVOLOG *MILD* ALGORI... Q6 SC ; Start 02/18/17 at 06:00 Amiodarone HCl 900 mg/Dextrose 500 ml @ 0 mls/hr Q0M IV Last administered on 09:34; Admin Dose 33.4 MLS/HR; Start 02/18/17 at 08:30; Stop 02/19/17 at 08:29 Vancomycin HCl (Vancocin) 250 ml @ 125 mls/hr 12 IVPB ; Start 02/18/17 at 12:00 ; Stop 02/18/17 at 19:00 ELY ALVARADO Feb 18, 2017 11:01
[2017-02-18] MEDS ORDERED: VANCOMYCIN 1 GM in NS 250 ML IVPB SCH (12:00)
--- NOTE | 2017-02-18 12:54 | CONS ---
Date/Time of Note Date/Time of Note DATE: 02/18/17 TIME: 12:53 Assessment/Plan Assessment/Plan Additional Assessment/Plan 1. Oliguric acute kidney injury, likely secondary to ischemic acute tubular necrosis from ST-elevation myocardial infarction and cardiogenic shock. did not improve,d started on HD on due to Oliguric NEFTALI with fluid overaload 2. Cardiogenic shock. 3. Acute respiratory failure from cardiac arrest, currently intubated on ventilator. 4. Metabolic acidosis secondary to acute renal failure. 5. No significant past medical history, as per the family. 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 Consultation Date/Type/Reason Admit Date/Time Feb 10, 2017 at 08:37 Initial Consult Date 02/10/17 Type of Consultation: NEPHROLOGY Referring Provider: HUBERT KUNZ GANDY DANCER 24 HR Interval Summary Free Text/Dictation remains intubated, s/p HD today 2 L removed, afebrile Exam/Review of Systems Vital Signs Vitals Vital Signs Date Time Temp Pulse Resp B/P Pulse Ox O2 Delivery O2 Flow Rate FiO2 02/18/17 12:15 106 20 154/141 99 Mechanical Ventilator 02/18/17 12:00 99.3 02/18/17 11:40 80 Intake and Output 02/17/17 02/17/17 02/18/17 15:00 23:00 07:00 Intake Total 1013.674 ml 830.360 ml 826 ml Output Total 0 ml 100 ml 110 ml Balance 1013.674 ml 730.360 ml 716 ml Exam GENERAL: The patient is currently sedated, intubated on ventilator. HEENT: ET tube in place. NECK: Supple. No jugular venous distention. No lymphadenopathy. LUNGS: Bilateral coarse breath sounds with minimal expiratory wheezing. HEART: S1, S2, tachycardia, no murmur. ABDOMEN: Soft, nontender, nondistended. EXTREMITIES: 1+ pitting edema GENITOURINARY: Mckeon catheter in place. Results Result Diagram: 02/18/17 0415 02/18/17 0415 Results 24 hrs Laboratory Tests Test 02/17/17 13:18 02/17/17 16:38 02/17/17 20:54 02/18/17 01:32 Bedside Glucose 114 117 108 102 Test 02/18/17 04:15 02/18/17 05:33 02/18/17 10:20 02/18/17 12:02 White Blood Count 14.5 #H Red Blood Count 2.87 L Hemoglobin 9.1 L Hematocrit 27.2 L Mean Corpuscular Volume 94.8 Mean Corpuscular Hemoglobin 31.7 Mean Corpuscular Hemoglobin Concent 33.5 Red Cell Distribution Width 15.2 H Platelet Count 359 Mean Platelet Volume 10.2 Neutrophils % 84.4 H Lymphocytes % 6.1 L Monocytes % 5.6 Eosinophils % 1.9 Basophils % 0.1 Nucleated Red Blood Cells % 0.1 H Neutrophils # 12.2 H Lymphocytes # 0.9 Monocytes # 0.8 Eosinophils # 0.3 Basophils # 0.0 Nucleated Red Blood Cells # 0.0 Sodium Level 126 L Potassium Level 5.2 H Chloride Level 94 L Carbon Dioxide Level 15 L Anion Gap 22 H Blood Urea Nitrogen 54 H Creatinine 7.87 H Glucose Level 80 Calcium Level 7.0 L Total Bilirubin 1.5 H Direct Bilirubin 1.50 H Indirect Bilirubin 0.0 Aspartate Amino Transf (AST/SGOT) 226 H Alanine Aminotransferase (ALT/SGPT) 131 H Alkaline Phosphatase 829 H Total Protein 6.5 Albumin 3.0 L Globulin 3.50 H Albumin/Globulin Ratio 0.85 Random Vancomycin Level 17.2 Bedside Glucose 93 135 109 Medications Medications Current Medications Propofol 100 ml @ 2.727 mls/ hr Q12H IV Last administered on 02/18/17 07:41; Admin Dose 10.908 MLS/HR; Start 02/10/17 at 10:00 Phenylephrine HCl/ Dextrose (Zach-Syneph/D5W) 500 ml @ 18.75 mls/ hr TITRATE IV Last administered on 02/10/17 13:22; Admin Dose 26.25 MLS/HR; Start 02/10/17 at 13:00 Lorazepam (Ativan) 0.5 mg Q6H PRN IV ANXIETY Last administered on 02/13/17 11: 26; Admin Dose 0.5 MG; Start 02/10/17 at 12:30 Ondansetron HCl (Zofran Inj) 4 mg Q6H PRN IV NAUSEA AND/OR VOMITING Last administered on 02/18/17 03:15; Admin Dose 4 MG; Start 02/10/17 at 12:30 Acetaminophen (Tylenol Tab) 650 mg Q6H PRN PO PAIN LEVEL 1-3 OR FEVER Last administered on 02/17/17 18:26; Admin Dose 650 MG; Start 02/10/17 at 12:30 Acetaminophen/ Hydrocodone Bitart ([place] (5/325)) 1 tab Q6H PRN PO PAIN LEVEL 4 -6; Start 02/10/17 at 12:30 Morphine Sulfate (morphine) 2 mg Q4H PRN IV PAIN LEVEL 7-10 Last administered on 02/13/17 10:10; Admin Dose 2 MG; Start 02/10/17 at 12:30 Miscellaneous Information 1 ea NOTE XX ; Start 02/10/17 at 13:30 Glucose (Glutose) 15 gm Q15M PRN PO DECREASED GLUCOSE; Start 02/10/17 at 13:30 Glucose (Glutose) 22.5 gm Q15M PRN PO DECREASED GLUCOSE; Start 02/10/17 at 13: 30 Dextrose (D50w Syringe) 25 ml Q15M PRN IV DECREASED GLUCOSE Last administered on 02/15/17 17:53; Admin Dose 25 ML; Start 02/10/17 at 13:30 Dextrose (D50w Syringe) 50 ml Q15M PRN IV DECREASED GLUCOSE Last administered on 02/16/17 16:21; Admin Dose 50 ML; Start 02/10/17 at 13:30 Glucagon (Glucagen) 1 mg Q15M PRN IM DECREASED GLUCOSE; Start 02/10/17 at 13:30 Glucose 15 gm 15 gm Q15M PRN BUCCAL DECREASED GLUCOSE; Start 02/10/17 at 13:30 Norepinephrine 16 mg/Dextrose 500 ml @ 0 mls/hr TITRATE IV ; Start 02/10/17 at 21:00 Dopamine HCl/ Dextrose (D5W) 250 ml @ 1.7 mls/hr TITRATE IV Last administered on 02/12/17 04:51; Admin Dose 11.07 MLS/HR; Start 02/10/17 at 18:00 Pantoprazole (Protonix Iv) 40 mg BID@06,18 IV Last administered on 02/18/17 05 :36; Admin Dose 40 MG; Start 02/11/17 at 06:00 Ticagrelor (Brilinta) 90 mg BID PO Last administered on 02/18/17 10:24; Admin Dose 90 MG; Start 02/11/17 at 12:00 Aspirin (Halfprin) 81 mg DAILY PO Last administered on 02/18/17 10:21; Admin Dose 81 MG; Start 02/11/17 at 12:00 Atorvastatin Calcium 80 mg 80 mg HS NGT Last administered on 02/17/17 20:55; Admin Dose 80 MG; Start 02/11/17 at 21:00 Dextrose/Sodium Chloride 1,000 ml @ 75 mls/hr [id number] IV Last administered on 02/18/17 05:40; Admin Dose 75 MLS/HR; Start 02/12/17 at 21:30 Fentanyl 100 ml @ 2.5 mls/hr TITRATE IV Last administered on 02/17/17 22:58; Admin Dose 7.5 MLS/HR; Start 02/13/17 at 11:30 Midazolam HCl 50 ml @ 1 mls/hr TITRATE IV Last administered on 02/17/17 22:58 ; Admin Dose 3 MLS/HR; Start 02/14/17 at 23:00 Piperacillin Sod/ Tazobactam Sod (Zosyn 2.25gm/ 50ml (Pmx)) 50 ml @ 200 mls/hr Q8 IVPB Last administered on 02/18/17 05:36; Admin Dose 200 MLS/HR; Start at 13:00 Vancomycin HCl (Vancomycin Oral Syringe) 250 mg Q6 NGT Last administered on 11:58; Admin Dose 250 MG; Start 02/15/17 at 18:00 IV Flush (NS 10 ml) 10 ml PRN PRN IV FLUSH LINE; Start 02/15/17 at 20:00 Insulin Aspart NOVOLOG *MILD* ALGORI... Q6 SC ; Start 02/18/17 at 06:00 Amiodarone HCl 900 mg/Dextrose 500 ml @ 0 mls/hr Q0M IV Last administered on 09:34; Admin Dose 33.4 MLS/HR; Start 02/18/17 at 08:30; Stop 02/19/17 at 08:29 Vancomycin HCl (Vancocin) 250 ml @ 125 mls/hr 12 IVPB Last administered on t 11:57; Admin Dose 125 MLS/HR; Start 02/18/17 at 12:00; Stop 02/18/17 at 19:00 SAILAJA LOUIE MD Feb 18, 2017 12:54
--- NOTE | 2017-02-18 13:31 | CONS ---
Date/Time of Note Date/Time of Note DATE: 02/18/17 TIME: 13:23 Assessment/Plan Assessment/Plan Additional Assessment/Plan S/p Cardiac Arrest CAD s/p PCI of OM, s/p IABP Atrial fibrillation with RVR Renal failure on HD VDRF Severe encephalopathy Cardioembolic stroke involving martines radiata Anemia He is in and out of atrial fibrillation started on amiodarone tele monitor shows NSR with frequent PACs Clinically non responsive Had HD removed 2 liters Continue amiodarone Continue Vent Support and pulmonary toiletry Continue HD as scheduled Continue Brilinta and ASA Continue Lipitor Consultation Date/Type/Reason Admit Date/Time Feb 10, 2017 at 08:37 Social History Smoking Status: Unknown if ever smoked Exam/Review of Systems Vital Signs Vitals Vital Signs Date Time Temp Pulse Resp B/P Pulse Ox O2 Delivery O2 Flow Rate FiO2 02/18/17 12:15 106 20 154/141 99 Mechanical Ventilator 02/18/17 12:00 99.3 02/18/17 11:40 80 Intake and Output 02/17/17 02/17/17 02/18/17 15:00 23:00 07:00 Intake Total 1013.674 ml 830.360 ml 826 ml Output Total 0 ml 100 ml 110 ml Balance 1013.674 ml 730.360 ml 716 ml Exam Constitutional: non-verbal, other (Intubated) Respiratory: other (Mechanical breath sounds heard bilaterally) Cardiovascular: regular rate and rhythm Gastrointestinal: nl liver, spleen, non-tender, soft Extremities: normal pulses Results Result Diagram: 02/18/17 0415 02/18/17 0415 Results 24 hrs Laboratory Tests Test 02/17/17 16:38 02/17/17 20:54 02/18/17 01:32 02/18/17 04:15 Bedside Glucose 117 108 102 White Blood Count 14.5 #H Red Blood Count 2.87 L Hemoglobin 9.1 L Hematocrit 27.2 L Mean Corpuscular Volume 94.8 Mean Corpuscular Hemoglobin 31.7 Mean Corpuscular Hemoglobin Concent 33.5 Red Cell Distribution Width 15.2 H Platelet Count 359 Mean Platelet Volume 10.2 Neutrophils % 84.4 H Lymphocytes % 6.1 L Monocytes % 5.6 Eosinophils % 1.9 Basophils % 0.1 Nucleated Red Blood Cells % 0.1 H Neutrophils # 12.2 H Lymphocytes # 0.9 Monocytes # 0.8 Eosinophils # 0.3 Basophils # 0.0 Nucleated Red Blood Cells # 0.0 Sodium Level 126 L Potassium Level 5.2 H Chloride Level 94 L Carbon Dioxide Level 15 L Anion Gap 22 H Blood Urea Nitrogen 54 H Creatinine 7.87 H Glucose Level 80 Calcium Level 7.0 L Total Bilirubin 1.5 H Direct Bilirubin 1.50 H Indirect Bilirubin 0.0 Aspartate Amino Transf (AST/SGOT) 226 H Alanine Aminotransferase (ALT/SGPT) 131 H Alkaline Phosphatase 829 H Total Protein 6.5 Albumin 3.0 L Globulin 3.50 H Albumin/Globulin Ratio 0.85 Random Vancomycin Level 17.2 Test 02/18/17 05:33 02/18/17 10:20 02/18/17 12:02 Bedside Glucose 93 135 109 Medications Medications Current Medications Propofol 100 ml @ 2.727 mls/ hr Q12H IV Last administered on 02/18/17 07:41; Admin Dose 10.908 MLS/HR; Start 02/10/17 at 10:00 Phenylephrine HCl/ Dextrose (Zach-Syneph/D5W) 500 ml @ 18.75 mls/ hr TITRATE IV Last administered on 02/10/17 13:22; Admin Dose 26.25 MLS/HR; Start 02/10/17 at 13:00 Lorazepam (Ativan) 0.5 mg Q6H PRN IV ANXIETY Last administered on 02/13/17 11: 26; Admin Dose 0.5 MG; Start 02/10/17 at 12:30 Ondansetron HCl (Zofran Inj) 4 mg Q6H PRN IV NAUSEA AND/OR VOMITING Last administered on 02/18/17 03:15; Admin Dose 4 MG; Start 02/10/17 at 12:30 Acetaminophen (Tylenol Tab) 650 mg Q6H PRN PO PAIN LEVEL 1-3 OR FEVER Last administered on 02/17/17 18:26; Admin Dose 650 MG; Start 02/10/17 at 12:30 Acetaminophen/ Hydrocodone Bitart ([place] (5/325)) 1 tab Q6H PRN PO PAIN LEVEL 4 -6; Start 02/10/17 at 12:30 Morphine Sulfate (morphine) 2 mg Q4H PRN IV PAIN LEVEL 7-10 Last administered on 02/13/17 10:10; Admin Dose 2 MG; Start 02/10/17 at 12:30 Miscellaneous Information 1 ea NOTE XX ; Start 02/10/17 at 13:30 Glucose (Glutose) 15 gm Q15M PRN PO DECREASED GLUCOSE; Start 02/10/17 at 13:30 Glucose (Glutose) 22.5 gm Q15M PRN PO DECREASED GLUCOSE; Start 02/10/17 at 13: 30 Dextrose (D50w Syringe) 25 ml Q15M PRN IV DECREASED GLUCOSE Last administered on 02/15/17 17:53; Admin Dose 25 ML; Start 02/10/17 at 13:30 Dextrose (D50w Syringe) 50 ml Q15M PRN IV DECREASED GLUCOSE Last administered on 02/16/17 16:21; Admin Dose 50 ML; Start 02/10/17 at 13:30 Glucagon (Glucagen) 1 mg Q15M PRN IM DECREASED GLUCOSE; Start 02/10/17 at 13:30 Glucose 15 gm 15 gm Q15M PRN BUCCAL DECREASED GLUCOSE; Start 02/10/17 at 13:30 Norepinephrine 16 mg/Dextrose 500 ml @ 0 mls/hr TITRATE IV ; Start 02/10/17 at 21:00 Dopamine HCl/ Dextrose (D5W) 250 ml @ 1.7 mls/hr TITRATE IV Last administered on 02/12/17 04:51; Admin Dose 11.07 MLS/HR; Start 02/10/17 at 18:00 Pantoprazole (Protonix Iv) 40 mg BID@06,18 IV Last administered on 02/18/17 05 :36; Admin Dose 40 MG; Start 02/11/17 at 06:00 Ticagrelor (Brilinta) 90 mg BID PO Last administered on 02/18/17 10:24; Admin Dose 90 MG; Start 02/11/17 at 12:00 Aspirin (Halfprin) 81 mg DAILY PO Last administered on 02/18/17 10:21; Admin Dose 81 MG; Start 02/11/17 at 12:00 Atorvastatin Calcium 80 mg 80 mg HS NGT Last administered on 02/17/17 20:55; Admin Dose 80 MG; Start 02/11/17 at 21:00 Dextrose/Sodium Chloride 1,000 ml @ 75 mls/hr [id number] IV Last administered on 02/18/17 05:40; Admin Dose 75 MLS/HR; Start 02/12/17 at 21:30 Fentanyl 100 ml @ 2.5 mls/hr TITRATE IV Last administered on 02/17/17 22:58; Admin Dose 7.5 MLS/HR; Start 02/13/17 at 11:30 Midazolam HCl 50 ml @ 1 mls/hr TITRATE IV Last administered on 02/17/17 22:58 ; Admin Dose 3 MLS/HR; Start 02/14/17 at 23:00 Piperacillin Sod/ Tazobactam Sod (Zosyn 2.25gm/ 50ml (Pmx)) 50 ml @ 200 mls/hr Q8 IVPB Last administered on 02/18/17 05:36; Admin Dose 200 MLS/HR; Start at 13:00 Vancomycin HCl (Vancomycin Oral Syringe) 250 mg Q6 NGT Last administered on 11:58; Admin Dose 250 MG; Start 02/15/17 at 18:00 IV Flush (NS 10 ml) 10 ml PRN PRN IV FLUSH LINE; Start 02/15/17 at 20:00 Insulin Aspart NOVOLOG *MILD* ALGORI... Q6 SC ; Start 02/18/17 at 06:00 Amiodarone HCl 900 mg/Dextrose 500 ml @ 0 mls/hr Q0M IV Last administered on 09:34; Admin Dose 33.4 MLS/HR; Start 02/18/17 at 08:30; Stop 02/19/17 at 08:29 Vancomycin HCl (Vancocin) 250 ml @ 125 mls/hr 12 IVPB Last administered on 11:57; Admin Dose 125 MLS/HR; Start 02/18/17 at 12:00; Stop 02/18/17 at 19:00 ALEXANDER ROJO M.D. Feb 18, 2017 13:31
[2017-02-18] MEDS: ACETAMINOPHEN 325 MG TAB PO PRN (13:42)
--- NOTE | 2017-02-18 15:17 | CONS ---
Date/Time of Note Date/Time of Note DATE: 02/18/17 TIME: 15:15 Assessment/Plan Assessment/Plan Chief Complaint/Hosp Course Altered mental status Problems: Additional Assessment/Plan 66 year old male admitted with STEMI with 100% left circumflex vessel occlusion requiring MIRA with intra-aortic balloon pump admitted to ICU for further management severe encephalopathy, failed weaning trial with ARF receiving dialysis. 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 Discussed with patient was present in the room will follow Consultation Date/Type/Reason Admit Date/Time Feb 10, 2017 at 08:37 Initial Consult Date 02/13/17 Type of Consultation: NEPHROLOGY Referring Provider: HUBERT KUNZ NP 24 HR Interval Summary Free Text/Dictation Clinically unchanged. Still intubated and mechanically ventilated and is currently on Diprivan drip Exam/Review of Systems Vital Signs Vitals Vital Signs Date Time Temp Pulse Resp B/P Pulse Ox O2 Delivery O2 Flow Rate FiO2 02/18/17 15:00 104 20 106/51 92 Mechanical Ventilator 02/18/17 12:00 99.3 02/18/17 11:40 80 Intake and Output 02/17/17 02/17/17 02/18/17 15:00 23:00 07:00 Intake Total 1013.674 ml 830.360 ml 826 ml Output Total 0 ml 100 ml 110 ml Balance 1013.674 ml 730.360 ml 716 ml Exam Constitutional: non-verbal Head: atraumatic, normocephalic Eyes: EOMI, nl conjunctiva, nl lids, nl sclera ENMT: nl external ears & nose, nl nasal mucosa & septum Neck: non-tender, supple Respiratory: other (Ventilated) Cardiovascular: nl pulses, regular rate and rhythm Gastrointestinal: nl liver, spleen, non-tender, soft Neurological: other (Limited exam, intubated, ventilated, corneals and gag reflexes are present, no withdrawal to noxious stimulus) Results Result Diagram: 02/18/17 0415 02/18/17 0415 Results 24 hrs Laboratory Tests Test 02/17/17 16:38 02/17/17 20:54 02/18/17 01:32 02/18/17 04:15 Bedside Glucose 117 108 102 White Blood Count 14.5 #H Red Blood Count 2.87 L Hemoglobin 9.1 L Hematocrit 27.2 L Mean Corpuscular Volume 94.8 Mean Corpuscular Hemoglobin 31.7 Mean Corpuscular Hemoglobin Concent 33.5 Red Cell Distribution Width 15.2 H Platelet Count 359 Mean Platelet Volume 10.2 Neutrophils % 84.4 H Lymphocytes % 6.1 L Monocytes % 5.6 Eosinophils % 1.9 Basophils % 0.1 Nucleated Red Blood Cells % 0.1 H Neutrophils # 12.2 H Lymphocytes # 0.9 Monocytes # 0.8 Eosinophils # 0.3 Basophils # 0.0 Nucleated Red Blood Cells # 0.0 Sodium Level 126 L Potassium Level 5.2 H Chloride Level 94 L Carbon Dioxide Level 15 L Anion Gap 22 H Blood Urea Nitrogen 54 H Creatinine 7.87 H Glucose Level 80 Calcium Level 7.0 L Total Bilirubin 1.5 H Direct Bilirubin 1.50 H Indirect Bilirubin 0.0 Aspartate Amino Transf (AST/SGOT) 226 H Alanine Aminotransferase (ALT/SGPT) 131 H Alkaline Phosphatase 829 H Total Protein 6.5 Albumin 3.0 L Globulin 3.50 H Albumin/Globulin Ratio 0.85 Random Vancomycin Level 17.2 Test 02/18/17 05:33 02/18/17 10:20 02/18/17 12:02 Bedside Glucose 93 135 109 Medications Medications Current Medications Propofol 100 ml @ 2.727 mls/ hr Q12H IV Last administered on 02/18/17 07:41; Admin Dose 10.908 MLS/HR; Start 02/10/17 at 10:00 Phenylephrine HCl/ Dextrose (Zach-Syneph/D5W) 500 ml @ 18.75 mls/ hr TITRATE IV Last administered on 02/10/17 13:22; Admin Dose 26.25 MLS/HR; Start 02/10/17 at 13:00 Lorazepam (Ativan) 0.5 mg Q6H PRN IV ANXIETY Last administered on 02/13/17 11: 26; Admin Dose 0.5 MG; Start 02/10/17 at 12:30 Ondansetron HCl (Zofran Inj) 4 mg Q6H PRN IV NAUSEA AND/OR VOMITING Last administered on 02/18/17 03:15; Admin Dose 4 MG; Start 02/10/17 at 12:30 Acetaminophen (Tylenol Tab) 650 mg Q6H PRN PO PAIN LEVEL 1-3 OR FEVER Last administered on 02/18/17 13:42; Admin Dose 650 MG; Start 02/10/17 at 12:30 Acetaminophen/ Hydrocodone Bitart ([place] (5/325)) 1 tab Q6H PRN PO PAIN LEVEL 4 -6; Start 02/10/17 at 12:30 Morphine Sulfate (morphine) 2 mg Q4H PRN IV PAIN LEVEL 7-10 Last administered on 02/13/17 10:10; Admin Dose 2 MG; Start 02/10/17 at 12:30 Miscellaneous Information 1 ea NOTE XX ; Start 02/10/17 at 13:30 Glucose (Glutose) 15 gm Q15M PRN PO DECREASED GLUCOSE; Start 02/10/17 at 13:30 Glucose (Glutose) 22.5 gm Q15M PRN PO DECREASED GLUCOSE; Start 02/10/17 at 13: 30 Dextrose (D50w Syringe) 25 ml Q15M PRN IV DECREASED GLUCOSE Last administered on 02/15/17 17:53; Admin Dose 25 ML; Start 02/10/17 at 13:30 Dextrose (D50w Syringe) 50 ml Q15M PRN IV DECREASED GLUCOSE Last administered on 02/16/17 16:21; Admin Dose 50 ML; Start 02/10/17 at 13:30 Glucagon (Glucagen) 1 mg Q15M PRN IM DECREASED GLUCOSE; Start 02/10/17 at 13:30 Glucose 15 gm 15 gm Q15M PRN BUCCAL DECREASED GLUCOSE; Start 02/10/17 at 13:30 Norepinephrine 16 mg/Dextrose 500 ml @ 0 mls/hr TITRATE IV ; Start 02/10/17 at 21:00 Dopamine HCl/ Dextrose (D5W) 250 ml @ 1.7 mls/hr TITRATE IV Last administered on 02/12/17 04:51; Admin Dose 11.07 MLS/HR; Start 02/10/17 at 18:00 Pantoprazole (Protonix Iv) 40 mg BID@18 IV Last administered on 02/18/17 05 :36; Admin Dose 40 MG; Start 02/11/17 at 06:00 Ticagrelor (Brilinta) 90 mg BID PO Last administered on 02/18/17 10:24; Admin Dose 90 MG; Start 02/11/17 at 12:00 Aspirin (Halfprin) 81 mg DAILY PO Last administered on 02/18/17 10:21; Admin Dose 81 MG; Start 02/11/17 at 12:00 Atorvastatin Calcium 80 mg 80 mg HS NGT Last administered on 02/17/17 20:55; Admin Dose 80 MG; Start 02/11/17 at 21:00 Dextrose/Sodium Chloride 1,000 ml @ 75 mls/hr [id number] IV Last administered on 02/18/17 05:40; Admin Dose 75 MLS/HR; Start 02/12/17 at 21:30 Fentanyl 100 ml @ 2.5 mls/hr TITRATE IV Last administered on 02/17/17 22:58; Admin Dose 7.5 MLS/HR; Start 02/13/17 at 11:30 Midazolam HCl 50 ml @ 1 mls/hr TITRATE IV Last administered on 02/17/17 22:58 ; Admin Dose 3 MLS/HR; Start 02/14/17 at 23:00 Piperacillin Sod/ Tazobactam Sod (Zosyn 2.25gm/ 50ml (Pmx)) 50 ml @ 200 mls/hr Q8 IVPB Last administered on 02/18/17 13:42; Admin Dose 200 MLS/HR; Start at 13:00 Vancomycin HCl (Vancomycin Oral Syringe) 250 mg Q6 NGT Last administered on 11:58; Admin Dose 250 MG; Start 02/15/17 at 18:00 IV Flush (NS 10 ml) 10 ml PRN PRN IV FLUSH LINE; Start 02/15/17 at 20:00 Insulin Aspart NOVOLOG *MILD* ALGORI... Q6 SC ; Start 02/18/17 at 06:00 Amiodarone HCl 900 mg/Dextrose 500 ml @ 0 mls/hr Q0M IV Last administered on 09:34; Admin Dose 33.4 MLS/HR; Start 02/18/17 at 08:30; Stop 02/19/17 at 08:29 Vancomycin HCl (Vancocin) 250 ml @ 125 mls/hr 12 IVPB Last administered on t 11:57; Admin Dose 125 MLS/HR; Start 02/18/17 at 12:00; Stop 02/18/17 at 19:00 DONALD ERICKSON MD Feb 18, 2017 15:17
[2017-02-18] MEDS: ATORVASTATIN 80 MG TAB NGT SCH (21:43)
[2017-02-19] VITALS (35 sets, daily range): BP systolic 104–134; BP diastolic 52–72; PULSE 79–101; RESP 20
[2017-02-19] MEDS: VANCOMYCIN HCL 250 MG/5ML POSYG NGT SCH ×5 (00:54→23:32)
[2017-02-19] MEDS: FENTAnyl (DRIP) 1000 mcg/100mL 100 ML IV SCH ×2 (02:57→16:39)
[2017-02-19 04:55] LABS: ADD SCAN DIFF NO
[2017-02-19 05:03] LABS: BASOPHILS % 0.1 % (0.0-2.0); EOSINOPHILS # 0.3 10^3/ul (0.0-0.5); EOSINOPHILS % 1.7 % (0.0-7.0); LYMPHOCYTES % 5.5 % (15.0-51.0); MONOCYTE # 0.9 10^3/ul (0.3-0.9); MONOCYTES % 5.3 % (0.0-11.0); NEUTROPHILS % 84.2 % (39.0-77.0); PLATELET COUNT 445 10^3/UL (140-415); WHITE BLOOD COUNT 17.9 10^3/ul (4.8-10.8)
[2017-02-19] MEDS: INSULIN ASPART [NOVOLOG] 3 ML PEN SC SCH ×5 (06:00→23:32)
[2017-02-19] MEDS: PIPER-TAZO 2.25 GM (PMX) 50 ML IVPB SCH ×3 (06:05→22:04)
[2017-02-19] MEDS: PANTOPRAZOLE 40 MG INJ IV SCH ×2 (06:05→17:42)
[2017-02-19 06:19] LABS: ALBUMIN/GLOBULIN RATIO 0.94
[2017-02-19 06:21] LABS: AADO2 Arterial 425.7 mmHg (7.0-24.0); Allen Test ACCEPTAB; Arterial Base Excess -3.9 mmol/L (-3.0-3); Arterial COHb 0.3 % (0.0-3.0); Arterial Fraction of Oxyhgb 95.9 % (93.0-99.0); Arterial HCO3 21.7 mmol/L (22.0-26.0); Arterial MetHb 0.1 % (0.0-1.5); MODE VENT - AC
[2017-02-19 06:38] LABS: POTASSIUM 4.6 mmol/L (3.5-5.1)
[2017-02-19 06:39] LABS: ALBUMIN 3.4 g/dl (3.3-4.9); BILIRUBIN,DIRECT 1.2 mg/dl (0.00-0.20); BILIRUBIN,INDIRECT 0.1 mg/dl (0-1.1); BILIRUBIN,TOTAL 1.3 mg/dl (0.2-1.3); CREATININE 6.41 mg/dl (0.61-1.24)
--- NOTE | 2017-02-19 06:49 | CONS ---
Date/Time of Note Date/Time of Note DATE: 02/19/17 TIME: 06:46 Assessment/Plan Assessment/Plan Additional Assessment/Plan Ventilator setting; AC of 20, tidal volume 600, PEEP of 5, 80% FiO2. Patient currently on fentanyl drip at 70 mics per hour, amiodarone 0.5 mg/min. Assessment recommendations; 1. Patient admitted with cardiac arrest status post CPR with emergent stenting of circumflex lesion. 2. Severe bilateral pneumonia. 3. Acute renal failure, patient requiring hemodialysis. 4. History of alcohol abuse. 5. Persistent severe hypoxemia. 6. Atrial fibrillation, patient currently in sinus rhythm, maintained on amiodarone drip. Continue current treatment. Increase PEEP to 10. Obtain follow-up chest x- ray. Prognosis is guarded. 35 minutes of critical care time was spent evaluating the patient. Consultation Date/Type/Reason Admit Date/Time Feb 10, 2017 at 08:37 Initial Consult Date 02/10/17 Type of Consultation: Pulmonary/critical care Referring Provider: HUBERT KUNZ NP 24 HR Interval Summary Free Text/Dictation Patient condition remains critical. Still requiring high FiO2 for O2 saturation maintenance. Patient however has remained hemodynamically stable and has remained in sinus rhythm. No further episodes of atrial fibrillation. General exam; elderly male, on ventilator via endotracheal tube. Currently in no distress. Sedated. Exam/Review of Systems Vital Signs Vitals Vital Signs Date Time Temp Pulse Resp B/P Pulse Ox O2 Delivery O2 Flow Rate FiO2 02/19/17 06:00 84 20 104/62 98 Mechanical Ventilator 02/19/17 05:05 80 02/19/17 04:00 98.6 Intake and Output 02/18/17 02/18/17 02/19/17 15:00 23:00 07:00 Intake Total 1594.244 ml 873.754 ml 690.9 ml Output Total 2320 ml 150 ml 500 ml Balance -725.756 ml 723.754 ml 190.9 ml Exam HEENT exam is; supple neck, positive JVD. No lymphadenopathy. Midline trachea. No thyromegaly. Orally intubated. Pupils are small bilaterally. Patient has fair dentition. Chest examined; diminished breath sounds bilaterally. S1-S2 audible, no murmurs. Regular rhythm. Abdomen examination; soft, protuberant. No organomegaly. Bowel sounds audible. Extremity exam; 2+ anasarca. Pulses 1+ bilaterally. WOOD SETTER examination; patient is sedated. Results Result Diagram: 02/18/17 0415 02/19/17 0430 Results 24 hrs Laboratory Tests Test 02/18/17 10:20 02/18/17 12:02 02/18/17 18:07 02/19/17 00:53 Bedside Glucose 135 109 132 106 Test 02/19/17 04:30 02/19/17 06:00 02/19/17 06:04 Sodium Level 129 L Potassium Level 4.6 Chloride Level 94 L Carbon Dioxide Level 18 L Anion Gap 22 H Blood Urea Nitrogen 43 #H Creatinine 6.41 H Glucose Level 104 Calcium Level 7.0 L Total Bilirubin 1.3 Direct Bilirubin 1.20 H Indirect Bilirubin 0.1 Aspartate Amino Transf (AST/SGOT) 350 #H Alanine Aminotransferase (ALT/SGPT) 142 H Alkaline Phosphatase 952 H Total Protein 7.0 Albumin 3.4 Globulin 3.60 H Albumin/Globulin Ratio 0.94 Blood Gas Specimen Source Blood arterial Arterial Blood Date Drawn 02/19/2017 6:10:24 AM Arterial Blood pH (Temp corrected) 7.333 L Arterial Blood pCO2 (Temp correct) 41.9 Arterial Blood pO2 (Temp corrected) 100.7 H Arterial Blood HCO3 21.7 L Arterial Blood Base Excess -3.9 L Arterial Blood Oxygen Saturation 96.3 Tirso Test ACCEPTAB Arterial Blood Gas Puncture Site Right Radial Arterial Blood Carboxyhemoglobin 0.3 Arterial Blood Methemoglobin 0.1 Blood Gas A-a O2 Differential 425.7 H Oxyhemoglobin Percent 95.9 Total Hemoglobin 10.0 L Blood Gas Temperature 37.0 Blood Gas Respiration Rate 20.0 Blood Gas Actual Respiration Rate 20 Blood Gas Modality VENT - AC FiO2 80.0 Blood Gas Tidal Volume 600.0 Blood Gas Low PEEP Setting 10.0 Blood Gas Notified Whom KB Blood Gas Notified Time 02/19/2017 6:21:45 AM Bedside Glucose 117 Medications Medications Current Medications Propofol 100 ml @ 2.727 mls/ hr Q12H IV Last administered on 02/18/17 15:17; Admin Dose 10.908 MLS/HR; Start 02/10/17 at 10:00 Phenylephrine HCl/ Dextrose (Zach-Syneph/D5W) 500 ml @ 18.75 mls/ hr TITRATE IV Last administered on 02/10/17 13:22; Admin Dose 26.25 MLS/HR; Start 02/10/17 at 13:00 Lorazepam (Ativan) 0.5 mg Q6H PRN IV ANXIETY Last administered on 02/13/17 11: 26; Admin Dose 0.5 MG; Start 02/10/17 at 12:30 Ondansetron HCl (Zofran Inj) 4 mg Q6H PRN IV NAUSEA AND/OR VOMITING Last administered on 02/18/17 03:15; Admin Dose 4 MG; Start 02/10/17 at 12:30 Acetaminophen (Tylenol Tab) 650 mg Q6H PRN PO PAIN LEVEL 1-3 OR FEVER Last administered on 02/18/17 13:42; Admin Dose 650 MG; Start 02/10/17 at 12:30 Acetaminophen/ Hydrocodone Bitart ([place] (5/325)) 1 tab Q6H PRN PO PAIN LEVEL 4 -6; Start 02/10/17 at 12:30 Morphine Sulfate (morphine) 2 mg Q4H PRN IV PAIN LEVEL 7-10 Last administered on 02/13/17 10:10; Admin Dose 2 MG; Start 02/10/17 at 12:30 Miscellaneous Information 1 ea NOTE XX ; Start 02/10/17 at 13:30 Glucose (Glutose) 15 gm Q15M PRN PO DECREASED GLUCOSE; Start 02/10/17 at 13:30 Glucose (Glutose) 22.5 gm Q15M PRN PO DECREASED GLUCOSE; Start 02/10/17 at 13: 30 Dextrose (D50w Syringe) 25 ml Q15M PRN IV DECREASED GLUCOSE Last administered on 02/15/17 17:53; Admin Dose 25 ML; Start 02/10/17 at 13:30 Dextrose (D50w Syringe) 50 ml Q15M PRN IV DECREASED GLUCOSE Last administered on 02/16/17 16:21; Admin Dose 50 ML; Start 02/10/17 at 13:30 Glucagon (Glucagen) 1 mg Q15M PRN IM DECREASED GLUCOSE; Start 02/10/17 at 13:30 Glucose 15 gm 15 gm Q15M PRN BUCCAL DECREASED GLUCOSE; Start 02/10/17 at 13:30 Norepinephrine 16 mg/Dextrose 500 ml @ 0 mls/hr TITRATE IV ; Start 02/10/17 at 21:00 Dopamine HCl/ Dextrose (D5W) 250 ml @ 1.7 mls/hr TITRATE IV Last administered on 02/12/17 04:51; Admin Dose 11.07 MLS/HR; Start 02/10/17 at 18:00 Pantoprazole (Protonix Iv) 40 mg BID@06,18 IV Last administered on 02/19/17 06 :05; Admin Dose 40 MG; Start 02/11/17 at 06:00 Ticagrelor (Brilinta) 90 mg BID PO Last administered on 02/18/17 21:44; Admin Dose 90 MG; Start 02/11/17 at 12:00 Aspirin (Halfprin) 81 mg DAILY PO Last administered on 02/18/17 10:21; Admin Dose 81 MG; Start 02/11/17 at 12:00 Atorvastatin Calcium 80 mg 80 mg HS NGT Last administered on 02/18/17 21:43; Admin Dose 80 MG; Start 02/11/17 at 21:00 Dextrose/Sodium Chloride 1,000 ml @ 75 mls/hr [id number] IV Last administered on 02/18/17 21:43; Admin Dose 75 MLS/HR; Start 02/12/17 at 21:30 Fentanyl 100 ml @ 2.5 mls/hr TITRATE IV Last administered on 02/19/17 02:57; Admin Dose 7 MLS/HR; Start 02/13/17 at 11:30 Midazolam HCl 50 ml @ 1 mls/hr TITRATE IV Last administered on 02/17/17 22:58 ; Admin Dose 3 MLS/HR; Start 02/14/17 at 23:00 Piperacillin Sod/ Tazobactam Sod (Zosyn 2.25gm/ 50ml (Pmx)) 50 ml @ 200 mls/hr Q8 IVPB Last administered on 02/19/17 06:05; Admin Dose 200 MLS/HR; Start at 13:00 Vancomycin HCl (Vancomycin Oral Syringe) 250 mg Q6 NGT Last administered on 06:05; Admin Dose 250 MG; Start 02/15/17 at 18:00 IV Flush (NS 10 ml) 10 ml PRN PRN IV FLUSH LINE; Start 02/15/17 at 20:00 Insulin Aspart NOVOLOG *MILD* ALGORI... Q6 SC ; Start 02/18/17 at 06:00 Amiodarone HCl/ Dextrose (Cordarone Iv/ D5W) 500 ml @ 0 mls/hr Q0M IV Last administered on 02/18/17t 09:34; Admin Dose 33.4 MLS/HR; Start 02/18/17 at 08:30 ; Stop 02/19/17 at 08:29 ANGELINA VALDEZ Feb 19, 2017 06:49
[2017-02-19 08:12] LABS: RED BLOOD COUNT 2.62 10^6/ul (4.70-6.10)
[2017-02-19 08:13] LABS: HEMATOCRIT 24.6 % (42.0-52.0); HEMOGLOBIN 8.3 g/dl (14.0-18.0)
[2017-02-19] MEDS: ASPIRIN (EC) 81 MG TAB PO SCH (08:13)
[2017-02-19 08:14] LABS: MEAN CORPUSCULAR HEMOGLOBIN 31.7 pg (29.0-33.0); MEAN CORPUSCULAR HGB CONC 33.7 g/dl (32.0-37.0); MEAN CORPUSCULAR VOLUME 93.9 fl (82.0-101.0); RED CELL DISTRIBUTION WIDTH 15.5 % (11.5-14.5)
[2017-02-19 08:15] LABS: MEAN PLATELET VOLUME 10.5 fl (7.4-10.4)
[2017-02-19] MEDS: TICAGRELOR 90 MG TABLET PO SCH ×2 (08:15→20:57)
--- NOTE | 2017-02-19 10:06 | RADRPT ---
PROCEDURE: XR Chest. CLINICAL INDICATION: Shortness of breath. TECHNIQUE: A single portable view of the chest was obtained. COMPARISON: 02/17/2017 FINDINGS: The endotracheal tube is essentially unchanged. The nasogastric tube tip is not well visualized. T he aorta is tortuous and atherosclerotic. The cardiomediastinal silhouette is otherwise enlarged an d is stable. Diffuse pulmonary vascular congestion is seen with likely underlying pulmonary edema a nd is increased. Bilateral pleural effusions are again noted and are stable. The soft tissues and os seous structures demonstrate benign age related senescent changes. IMPRESSION: Radiographic findings of congestive heart failure again seen with increased pulmonary vascular conge stion and underlying pulmonary edema. RPTAT: HPNM Physician Sapna Date Time Electronically viewed and signed by Raj Christianson Physician on 02/19/2017 10:06 /
--- NOTE | 2017-02-19 12:14 | PN ---
Date/Time of Note Date/Time of Note DATE: 02/19/17 TIME: 12:13 Assessment/Plan VTE Prophylaxis VTE Prophylaxis Intervention: other Lines/Catheters IV Catheter Type (from Nrs): PICC Line Central line still needed: Yes Urinary Cath still in place: Yes Reason Cath still needed: urinary retention Exam/Review of Systems Vital Signs Vitals Vital Signs Date Time Temp Pulse Resp B/P Pulse Ox O2 Delivery O2 Flow Rate FiO2 02/19/17 09:00 80 20 111/64 100 Mechanical Ventilator 02/19/17 08:00 99.0 02/19/17 08:00 80 Intake and Output 02/18/17 02/18/17 02/19/17 15:00 23:00 07:00 Intake Total 1594.244 ml 873.754 ml 690.9 ml Output Total 2320 ml 150 ml 500 ml Balance -725.756 ml 723.754 ml 190.9 ml Results Result Diagram: 02/19/17 0430 02/19/17 0430 Results 24 hrs Laboratory Tests Test 02/18/17 18:07 02/19/17 00:53 02/19/17 04:30 02/19/17 06:00 Bedside Glucose 132 106 White Blood Count 17.9 #H Red Blood Count 2.62 L Hemoglobin 8.3 L Hematocrit 24.6 L Mean Corpuscular Volume 93.9 Mean Corpuscular Hemoglobin 31.7 Mean Corpuscular Hemoglobin Concent 33.7 Red Cell Distribution Width 15.5 H Platelet Count 445 #H Mean Platelet Volume 10.5 H Neutrophils % 84.2 H Lymphocytes % 5.5 L Monocytes % 5.3 Eosinophils % 1.7 Basophils % 0.1 Nucleated Red Blood Cells % 0.0 Neutrophils # 15.0 H Lymphocytes # 1.0 Monocytes # 0.9 Eosinophils # 0.3 Basophils # 0.0 Nucleated Red Blood Cells # 0.0 Sodium Level 129 L Potassium Level 4.6 Chloride Level 94 L Carbon Dioxide Level 18 L Anion Gap 22 H Blood Urea Nitrogen 43 #H Creatinine 6.41 H Glucose Level 104 Calcium Level 7.0 L Total Bilirubin 1.3 Direct Bilirubin 1.20 H Indirect Bilirubin 0.1 Aspartate Amino Transf (AST/SGOT) 350 #H Alanine Aminotransferase (ALT/SGPT) 142 H Alkaline Phosphatase 952 H Total Protein 7.0 Albumin 3.4 Globulin 3.60 H Albumin/Globulin Ratio 0.94 Blood Gas Specimen Source Blood arterial Arterial Blood Date Drawn 02/19/2017 6:10:24 AM Arterial Blood pH (Temp corrected) 7.333 L Arterial Blood pCO2 (Temp correct) 41.9 Arterial Blood pO2 (Temp corrected) 100.7 H Arterial Blood HCO3 21.7 L Arterial Blood Base Excess -3.9 L Arterial Blood Oxygen Saturation 96.3 Tirso Test ACCEPTAB Arterial Blood Gas Puncture Site Right Radial Arterial Blood Carboxyhemoglobin 0.3 Arterial Blood Methemoglobin 0.1 Blood Gas A-a O2 Differential 425.7 H Oxyhemoglobin Percent 95.9 Total Hemoglobin 10.0 L Blood Gas Temperature 37.0 Blood Gas Respiration Rate 20.0 Blood Gas Actual Respiration Rate 20 Blood Gas Modality VENT - AC FiO2 80.0 Blood Gas Tidal Volume 600.0 Blood Gas Low PEEP Setting 10.0 Blood Gas Notified Whom KB Blood Gas Notified Time 02/19/2017 6:21:45 AM Test 02/19/17 06:04 Bedside Glucose 117 Medications Medications Current Medications Propofol 100 ml @ 2.727 mls/ hr Q12H IV Last administered on 02/18/17 15:17; Admin Dose 10.908 MLS/HR; Start 02/10/17 at 10:00 Phenylephrine HCl/ Dextrose (Zach-Syneph/D5W) 500 ml @ 18.75 mls/ hr TITRATE IV Last administered on 02/10/17 13:22; Admin Dose 26.25 MLS/HR; Start 02/10/17 at 13:00 Lorazepam (Ativan) 0.5 mg Q6H PRN IV ANXIETY Last administered on 02/13/17 11: 26; Admin Dose 0.5 MG; Start 02/10/17 at 12:30 Ondansetron HCl (Zofran Inj) 4 mg Q6H PRN IV NAUSEA AND/OR VOMITING Last administered on 02/18/17 03:15; Admin Dose 4 MG; Start 02/10/17 at 12:30 Acetaminophen (Tylenol Tab) 650 mg Q6H PRN PO PAIN LEVEL 1-3 OR FEVER Last administered on 02/18/17 13:42; Admin Dose 650 MG; Start 02/10/17 at 12:30 Acetaminophen/ Hydrocodone Bitart ([place] (5/325)) 1 tab Q6H PRN PO PAIN LEVEL 4 -6; Start 02/10/17 at 12:30 Morphine Sulfate (morphine) 2 mg Q4H PRN IV PAIN LEVEL 7-10 Last administered on 02/13/17 10:10; Admin Dose 2 MG; Start 02/10/17 at 12:30 Miscellaneous Information 1 ea NOTE XX ; Start 02/10/17 at 13:30 Glucose (Glutose) 15 gm Q15M PRN PO DECREASED GLUCOSE; Start 02/10/17 at 13:30 Glucose (Glutose) 22.5 gm Q15M PRN PO DECREASED GLUCOSE; Start 02/10/17 at 13: 30 Dextrose (D50w Syringe) 25 ml Q15M PRN IV DECREASED GLUCOSE Last administered on 02/15/17 17:53; Admin Dose 25 ML; Start 02/10/17 at 13:30 Dextrose (D50w Syringe) 50 ml Q15M PRN IV DECREASED GLUCOSE Last administered on 02/16/17 16:21; Admin Dose 50 ML; Start 02/10/17 at 13:30 Glucagon (Glucagen) 1 mg Q15M PRN IM DECREASED GLUCOSE; Start 02/10/17 at 13:30 Glucose 15 gm 15 gm Q15M PRN BUCCAL DECREASED GLUCOSE; Start 02/10/17 at 13:30 Norepinephrine 16 mg/Dextrose 500 ml @ 0 mls/hr TITRATE IV ; Start 02/10/17 at 21:00 Dopamine HCl/ Dextrose (D5W) 250 ml @ 1.7 mls/hr TITRATE IV Last administered on 02/12/17 04:51; Admin Dose 11.07 MLS/HR; Start 02/10/17 at 18:00 Pantoprazole (Protonix Iv) 40 mg BID@06,18 IV Last administered on 02/19/17 06 :05; Admin Dose 40 MG; Start 02/11/17 at 06:00 Ticagrelor (Brilinta) 90 mg BID PO Last administered on 02/19/17 08:15; Admin Dose 90 MG; Start 02/11/17 at 12:00 Aspirin (Halfprin) 81 mg DAILY PO Last administered on 02/19/17 08:13; Admin Dose 81 MG; Start 02/11/17 at 12:00 Atorvastatin Calcium 80 mg 80 mg HS NGT Last administered on 02/18/17 21:43; Admin Dose 80 MG; Start 02/11/17 at 21:00 Dextrose/Sodium Chloride 1,000 ml @ 75 mls/hr [id number] IV Last administered on 02/18/17 21:43; Admin Dose 75 MLS/HR; Start 02/12/17 at 21:30 Fentanyl 100 ml @ 2.5 mls/hr TITRATE IV Last administered on 02/19/17 02:57; Admin Dose 7 MLS/HR; Start 02/13/17 at 11:30 Midazolam HCl 50 ml @ 1 mls/hr TITRATE IV Last administered on 02/17/17 22:58 ; Admin Dose 3 MLS/HR; Start 02/14/17 at 23:00 Piperacillin Sod/ Tazobactam Sod (Zosyn 2.25gm/ 50ml (Pmx)) 50 ml @ 200 mls/hr Q8 IVPB Last administered on 02/19/17 06:05; Admin Dose 200 MLS/HR; Start at 13:00 Vancomycin HCl (Vancomycin Oral Syringe) 250 mg Q6 NGT Last administered on 06:05; Admin Dose 250 MG; Start 02/15/17 at 18:00 IV Flush (NS 10 ml) 10 ml PRN PRN IV FLUSH LINE; Start 02/15/17 at 20:00 Insulin Aspart (Novolog Insulin Pen) NOVOLOG *MILD* ALGORI... Q6 SC ; Start at 06:00 ELY ALVARADO Feb 19, 2017 12:14 Acetaminophen/ Hydrocodone Bitart ([place] (5/325)) 1 tab Q6H PRN PO PAIN LEVEL 4 -6; Start 02/10/17 at 12:30 Morphine Sulfate (morphine) 2 mg Q4H PRN IV PAIN LEVEL 7-10 Last administered on 02/13/17 10:10; Admin Dose 2 MG; Start 02/10/17 at 12:30 Miscellaneous Information 1 ea NOTE XX ; Start 02/10/17 at 13:30 Glucose (Glutose) 15 gm Q15M PRN PO DECREASED GLUCOSE; Start 02/10/17 at 13:30 Glucose (Glutose) 22.5 gm Q15M PRN PO DECREASED GLUCOSE; Start 02/10/17 at 13: 30 Dextrose (D50w Syringe) 25 ml Q15M PRN IV DECREASED GLUCOSE Last administered on 02/15/17 17:53; Admin Dose 25 ML; Start 02/10/17 at 13:30 Dextrose (D50w Syringe) 50 ml Q15M PRN IV DECREASED GLUCOSE Last administered on 02/16/17 16:21; Admin Dose 50 ML; Start 02/10/17 at 13:30 Glucagon (Glucagen) 1 mg Q15M PRN IM DECREASED GLUCOSE; Start 02/10/17 at 13:30 Glucose 15 gm 15 gm Q15M PRN BUCCAL DECREASED GLUCOSE; Start 02/10/17 at 13:30 Norepinephrine 16 mg/Dextrose 500 ml @ 0 mls/hr TITRATE IV ; Start 02/10/17 at 21:00 Dopamine HCl/ Dextrose (D5W) 250 ml @ 1.7 mls/hr TITRATE IV Last administered on 02/12/17 04:51; Admin Dose 11.07 MLS/HR; Start 02/10/17 at 18:00 Pantoprazole (Protonix Iv) 40 mg BID@06,18 IV Last administered on 02/19/17 06 :05; Admin Dose 40 MG; Start 02/11/17 at 06:00 Ticagrelor (Brilinta) 90 mg BID PO Last administered on 02/19/17 08:15; Admin Dose 90 MG; Start 02/11/17 at 12:00 Aspirin (Halfprin) 81 mg DAILY PO Last administered on 02/19/17 08:13; Admin Dose 81 MG; Start 02/11/17 at 12:00 Atorvastatin Calcium 80 mg 80 mg HS NGT Last administered on 02/18/17 21:43; Admin Dose 80 MG; Start 02/11/17 at 21:00 Dextrose/Sodium Chloride 1,000 ml @ 75 mls/hr [id number] IV Last administered on 02/18/17 21:43; Admin Dose 75 MLS/HR; Start 02/12/17 at 21:30 Fentanyl 100 ml @ 2.5 mls/hr TITRATE IV Last administered on 02/19/17 02:57; Admin Dose 7 MLS/HR; Start 02/13/17 at 11:30 Midazolam HCl 50 ml @ 1 mls/hr TITRATE IV Last administered on 6/23/17at 22:58 ; Admin Dose 3 MLS/HR; Start 02/14/17 at 23:00 Piperacillin Sod/ Tazobactam Sod (Zosyn 2.25gm/ 50ml (Pmx)) 50 ml @ 200 mls/hr Q8 IVPB Last administered on 02/19/17 06:05; Admin Dose 200 MLS/HR; Start at 13:00 Vancomycin HCl (Vancomycin Oral Syringe) 250 mg Q6 NGT Last administered on 06:05; Admin Dose 250 MG; Start 02/15/17 at 18:00 IV Flush (NS 10 ml) 10 ml PRN PRN IV FLUSH LINE; Start 02/15/17 at 20:00 Insulin Aspart (Novolog Insulin Pen) NOVOLOG *MILD* ALGORI... Q6 SC ; Start at 06:00 ELY ALVARADO Feb 19, 2017 12:14
--- NOTE | 2017-02-19 12:21 | PN ---
Date/Time of Note Date/Time of Note DATE: 02/19/17 TIME: 12:18 Assessment/Plan VTE Prophylaxis VTE Prophylaxis Intervention: SCD's Lines/Catheters IV Catheter Type (from Rust): PICC Line Central line still needed: Yes Urinary Cath still in place: Yes Reason Cath still needed: urinary retention Assessment/Plan Chief Complaint/Hosp Course Assessment/Plan 66-year-old male who presented to the emergency room after witnessed cardiac arrest at work found to have ST elevation myocardial infarction managed as follows: 1. Cardiac arrest. Status post left heart catheterization and coronary angioplasty with placement of a stent and placement of intraaortic balloon pump. EEG: consistent with encephalopathy without epileptiform discharges * apparently not a candidate for hypothermia protocol since he was noticed to be moving postangioplasty 2. S/p Cardiogenic shock: now off pressor support 3. Severe CAD with preserved EF 55%. Status post coronary artery stenting. 4. Sepsis 2/2 UTI + C diff . 5. Acute renal failure - multifactorial - 2/2 to cardiogenic shock - sepsis. Nonoliguric. Unknown baseline creatinine. Now on HD 6. Transaminitis likely secondary to shock liver superimposed on mild chronic liver disease from substance abuse 7. Chronic substance abuse with tox screen positive for amphetamines which likely precipitated #1 8. Normocytic anemia of chronic kidney disease: Stable 9. Hyponatremia: improving 10. Hypocalcemia: improved 11. Tiny cardioembolic right-sided CVA not likely to cause hypoxicischemic ischemic encephalopathy per neurology 12. Acute encephalopathy likely multifactorial in origin Plan. * Continue hemodialysis per renal and wean as tolerated, started on amiodarone IV drip as well - for repeat EEG in AM - f/u Neuro, and CV rec's - consider palliative consult * Continue to wean ventilator / appreciate pulmonary input / remains sedated with fentanyl and propofol * Continue current antibiotics : P.o. Vancomycin / renally dosed Zosyn * Trend LFTs. Avoid hepatotoxic medications. * Repeat labs, and replace electrolytes if indicated * Closely monitor hemoglobin levels * Appreciate all consultants review and recommendations * Fluids, electrolytes, and nutrition: D5 half NS at 75 cc an hour / resume tube feeds and gently advance to goal * Prophylaxis: SCDS / IV Protonix twice daily CC time : 35 mins Problems: Subjective 24 Hr Interval Summary Free Text/Dictation Pt still on amiodarone drip, seen by Neuro team, first EEG results in. Exam/Review of Systems Vital Signs Vitals Vital Signs Date Time Temp Pulse Resp B/P Pulse Ox O2 Delivery O2 Flow Rate FiO2 02/19/17 09:00 80 20 111/64 100 Mechanical Ventilator 02/19/17 08:00 99.0 02/19/17 08:00 80 Intake and Output 02/18/17 02/18/17 02/19/17 15:00 23:00 07:00 Intake Total 1594.244 ml 873.754 ml 690.9 ml Output Total 2320 ml 150 ml 500 ml Balance -725.756 ml 723.754 ml 190.9 ml Exam GENERAL: Intubated and sedated HEENT: JOHANA, Intubated, Vent settings noted , High o2 requirement / high peep LUNGS: diffusely diminished and coarse BS HEART: irregular, No murmur, gallops or rubs. ABDOMEN: Soft, non distended, Normoactive bowel sounds. GENITOURINARY: Normal male external genitalia, Mckeon to bedside drainage EXTREMITIES: Mild 1+ nonpitting edema bilaterally, also some hand edema bilaterally NEUROLOGIC: The patient is currently sedated. SKIN: Otherwise, unremarkable. Results Result Diagram: 02/19/17 0430 02/19/17 0430 Results 24 hrs Laboratory Tests Test 02/18/17 18:07 02/19/17 00:53 02/19/17 04:30 02/19/17 06:00 Bedside Glucose 132 106 White Blood Count 17.9 #H Red Blood Count 2.62 L Hemoglobin 8.3 L Hematocrit 24.6 L Mean Corpuscular Volume 93.9 Mean Corpuscular Hemoglobin 31.7 Mean Corpuscular Hemoglobin Concent 33.7 Red Cell Distribution Width 15.5 H Platelet Count 445 #H Mean Platelet Volume 10.5 H Neutrophils % 84.2 H Lymphocytes % 5.5 L Monocytes % 5.3 Eosinophils % 1.7 Basophils % 0.1 Nucleated Red Blood Cells % 0.0 Neutrophils # 15.0 H Lymphocytes # 1.0 Monocytes # 0.9 Eosinophils # 0.3 Basophils # 0.0 Nucleated Red Blood Cells # 0.0 Sodium Level 129 L Potassium Level 4.6 Chloride Level 94 L Carbon Dioxide Level 18 L Anion Gap 22 H Blood Urea Nitrogen 43 #H Creatinine 6.41 H Glucose Level 104 Calcium Level 7.0 L Total Bilirubin 1.3 Direct Bilirubin 1.20 H Indirect Bilirubin 0.1 Aspartate Amino Transf (AST/SGOT) 350 #H Alanine Aminotransferase (ALT/SGPT) 142 H Alkaline Phosphatase 952 H Total Protein 7.0 Albumin 3.4 Globulin 3.60 H Albumin/Globulin Ratio 0.94 Blood Gas Specimen Source Blood arterial Arterial Blood Date Drawn 02/19/2017 6:10:24 AM Arterial Blood pH (Temp corrected) 7.333 L Arterial Blood pCO2 (Temp correct) 41.9 Arterial Blood pO2 (Temp corrected) 100.7 H Arterial Blood HCO3 21.7 L Arterial Blood Base Excess -3.9 L Arterial Blood Oxygen Saturation 96.3 Tirso Test ACCEPTAB Arterial Blood Gas Puncture Site Right Radial Arterial Blood Carboxyhemoglobin 0.3 Arterial Blood Methemoglobin 0.1 Blood Gas A-a O2 Differential 425.7 H Oxyhemoglobin Percent 95.9 Total Hemoglobin 10.0 L Blood Gas Temperature 37.0 Blood Gas Respiration Rate 20.0 Blood Gas Actual Respiration Rate 20 Blood Gas Modality VENT - AC FiO2 80.0 Blood Gas Tidal Volume 600.0 Blood Gas Low PEEP Setting 10.0 Blood Gas Notified Whom KB Blood Gas Notified Time 02/19/2017 6:21:45 AM Test 02/19/17 06:04 Bedside Glucose 117 Medications Medications Current Medications Propofol 100 ml @ 2.727 mls/ hr Q12H IV Last administered on 02/18/17 15:17; Admin Dose 10.908 MLS/HR; Start 02/10/17 at 10:00 Phenylephrine HCl/ Dextrose (Zach-Syneph/D5W) 500 ml @ 18.75 mls/ hr TITRATE IV Last administered on 02/10/17 13:22; Admin Dose 26.25 MLS/HR; Start 02/10/17 at 13:00 Lorazepam (Ativan) 0.5 mg Q6H PRN IV ANXIETY Last administered on 02/13/17 11: 26; Admin Dose 0.5 MG; Start 02/10/17 at 12:30 Ondansetron HCl (Zofran Inj) 4 mg Q6H PRN IV NAUSEA AND/OR VOMITING Last administered on 02/18/17 03:15; Admin Dose 4 MG; Start 02/10/17 at 12:30 Acetaminophen (Tylenol Tab) 650 mg Q6H PRN PO PAIN LEVEL 1-3 OR FEVER Last administered on 02/18/17 13:42; Admin Dose 650 MG; Start 02/10/17 at 12:30 Acetaminophen/ Hydrocodone Bitart ([place] (5/325)) 1 tab Q6H PRN PO PAIN LEVEL 4 -6; Start 02/10/17 at 12:30 Morphine Sulfate (morphine) 2 mg Q4H PRN IV PAIN LEVEL 7-10 Last administered on 02/13/17 10:10; Admin Dose 2 MG; Start 02/10/17 at 12:30 Miscellaneous Information 1 ea NOTE XX ; Start 02/10/17 at 13:30 Glucose (Glutose) 15 gm Q15M PRN PO DECREASED GLUCOSE; Start 02/10/17 at 13:30 Glucose (Glutose) 22.5 gm Q15M PRN PO DECREASED GLUCOSE; Start 02/10/17 at 13: 30 Dextrose (D50w Syringe) 25 ml Q15M PRN IV DECREASED GLUCOSE Last administered on 02/15/17 17:53; Admin Dose 25 ML; Start 02/10/17 at 13:30 Dextrose (D50w Syringe) 50 ml Q15M PRN IV DECREASED GLUCOSE Last administered on 02/16/17 16:21; Admin Dose 50 ML; Start 02/10/17 at 13:30 Glucagon (Glucagen) 1 mg Q15M PRN IM DECREASED GLUCOSE; Start 02/10/17 at 13:30 Glucose 15 gm 15 gm Q15M PRN BUCCAL DECREASED GLUCOSE; Start 02/10/17 at 13:30 Norepinephrine 16 mg/Dextrose 500 ml @ 0 mls/hr TITRATE IV ; Start 02/10/17 at 21:00 Dopamine HCl/ Dextrose (D5W) 250 ml @ 1.7 mls/hr TITRATE IV Last administered on 02/12/17 04:51; Admin Dose 11.07 MLS/HR; Start 02/10/17 at 18:00 Pantoprazole (Protonix Iv) 40 mg BID@,18 IV Last administered on 02/19/17 06 :05; Admin Dose 40 MG; Start 02/11/17 at 06:00 Ticagrelor (Brilinta) 90 mg BID PO Last administered on 02/19/17 08:15; Admin Dose 90 MG; Start 02/11/17 at 12:00 Aspirin (Halfprin) 81 mg DAILY PO Last administered on 02/19/17 08:13; Admin Dose 81 MG; Start 02/11/17 at 12:00 Atorvastatin Calcium 80 mg 80 mg HS NGT Last administered on 02/18/17 21:43; Admin Dose 80 MG; Start 02/11/17 at 21:00 Dextrose/Sodium Chloride 1,000 ml @ 75 mls/hr [id number] IV Last administered on 02/18/17 21:43; Admin Dose 75 MLS/HR; Start 02/12/17 at 21:30 Fentanyl 100 ml @ 2.5 mls/hr TITRATE IV Last administered on 02/19/17 02:57; Admin Dose 7 MLS/HR; Start 02/13/17 at 11:30 Midazolam HCl 50 ml @ 1 mls/hr TITRATE IV Last administered on 02/17/17 22:58 ; Admin Dose 3 MLS/HR; Start 02/14/17 at 23:00 Piperacillin Sod/ Tazobactam Sod (Zosyn 2.25gm/ 50ml (Pmx)) 50 ml @ 200 mls/hr Q8 IVPB Last administered on 02/19/17 06:05; Admin Dose 200 MLS/HR; Start at 13:00 Vancomycin HCl (Vancomycin Oral Syringe) 250 mg Q6 NGT Last administered on 06:05; Admin Dose 250 MG; Start 02/15/17 at 18:00 IV Flush (NS 10 ml) 10 ml PRN PRN IV FLUSH LINE; Start 02/15/17 at 20:00 Insulin Aspart (Novolog Insulin Pen) NOVOLOG *MILD* ALGORI... Q6 SC ; Start at 06:00 ELY ALVARADO Feb 19, 2017 12:21
[2017-02-19] MEDS: DEXTROSE 5%-0.45% NACL 1,000 ML IV SCH (12:58)
[2017-02-19] MEDS ORDERED: AMIODARONE 900 MG in DEXTROSE 5% 482 ML IV SCH (13:00)
--- NOTE | 2017-02-19 13:52 | CONS ---
Date/Time of Note Date/Time of Note DATE: 02/19/17 TIME: 13:33 Assessment/Plan Assessment/Plan Additional Assessment/Plan 1. Oliguric acute kidney injury, likely secondary to ischemic acute tubular necrosis from ST-elevation myocardial infarction and cardiogenic shock. did not improve,d started on HD on 02/14/17 due to Oliguric NEFTALI with fluid overload - Cr 6.41 today - HD yesterday- 2 L moved 2. Cardiogenic shock. 3. A-fIB - PER CARDIOLOGY - Amiodarone gtt 0.50 3. Acute respiratory failure from cardiac arrest, currently intubated on ventilator. - Fentanyl 70 mcg/hr 4. Metabolic acidosis secondary to acute renal failure. 5. Transaminitis- per primary -dw staff. 5. No significant past medical history, as per the family. PLAN: started on HD for fluid overload, and acute renal failure during this admission pt remains intubated, not waking up off sedation CXR showed infiltrates no congestion BP stable HD yesterday 2 L removed will follow up pt likely will be fdc HD patient Theo Amos Consultation Date/Type/Reason Admit Date/Time Feb 10, 2017 at 08:37 Initial Consult Date 02/13/17 Type of Consultation: Pulmonary/critical care Referring Provider: HUBERT KUNZ SENIOR ARCHITECTURAL DESIGNER 24 HR Interval Summary Subjective hx not possible: pt non-verbal, pt critical, pt critical status Constitutional: requiring IVF, requiring O2 Exam/Review of Systems Vital Signs Vitals Vital Signs Date Time Temp Pulse Resp B/P Pulse Ox O2 Delivery O2 Flow Rate FiO2 02/19/17 09:00 80 20 111/64 100 Mechanical Ventilator 02/19/17 08:00 99.0 02/19/17 08:00 80 Intake and Output 02/18/17 02/18/17 02/19/17 15:00 23:00 07:00 Intake Total 1594.244 ml 873.754 ml 690.9 ml Output Total 2320 ml 150 ml 500 ml Balance -725.756 ml 723.754 ml 190.9 ml Exam Constitutional: non-verbal Respiratory: diminished breath sounds, other (intubated- on vent) Cardiovascular: nl pulses, other Gastrointestinal: non-tender, soft Musculoskeletal: swelling Extremities: edema (pitting edema BUE/BLE) Neurological: unresponsive Results Result Diagram: 02/19/17 0430 02/19/17 0430 Results 24 hrs Laboratory Tests Test 02/18/17 18:07 02/19/17 00:53 02/19/17 04:30 02/19/17 06:00 Bedside Glucose 132 106 White Blood Count 17.9 #H Red Blood Count 2.62 L Hemoglobin 8.3 L Hematocrit 24.6 L Mean Corpuscular Volume 93.9 Mean Corpuscular Hemoglobin 31.7 Mean Corpuscular Hemoglobin Concent 33.7 Red Cell Distribution Width 15.5 H Platelet Count 445 #H Mean Platelet Volume 10.5 H Neutrophils % 84.2 H Lymphocytes % 5.5 L Monocytes % 5.3 Eosinophils % 1.7 Basophils % 0.1 Nucleated Red Blood Cells % 0.0 Neutrophils # 15.0 H Lymphocytes # 1.0 Monocytes # 0.9 Eosinophils # 0.3 Basophils # 0.0 Nucleated Red Blood Cells # 0.0 Sodium Level 129 L Potassium Level 4.6 Chloride Level 94 L Carbon Dioxide Level 18 L Anion Gap 22 H Blood Urea Nitrogen 43 #H Creatinine 6.41 H Glucose Level 104 Calcium Level 7.0 L Total Bilirubin 1.3 Direct Bilirubin 1.20 H Indirect Bilirubin 0.1 Aspartate Amino Transf (AST/SGOT) 350 #H Alanine Aminotransferase (ALT/SGPT) 142 H Alkaline Phosphatase 952 H Total Protein 7.0 Albumin 3.4 Globulin 3.60 H Albumin/Globulin Ratio 0.94 Blood Gas Specimen Source Blood arterial Arterial Blood Date Drawn 02/19/2017 6:10:24 AM Arterial Blood pH (Temp corrected) 7.333 L Arterial Blood pCO2 (Temp correct) 41.9 Arterial Blood pO2 (Temp corrected) 100.7 H Arterial Blood HCO3 21.7 L Arterial Blood Base Excess -3.9 L Arterial Blood Oxygen Saturation 96.3 Tirso Test ACCEPTAB Arterial Blood Gas Puncture Site Right Radial Arterial Blood Carboxyhemoglobin 0.3 Arterial Blood Methemoglobin 0.1 Blood Gas A-a O2 Differential 425.7 H Oxyhemoglobin Percent 95.9 Total Hemoglobin 10.0 L Blood Gas Temperature 37.0 Blood Gas Respiration Rate 20.0 Blood Gas Actual Respiration Rate 20 Blood Gas Modality VENT - AC FiO2 80.0 Blood Gas Tidal Volume 600.0 Blood Gas Low PEEP Setting 10.0 Blood Gas Notified Whom KB Blood Gas Notified Time 02/19/2017 6:21:45 AM Test 02/19/17 06:04 02/19/17 12:57 Bedside Glucose 117 109 Medications Medications Current Medications Propofol 100 ml @ 2.727 mls/ hr Q12H IV Last administered on 02/18/17 15:17; Admin Dose 10.908 MLS/HR; Start 02/10/17 at 10:00 Phenylephrine HCl/ Dextrose (Zach-Syneph/D5W) 500 ml @ 18.75 mls/ hr TITRATE IV Last administered on 02/10/17 13:22; Admin Dose 26.25 MLS/HR; Start 02/10/17 at 13:00 Lorazepam (Ativan) 0.5 mg Q6H PRN IV ANXIETY Last administered on 02/13/17 11: 26; Admin Dose 0.5 MG; Start 02/10/17 at 12:30 Ondansetron HCl (Zofran Inj) 4 mg Q6H PRN IV NAUSEA AND/OR VOMITING Last administered on 02/18/17 03:15; Admin Dose 4 MG; Start 02/10/17 at 12:30 Acetaminophen (Tylenol Tab) 650 mg Q6H PRN PO PAIN LEVEL 1-3 OR FEVER Last administered on 02/18/17 13:42; Admin Dose 650 MG; Start 02/10/17 at 12:30 Acetaminophen/ Hydrocodone Bitart ([place] (5/325)) 1 tab Q6H PRN PO PAIN LEVEL 4 -6; Start 02/10/17 at 12:30 Morphine Sulfate (morphine) 2 mg Q4H PRN IV PAIN LEVEL 7-10 Last administered on 02/13/17 10:10; Admin Dose 2 MG; Start 02/10/17 at 12:30 Miscellaneous Information 1 ea NOTE XX ; Start 02/10/17 at 13:30 Glucose (Glutose) 15 gm Q15M PRN PO DECREASED GLUCOSE; Start 02/10/17 at 13:30 Glucose (Glutose) 22.5 gm Q15M PRN PO DECREASED GLUCOSE; Start 02/10/17 at 13: 30 Dextrose (D50w Syringe) 25 ml Q15M PRN IV DECREASED GLUCOSE Last administered on 02/15/17 17:53; Admin Dose 25 ML; Start 02/10/17 at 13:30 Dextrose (D50w Syringe) 50 ml Q15M PRN IV DECREASED GLUCOSE Last administered on 02/16/17 16:21; Admin Dose 50 ML; Start 02/10/17 at 13:30 Glucagon (Glucagen) 1 mg Q15M PRN IM DECREASED GLUCOSE; Start 02/10/17 at 13:30 Glucose 15 gm 15 gm Q15M PRN BUCCAL DECREASED GLUCOSE; Start 02/10/17 at 13:30 Norepinephrine 16 mg/Dextrose 500 ml @ 0 mls/hr TITRATE IV ; Start 02/10/17 at 21:00 Dopamine HCl/ Dextrose (D5W) 250 ml @ 1.7 mls/hr TITRATE IV Last administered on 02/12/17 04:51; Admin Dose 11.07 MLS/HR; Start 02/10/17 at 18:00 Pantoprazole (Protonix Iv) 40 mg BID@06,18 IV Last administered on 02/19/17 06 :05; Admin Dose 40 MG; Start 02/11/17 at 06:00 Ticagrelor (Brilinta) 90 mg BID PO Last administered on 02/19/17 08:15; Admin Dose 90 MG; Start 02/11/17 at 12:00 Aspirin (Halfprin) 81 mg DAILY PO Last administered on 02/19/17 08:13; Admin Dose 81 MG; Start 02/11/17 at 12:00 Atorvastatin Calcium 80 mg 80 mg HS NGT Last administered on 02/18/17 21:43; Admin Dose 80 MG; Start 02/11/17 at 21:00 Dextrose/Sodium Chloride 1,000 ml @ 75 mls/hr [id number] IV Last administered on 02/19/17 12:58; Admin Dose 75 MLS/HR; Start 02/12/17 at 21:30 Fentanyl 100 ml @ 2.5 mls/hr TITRATE IV Last administered on 02/19/17 02:57; Admin Dose 7 MLS/HR; Start 02/13/17 at 11:30 Midazolam HCl 50 ml @ 1 mls/hr TITRATE IV Last administered on 02/17/17 22:58 ; Admin Dose 3 MLS/HR; Start 02/14/17 at 23:00 Piperacillin Sod/ Tazobactam Sod (Zosyn 2.25gm/ 50ml (Pmx)) 50 ml @ 200 mls/hr Q8 IVPB Last administered on 02/19/17 06:05; Admin Dose 200 MLS/HR; Start at 13:00 Vancomycin HCl (Vancomycin Oral Syringe) 250 mg Q6 NGT Last administered on 12:57; Admin Dose 250 MG; Start 02/15/17 at 18:00 IV Flush (NS 10 ml) 10 ml PRN PRN IV FLUSH LINE; Start 02/15/17 at 20:00 Insulin Aspart NOVOLOG *MILD* ALGORI... Q6 SC ; Start 02/18/17 at 06:00 Amiodarone HCl/ Dextrose (Cordarone Iv/ D5W) 500 ml @ 16.7 mls/hr Q24H IV Last administered on 02/19/17 13:27; Admin Dose 16.7 MLS/HR; Start 02/19/17 at 13:00 JOSEY AVILA Feb 19, 2017 13:44
--- NOTE | 2017-02-19 14:11 | CONS ---
Date/Time of Note Date/Time of Note DATE: 02/19/17 TIME: 14:09 Assessment/Plan Assessment/Plan Additional Assessment/Plan S/p Cardiac Arrest CAD s/p PCI of OM, s/p IABP Atrial fibrillation with RVR Renal failure on HD VDRF Severe encephalopathy Cardioembolic stroke involving martines radiata Anemia In sinus rhythm Clinically non responsive Continue amiodarone Continue Vent Support and pulmonary toiletry Continue HD as scheduled Continue Brilinta and ASA Continue Lipitor Consultation Date/Type/Reason Admit Date/Time Feb 10, 2017 at 08:37 Initial Consult Date 02/13/17 Type of Consultation: Pulmonary/critical care Referring Provider: HUBERT KUNZ SECURITY OFFICER SUPERVISOR Exam/Review of Systems Vital Signs Vitals Vital Signs Date Time Temp Pulse Resp B/P Pulse Ox O2 Delivery O2 Flow Rate FiO2 02/19/17 09:00 80 20 111/64 100 Mechanical Ventilator 02/19/17 08:00 99.0 02/19/17 08:00 80 Intake and Output 02/18/17 02/18/17 02/19/17 15:00 23:00 07:00 Intake Total 1594.244 ml 873.754 ml 690.9 ml Output Total 2320 ml 150 ml 500 ml Balance -725.756 ml 723.754 ml 190.9 ml Exam Constitutional: non-verbal, other (Intubated) Respiratory: other (Mechanical breath sounds heard bilaterally) Cardiovascular: regular rate and rhythm Gastrointestinal: nl liver, spleen, non-tender, soft Extremities: normal pulses Results Result Diagram: 02/19/17 0430 02/19/17 0430 Results 24 hrs Laboratory Tests Test 02/18/17 18:07 02/19/17 00:53 02/19/17 04:30 02/19/17 06:00 Bedside Glucose 132 106 White Blood Count 17.9 #H Red Blood Count 2.62 L Hemoglobin 8.3 L Hematocrit 24.6 L Mean Corpuscular Volume 93.9 Mean Corpuscular Hemoglobin 31.7 Mean Corpuscular Hemoglobin Concent 33.7 Red Cell Distribution Width 15.5 H Platelet Count 445 #H Mean Platelet Volume 10.5 H Neutrophils % 84.2 H Lymphocytes % 5.5 L Monocytes % 5.3 Eosinophils % 1.7 Basophils % 0.1 Nucleated Red Blood Cells % 0.0 Neutrophils # 15.0 H Lymphocytes # 1.0 Monocytes # 0.9 Eosinophils # 0.3 Basophils # 0.0 Nucleated Red Blood Cells # 0.0 Sodium Level 129 L Potassium Level 4.6 Chloride Level 94 L Carbon Dioxide Level 18 L Anion Gap 22 H Blood Urea Nitrogen 43 #H Creatinine 6.41 H Glucose Level 104 Calcium Level 7.0 L Total Bilirubin 1.3 Direct Bilirubin 1.20 H Indirect Bilirubin 0.1 Aspartate Amino Transf (AST/SGOT) 350 #H Alanine Aminotransferase (ALT/SGPT) 142 H Alkaline Phosphatase 952 H Total Protein 7.0 Albumin 3.4 Globulin 3.60 H Albumin/Globulin Ratio 0.94 Blood Gas Specimen Source Blood arterial Arterial Blood Date Drawn 02/19/2017 6:10:24 AM Arterial Blood pH (Temp corrected) 7.333 L Arterial Blood pCO2 (Temp correct) 41.9 Arterial Blood pO2 (Temp corrected) 100.7 H Arterial Blood HCO3 21.7 L Arterial Blood Base Excess -3.9 L Arterial Blood Oxygen Saturation 96.3 Tirso Test ACCEPTAB Arterial Blood Gas Puncture Site Right Radial Arterial Blood Carboxyhemoglobin 0.3 Arterial Blood Methemoglobin 0.1 Blood Gas A-a O2 Differential 425.7 H Oxyhemoglobin Percent 95.9 Total Hemoglobin 10.0 L Blood Gas Temperature 37.0 Blood Gas Respiration Rate 20.0 Blood Gas Actual Respiration Rate 20 Blood Gas Modality VENT - AC FiO2 80.0 Blood Gas Tidal Volume 600.0 Blood Gas Low PEEP Setting 10.0 Blood Gas Notified Whom KB Blood Gas Notified Time 02/19/2017 6:21:45 AM Test 02/19/17 06:04 02/19/17 12:57 Bedside Glucose 117 109 Medications Medications Current Medications Propofol 100 ml @ 2.727 mls/ hr Q12H IV Last administered on 02/18/17 15:17; Admin Dose 10.908 MLS/HR; Start 02/10/17 at 10:00 Phenylephrine HCl/ Dextrose (Zach-Syneph/D5W) 500 ml @ 18.75 mls/ hr TITRATE IV Last administered on 02/10/17 13:22; Admin Dose 26.25 MLS/HR; Start 02/10/17 at 13:00 Lorazepam (Ativan) 0.5 mg Q6H PRN IV ANXIETY Last administered on 02/13/17 11: 26; Admin Dose 0.5 MG; Start 02/10/17 at 12:30 Ondansetron HCl (Zofran Inj) 4 mg Q6H PRN IV NAUSEA AND/OR VOMITING Last administered on 02/18/17 03:15; Admin Dose 4 MG; Start 02/10/17 at 12:30 Acetaminophen (Tylenol Tab) 650 mg Q6H PRN PO PAIN LEVEL 1-3 OR FEVER Last administered on 02/18/17 13:42; Admin Dose 650 MG; Start 02/10/17 at 12:30 Acetaminophen/ Hydrocodone Bitart ([place] (5/325)) 1 tab Q6H PRN PO PAIN LEVEL 4 -6; Start 02/10/17 at 12:30 Morphine Sulfate (morphine) 2 mg Q4H PRN IV PAIN LEVEL 7-10 Last administered on 02/13/17 10:10; Admin Dose 2 MG; Start 02/10/17 at 12:30 Miscellaneous Information 1 ea NOTE XX ; Start 02/10/17 at 13:30 Glucose (Glutose) 15 gm Q15M PRN PO DECREASED GLUCOSE; Start 02/10/17 at 13:30 Glucose (Glutose) 22.5 gm Q15M PRN PO DECREASED GLUCOSE; Start 02/10/17 at 13: 30 Dextrose (D50w Syringe) 25 ml Q15M PRN IV DECREASED GLUCOSE Last administered on 02/15/17 17:53; Admin Dose 25 ML; Start 02/10/17 at 13:30 Dextrose (D50w Syringe) 50 ml Q15M PRN IV DECREASED GLUCOSE Last administered on 02/16/17 16:21; Admin Dose 50 ML; Start 02/10/17 at 13:30 Glucagon (Glucagen) 1 mg Q15M PRN IM DECREASED GLUCOSE; Start 02/10/17 at 13:30 Glucose 15 gm 15 gm Q15M PRN BUCCAL DECREASED GLUCOSE; Start 02/10/17 at 13:30 Norepinephrine 16 mg/Dextrose 500 ml @ 0 mls/hr TITRATE IV ; Start 02/10/17 at 21:00 Dopamine HCl/ Dextrose (D5W) 250 ml @ 1.7 mls/hr TITRATE IV Last administered on 02/12/17 04:51; Admin Dose 11.07 MLS/HR; Start 02/10/17 at 18:00 Pantoprazole (Protonix Iv) 40 mg BID@06,18 IV Last administered on 02/19/17 06 :05; Admin Dose 40 MG; Start 02/11/17 at 06:00 Ticagrelor (Brilinta) 90 mg BID PO Last administered on 02/19/17 08:15; Admin Dose 90 MG; Start 02/11/17 at 12:00 Aspirin (Halfprin) 81 mg DAILY PO Last administered on 02/19/17 08:13; Admin Dose 81 MG; Start 02/11/17 at 12:00 Atorvastatin Calcium 80 mg 80 mg HS NGT Last administered on 02/18/17 21:43; Admin Dose 80 MG; Start 02/11/17 at 21:00 Dextrose/Sodium Chloride 1,000 ml @ 75 mls/hr [id number] IV Last administered on 02/19/17 12:58; Admin Dose 75 MLS/HR; Start 02/12/17 at 21:30 Fentanyl 100 ml @ 2.5 mls/hr TITRATE IV Last administered on 02/19/17 02:57; Admin Dose 7 MLS/HR; Start 02/13/17 at 11:30 Midazolam HCl 50 ml @ 1 mls/hr TITRATE IV Last administered on 02/17/17 22:58 ; Admin Dose 3 MLS/HR; Start 02/14/17 at 23:00 Piperacillin Sod/ Tazobactam Sod (Zosyn 2.25gm/ 50ml (Pmx)) 50 ml @ 200 mls/hr Q8 IVPB Last administered on 02/19/17 13:50; Admin Dose 200 MLS/HR; Start at 13:00 Vancomycin HCl (Vancomycin Oral Syringe) 250 mg Q6 NGT Last administered on 12:57; Admin Dose 250 MG; Start 02/15/17 at 18:00 IV Flush (NS 10 ml) 10 ml PRN PRN IV FLUSH LINE; Start 02/15/17 at 20:00 Insulin Aspart NOVOLOG *MILD* ALGORI... Q6 SC ; Start 02/18/17 at 06:00 Amiodarone HCl/ Dextrose (Cordarone Iv/ D5W) 500 ml @ 16.7 mls/hr Q24H IV Last administered on 02/19/17 13:27; Admin Dose 16.7 MLS/HR; Start 02/19/17 at 13:00 ALEXANDER ROJO M.D. Feb 19, 2017 14:11
[2017-02-19 14:38] LABS: ADD SCAN DIFF NO
[2017-02-19 14:57] LABS: BASOPHILS % 0.1 % (0.0-2.0); EOSINOPHILS # 0.4 10^3/ul (0.0-0.5); EOSINOPHILS % 2.5 % (0.0-7.0); LYMPHOCYTES # 0.9 10^3/ul (0.8-2.9); LYMPHOCYTES % 5.2 % (15.0-51.0); MEAN CORPUSCULAR VOLUME 90.3 fl (82.0-101.0); MEAN PLATELET VOLUME 9.8 fl (7.4-10.4); MONOCYTE # 0.8 10^3/ul (0.3-0.9); MONOCYTES % 4.6 % (0.0-11.0); NEUTROPHIL # 13.9 10^3/ul (1.6-7.5); NEUTROPHILS % 83.2 % (39.0-77.0); NUCLEATED RED BLOOD CELLS% 0.1 /100WBC (0.0-0.0); PLATELET COUNT 422 10^3/UL (140-415); RED BLOOD COUNT 2.59 10^6/ul (4.70-6.10); RED CELL DISTRIBUTION WIDTH 15.2 % (11.5-14.5); WHITE BLOOD COUNT 16.7 10^3/ul (4.8-10.8)
[2017-02-19] MEDS: AMIODARONE 200 MG TAB PO SCH ×2 (14:58→20:54)
--- NOTE | 2017-02-19 15:12 | RADRPT ---
PROCEDURE: US bilateral lower extremity veins. CLINICAL INDICATION: Bilateral leg pain and swelling. TECHNIQUE: Multiple longitudinal and transverse images of the bilateral lower extremity veins were obtained with story scale and color Doppler imaging. The common femoral vein, femoral vein, and popl iteal vein were evaluated. 2D grayscale measurements with compression sonography, color Doppler, and pulsed Doppler with augmentation. COMPARISON: No prior studies are available for comparison. FINDINGS: The bilateral common femoral, femoral and popliteal veins are normally compressible throughout. Col or flow demonstrates normal filling of the vessels. Normal waveforms are visualized and there is no rmal response to augmentation. There is edema of the subcutaneous tissues of the calves. IMPRESSION: 1. No evidence of deep vein thrombosis involving either lower extremity. 2. Edema of the subcutaneous tissues of the calves. RPTAT: QQ .Gt Johnson MD, Date Time Electronically viewed and signed by .Gt Johnson MD, on 02/19/2017 15:12 .R/
[2017-02-19 15:39] LABS: HEMATOCRIT 22.7 % (42.0-52.0); HEMOGLOBIN 7.9 g/dl (14.0-18.0); MEAN CORPUSCULAR HEMOGLOBIN 31.3 pg (29.0-33.0); MEAN CORPUSCULAR HGB CONC 34.8 g/dl (32.0-37.0)
[2017-02-19] MEDS: ATORVASTATIN 80 MG TAB NGT SCH (20:53)
[2017-02-19] MEDS: PROPOFOL 100 ML IV SCH (22:00)
[2017-02-20] VITALS (44 sets, daily range): BP systolic 115–160; BP diastolic 63–98; PULSE 51–120; RESP 18–27
[2017-02-20] MEDS: DEXTROSE 5%-0.45% NACL 1,000 ML IV SCH ×3 (01:01→22:15)
[2017-02-20 04:49] LABS: ADD SCAN DIFF NO
[2017-02-20 04:54] LABS: BASOPHILS % 0.2 % (0.0-2.0); EOSINOPHILS # 0.5 10^3/ul (0.0-0.5); EOSINOPHILS % 2.4 % (0.0-7.0); MEAN PLATELET VOLUME 9.7 fl (7.4-10.4); MONOCYTES % 5.1 % (0.0-11.0); NEUTROPHIL # 16.4 10^3/ul (1.6-7.5); NEUTROPHILS % 82.5 % (39.0-77.0); NUCLEATED RED BLOOD CELLS% 0.2 /100WBC (0.0-0.0); PLATELET COUNT 458 10^3/UL (140-415); RED CELL DISTRIBUTION WIDTH 15.2 % (11.5-14.5); WHITE BLOOD COUNT 19.8 10^3/ul (4.8-10.8)
[2017-02-20 05:15] LABS: ALBUMIN 2.6 g/dl (3.3-4.9); BILIRUBIN,DIRECT 1.1 mg/dl (0.00-0.20); BILIRUBIN,TOTAL 1.1 mg/dl (0.2-1.3); TOTAL PROTEIN 5.5 g/dl (6.1-8.1)
[2017-02-20 05:19] LABS: CALCIUM 6.5 mg/dl (8.4-10.2); POTASSIUM 4.1 mmol/L (3.5-5.1)
[2017-02-20 05:24] LABS: CREATININE 6.83 mg/dl (0.61-1.24)
[2017-02-20] MEDS: VANCOMYCIN HCL 250 MG/5ML POSYG NGT SCH ×3 (05:26→18:50)
[2017-02-20] MEDS: PIPER-TAZO 2.25 GM (PMX) 50 ML IVPB SCH ×3 (05:26→21:52)
[2017-02-20] MEDS: PANTOPRAZOLE 40 MG INJ IV SCH ×2 (05:26→18:50)
[2017-02-20] MEDS: INSULIN ASPART [NOVOLOG] 3 ML PEN SC SCH ×3 (05:29→18:00)
[2017-02-20 05:41] LABS: RED BLOOD COUNT 2.89 10^6/ul (4.70-6.10)
[2017-02-20 05:42] LABS: HEMOGLOBIN 8.7 g/dl (14.0-18.0); MEAN CORPUSCULAR HEMOGLOBIN 30.1 pg (29.0-33.0); MEAN CORPUSCULAR HGB CONC 33.5 g/dl (32.0-37.0)
[2017-02-20] MEDS: ONDANSETRON 4 MG INJ IV PRN (06:13)
[2017-02-20] MEDS: FENTAnyl (DRIP) 1000 mcg/100mL 100 ML IV SCH (07:00)
[2017-02-20] MEDS: ASPIRIN (EC) 81 MG TAB PO SCH (08:18)
[2017-02-20] MEDS: AMIODARONE 200 MG TAB PO SCH ×2 (08:18→20:26)
[2017-02-20] MEDS: TICAGRELOR 90 MG TABLET PO SCH ×2 (08:19→20:27)
[2017-02-20] MEDS: PROPOFOL 100 ML IV SCH ×2 (10:00→22:00)
--- NOTE | 2017-02-20 10:37 | PN ---
Date/Time of Note Date/Time of Note DATE: 02/20/17 TIME: 10:30 Assessment/Plan VTE Prophylaxis VTE Prophylaxis Intervention: SCD's Lines/Catheters IV Catheter Type (from Nrs): PICC Line Central line still needed: Yes Urinary Cath still in place: Yes Reason Cath still needed: other (indicate) Assessment/Plan Chief Complaint/Hosp Course Assessment/Plan 66-year-old male who presented to the emergency room after witnessed cardiac arrest at work found to have ST elevation myocardial infarction managed as follows: 1. Cardiac arrest. Status post left heart catheterization and coronary angioplasty with placement of a stent and placement of intraaortic balloon pump. EEG: consistent with encephalopathy without epileptiform discharges * apparently not a candidate for hypothermia protocol since he was noticed to be moving postangioplasty 2. S/p Cardiogenic shock: now off pressor support Continue to monitor 3. Severe CAD with preserved EF 55%. Status post coronary artery stenting. Continue aggressive medical management, cardiology consulted 4. Sepsis 2/2 UTI + C diff . Continue vancomycin, infectious disease doctor consulted 5. Acute renal failure - multifactorial - 2/2 to cardiogenic shock - sepsis. Nonoliguric. Unknown baseline creatinine. Now on HD Hemodialysis as per nephrology recommendations 6. Transaminitis likely secondary to shock liver superimposed on mild chronic liver disease from substance abuse Continue to monitor liver function test 7. Chronic substance abuse with tox screen positive for amphetamines which likely precipitated #1 8. Normocytic anemia of chronic kidney disease: Stable 9. Hyponatremia: Nephrology has been consulted, follow his recommendations 10. Hypocalcemia: improved 11. Tiny cardioembolic right-sided CVA not likely to cause hypoxicischemic ischemic encephalopathy per neurology 12. Acute encephalopathy likely multifactorial in origin We will continue monitor patient closely for recommendation management treatment as clinical course Problems: Subjective 24 Hr Interval Summary Free Text/Dictation Patient remains intubated and sedated Vent settin with FiO2 of 60% with PEEP of 10 When patient is off sedation does not respond to verbal stimuli OG tube feeding has been placed on hold secondary to abdominal distention Exam/Review of Systems Vital Signs Vitals Vital Signs Date Time Temp Pulse Resp B/P Pulse Ox O2 Delivery O2 Flow Rate FiO2 02/20/17 09:13 88 20 98 70 02/20/17 09:00 126/71 Mechanical Ventilator 02/20/17 08:00 98.8 Intake and Output 02/19/17 02/19/17 02/20/17 15:00 23:00 07:00 Intake Total 822.9 ml 706 ml 856 ml Output Total 0 ml 190 ml 10 ml Balance 822.9 ml 516 ml 846 ml Exam General: The patient is morbidly obese, sedated and intubated HEENT: Atraumatic, normocephalic. The pupils are equal and symmetric Neck: Supple Chest: Normal Lungs: Decreased breath sounds bilateral lower lung field with positive rhonchi Heart: Normal S1-S2, Abdomen: Soft , nontender, mildly distended , bowel sounds are present. Extremities: Normal to inspection, +1 edema no cyanosis Neurologic: Sedated, although during sedation holiday patient does not respond to verbal stimuli Results Result Diagram: 02/20/17 0415 02/20/17 0415 Results 24 hrs Laboratory Tests Test 02/19/17 12:57 02/19/17 14:30 02/19/17 17:25 02/19/17 23:30 Bedside Glucose 109 106 90 White Blood Count 16.7 H Red Blood Count 2.59 L Hemoglobin 7.9 L Hematocrit 22.7 L Mean Corpuscular Volume 90.3 Mean Corpuscular Hemoglobin 31.3 Mean Corpuscular Hemoglobin Concent 34.8 Red Cell Distribution Width 15.2 H Platelet Count 422 H Mean Platelet Volume 9.8 Neutrophils % 83.2 H Lymphocytes % 5.2 L Monocytes % 4.6 Eosinophils % 2.5 Basophils % 0.1 Nucleated Red Blood Cells % 0.1 H Neutrophils # 13.9 H Lymphocytes # 0.9 Monocytes # 0.8 Eosinophils # 0.4 Basophils # 0.0 Nucleated Red Blood Cells # 0.0 Test 02/20/17 04:15 02/20/17 05:28 White Blood Count 19.8 H Red Blood Count 2.89 L Hemoglobin 8.7 L Hematocrit 26.0 L Mean Corpuscular Volume 90.0 Mean Corpuscular Hemoglobin 30.1 Mean Corpuscular Hemoglobin Concent 33.5 Red Cell Distribution Width 15.2 H Platelet Count 458 H Mean Platelet Volume 9.7 Neutrophils % 82.5 H Lymphocytes % 5.0 L Monocytes % 5.1 Eosinophils % 2.4 Basophils % 0.2 Nucleated Red Blood Cells % 0.2 H Neutrophils # 16.4 H Lymphocytes # 1.0 Monocytes # 1.0 H Eosinophils # 0.5 Basophils # 0.0 Nucleated Red Blood Cells # 0.0 Sodium Level 123 L Potassium Level 4.1 Chloride Level 90 L Carbon Dioxide Level 16 L Anion Gap 21 H Blood Urea Nitrogen 56 H Creatinine 6.83 H Glucose Level 82 Calcium Level 6.5 L Total Bilirubin 1.1 Direct Bilirubin 1.10 H Indirect Bilirubin 0.0 Aspartate Amino Transf (AST/SGOT) 503 H Alanine Aminotransferase (ALT/SGPT) 176 H Alkaline Phosphatase 1038 H Total Protein 5.5 #L Albumin 2.6 L Bedside Glucose 121 Medications Medications Current Medications Propofol 100 ml @ 2.727 mls/ hr Q12H IV Last administered on 02/18/17 15:17; Admin Dose 10.908 MLS/HR; Start 02/10/17 at 10:00 Phenylephrine HCl/ Dextrose (Zach-Syneph/D5W) 500 ml @ 18.75 mls/ hr TITRATE IV Last administered on 02/10/17 13:22; Admin Dose 26.25 MLS/HR; Start 02/10/17 at 13:00 Lorazepam (Ativan) 0.5 mg Q6H PRN IV ANXIETY Last administered on 02/13/17 11: 26; Admin Dose 0.5 MG; Start 02/10/17 at 12:30 Ondansetron HCl (Zofran Inj) 4 mg Q6H PRN IV NAUSEA AND/OR VOMITING Last administered on 02/20/17 06:13; Admin Dose 4 MG; Start 02/10/17 at 12:30 Acetaminophen (Tylenol Tab) 650 mg Q6H PRN PO PAIN LEVEL 1-3 OR FEVER Last administered on 02/18/17 13:42; Admin Dose 650 MG; Start 02/10/17 at 12:30 Acetaminophen/ Hydrocodone Bitart ([place] (5/325)) 1 tab Q6H PRN PO PAIN LEVEL 4 -6; Start 02/10/17 at 12:30 Morphine Sulfate (morphine) 2 mg Q4H PRN IV PAIN LEVEL 7-10 Last administered on 02/13/17 10:10; Admin Dose 2 MG; Start 02/10/17 at 12:30 Miscellaneous Information 1 ea NOTE XX ; Start 02/10/17 at 13:30 Glucose (Glutose) 15 gm Q15M PRN PO DECREASED GLUCOSE; Start 02/10/17 at 13:30 Glucose (Glutose) 22.5 gm Q15M PRN PO DECREASED GLUCOSE; Start 02/10/17 at 13: 30 Dextrose (D50w Syringe) 25 ml Q15M PRN IV DECREASED GLUCOSE Last administered on 02/15/17 17:53; Admin Dose 25 ML; Start 02/10/17 at 13:30 Dextrose (D50w Syringe) 50 ml Q15M PRN IV DECREASED GLUCOSE Last administered on 02/16/17 16:21; Admin Dose 50 ML; Start 02/10/17 at 13:30 Glucagon (Glucagen) 1 mg Q15M PRN IM DECREASED GLUCOSE; Start 02/10/17 at 13:30 Glucose 15 gm 15 gm Q15M PRN BUCCAL DECREASED GLUCOSE; Start 02/10/17 at 13:30 Norepinephrine 16 mg/Dextrose 500 ml @ 0 mls/hr TITRATE IV ; Start 02/10/17 at 21:00 Dopamine HCl/ Dextrose (D5W) 250 ml @ 1.7 mls/hr TITRATE IV Last administered on 02/12/17 04:51; Admin Dose 11.07 MLS/HR; Start 02/10/17 at 18:00 Pantoprazole (Protonix Iv) 40 mg BID@06,18 IV Last administered on 02/20/17 05 :26; Admin Dose 40 MG; Start 02/11/17 at 06:00 Ticagrelor (Brilinta) 90 mg BID PO Last administered on 02/20/17 08:19; Admin Dose 90 MG; Start 02/11/17 at 12:00 Aspirin (Halfprin) 81 mg DAILY PO Last administered on 02/20/17 08:18; Admin Dose 81 MG; Start 02/11/17 at 12:00 Atorvastatin Calcium 80 mg 80 mg HS NGT Last administered on 02/19/17 20:53; Admin Dose 80 MG; Start 02/11/17 at 21:00 Dextrose/Sodium Chloride 1,000 ml @ 75 mls/hr [id number] IV Last administered on 02/20/17 01:01; Admin Dose 75 MLS/HR; Start 02/12/17 at 21:30 Fentanyl 100 ml @ 2.5 mls/hr TITRATE IV Last administered on 02/20/17 07:00; Admin Dose 7 MLS/HR; Start 02/13/17 at 11:30 Midazolam HCl 50 ml @ 1 mls/hr TITRATE IV Last administered on 02/17/17 22:58 ; Admin Dose 3 MLS/HR; Start 02/14/17 at 23:00 Piperacillin Sod/ Tazobactam Sod (Zosyn 2.25gm/ 50ml (Pmx)) 50 ml @ 200 mls/hr Q8 IVPB Last administered on 02/20/17 05:26; Admin Dose 200 MLS/HR; Start at 13:00 Vancomycin HCl (Vancomycin Oral Syringe) 250 mg Q6 NGT Last administered on 05:26; Admin Dose 250 MG; Start 02/15/17 at 18:00 IV Flush (NS 10 ml) 10 ml PRN PRN IV FLUSH LINE; Start 02/15/17 at 20:00 Insulin Aspart (Novolog Insulin Pen) NOVOLOG *MILD* ALGORI... Q6 SC ; Start at 06:00 Amiodarone HCl (Cordarone) 400 mg BID PO Last administered on 02/20/17 08:18; Admin Dose 400 MG; Start 02/19/17 at 14:30 Miscellaneous Information (*Rx Drug Level Order Reminder*) VANCO RANDOM LEVEL... ONCE ONCE XX ; Start 02/21/17 at 05:00; Stop 02/21/17 at 05:01 PAM IRIZARRY MD Feb 20, 2017 10:37
--- NOTE | 2017-02-20 10:58 | CONS ---
Date/Time of Note Date/Time of Note DATE: 02/20/17 TIME: 10:53 Assessment/Plan Assessment/Plan Additional Assessment/Plan Chest x-ray was reviewed from yesterday late morning which is showing bilateral pneumonia with significant pulmonary edema. Endotracheal tube is at an adequate level. Ventilator setting; AC of 20, tidal volume 600, PEEP of 10, 70% FiO2. Patient currently on fentanyl drip at 60 mics per hour. Assessment recommendations; 1. Patient admitted with cardiac arrest status post CPR. 2. Development of severe pulmonary edema as well as severe bilateral pneumonia. 3. Renal failure, on hemodialysis. 5. Significant fluid overload . 6. Paroxysmal atrial fibrillation, patient in sinus rhythm now maintained on enteral amiodarone. 7. Hyponatremia. Continue current treatment. Patient will need to be aggressively dialyzed for severe fluid overload. Currently not in a position to be weaned off from ventilator anytime soon. Gnosis appears guarded. Tube feeding currently on hold due to high residuals. 35 minutes of critical care time was spent evaluating the patient. Consultation Date/Type/Reason Admit Date/Time Feb 10, 2017 at 08:37 Initial Consult Date 02/10/17 Type of Consultation: Pulmonary/critical care Referring Provider: HUBERT KUNZ NP 24 HR Interval Summary Free Text/Dictation Patient condition remains critical. Still requiring full ventilator support at high FiO2. Patient however has remained hemodynamically stable. General exam; elderly male, morbidly obese, orally intubated, sedated. Currently in no distress. Exam/Review of Systems Vital Signs Vitals Vital Signs Date Time Temp Pulse Resp B/P Pulse Ox O2 Delivery O2 Flow Rate FiO2 02/20/17 09:13 88 20 98 70 02/20/17 09:00 126/71 Mechanical Ventilator 02/20/17 08:00 98.8 Intake and Output 02/19/17 02/19/17 02/20/17 15:00 23:00 07:00 Intake Total 822.9 ml 706 ml 856 ml Output Total 0 ml 190 ml 10 ml Balance 822.9 ml 516 ml 846 ml Exam HEENT exam; supple neck, positive JVD. No lymphadenopathy. Midline trachea. No thyromegaly orally intubated. Patient has fair dentition. Pupils are small bilaterally. Chest exam; diminished breath sounds bilaterally. S1-S2 audible, no murmurs. Regular rhythm. Abdomen examination; soft, protuberant. No organomegaly. Bowel sounds are sluggish. Extremity exam; 2+ generalized edema. Pulses 1+. 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 Results Result Diagram: 02/20/17 0415 02/20/17 0415 Results 24 hrs Laboratory Tests Test 02/19/17 12:57 02/19/17 14:30 02/19/17 17:25 02/19/17 23:30 Bedside Glucose 109 106 90 White Blood Count 16.7 H Red Blood Count 2.59 L Hemoglobin 7.9 L Hematocrit 22.7 L Mean Corpuscular Volume 90.3 Mean Corpuscular Hemoglobin 31.3 Mean Corpuscular Hemoglobin Concent 34.8 Red Cell Distribution Width 15.2 H Platelet Count 422 H Mean Platelet Volume 9.8 Neutrophils % 83.2 H Lymphocytes % 5.2 L Monocytes % 4.6 Eosinophils % 2.5 Basophils % 0.1 Nucleated Red Blood Cells % 0.1 H Neutrophils # 13.9 H Lymphocytes # 0.9 Monocytes # 0.8 Eosinophils # 0.4 Basophils # 0.0 Nucleated Red Blood Cells # 0.0 Test 02/20/17 04:15 02/20/17 05:28 White Blood Count 19.8 H Red Blood Count 2.89 L Hemoglobin 8.7 L Hematocrit 26.0 L Mean Corpuscular Volume 90.0 Mean Corpuscular Hemoglobin 30.1 Mean Corpuscular Hemoglobin Concent 33.5 Red Cell Distribution Width 15.2 H Platelet Count 458 H Mean Platelet Volume 9.7 Neutrophils % 82.5 H Lymphocytes % 5.0 L Monocytes % 5.1 Eosinophils % 2.4 Basophils % 0.2 Nucleated Red Blood Cells % 0.2 H Neutrophils # 16.4 H Lymphocytes # 1.0 Monocytes # 1.0 H Eosinophils # 0.5 Basophils # 0.0 Nucleated Red Blood Cells # 0.0 Sodium Level 123 L Potassium Level 4.1 Chloride Level 90 L Carbon Dioxide Level 16 L Anion Gap 21 H Blood Urea Nitrogen 56 H Creatinine 6.83 H Glucose Level 82 Calcium Level 6.5 L Total Bilirubin 1.1 Direct Bilirubin 1.10 H Indirect Bilirubin 0.0 Aspartate Amino Transf (AST/SGOT) 503 H Alanine Aminotransferase (ALT/SGPT) 176 H Alkaline Phosphatase 1038 H Total Protein 5.5 #L Albumin 2.6 L Bedside Glucose 121 Medications Medications Current Medications Propofol 100 ml @ 2.727 mls/ hr Q12H IV Last administered on 02/18/17 15:17; Admin Dose 10.908 MLS/HR; Start 02/10/17 at 10:00 Phenylephrine HCl/ Dextrose (Zach-Syneph/D5W) 500 ml @ 18.75 mls/ hr TITRATE IV Last administered on 02/10/17 13:22; Admin Dose 26.25 MLS/HR; Start 02/10/17 at 13:00 Lorazepam (Ativan) 0.5 mg Q6H PRN IV ANXIETY Last administered on 02/13/17 11: 26; Admin Dose 0.5 MG; Start 02/10/17 at 12:30 Ondansetron HCl (Zofran Inj) 4 mg Q6H PRN IV NAUSEA AND/OR VOMITING Last administered on 02/20/17 06:13; Admin Dose 4 MG; Start 02/10/17 at 12:30 Acetaminophen (Tylenol Tab) 650 mg Q6H PRN PO PAIN LEVEL 1-3 OR FEVER Last administered on 02/18/17 13:42; Admin Dose 650 MG; Start 02/10/17 at 12:30 Acetaminophen/ Hydrocodone Bitart ([place] (5/325)) 1 tab Q6H PRN PO PAIN LEVEL 4 -6; Start 02/10/17 at 12:30 Morphine Sulfate (morphine) 2 mg Q4H PRN IV PAIN LEVEL 7-10 Last administered on 02/13/17 10:10; Admin Dose 2 MG; Start 02/10/17 at 12:30 Miscellaneous Information 1 ea NOTE XX ; Start 02/10/17 at 13:30 Glucose (Glutose) 15 gm Q15M PRN PO DECREASED GLUCOSE; Start 02/10/17 at 13:30 Glucose (Glutose) 22.5 gm Q15M PRN PO DECREASED GLUCOSE; Start 02/10/17 at 13: 30 Dextrose (D50w Syringe) 25 ml Q15M PRN IV DECREASED GLUCOSE Last administered on 02/15/17 17:53; Admin Dose 25 ML; Start 02/10/17 at 13:30 Dextrose (D50w Syringe) 50 ml Q15M PRN IV DECREASED GLUCOSE Last administered on 02/16/17 16:21; Admin Dose 50 ML; Start 02/10/17 at 13:30 Glucagon (Glucagen) 1 mg Q15M PRN IM DECREASED GLUCOSE; Start 02/10/17 at 13:30 Glucose 15 gm 15 gm Q15M PRN BUCCAL DECREASED GLUCOSE; Start 02/10/17 at 13:30 Norepinephrine 16 mg/Dextrose 500 ml @ 0 mls/hr TITRATE IV ; Start 02/10/17 at 21:00 Dopamine HCl/ Dextrose (D5W) 250 ml @ 1.7 mls/hr TITRATE IV Last administered on 02/12/17 04:51; Admin Dose 11.07 MLS/HR; Start 02/10/17 at 18:00 Pantoprazole (Protonix Iv) 40 mg BID@06,18 IV Last administered on 02/20/17 05 :26; Admin Dose 40 MG; Start 02/11/17 at 06:00 Ticagrelor (Brilinta) 90 mg BID PO Last administered on 02/20/17 08:19; Admin Dose 90 MG; Start 02/11/17 at 12:00 Aspirin (Halfprin) 81 mg DAILY PO Last administered on 02/20/17 08:18; Admin Dose 81 MG; Start 02/11/17 at 12:00 Atorvastatin Calcium 80 mg 80 mg HS NGT Last administered on 02/19/17 20:53; Admin Dose 80 MG; Start 02/11/17 at 21:00 Dextrose/Sodium Chloride 1,000 ml @ 75 mls/hr [id number] IV Last administered on 02/20/17 01:01; Admin Dose 75 MLS/HR; Start 02/12/17 at 21:30 Fentanyl 100 ml @ 2.5 mls/hr TITRATE IV Last administered on 02/20/17 07:00; Admin Dose 7 MLS/HR; Start 02/13/17 at 11:30 Midazolam HCl 50 ml @ 1 mls/hr TITRATE IV Last administered on 02/17/17 22:58 ; Admin Dose 3 MLS/HR; Start 02/14/17 at 23:00 Piperacillin Sod/ Tazobactam Sod (Zosyn 2.25gm/ 50ml (Pmx)) 50 ml @ 200 mls/hr Q8 IVPB Last administered on 02/20/17 05:26; Admin Dose 200 MLS/HR; Start at 13:00 Vancomycin HCl (Vancomycin Oral Syringe) 250 mg Q6 NGT Last administered on 05:26; Admin Dose 250 MG; Start 02/15/17 at 18:00 IV Flush (NS 10 ml) 10 ml PRN PRN IV FLUSH LINE; Start 02/15/17 at 20:00 Insulin Aspart (Novolog Insulin Pen) NOVOLOG *MILD* ALGORI... Q6 SC ; Start at 06:00 Amiodarone HCl (Cordarone) 400 mg BID PO Last administered on 02/20/17 08:18; Admin Dose 400 MG; Start 02/19/17 at 14:30 Miscellaneous Information (*Rx Drug Level Order Reminder*) VANCO RANDOM LEVEL... ONCE ONCE XX ; Start 02/21/17 at 05:00; Stop 02/21/17 at 05:01 ANGELINA VALDEZ Feb 20, 2017 10:57
--- NOTE | 2017-02-20 14:27 | CONS ---
Date/Time of Note Date/Time of Note DATE: 02/20/17 TIME: 14:25 Assessment/Plan Assessment/Plan Additional Assessment/Plan S/p Cardiac Arrest CAD s/p PCI of OM, s/p IABP Atrial fibrillation with RVR Renal failure on HD VDRF Severe encephalopathy Cardioembolic stroke involving martines radiata Anemia In sinus rhythm Clinically non responsive Getting HD Off sedation Continue amiodarone Continue Vent Support and pulmonary toiletry Continue HD as scheduled Continue Brilinta and ASA Continue Lipitor Awaiting repeat EEG Consultation Date/Type/Reason Admit Date/Time Feb 10, 2017 at 08:37 Initial Consult Date 02/13/17 Type of Consultation: Pulmonary/critical care Referring Provider: HUBERT KUNZ [employer]GET[employer]NAGER Exam/Review of Systems Vital Signs Vitals Vital Signs Date Time Temp Pulse Resp B/P Pulse Ox O2 Delivery O2 Flow Rate FiO2 02/20/17 14:01 95 02/20/17 13:40 16 02/20/17 13:03 96 70 02/20/17 12:00 98.9 133/69 Mechanical Ventilator Intake and Output 02/19/17 02/19/17 02/20/17 15:00 23:00 07:00 Intake Total 822.9 ml 706 ml 856 ml Output Total 0 ml 190 ml 10 ml Balance 822.9 ml 516 ml 846 ml Exam Constitutional: non-verbal, other (Intubated) Respiratory: other (Mechanical breath sounds heard bilaterally) Cardiovascular: regular rate and rhythm Gastrointestinal: nl liver, spleen, non-tender, soft Extremities: normal pulses Results Result Diagram: 02/20/17 0415 02/20/17 0415 Results 24 hrs Laboratory Tests Test 02/19/17 14:30 02/19/17 17:25 02/19/17 23:30 02/20/17 04:15 White Blood Count 16.7 H 19.8 H Red Blood Count 2.59 L 2.89 L Hemoglobin 7.9 L 8.7 L Hematocrit 22.7 L 26.0 L Mean Corpuscular Volume 90.3 90.0 Mean Corpuscular Hemoglobin 31.3 30.1 Mean Corpuscular Hemoglobin Concent 34.8 33.5 Red Cell Distribution Width 15.2 H 15.2 H Platelet Count 422 H 458 H Mean Platelet Volume 9.8 9.7 Neutrophils % 83.2 H 82.5 H Lymphocytes % 5.2 L 5.0 L Monocytes % 4.6 5.1 Eosinophils % 2.5 2.4 Basophils % 0.1 0.2 Nucleated Red Blood Cells % 0.1 H 0.2 H Neutrophils # 13.9 H 16.4 H Lymphocytes # 0.9 1.0 Monocytes # 0.8 1.0 H Eosinophils # 0.4 0.5 Basophils # 0.0 0.0 Nucleated Red Blood Cells # 0.0 0.0 Bedside Glucose 106 90 Sodium Level 123 L Potassium Level 4.1 Chloride Level 90 L Carbon Dioxide Level 16 L Anion Gap 21 H Blood Urea Nitrogen 56 H Creatinine 6.83 H Glucose Level 82 Calcium Level 6.5 L Total Bilirubin 1.1 Direct Bilirubin 1.10 H Indirect Bilirubin 0.0 Aspartate Amino Transf (AST/SGOT) 503 H Alanine Aminotransferase (ALT/SGPT) 176 H Alkaline Phosphatase 1038 H Total Protein 5.5 #L Albumin 2.6 L Test 02/20/17 05:28 Bedside Glucose 121 Medications Medications Current Medications Propofol 100 ml @ 2.727 mls/ hr Q12H IV Last administered on 02/18/17 15:17; Admin Dose 10.908 MLS/HR; Start 02/10/17 at 10:00 Phenylephrine HCl/ Dextrose (Zach-Syneph/D5W) 500 ml @ 18.75 mls/ hr TITRATE IV Last administered on 02/10/17 13:22; Admin Dose 26.25 MLS/HR; Start 02/10/17 at 13:00 Lorazepam (Ativan) 0.5 mg Q6H PRN IV ANXIETY Last administered on 02/13/17 11: 26; Admin Dose 0.5 MG; Start 02/10/17 at 12:30 Ondansetron HCl (Zofran Inj) 4 mg Q6H PRN IV NAUSEA AND/OR VOMITING Last administered on 02/20/17 06:13; Admin Dose 4 MG; Start 02/10/17 at 12:30 Acetaminophen (Tylenol Tab) 650 mg Q6H PRN PO PAIN LEVEL 1-3 OR FEVER Last administered on 02/18/17 13:42; Admin Dose 650 MG; Start 02/10/17 at 12:30 Acetaminophen/ Hydrocodone Bitart ([place] (5/325)) 1 tab Q6H PRN PO PAIN LEVEL 4 -6; Start 02/10/17 at 12:30 Morphine Sulfate (morphine) 2 mg Q4H PRN IV PAIN LEVEL 7-10 Last administered on 02/13/17 10:10; Admin Dose 2 MG; Start 02/10/17 at 12:30 Miscellaneous Information 1 ea NOTE XX ; Start 02/10/17 at 13:30 Glucose (Glutose) 15 gm Q15M PRN PO DECREASED GLUCOSE; Start 02/10/17 at 13:30 Glucose (Glutose) 22.5 gm Q15M PRN PO DECREASED GLUCOSE; Start 02/10/17 at 13: 30 Dextrose (D50w Syringe) 25 ml Q15M PRN IV DECREASED GLUCOSE Last administered on 02/15/17 17:53; Admin Dose 25 ML; Start 02/10/17 at 13:30 Dextrose (D50w Syringe) 50 ml Q15M PRN IV DECREASED GLUCOSE Last administered on 02/16/17 16:21; Admin Dose 50 ML; Start 02/10/17 at 13:30 Glucagon (Glucagen) 1 mg Q15M PRN IM DECREASED GLUCOSE; Start 02/10/17 at 13:30 Glucose 15 gm 15 gm Q15M PRN BUCCAL DECREASED GLUCOSE; Start 02/10/17 at 13:30 Norepinephrine 16 mg/Dextrose 500 ml @ 0 mls/hr TITRATE IV ; Start 02/10/17 at 21:00 Dopamine HCl/ Dextrose (D5W) 250 ml @ 1.7 mls/hr TITRATE IV Last administered on 02/12/17 04:51; Admin Dose 11.07 MLS/HR; Start 02/10/17 at 18:00 Pantoprazole (Protonix Iv) 40 mg BID@06,18 IV Last administered on 02/20/17 05 :26; Admin Dose 40 MG; Start 02/11/17 at 06:00 Ticagrelor (Brilinta) 90 mg BID PO Last administered on 02/20/17 08:19; Admin Dose 90 MG; Start 02/11/17 at 12:00 Aspirin (Halfprin) 81 mg DAILY PO Last administered on 02/20/17 08:18; Admin Dose 81 MG; Start 02/11/17 at 12:00 Atorvastatin Calcium 80 mg 80 mg HS NGT Last administered on 02/19/17 20:53; Admin Dose 80 MG; Start 02/11/17 at 21:00 Dextrose/Sodium Chloride 1,000 ml @ 75 mls/hr [id number] IV Last administered on 02/20/17 01:01; Admin Dose 75 MLS/HR; Start 02/12/17 at 21:30 Fentanyl 100 ml @ 2.5 mls/hr TITRATE IV Last administered on 02/20/17 07:00; Admin Dose 7 MLS/HR; Start 02/13/17 at 11:30 Midazolam HCl 50 ml @ 1 mls/hr TITRATE IV Last administered on 02/17/17 22:58 ; Admin Dose 3 MLS/HR; Start 02/14/17 at 23:00 Piperacillin Sod/ Tazobactam Sod (Zosyn 2.25gm/ 50ml (Pmx)) 50 ml @ 200 mls/hr Q8 IVPB Last administered on 02/20/17 05:26; Admin Dose 200 MLS/HR; Start at 13:00 Vancomycin HCl (Vancomycin Oral Syringe) 250 mg Q6 NGT Last administered on 05:26; Admin Dose 250 MG; Start 02/15/17 at 18:00 IV Flush (NS 10 ml) 10 ml PRN PRN IV FLUSH LINE; Start 02/15/17 at 20:00 Insulin Aspart (Novolog Insulin Pen) NOVOLOG *MILD* ALGORI... Q6 SC ; Start at 06:00 Amiodarone HCl (Cordarone) 400 mg BID PO Last administered on 02/20/17 08:18; Admin Dose 400 MG; Start 02/19/17 at 14:30 Miscellaneous Information (*Rx Drug Level Order Reminder*) VANCO RANDOM LEVEL... ONCE ONCE XX ; Start 02/21/17 at 05:00; Stop 02/21/17 at 05:01 ALEXANDER ROJO M.D. Feb 20, 2017 14:26
--- NOTE | 2017-02-20 18:24 | CONS ---
Date/Time of Note Date/Time of Note DATE: 02/20/17 TIME: 18:23 Assessment/Plan Assessment/Plan Additional Assessment/Plan 1. Oliguric acute kidney injury, likely secondary to ischemic acute tubular necrosis from ST-elevation myocardial infarction and cardiogenic shock. did not improve,d started on HD on due to Oliguric NEFTALI with fluid overaload 2. Cardiogenic shock. 3. Acute respiratory failure from cardiac arrest, currently intubated on ventilator. 4. Metabolic acidosis secondary to acute renal failure. 5. No significant past medical history, as per the family. PLAN: started on HD for fluid overload, and acute renal failure during this admission pt remains intubated, not waking up off sedation, CXR showed infiltrates no congestion, BP stable HD today, will follow up pt likely will be termination clerk HD patient Consultation Date/Type/Reason Admit Date/Time Feb 10, 2017 at 08:37 Initial Consult Date 02/10/17 Type of Consultation: NEPHROLOGY Referring Provider: HUBERT KUNZ SPOOLING MACHINE OPERATOR 24 HR Interval Summary Free Text/Dictation remains intubated, On ventilator, HD today Exam/Review of Systems Vital Signs Vitals Vital Signs Date Time Temp Pulse Resp B/P Pulse Ox O2 Delivery O2 Flow Rate FiO2 02/20/17 17:25 110 20 98 70 02/20/17 17:00 151/82 Mechanical Ventilator 02/20/17 16:00 99.6 Intake and Output 02/19/17 02/19/17 02/20/17 15:00 23:00 07:00 Intake Total 822.9 ml 706 ml 856 ml Output Total 0 ml 190 ml 10 ml Balance 822.9 ml 516 ml 846 ml Results Result Diagram: 02/20/17 0415 02/20/17 0415 Results 24 hrs Laboratory Tests Test 02/19/17 23:30 02/20/17 04:15 02/20/17 05:28 Bedside Glucose 90 121 White Blood Count 19.8 H Red Blood Count 2.89 L Hemoglobin 8.7 L Hematocrit 26.0 L Mean Corpuscular Volume 90.0 Mean Corpuscular Hemoglobin 30.1 Mean Corpuscular Hemoglobin Concent 33.5 Red Cell Distribution Width 15.2 H Platelet Count 458 H Mean Platelet Volume 9.7 Neutrophils % 82.5 H Lymphocytes % 5.0 L Monocytes % 5.1 Eosinophils % 2.4 Basophils % 0.2 Nucleated Red Blood Cells % 0.2 H Neutrophils # 16.4 H Lymphocytes # 1.0 Monocytes # 1.0 H Eosinophils # 0.5 Basophils # 0.0 Nucleated Red Blood Cells # 0.0 Sodium Level 123 L Potassium Level 4.1 Chloride Level 90 L Carbon Dioxide Level 16 L Anion Gap 21 H Blood Urea Nitrogen 56 H Creatinine 6.83 H Glucose Level 82 Calcium Level 6.5 L Total Bilirubin 1.1 Direct Bilirubin 1.10 H Indirect Bilirubin 0.0 Aspartate Amino Transf (AST/SGOT) 503 H Alanine Aminotransferase (ALT/SGPT) 176 H Alkaline Phosphatase 1038 H Total Protein 5.5 #L Albumin 2.6 L Medications Medications Current Medications Propofol 100 ml @ 2.727 mls/ hr Q12H IV Last administered on 02/18/17 15:17; Admin Dose 10.908 MLS/HR; Start 02/10/17 at 10:00 Phenylephrine HCl/ Dextrose (Zach-Syneph/D5W) 500 ml @ 18.75 mls/ hr TITRATE IV Last administered on 02/10/17 13:22; Admin Dose 26.25 MLS/HR; Start 02/10/17 at 13:00 Lorazepam (Ativan) 0.5 mg Q6H PRN IV ANXIETY Last administered on 02/13/17 11: 26; Admin Dose 0.5 MG; Start 02/10/17 at 12:30 Ondansetron HCl (Zofran Inj) 4 mg Q6H PRN IV NAUSEA AND/OR VOMITING Last administered on 02/20/17 06:13; Admin Dose 4 MG; Start 02/10/17 at 12:30 Acetaminophen (Tylenol Tab) 650 mg Q6H PRN PO PAIN LEVEL 1-3 OR FEVER Last administered on 02/18/17 13:42; Admin Dose 650 MG; Start 02/10/17 at 12:30 Acetaminophen/ Hydrocodone Bitart ([place] (5/325)) 1 tab Q6H PRN PO PAIN LEVEL 4 -6; Start 02/10/17 at 12:30 Morphine Sulfate (morphine) 2 mg Q4H PRN IV PAIN LEVEL 7-10 Last administered on 02/13/17 10:10; Admin Dose 2 MG; Start 02/10/17 at 12:30 Miscellaneous Information 1 ea NOTE XX ; Start 02/10/17 at 13:30 Glucose (Glutose) 15 gm Q15M PRN PO DECREASED GLUCOSE; Start 02/10/17 at 13:30 Glucose (Glutose) 22.5 gm Q15M PRN PO DECREASED GLUCOSE; Start 02/10/17 at 13: 30 Dextrose (D50w Syringe) 25 ml Q15M PRN IV DECREASED GLUCOSE Last administered on 02/15/17 17:53; Admin Dose 25 ML; Start 02/10/17 at 13:30 Dextrose (D50w Syringe) 50 ml Q15M PRN IV DECREASED GLUCOSE Last administered on 02/16/17 16:21; Admin Dose 50 ML; Start 02/10/17 at 13:30 Glucagon (Glucagen) 1 mg Q15M PRN IM DECREASED GLUCOSE; Start 02/10/17 at 13:30 Glucose 15 gm 15 gm Q15M PRN BUCCAL DECREASED GLUCOSE; Start 02/10/17 at 13:30 Norepinephrine 16 mg/Dextrose 500 ml @ 0 mls/hr TITRATE IV ; Start 02/10/17 at 21:00 Dopamine HCl/ Dextrose (D5W) 250 ml @ 1.7 mls/hr TITRATE IV Last administered on 02/12/17 04:51; Admin Dose 11.07 MLS/HR; Start 02/10/17 at 18:00 Pantoprazole (Protonix Iv) 40 mg BID@06,18 IV Last administered on 02/20/17 05 :26; Admin Dose 40 MG; Start 02/11/17 at 06:00 Ticagrelor (Brilinta) 90 mg BID PO Last administered on 02/20/17 08:19; Admin Dose 90 MG; Start 02/11/17 at 12:00 Aspirin (Halfprin) 81 mg DAILY PO Last administered on 02/20/17 08:18; Admin Dose 81 MG; Start 02/11/17 at 12:00 Atorvastatin Calcium 80 mg 80 mg HS NGT Last administered on 02/19/17 20:53; Admin Dose 80 MG; Start 02/11/17 at 21:00 Dextrose/Sodium Chloride 1,000 ml @ 75 mls/hr [id number] IV Last administered on 02/20/17 16:49; Admin Dose 75 MLS/HR; Start 02/12/17 at 21:30 Fentanyl 100 ml @ 2.5 mls/hr TITRATE IV Last administered on 02/20/17 07:00; Admin Dose 7 MLS/HR; Start 02/13/17 at 11:30 Midazolam HCl 50 ml @ 1 mls/hr TITRATE IV Last administered on 02/17/17 22:58 ; Admin Dose 3 MLS/HR; Start 02/14/17 at 23:00 Piperacillin Sod/ Tazobactam Sod (Zosyn 2.25gm/ 50ml (Pmx)) 50 ml @ 200 mls/hr Q8 IVPB Last administered on 02/20/17 14:00; Admin Dose 200 MLS/HR; Start at 13:00 Vancomycin HCl (Vancomycin Oral Syringe) 250 mg Q6 NGT Last administered on 12:00; Admin Dose 250 MG; Start 02/15/17 at 18:00 IV Flush (NS 10 ml) 10 ml PRN PRN IV FLUSH LINE; Start 02/15/17 at 20:00 Insulin Aspart (Novolog Insulin Pen) NOVOLOG *MILD* ALGORI... Q6 SC ; Start at 06:00 Amiodarone HCl (Cordarone) 400 mg BID PO Last administered on 02/20/17 08:18; Admin Dose 400 MG; Start 02/19/17 at 14:30 Miscellaneous Information (*Rx Drug Level Order Reminder*) VANCO RANDOM LEVEL... ONCE ONCE XX ; Start 02/21/17 at 05:00; Stop 02/21/17 at 05:01 SAILAJA LOUIE MD Feb 20, 2017 18:24
[2017-02-20] MEDS: ATORVASTATIN 80 MG TAB NGT SCH (20:25)
[2017-02-21] VITALS (45 sets, daily range): BP systolic 111–171; BP diastolic 64–99; PULSE 90–123; RESP 19–26
[2017-02-21] MEDS: VANCOMYCIN HCL 250 MG/5ML POSYG NGT SCH ×5 (00:16→23:52)
[2017-02-21] MEDS: INSULIN ASPART [NOVOLOG] 3 ML PEN SC SCH ×5 (05:35→23:51)
[2017-02-21] MEDS: PANTOPRAZOLE 40 MG INJ IV SCH ×2 (05:36→17:47)
[2017-02-21] MEDS: PIPER-TAZO 2.25 GM (PMX) 50 ML IVPB SCH ×3 (05:36→22:37)
[2017-02-21 06:08] LABS: ADD SCAN DIFF NO
[2017-02-21 06:21] LABS: ABNORMAL IP MESSAGE 1; BASOPHIL # 0.1 10^3/ul (0.0-0.1); BASOPHILS % 0.2 % (0.0-2.0); EOSINOPHILS # 0.4 10^3/ul (0.0-0.5); EOSINOPHILS % 1.6 % (0.0-7.0); HEMATOCRIT 28.5 % (42.0-52.0); HEMOGLOBIN 10.1 g/dl (14.0-18.0); LYMPHOCYTES # 1.1 10^3/ul (0.8-2.9); LYMPHOCYTES % 4.3 % (15.0-51.0); MEAN CORPUSCULAR HEMOGLOBIN 31.7 pg (29.0-33.0); MEAN CORPUSCULAR HGB CONC 35.4 g/dl (32.0-37.0); MEAN CORPUSCULAR VOLUME 89.3 fl (82.0-101.0); MEAN PLATELET VOLUME 9.7 fl (7.4-10.4); MONOCYTE # 1.5 10^3/ul (0.3-0.9); MONOCYTES % 5.9 % (0.0-11.0); NEUTROPHIL # 20.7 10^3/ul (1.6-7.5); NEUTROPHILS % 83.6 % (39.0-77.0); NUCLEATED RED BLOOD CELLS # 0.1 10^3/ul (0.0-0.0); NUCLEATED RED BLOOD CELLS% 0.2 /100WBC (0.0-0.0); PLATELET COUNT 496 10^3/UL (140-415); RED BLOOD COUNT 3.19 10^6/ul (4.70-6.10); RED CELL DISTRIBUTION WIDTH 15.3 % (11.5-14.5); WHITE BLOOD COUNT 24.8 10^3/ul (4.8-10.8)
[2017-02-21 07:01] LABS: CALCIUM 6.8 mg/dl (8.4-10.2)
[2017-02-21 07:10] LABS: CREATININE 6.02 mg/dl (0.61-1.24)
[2017-02-21 07:18] LABS: ALBUMIN 3.1 g/dl (3.3-4.9); BILIRUBIN,DIRECT 0.6 mg/dl (0.00-0.20); BILIRUBIN,TOTAL 0.6 mg/dl (0.2-1.3); TOTAL PROTEIN 6.9 g/dl (6.1-8.1)
--- NOTE | 2017-02-21 08:14 | RADRPT ---
PROCEDURE: Chest 1 views. CLINICAL INDICATION: Shortness of breath. TECHNIQUE: AP views of the chest was obtained. COMPARISON: February 19, 2017 FINDINGS: The heart is large. Endotracheal tube is stable and appears in grossly appropriate location. Nasoga stric tube has retracted. Tip is now identified in the mid thoracic esophagus. The lungs are hypoi nflated. Patchy infiltrates throughout both lungs are stable on the right and have mildly decreased on the left. Significant residual remains. Left-sided PICC line is stable. Osseous structures are intact. IMPRESSION: Cardiomegaly . Interval nasogastric tube retraction. Tip is now identified in the expected location of the mid tho racic esophagus. Advancement by approximately 21 cm is advised. Stable patchy infiltrates throughout the right lung. Mild interval decrease in patchy infiltrates throughout the left lung. Significant residual remains . RPTAT: AA .Remington Burgess MD, Date Time Electronically viewed and signed by .Remington Burgess MD, on 02/21/2017 08:14 .P/
[2017-02-21] MEDS: AMIODARONE 200 MG TAB PO SCH ×2 (08:26→21:32)
[2017-02-21] MEDS: ASPIRIN (EC) 81 MG TAB PO SCH (08:27)
[2017-02-21] MEDS: TICAGRELOR 90 MG TABLET PO SCH ×2 (08:32→21:33)
[2017-02-21] MEDS: PROPOFOL 100 ML IV SCH (09:19)
[2017-02-21] MEDS ORDERED: VANCOMYCIN 1 GM in NS 250 ML IVPB SCH (10:00)
--- NOTE | 2017-02-21 10:54 | PN ---
Date/Time of Note Date/Time of Note DATE: 02/21/17 TIME: 10:37 Assessment/Plan VTE Prophylaxis VTE Prophylaxis Intervention: SCD's Lines/Catheters IV Catheter Type ([facility] PICC Line Central line still needed: Yes Urinary Cath still in place: Yes Reason Cath still needed: other (indicate) Assessment/Plan Chief Complaint/Hosp Course Assessment/Plan 66-year-old male who presented to the emergency room after witnessed cardiac arrest at work found to have ST elevation myocardial infarction managed as follows: 1. Cardiac arrest. Status post left heart catheterization and coronary angioplasty with placement of a stent and placement of intraaortic balloon pump. EEG: consistent with encephalopathy without epileptiform discharges * apparently not a candidate for hypothermia protocol since he was noticed to be moving postangioplasty 2. S/p Cardiogenic shock: now off pressor support Continue to monitor 3. Severe CAD with preserved EF 55%. Status post coronary artery stenting. Continue aggressive medical management, cardiology consulted 4. Sepsis 2/2 UTI + C diff . Continue vancomycin, infectious disease doctor consulted 5. Acute renal failure - multifactorial - 2/2 to cardiogenic shock - sepsis. Nonoliguric. Unknown baseline creatinine. Now on HD Hemodialysis as per nephrology recommendations 6. Transaminitis likely secondary to shock liver superimposed on mild chronic liver disease from substance abuse Continue to monitor liver function test 7. Chronic substance abuse with tox screen positive for amphetamines which likely precipitated #1 8. Normocytic anemia of chronic kidney disease: Stable 9. Hyponatremia: Nephrology has been consulted, follow his recommendations 10. Hypocalcemia: improved 11. Tiny cardioembolic right-sided CVA not likely to cause hypoxicischemic ischemic encephalopathy per neurology 12. Acute encephalopathy likely multifactorial in origin, neurology has been consulted follow-up EEG We will continue monitor patient closely for recommendation management treatment as clinical course Problems: Subjective 24 Hr Interval Summary Free Text/Dictation No acute changes Patient has been off sedation 24 hours and does not respond to pain or verbal stimuli Family at the bedside EEG done this morning the result is pending The prognosis and management has been discussed with the family Exam/Review of Systems Vital Signs Vitals Vital Signs Date Time Temp Pulse Resp B/P Pulse Ox O2 Delivery O2 Flow Rate FiO2 02/21/17 09:24 102 20 96 70 02/21/17 09:00 116/71 Mechanical Ventilator 02/21/17 04:00 98.8 Intake and Output 02/20/17 02/20/17 02/21/17 15:00 23:00 07:00 Intake Total 220 ml 1625 ml 500 ml Output Total 30 ml 2700 ml 20 ml Balance 190 ml -1075 ml 480 ml Exam General: The patient is intubated and morbidly obese HEENT: Atraumatic, normocephalic. The pupils are equal and constricted Neck: Supple Chest: Normal Lungs: Decreased breath sounds bilateral lower lung field Heart: Normal S1-S2, tachycardic Abdomen: Soft , nontender, nondistended , bowel sounds are present. Extremities: Normal to inspection, +2 edema no cyanosis Neurologic: No meaningful neurologic examination finding of sedation Results Result Diagram: 02/21/17 0500 02/21/17 0500 Results 24 hrs Laboratory Tests Test 02/20/17 18:45 02/21/17 00:15 02/21/17 05:00 02/21/17 05:35 Bedside Glucose 94 97 113 White Blood Count 24.8 #H Red Blood Count 3.19 L Hemoglobin 10.1 L Hematocrit 28.5 L Mean Corpuscular Volume 89.3 Mean Corpuscular Hemoglobin 31.7 Mean Corpuscular Hemoglobin Concent 35.4 Red Cell Distribution Width 15.3 H Platelet Count 496 H Mean Platelet Volume 9.7 Neutrophils % 83.6 H Lymphocytes % 4.3 L Monocytes % 5.9 Eosinophils % 1.6 Basophils % 0.2 Nucleated Red Blood Cells % 0.2 H Neutrophils # 20.7 H Lymphocytes # 1.1 Monocytes # 1.5 H Eosinophils # 0.4 Basophils # 0.1 Nucleated Red Blood Cells # 0.1 H Sodium Level 128 L Potassium Level 4.0 Chloride Level 93 L Carbon Dioxide Level 20 L Anion Gap 19 H Blood Urea Nitrogen 50 H Creatinine 6.02 H Glucose Level 97 Calcium Level 6.8 L Total Bilirubin 0.6 Direct Bilirubin 0.60 #H Indirect Bilirubin 0.0 Aspartate Amino Transf (AST/SGOT) 594 H Alanine Aminotransferase (ALT/SGPT) 176 H Alkaline Phosphatase 1054 H Total Protein 6.9 # Albumin 3.1 L Random Vancomycin Level 15.6 Medications Medications Current Medications Propofol 100 ml @ 2.727 mls/ hr Q12H IV Last administered on 02/18/17t 15:17; Admin Dose 10.908 MLS/HR; Start 02/10/17 at 10:00 Phenylephrine HCl/ Dextrose (Zach-Syneph/D5W) 500 ml @ 18.75 mls/ hr TITRATE IV Last administered on 02/10/17 13:22; Admin Dose 26.25 MLS/HR; Start 02/10/17 at 13:00 Lorazepam (Ativan) 0.5 mg Q6H PRN IV ANXIETY Last administered on 02/13/17 11: 26; Admin Dose 0.5 MG; Start 02/10/17 at 12:30 Ondansetron HCl (Zofran Inj) 4 mg Q6H PRN IV NAUSEA AND/OR VOMITING Last administered on 02/20/17 06:13; Admin Dose 4 MG; Start 02/10/17 at 12:30 Acetaminophen (Tylenol Tab) 650 mg Q6H PRN PO PAIN LEVEL 1-3 OR FEVER Last administered on 02/18/17 13:42; Admin Dose 650 MG; Start 02/10/17 at 12:30 Acetaminophen/ Hydrocodone Bitart ([place] (5/325)) 1 tab Q6H PRN PO PAIN LEVEL 4 -6; Start 02/10/17 at 12:30 Morphine Sulfate (morphine) 2 mg Q4H PRN IV PAIN LEVEL 7-10 Last administered on 02/13/17 10:10; Admin Dose 2 MG; Start 02/10/17 at 12:30 Miscellaneous Information 1 ea NOTE XX ; Start 02/10/17 at 13:30 Glucose (Glutose) 15 gm Q15M PRN PO DECREASED GLUCOSE; Start 02/10/17 at 13:30 Glucose (Glutose) 22.5 gm Q15M PRN PO DECREASED GLUCOSE; Start 02/10/17 at 13: 30 Dextrose (D50w Syringe) 25 ml Q15M PRN IV DECREASED GLUCOSE Last administered on 02/15/17 17:53; Admin Dose 25 ML; Start 02/10/17 at 13:30 Dextrose (D50w Syringe) 50 ml Q15M PRN IV DECREASED GLUCOSE Last administered on 02/16/17 16:21; Admin Dose 50 ML; Start 02/10/17 at 13:30 Glucagon (Glucagen) 1 mg Q15M PRN IM DECREASED GLUCOSE; Start 02/10/17 at 13:30 Glucose 15 gm 15 gm Q15M PRN BUCCAL DECREASED GLUCOSE; Start 02/10/17 at 13:30 Norepinephrine 16 mg/Dextrose 500 ml @ 0 mls/hr TITRATE IV ; Start 02/10/17 at 21:00 Dopamine HCl/ Dextrose (D5W) 250 ml @ 1.7 mls/hr TITRATE IV Last administered on 02/12/17 04:51; Admin Dose 11.07 MLS/HR; Start 02/10/17 at 18:00 Pantoprazole (Protonix Iv) 40 mg BID@06,18 IV Last administered on 02/21/17 05 :36; Admin Dose 40 MG; Start 02/11/17 at 06:00 Ticagrelor (Brilinta) 90 mg BID PO Last administered on 02/21/17 08:32; Admin Dose 90 MG; Start 02/11/17 at 12:00 Aspirin (Halfprin) 81 mg DAILY PO Last administered on 02/21/17 08:27; Admin Dose 81 MG; Start 02/11/17 at 12:00 Atorvastatin Calcium 80 mg 80 mg HS NGT Last administered on 02/20/17 20:25; Admin Dose 80 MG; Start 02/11/17 at 21:00 Dextrose/Sodium Chloride 1,000 ml @ 75 mls/hr [id number] IV Last administered on 02/20/17 22:15; Admin Dose 75 MLS/HR; Start 02/12/17 at 21:30 Fentanyl 100 ml @ 2.5 mls/hr TITRATE IV Last administered on 02/20/17 07:00; Admin Dose 7 MLS/HR; Start 02/13/17 at 11:30 Midazolam HCl 50 ml @ 1 mls/hr TITRATE IV Last administered on 02/17/17 22:58 ; Admin Dose 3 MLS/HR; Start 02/14/17 at 23:00 Piperacillin Sod/ Tazobactam Sod (Zosyn 2.25gm/ 50ml (Pmx)) 50 ml @ 200 mls/hr Q8 IVPB Last administered on 02/21/17 05:36; Admin Dose 200 MLS/HR; Start at 13:00 Vancomycin HCl (Vancomycin Oral Syringe) 250 mg Q6 NGT Last administered on 05:36; Admin Dose 250 MG; Start 02/15/17 at 18:00 IV Flush (NS 10 ml) 10 ml PRN PRN IV FLUSH LINE; Start 02/15/17 at 20:00 Insulin Aspart (Novolog Insulin Pen) NOVOLOG *MILD* ALGORI... Q6 SC ; Start at 06:00 Amiodarone HCl 400 mg 400 mg BID PO Last administered on 02/21/17t 08:26; Admin Dose 400 MG; Start 02/19/17 at 14:30 Vancomycin HCl (Vancocin) 250 ml @ 125 mls/hr Q96H IVPB ; Start 02/21/17 at 10: 00 PAM IRIZARRY MD Feb 21, 2017 10:54
--- NOTE | 2017-02-21 11:12 | CONS ---
Date/Time of Note Date/Time of Note DATE: 02/21/17 TIME: 11:05 Assessment/Plan Assessment/Plan Additional Assessment/Plan Ventilator setting; AC of 20, tidal volume 600, PEEP of 10, 70% FiO2. Assessment recommendations; 1. Patient admitted with cardiac arrest status post emergent PTCA of circumflex lesion. 2. Renal failure, requiring hemodialysis. 3. Massive generalized edema. 4. Improving hyponatremia. 5. Bilateral pneumonia with persistent leukocytosis. 6. Paroxysmal atrial fibrillation, patient currently in sinus rhythm. Maintained on enteral amiodarone. Continue current treatment. Patient will be dialyzed again today. Albumin to be administered every 12 hours. Add caspofungin 50 mg IV daily. Obtain follow- up chest x-ray in 24 hours. Obtain an ABG. Prognosis is guarded. 35 minutes of critical care time was spent evaluating the patient. Consultation Date/Type/Reason Admit Date/Time Feb 10, 2017 at 08:37 Initial Consult Date 02/10/17 Type of Consultation: Pulmonary/critical care Referring Provider: HUBERT KUNZ NP 24 HR Interval Summary Free Text/Dictation Patient's condition remains critical. Still requiring high FiO2 for O2 saturation maintenance. Patient however has remained hemodynamically stable. Not requiring any pressor support. Also has remained in sinus rhythm. General exam; elderly male, morbidly obese, currently in no distress. Orally intubated. Exam/Review of Systems Vital Signs Vitals Vital Signs Date Time Temp Pulse Resp B/P Pulse Ox O2 Delivery O2 Flow Rate FiO2 02/21/17 09:24 102 20 96 70 02/21/17 09:00 116/71 Mechanical Ventilator 02/21/17 04:00 98.8 Intake and Output 02/20/17 02/20/17 02/21/17 15:00 23:00 07:00 Intake Total 220 ml 1625 ml 500 ml Output Total 30 ml 2700 ml 20 ml Balance 190 ml -1075 ml 480 ml Exam HEENT exam; supple neck, no lymphadenopathy. Midline trachea. No thyromegaly. Orally intubated. Patient has a multiple carious teeth. Pupils are small bilaterally. Chest examination; diminished but clear breath sounds. S1-S2 audible, no murmurs. Regular rhythm. Abdomen examination; soft, protuberant. No organomegaly. Bowel sounds audible. Extremity exam; 2+ generalized anasarca. Pulses 1+ bilaterally. INTERFACE DEVELOPER examination; patient is sedated. Results Result Diagram: 02/21/17 0500 02/21/17 0500 Results 24 hrs Laboratory Tests Test 02/20/17 18:45 02/21/17 00:15 02/21/17 05:00 02/21/17 05:35 Bedside Glucose 94 97 113 White Blood Count 24.8 #H Red Blood Count 3.19 L Hemoglobin 10.1 L Hematocrit 28.5 L Mean Corpuscular Volume 89.3 Mean Corpuscular Hemoglobin 31.7 Mean Corpuscular Hemoglobin Concent 35.4 Red Cell Distribution Width 15.3 H Platelet Count 496 H Mean Platelet Volume 9.7 Neutrophils % 83.6 H Lymphocytes % 4.3 L Monocytes % 5.9 Eosinophils % 1.6 Basophils % 0.2 Nucleated Red Blood Cells % 0.2 H Neutrophils # 20.7 H Lymphocytes # 1.1 Monocytes # 1.5 H Eosinophils # 0.4 Basophils # 0.1 Nucleated Red Blood Cells # 0.1 H Sodium Level 128 L Potassium Level 4.0 Chloride Level 93 L Carbon Dioxide Level 20 L Anion Gap 19 H Blood Urea Nitrogen 50 H Creatinine 6.02 H Glucose Level 97 Calcium Level 6.8 L Total Bilirubin 0.6 Direct Bilirubin 0.60 #H Indirect Bilirubin 0.0 Aspartate Amino Transf (AST/SGOT) 594 H Alanine Aminotransferase (ALT/SGPT) 176 H Alkaline Phosphatase 1054 H Total Protein 6.9 # Albumin 3.1 L Random Vancomycin Level 15.6 Medications Medications Current Medications Propofol 100 ml @ 2.727 mls/ hr Q12H IV Last administered on 02/18/17 15:17; Admin Dose 10.908 MLS/HR; Start 02/10/17 at 10:00 Phenylephrine HCl/ Dextrose (Zach-Syneph/D5W) 500 ml @ 18.75 mls/ hr TITRATE IV Last administered on 02/10/17 13:22; Admin Dose 26.25 MLS/HR; Start 02/10/17 at 13:00 Lorazepam (Ativan) 0.5 mg Q6H PRN IV ANXIETY Last administered on 02/13/17 11: 26; Admin Dose 0.5 MG; Start 02/10/17 at 12:30 Ondansetron HCl (Zofran Inj) 4 mg Q6H PRN IV NAUSEA AND/OR VOMITING Last administered on 02/20/17 06:13; Admin Dose 4 MG; Start 02/10/17 at 12:30 Acetaminophen (Tylenol Tab) 650 mg Q6H PRN PO PAIN LEVEL 1-3 OR FEVER Last administered on 02/18/17 13:42; Admin Dose 650 MG; Start 02/10/17 at 12:30 Acetaminophen/ Hydrocodone Bitart ([place] (5/325)) 1 tab Q6H PRN PO PAIN LEVEL 4 -6; Start 02/10/17 at 12:30 Morphine Sulfate (morphine) 2 mg Q4H PRN IV PAIN LEVEL 7-10 Last administered on 02/13/17 10:10; Admin Dose 2 MG; Start 02/10/17 at 12:30 Miscellaneous Information 1 ea NOTE XX ; Start 02/10/17 at 13:30 Glucose (Glutose) 15 gm Q15M PRN PO DECREASED GLUCOSE; Start 02/10/17 at 13:30 Glucose (Glutose) 22.5 gm Q15M PRN PO DECREASED GLUCOSE; Start 02/10/17 at 13: 30 Dextrose (D50w Syringe) 25 ml Q15M PRN IV DECREASED GLUCOSE Last administered on 02/15/17 17:53; Admin Dose 25 ML; Start 02/10/17 at 13:30 Dextrose (D50w Syringe) 50 ml Q15M PRN IV DECREASED GLUCOSE Last administered on 02/16/17 16:21; Admin Dose 50 ML; Start 02/10/17 at 13:30 Glucagon (Glucagen) 1 mg Q15M PRN IM DECREASED GLUCOSE; Start 02/10/17 at 13:30 Glucose 15 gm 15 gm Q15M PRN BUCCAL DECREASED GLUCOSE; Start 02/10/17 at 13:30 Norepinephrine 16 mg/Dextrose 500 ml @ 0 mls/hr TITRATE IV ; Start 02/10/17 at 21:00 Dopamine HCl/ Dextrose (D5W) 250 ml @ 1.7 mls/hr TITRATE IV Last administered on 02/12/17 04:51; Admin Dose 11.07 MLS/HR; Start 02/10/17 at 18:00 Pantoprazole (Protonix Iv) 40 mg BID@06,18 IV Last administered on 02/21/17 05 :36; Admin Dose 40 MG; Start 02/11/17 at 06:00 Ticagrelor (Brilinta) 90 mg BID PO Last administered on 02/21/17 08:32; Admin Dose 90 MG; Start 02/11/17 at 12:00 Aspirin (Halfprin) 81 mg DAILY PO Last administered on 02/21/17 08:27; Admin Dose 81 MG; Start 02/11/17 at 12:00 Atorvastatin Calcium 80 mg 80 mg HS NGT Last administered on 02/20/17 20:25; Admin Dose 80 MG; Start 02/11/17 at 21:00 Dextrose/Sodium Chloride 1,000 ml @ 75 mls/hr [id number] IV Last administered on 02/20/17 22:15; Admin Dose 75 MLS/HR; Start 02/12/17 at 21:30 Fentanyl 100 ml @ 2.5 mls/hr TITRATE IV Last administered on 02/20/17 07:00; Admin Dose 7 MLS/HR; Start 02/13/17 at 11:30 Midazolam HCl 50 ml @ 1 mls/hr TITRATE IV Last administered on 02/17/17 22:58 ; Admin Dose 3 MLS/HR; Start 02/14/17 at 23:00 Piperacillin Sod/ Tazobactam Sod (Zosyn 2.25gm/ 50ml (Pmx)) 50 ml @ 200 mls/hr Q8 IVPB Last administered on 02/21/17 05:36; Admin Dose 200 MLS/HR; Start at 13:00 Vancomycin HCl (Vancomycin Oral Syringe) 250 mg Q6 NGT Last administered on 05:36; Admin Dose 250 MG; Start 02/15/17 at 18:00 IV Flush (NS 10 ml) 10 ml PRN PRN IV FLUSH LINE; Start 02/15/17 at 20:00 Insulin Aspart (Novolog Insulin Pen) NOVOLOG *MILD* ALGORI... Q6 SC ; Start at 06:00 Amiodarone HCl 400 mg 400 mg BID PO Last administered on 02/21/17 08:26; Admin Dose 400 MG; Start 02/19/17 at 14:30 Vancomycin HCl (Vancocin) 250 ml @ 125 mls/hr Q96H IVPB ; Start 02/21/17 at 10: 00 ANGELINA VALDEZ 27, 2017 11:12
[2017-02-21 11:22] LABS: AADO2 Arterial 361.9 mmHg (7.0-24.0); Allen Test ACCEPTAB; Arterial Base Excess -6.2 mmol/L (-3.0-3); Arterial COHb 0.3 % (0.0-3.0); Arterial Fraction of Oxyhgb 95.1 % (93.0-99.0); Arterial HCO3 19.9 mmol/L (22.0-26.0); Arterial MetHb 0.2 % (0.0-1.5); Arterial Total Hemglobin 11.6 g/dl (12.0-18.0); MODE VENT - AC
--- NOTE | 2017-02-21 11:31 | CONS ---
Date/Time of Note Date/Time of Note DATE: 02/21/17 TIME: :27 Consult Date/Type/Reason Admit Date/Time Feb 10, 2017 at 08:37 Initial Consult Date 02/13/17 Type of Consultation: Neurology Reason for Consultation encephalopathy cardiac arrest Ordering Provider: HUBERT KUNZ SCREENING UNIT REGISTERED NURSE Subjective off sedation over 24 hours no change in exam grimaces to noxious unable to follow commands no seizure activity described family awaiting until Monday to make further decisions regarding goals of care Objective Vital Signs Date Time Temp Pulse Resp B/P Pulse Ox O2 Delivery O2 Flow Rate FiO2 02/21/17 09:24 102 20 96 70 02/21/17 09:00 116/71 Mechanical Ventilator 02/21/17 04:00 98.8 Intake and Output 02/20/17 02/20/17 02/21/17 15:00 23:00 07:00 Intake Total 220 ml 1625 ml 500 ml Output Total 30 ml 2700 ml 20 ml Balance 190 ml -1075 ml 480 ml Exam off sedation unable to arouse verbally or by sternal rub unable to open his eyes spontaneously CN: JOHANA, able to Doll's, corneals intact, gag intact Motor no response to noxious throughout ,mute toes Results/Medications Result Diagram: 02/21/17 0500 02/21/17 0500 Results 24 hrs Laboratory Tests Test 02/20/17 18:45 02/21/17 00:15 02/21/17 05:00 02/21/17 05:35 Bedside Glucose 94 97 113 White Blood Count 24.8 #H Red Blood Count 3.19 L Hemoglobin 10.1 L Hematocrit 28.5 L Mean Corpuscular Volume 89.3 Mean Corpuscular Hemoglobin 31.7 Mean Corpuscular Hemoglobin Concent 35.4 Red Cell Distribution Width 15.3 H Platelet Count 496 H Mean Platelet Volume 9.7 Neutrophils % 83.6 H Lymphocytes % 4.3 L Monocytes % 5.9 Eosinophils % 1.6 Basophils % 0.2 Nucleated Red Blood Cells % 0.2 H Neutrophils # 20.7 H Lymphocytes # 1.1 Monocytes # 1.5 H Eosinophils # 0.4 Basophils # 0.1 Nucleated Red Blood Cells # 0.1 H Sodium Level 128 L Potassium Level 4.0 Chloride Level 93 L Carbon Dioxide Level 20 L Anion Gap 19 H Blood Urea Nitrogen 50 H Creatinine 6.02 H Glucose Level 97 Calcium Level 6.8 L Total Bilirubin 0.6 Direct Bilirubin 0.60 #H Indirect Bilirubin 0.0 Aspartate Amino Transf (AST/SGOT) 594 H Alanine Aminotransferase (ALT/SGPT) 176 H Alkaline Phosphatase 1054 H Total Protein 6.9 # Albumin 3.1 L Random Vancomycin Level 15.6 Test 02/21/17 09:52 Blood Gas Specimen Source Blood arterial Arterial Blood Date Drawn 02/21/2017 11:10:35 AM Arterial Blood pH (Temp corrected) 7.296 *L Arterial Blood pCO2 (Temp correct) 41.7 Arterial Blood pO2 (Temp corrected) 92.4 Arterial Blood HCO3 19.9 L Arterial Blood Base Excess -6.2 L Arterial Blood Oxygen Saturation 95.6 Tirso Test ACCEPTAB Arterial Blood Gas Puncture Site Right Radial Arterial Blood Carboxyhemoglobin 0.3 Arterial Blood Methemoglobin 0.2 Blood Gas A-a O2 Differential 361.9 H Oxyhemoglobin Percent 95.1 Total Hemoglobin 11.6 L Blood Gas Temperature 37.0 Blood Gas Respiration Rate 20.0 Blood Gas Actual Respiration Rate 20 Blood Gas Modality VENT - AC FiO2 70.0 Blood Gas Tidal Volume 600.0 Blood Gas Low PEEP Setting 10.0 Blood Gas Critical Value Read Back L KALYAN HALL Blood Gas Notified Whom KATID Blood Gas Notified Time 02/21/2017 11:22:28 AM Medications Current Medications Propofol 100 ml @ 2.727 mls/ hr Q12H IV Last administered on 02/18/17 15:17; Admin Dose 10.908 MLS/HR; Start 02/10/17 at 10:00 Phenylephrine HCl/ Dextrose (Zach-Syneph/D5W) 500 ml @ 18.75 mls/ hr TITRATE IV Last administered on 02/10/17 13:22; Admin Dose 26.25 MLS/HR; Start 02/10/17 at 13:00 Lorazepam (Ativan) 0.5 mg Q6H PRN IV ANXIETY Last administered on 02/13/17 11: 26; Admin Dose 0.5 MG; Start 02/10/17 at 12:30 Ondansetron HCl (Zofran Inj) 4 mg Q6H PRN IV NAUSEA AND/OR VOMITING Last administered on 02/20/17 06:13; Admin Dose 4 MG; Start 02/10/17 at 12:30 Acetaminophen (Tylenol Tab) 650 mg Q6H PRN PO PAIN LEVEL 1-3 OR FEVER Last administered on 02/18/17 13:42; Admin Dose 650 MG; Start 02/10/17 at 12:30 Acetaminophen/ Hydrocodone Bitart ([place] (5/325)) 1 tab Q6H PRN PO PAIN LEVEL 4 -6; Start 02/10/17 at 12:30 Morphine Sulfate (morphine) 2 mg Q4H PRN IV PAIN LEVEL 7-10 Last administered on 02/13/17 10:10; Admin Dose 2 MG; Start 02/10/17 at 12:30 Miscellaneous Information 1 ea NOTE XX ; Start 02/10/17 at 13:30 Glucose (Glutose) 15 gm Q15M PRN PO DECREASED GLUCOSE; Start 02/10/17 at 13:30 Glucose (Glutose) 22.5 gm Q15M PRN PO DECREASED GLUCOSE; Start 02/10/17 at 13: 30 Dextrose (D50w Syringe) 25 ml Q15M PRN IV DECREASED GLUCOSE Last administered on 02/15/17 17:53; Admin Dose 25 ML; Start 02/10/17 at 13:30 Dextrose (D50w Syringe) 50 ml Q15M PRN IV DECREASED GLUCOSE Last administered on 02/16/17 16:21; Admin Dose 50 ML; Start 02/10/17 at 13:30 Glucagon (Glucagen) 1 mg Q15M PRN IM DECREASED GLUCOSE; Start 02/10/17 at 13:30 Glucose 15 gm 15 gm Q15M PRN BUCCAL DECREASED GLUCOSE; Start 02/10/17 at 13:30 Norepinephrine 16 mg/Dextrose 500 ml @ 0 mls/hr TITRATE IV ; Start 02/10/17 at 21:00 Dopamine HCl/ Dextrose (D5W) 250 ml @ 1.7 mls/hr TITRATE IV Last administered on 02/12/17 04:51; Admin Dose 11.07 MLS/HR; Start 02/10/17 at 18:00 Pantoprazole (Protonix Iv) 40 mg BID@06,18 IV Last administered on 02/21/17 05 :36; Admin Dose 40 MG; Start 02/11/17 at 06:00 Ticagrelor (Brilinta) 90 mg BID PO Last administered on 02/21/17 08:32; Admin Dose 90 MG; Start 02/11/17 at 12:00 Aspirin (Halfprin) 81 mg DAILY PO Last administered on 02/21/17 08:27; Admin Dose 81 MG; Start 02/11/17 at 12:00 Atorvastatin Calcium 80 mg 80 mg HS NGT Last administered on 02/20/17 20:25; Admin Dose 80 MG; Start 02/11/17 at 21:00 Dextrose/Sodium Chloride 1,000 ml @ 75 mls/hr [id number] IV Last administered on 02/20/17 22:15; Admin Dose 75 MLS/HR; Start 02/12/17 at 21:30 Fentanyl 100 ml @ 2.5 mls/hr TITRATE IV Last administered on 02/20/17 07:00; Admin Dose 7 MLS/HR; Start 02/13/17 at 11:30 Midazolam HCl 50 ml @ 1 mls/hr TITRATE IV Last administered on 02/17/17 22:58 ; Admin Dose 3 MLS/HR; Start 02/14/17 at 23:00 Piperacillin Sod/ Tazobactam Sod (Zosyn 2.25gm/ 50ml (Pmx)) 50 ml @ 200 mls/hr Q8 IVPB Last administered on 02/21/17 05:36; Admin Dose 200 MLS/HR; Start at 13:00 Vancomycin HCl (Vancomycin Oral Syringe) 250 mg Q6 NGT Last administered on 05:36; Admin Dose 250 MG; Start 02/15/17 at 18:00 IV Flush (NS 10 ml) 10 ml PRN PRN IV FLUSH LINE; Start 02/15/17 at 20:00 Insulin Aspart (Novolog Insulin Pen) NOVOLOG *MILD* ALGORI... Q6 SC ; Start at 06:00 Amiodarone HCl 400 mg 400 mg BID PO Last administered on 02/21/17 08:26; Admin Dose 400 MG; Start 02/19/17 at 14:30 Vancomycin HCl 250 ml @ 125 mls/hr Q96H IVPB ; Start 02/21/17 at 10:00 Caspofungin/ Sodium Chloride (Cancidas/NS) 250 ml @ 250 mls/hr Q24H IV ; Start 02/21/17 at 12:00 Assessment/Plan Chief Complaint/Hosp Course 66 year old male admitted with STEMI with 100% left circumflex vessel occlusion requiring MIRA with intra-aortic balloon pump admitted to ICU for further management severe encephalopathy, failed weaning trial with ARF receiving dialysis with new onset afib persistent encephalopathy. MRI showed a tiny right martines radiata infarct presumably cardioembolic, no areas of involvement to suggest hypoxic ischemic encephalopathy Carotid Duplex: unrevealing EEG: consistent with encephalopathy without epileptiform discharges Recommendations: severe encephalopathy, no improvement in exam Repeat EEG pending official review will also repeat MRI Brain without contrast to evaluate for further cardioembolic strokes given new onset afib may continue on current antiplatelet regimen with ASA and Brilinta maintain normotensive blood pressure discussed with daughter at bedside that his exam currently does not exhibit signs of brain however he may be very encephalopathic from underlying medical issues i will follow up with results of MRI and EEG , they plan to make a decision regarding his goals of care in the next few days Problems: CRISTOPHER NEWELL MD Feb 21, 2017 11:31
[2017-02-21] MEDS: CASPOFUNGIN 35 MG in SOD CHLORIDE 0.9% 250 ML IV SCH (12:00)
[2017-02-21] MEDS ORDERED: CASPOFUNGIN 50 MG in SOD CHLORIDE 0.9% 250 ML IVPB SCH (12:00)
[2017-02-21] MEDS: DEXTROSE 5%-0.45% NACL 1,000 ML IV SCH (17:00)
--- NOTE | 2017-02-21 17:14 | CONS ---
Date/Time of Note Date/Time of Note DATE: 02/21/17 TIME: 17:12 Assessment/Plan Assessment/Plan Additional Assessment/Plan 1. Oliguric acute kidney injury, likely secondary to ischemic acute tubular necrosis from ST-elevation myocardial infarction and cardiogenic shock. did not improve,d started on HD on due to Oliguric NEFTALI with fluid overaload 2. Cardiogenic shock. 3. Acute respiratory failure from cardiac arrest, currently intubated on ventilator. 4. Metabolic acidosis secondary to acute renal failure. 5. No significant past medical history, as per the family. 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 up Consultation Date/Type/Reason Admit Date/Time Feb 10, 2017 at 08:37 Initial Consult Date 02/10/17 Type of Consultation: NEPHROLOGY Referring Provider: HUBERT KUNZ NP 24 HR Interval Summary Free Text/Dictation pt remains fluid overloaded, BP stable, remains intubated Exam/Review of Systems Vital Signs Vitals Vital Signs Date Time Temp Pulse Resp B/P Pulse Ox O2 Delivery O2 Flow Rate FiO2 02/21/17 16:00 112 02/21/17 15:29 26 93 70 02/21/17 14:00 134/83 Mechanical Ventilator 02/21/17 12:00 98.8 Intake and Output 02/20/17 02/20/17 02/21/17 15:00 23:00 07:00 Intake Total 220 ml 1625 ml 500 ml Output Total 30 ml 2700 ml 20 ml Balance 190 ml -1075 ml 480 ml Exam GENERAL: The patient is currently sedated, intubated on ventilator. HEENT: ET tube in place. NECK: Supple. No jugular venous distention. No lymphadenopathy. LUNGS: Bilateral coarse breath sounds with minimal expiratory wheezing. HEART: S1, S2, tachycardia, no murmur. ABDOMEN: Soft, nontender, nondistended. EXTREMITIES: 1+ pitting edema GENITOURINARY: Mckeon catheter in place. Results Result Diagram: 02/21/17 0500 02/21/17 0500 Results 24 hrs Laboratory Tests Test 02/20/17 18:45 02/21/17 00:15 02/21/17 05:00 02/21/17 05:35 Bedside Glucose 94 97 113 White Blood Count 24.8 #H Red Blood Count 3.19 L Hemoglobin 10.1 L Hematocrit 28.5 L Mean Corpuscular Volume 89.3 Mean Corpuscular Hemoglobin 31.7 Mean Corpuscular Hemoglobin Concent 35.4 Red Cell Distribution Width 15.3 H Platelet Count 496 H Mean Platelet Volume 9.7 Neutrophils % 83.6 H Lymphocytes % 4.3 L Monocytes % 5.9 Eosinophils % 1.6 Basophils % 0.2 Nucleated Red Blood Cells % 0.2 H Neutrophils # 20.7 H Lymphocytes # 1.1 Monocytes # 1.5 H Eosinophils # 0.4 Basophils # 0.1 Nucleated Red Blood Cells # 0.1 H Sodium Level 128 L Potassium Level 4.0 Chloride Level 93 L Carbon Dioxide Level 20 L Anion Gap 19 H Blood Urea Nitrogen 50 H Creatinine 6.02 H Glucose Level 97 Calcium Level 6.8 L Total Bilirubin 0.6 Direct Bilirubin 0.60 #H Indirect Bilirubin 0.0 Aspartate Amino Transf (AST/SGOT) 594 H Alanine Aminotransferase (ALT/SGPT) 176 H Alkaline Phosphatase 1054 H Total Protein 6.9 # Albumin 3.1 L Random Vancomycin Level 15.6 Test 02/21/17 09:52 Blood Gas Specimen Source Blood arterial Arterial Blood Date Drawn 02/21/2017 11:10:35 AM Arterial Blood pH (Temp corrected) 7.296 *L Arterial Blood pCO2 (Temp correct) 41.7 Arterial Blood pO2 (Temp corrected) 92.4 Arterial Blood HCO3 19.9 L Arterial Blood Base Excess -6.2 L Arterial Blood Oxygen Saturation 95.6 Tirso Test ACCEPTAB Arterial Blood Gas Puncture Site Right Radial Arterial Blood Carboxyhemoglobin 0.3 Arterial Blood Methemoglobin 0.2 Blood Gas A-a O2 Differential 361.9 H Oxyhemoglobin Percent 95.1 Total Hemoglobin 11.6 L Blood Gas Temperature 37.0 Blood Gas Respiration Rate 20.0 Blood Gas Actual Respiration Rate 20 Blood Gas Modality VENT - AC FiO2 70.0 Blood Gas Tidal Volume 600.0 Blood Gas Low PEEP Setting 10.0 Blood Gas Critical Value Read Back L KALYAN HALL Blood Gas Notified Whom ZO Blood Gas Notified Time 02/21/2017 11:22:28 AM Medications Medications Current Medications Propofol 100 ml @ 2.727 mls/ hr Q12H IV Last administered on 02/18/17 15:17; Admin Dose 10.908 MLS/HR; Start 02/10/17 at 10:00 Phenylephrine HCl/ Dextrose (Zach-Syneph/D5W) 500 ml @ 18.75 mls/ hr TITRATE IV Last administered on 02/10/17 13:22; Admin Dose 26.25 MLS/HR; Start 02/10/17 at 13:00 Lorazepam (Ativan) 0.5 mg Q6H PRN IV ANXIETY Last administered on 02/13/17 11: 26; Admin Dose 0.5 MG; Start 02/10/17 at 12:30 Ondansetron HCl (Zofran Inj) 4 mg Q6H PRN IV NAUSEA AND/OR VOMITING Last administered on 02/20/17 06:13; Admin Dose 4 MG; Start 02/10/17 at 12:30 Acetaminophen (Tylenol Tab) 650 mg Q6H PRN PO PAIN LEVEL 1-3 OR FEVER Last administered on 02/18/17 13:42; Admin Dose 650 MG; Start 02/10/17 at 12:30 Acetaminophen/ Hydrocodone Bitart ([place] (5/325)) 1 tab Q6H PRN PO PAIN LEVEL 4 -6; Start 02/10/17 at 12:30 Morphine Sulfate (morphine) 2 mg Q4H PRN IV PAIN LEVEL 7-10 Last administered on 02/13/17 10:10; Admin Dose 2 MG; Start 02/10/17 at 12:30 Miscellaneous Information 1 ea NOTE XX ; Start 02/10/17 at 13:30 Glucose (Glutose) 15 gm Q15M PRN PO DECREASED GLUCOSE; Start 02/10/17 at 13:30 Glucose (Glutose) 22.5 gm Q15M PRN PO DECREASED GLUCOSE; Start 02/10/17 at 13: 30 Dextrose (D50w Syringe) 25 ml Q15M PRN IV DECREASED GLUCOSE Last administered on 02/15/17 17:53; Admin Dose 25 ML; Start 02/10/17 at 13:30 Dextrose (D50w Syringe) 50 ml Q15M PRN IV DECREASED GLUCOSE Last administered on 02/16/17 16:21; Admin Dose 50 ML; Start 02/10/17 at 13:30 Glucagon (Glucagen) 1 mg Q15M PRN IM DECREASED GLUCOSE; Start 02/10/17 at 13:30 Glucose 15 gm 15 gm Q15M PRN BUCCAL DECREASED GLUCOSE; Start 02/10/17 at 13:30 Norepinephrine 16 mg/Dextrose 500 ml @ 0 mls/hr TITRATE IV ; Start 02/10/17 at 21:00 Dopamine HCl/ Dextrose (D5W) 250 ml @ 1.7 mls/hr TITRATE IV Last administered on 02/12/17 04:51; Admin Dose 11.07 MLS/HR; Start 02/10/17 at 18:00 Pantoprazole (Protonix Iv) 40 mg BID@06,18 IV Last administered on 02/21/17 05 :36; Admin Dose 40 MG; Start 02/11/17 at 06:00 Ticagrelor (Brilinta) 90 mg BID PO Last administered on 02/21/17 08:32; Admin Dose 90 MG; Start 02/11/17 at 12:00 Aspirin (Halfprin) 81 mg DAILY PO Last administered on 02/21/17 08:27; Admin Dose 81 MG; Start 02/11/17 at 12:00 Atorvastatin Calcium 80 mg 80 mg HS NGT Last administered on 02/20/17 20:25; Admin Dose 80 MG; Start 02/11/17 at 21:00 Dextrose/Sodium Chloride 1,000 ml @ 75 mls/hr [id number] IV Last administered on 02/20/17 22:15; Admin Dose 75 MLS/HR; Start 02/12/17 at 21:30 Fentanyl 100 ml @ 2.5 mls/hr TITRATE IV Last administered on 02/20/17 07:00; Admin Dose 7 MLS/HR; Start 02/13/17 at 11:30 Midazolam HCl 50 ml @ 1 mls/hr TITRATE IV Last administered on 02/17/17 22:58 ; Admin Dose 3 MLS/HR; Start 02/14/17 at 23:00 Piperacillin Sod/ Tazobactam Sod (Zosyn 2.25gm/ 50ml (Pmx)) 50 ml @ 200 mls/hr Q8 IVPB Last administered on 02/21/17 05:36; Admin Dose 200 MLS/HR; Start at 13:00 Vancomycin HCl (Vancomycin Oral Syringe) 250 mg Q6 NGT Last administered on 05:36; Admin Dose 250 MG; Start 02/15/17 at 18:00 IV Flush (NS 10 ml) 10 ml PRN PRN IV FLUSH LINE; Start 02/15/17 at 20:00 Insulin Aspart (Novolog Insulin Pen) NOVOLOG *MILD* ALGORI... Q6 SC ; Start at 06:00 Amiodarone HCl 400 mg 400 mg BID PO Last administered on 02/21/17 08:26; Admin Dose 400 MG; Start 02/19/17 at 14:30 Vancomycin HCl 250 ml @ 125 mls/hr Q96H IVPB ; Start 02/21/17 at 10:00 Caspofungin/ Sodium Chloride (Cancidas/NS) 250 ml @ 250 mls/hr Q24H IV ; Start 02/21/17 at 12:00 SAILAJA LOUIE MD Feb 21, 2017 17:14
[2017-02-21] MEDS: ATORVASTATIN 80 MG TAB NGT SCH (21:32)
--- NOTE | 2017-02-21 22:42 | RADRPT ---
PROCEDURE: XR Chest. CLINICAL INDICATION: Advanced nasogastric tube TECHNIQUE: 3 frontal views of the chest were performed. COMPARISON: 02/21/2017 at 06:18 a.m. FINDINGS: The nasogastric tube is in the stomach with the side port in the region of the gastroesophageal junc tion. The tip of the endotracheal tube is approximately 4.6 cm above the akiko. There is hypoinfl ation of the lungs. ECG leads and oxygen tubing are projected over the chest. Mild pulmonary vascu lar congestion is apparent improved compared to previous study. Bilateral lung densities likely pulm onary edema mildly improved compared to previous study. The heart does not appear to be grossly enla rged. Right PICC line tip in upper right atrium approximately 2 cm below the level of the atriocava l junction. IMPRESSION: Nasogastric tube tip in stomach with sideport near gastroesophageal junction. Right PICC line tip in upper right atrium approximately 2 cm below the level of the atriocaval junction. Please see above . RPTAT: HJES .Gabino Burns MD, MD Date Time Electronically viewed and signed by .Gabino Burns MD, on 02/21/2017 22:41 .S/
[2017-02-22] VITALS (85 sets, daily range): BP systolic 70–148; BP diastolic 47–91; PULSE 107–127; RESP 20–24
[2017-02-22] MEDS: DEXTROSE 5%-0.45% NACL 1,000 ML IV SCH (03:00)
[2017-02-22] MEDS: PIPER-TAZO 2.25 GM (PMX) 50 ML IVPB SCH ×2 (05:59→14:26)
[2017-02-22] MEDS: VANCOMYCIN HCL 250 MG/5ML POSYG NGT SCH ×3 (05:59→18:00)
[2017-02-22] MEDS: PANTOPRAZOLE 40 MG INJ IV SCH ×2 (05:59→19:02)
[2017-02-22] MEDS: INSULIN ASPART [NOVOLOG] 3 ML PEN SC SCH ×3 (06:00→18:00)
[2017-02-22] MEDS: ACETAMINOPHEN 325 MG TAB PO PRN (06:25)
[2017-02-22] MEDS ORDERED: SOD CHLORIDE 0.9% 500 ML IV ONE (06:30)
[2017-02-22] MEDS ORDERED: NORepinephrine 8MG/250 ML (PMX 250 ML ONE (06:40)
[2017-02-22] MEDS ORDERED: NORepinephrine 8MG/250 ML (PMX 250 ML IV SCH (06:40)
[2017-02-22 06:57] LABS: ADD SCAN DIFF NO
[2017-02-22 07:08] LABS: ABNORMAL IP MESSAGE 1; BASOPHILS % 0.2 % (0.0-2.0); EOSINOPHILS # 0.1 10^3/ul (0.0-0.5); EOSINOPHILS % 0.3 % (0.0-7.0); HEMATOCRIT 32.1 % (42.0-52.0); HEMOGLOBIN 10.8 g/dl (14.0-18.0); LYMPHOCYTES # 0.9 10^3/ul (0.8-2.9); LYMPHOCYTES % 3.6 % (15.0-51.0); MEAN CORPUSCULAR HEMOGLOBIN 30.3 pg (29.0-33.0); MEAN CORPUSCULAR HGB CONC 33.6 g/dl (32.0-37.0); MEAN CORPUSCULAR VOLUME 89.9 fl (82.0-101.0); MONOCYTE # 1.7 10^3/ul (0.3-0.9); MONOCYTES % 6.5 % (0.0-11.0); NEUTROPHIL # 22.4 10^3/ul (1.6-7.5); NEUTROPHILS % 86.3 % (39.0-77.0); NUCLEATED RED BLOOD CELLS # 0.2 10^3/ul (0.0-0.0); NUCLEATED RED BLOOD CELLS% 0.9 /100WBC (0.0-0.0); PLATELET COUNT 491 10^3/UL (140-415); RED BLOOD COUNT 3.57 10^6/ul (4.70-6.10); RED CELL DISTRIBUTION WIDTH 16.1 % (11.5-14.5); WHITE BLOOD COUNT 25.9 10^3/ul (4.8-10.8)
[2017-02-22 07:29] LABS: CALCIUM 7.8 mg/dl (8.4-10.2); POTASSIUM 4.3 mmol/L (3.5-5.1)
[2017-02-22 07:35] LABS: CREATININE 6.33 mg/dl (0.61-1.24)
--- NOTE | 2017-02-22 08:33 | RADRPT ---
PROCEDURE: Chest 1 views. CLINICAL INDICATION: Shortness of breath TECHNIQUE: AP views of the chest was obtained. COMPARISON: Yesterday FINDINGS: The heart is large. Endotracheal and nasogastric tubes are stable and appear in grossly appropriate location. Left-sided PICC line is stable. Patchy infiltrates throughout both lungs have increased. Small to moderate right pleural effusion has developed. Osseous structures are unchanged. IMPRESSION: Cardiomegaly . Interval increase in patchy infiltrates throughout both lungs with interval development of small to moderate right pleural effusion. RPTAT: AA .Remington Burgess MD, MD Date Time Electronically viewed and signed by .Remington Burgess MD, MD on 02/22/2017 08:33 .P/
[2017-02-22] MEDS: ASPIRIN (EC) 81 MG TAB PO SCH (09:05)
[2017-02-22] MEDS: TICAGRELOR 90 MG TABLET PO SCH ×2 (09:06→21:00)
--- NOTE | 2017-02-22 09:27 | PN ---
Date/Time of Note Date/Time of Note DATE: 02/22/17 TIME: 09:22 Assessment/Plan VTE Prophylaxis VTE Prophylaxis Intervention: SCD's Lines/Catheters IV Catheter Type (from [facility]): PICC Line Central line still needed: Yes Urinary Cath still in place: Yes Reason Cath still needed: other (indicate) Assessment/Plan Chief Complaint/Hosp Course 1. Cardiac arrest. Status post left heart catheterization and coronary angioplasty with placement of a stent and placement of intraaortic balloon pump. The patient's underlying neuro status is unclear at this time. The patient was not started on any hypothermia protocol since the patient was moving and was vaguely following commands. 2. Cardiogenic shock. Most probably secondary to underlying cardiac arrest. The patient is currently on pressors to optimize blood pressure. The patient is S/P intraaortic counterpulsation therapy. 3. CAD. Status post coronary artery stenting. Continue antiplatelet therapy. 2D echocardiogram showing preserved left ventricular ejection fraction. 4. Urinary tract infection. Continue antibiotics. 5. Normocytic, normochromic anemia. Most probably anemia of chronic kidney disease. Monitor H&H closely. Transfuse as needed. 6. Acute kidney injury. The patient was newly started on dialysis. Nephrology following. 7. Hyperglycemia. Hemoglobin A1c 6.2. Continue sliding scale insulin. 8. Transaminitis without hyperbilirubinemia. Most probably secondary to underlying shock. Trend LFTs. Avoid hepatotoxic medications. 9. C. difficile colitis. Continue enteric precautions. On enteral vancomycin. 10. Acute encephalopathy. Most probably metabolic. Possible anoxic encephalopathy. The patient being followed by neurology. 11. Fluids, electrolytes, and nutrition. Tube feedings. 12. DVT prophylaxis. SCDs. 13. Gastrointestinal prophylaxis. Proton pump inhibitors. 14. Plan. Continue intensive care monitoring. Wean off pressors. Obtain an ID consult for anti-microbial management. Poor prognosis. Patient being followed by palliative care physician. Family meeting arranged for 02/25/2017. Case discussed with Dr. Welch. Critical care time: 35 minutes. Problems: Subjective 24 Hr Interval Summary Free Text/Dictation The patient became hypotensive in the morning. Hence the patient was started on pressors. Exam/Review of Systems Vital Signs Vitals Vital Signs Date Time Temp Pulse Resp B/P Pulse Ox O2 Delivery O2 Flow Rate FiO2 02/22/17 08:00 112 02/22/17 06:15 22 73/55 99 Mechanical Ventilator 02/22/17 05:27 75 02/22/17 04:00 98.4 Intake and Output 02/21/17 02/21/17 02/22/17 15:00 23:00 07:00 Intake Total 1110 ml 910 ml 590 ml Output Total 100 ml 3800 ml 20 ml Balance 1010 ml -2890 ml 570 ml Exam GENERAL: This is an obese male, lying in bed, orally intubated. HEENT: Head is normocephalic and atraumatic. Eyes: Anicteric sclerae. Conjunctivae are clear. ENT: Nasal septum is midline. Oral mucosa is dry. Orally intubated. Orogastric tube in place NECK: Supple. No JVD noticed. RESPIRATORY: Bilaterally diminished breath sounds. Orally intubated and mechanical ventilated, on AC mode ventilation. CARDIAC: S1, S2 heard. Regular rate and rhythm. ABDOMEN: Soft. Bowel sounds hypoactive. GENITOURINARY: The patient has a Mckeon catheter in place. Rectal tube in place. EXTREMITIES: No cyanosis, no clubbing, no edema. Pedal pulses by Doppler. NEUROLOGIC: The patient is obtunded. Pupils are equal and sluggishly reactive on both sides. Results Result Diagram: 02/22/17 0500 02/22/17 0500 Results 24 hrs Laboratory Tests Test 02/21/17 09:52 02/21/17 17:37 02/21/17 23:51 02/22/17 05:00 Blood Gas Specimen Source Blood arterial Arterial Blood Date Drawn 02/21/2017 11:10:35 AM Arterial Blood pH (Temp corrected) 7.296 *L Arterial Blood pCO2 (Temp correct) 41.7 Arterial Blood pO2 (Temp corrected) 92.4 Arterial Blood HCO3 19.9 L Arterial Blood Base Excess -6.2 L Arterial Blood Oxygen Saturation 95.6 Tirso Test ACCEPTAB Arterial Blood Gas Puncture Site Right Radial Arterial Blood Carboxyhemoglobin 0.3 Arterial Blood Methemoglobin 0.2 Blood Gas A-a O2 Differential 361.9 H Oxyhemoglobin Percent 95.1 Total Hemoglobin 11.6 L Blood Gas Temperature 37.0 Blood Gas Respiration Rate 20.0 Blood Gas Actual Respiration Rate 20 Blood Gas Modality VENT - AC FiO2 70.0 Blood Gas Tidal Volume 600.0 Blood Gas Low PEEP Setting 10.0 Blood Gas Critical Value Read Back Dionne BIGGS RN Blood Gas Notified Whom JLD Blood Gas Notified Time 02/21/2017 11:22:28 AM Bedside Glucose 109 128 White Blood Count 25.9 H Red Blood Count 3.57 L Hemoglobin 10.8 L Hematocrit 32.1 L Mean Corpuscular Volume 89.9 Mean Corpuscular Hemoglobin 30.3 Mean Corpuscular Hemoglobin Concent 33.6 Red Cell Distribution Width 16.1 H Platelet Count 491 H Mean Platelet Volume 10.0 Neutrophils % 86.3 H Lymphocytes % 3.6 L Monocytes % 6.5 Eosinophils % 0.3 Basophils % 0.2 Nucleated Red Blood Cells % 0.9 H Neutrophils # 22.4 H Lymphocytes # 0.9 Monocytes # 1.7 H Eosinophils # 0.1 Basophils # 0.0 Nucleated Red Blood Cells # 0.2 H Sodium Level 135 Potassium Level 4.3 Chloride Level 98 Carbon Dioxide Level 18 L Anion Gap 23 H Blood Urea Nitrogen 61 H Creatinine 6.33 H Glucose Level 108 Calcium Level 7.8 L Magnesium Level 2.3 Test 02/22/17 06:06 Bedside Glucose 114 Medications Medications Current Medications Ondansetron HCl (Zofran Inj) 4 mg Q6H PRN IV NAUSEA AND/OR VOMITING Last administered on 02/20/17 06:13; Admin Dose 4 MG; Start 02/10/17 at 12:30 Acetaminophen (Tylenol Tab) 650 mg Q6H PRN PO PAIN LEVEL 1-3 OR FEVER Last administered on 02/22/17 06:25; Admin Dose 650 MG; Start 02/10/17 at 12:30 Acetaminophen/ Hydrocodone Bitart ([place] (5/325)) 1 tab Q6H PRN PO PAIN LEVEL 4 -6; Start 02/10/17 at 12:30 Morphine Sulfate (morphine) 2 mg Q4H PRN IV PAIN LEVEL 7-10 Last administered on 02/13/17 10:10; Admin Dose 2 MG; Start 02/10/17 at 12:30 Miscellaneous Information 1 ea NOTE XX ; Start 02/10/17 at 13:30 Glucose (Glutose) 15 gm Q15M PRN PO DECREASED GLUCOSE; Start 02/10/17 at 13:30 Glucose (Glutose) 22.5 gm Q15M PRN PO DECREASED GLUCOSE; Start 02/10/17 at 13: 30 Dextrose (D50w Syringe) 25 ml Q15M PRN IV DECREASED GLUCOSE Last administered on 02/15/17 17:53; Admin Dose 25 ML; Start 02/10/17 at 13:30 Dextrose (D50w Syringe) 50 ml Q15M PRN IV DECREASED GLUCOSE Last administered on 02/16/17 16:21; Admin Dose 50 ML; Start 02/10/17 at 13:30 Glucagon (Glucagen) 1 mg Q15M PRN IM DECREASED GLUCOSE; Start 02/10/17 at 13:30 Glucose (Glutose) 15 gm Q15M PRN BUCCAL DECREASED GLUCOSE; Start 02/10/17 at 13 :30 Pantoprazole (Protonix Iv) 40 mg BID@06,18 IV Last administered on 02/22/17 05 :59; Admin Dose 40 MG; Start 02/11/17 at 06:00 Ticagrelor (Brilinta) 90 mg BID PO Last administered on 02/22/17 09:06; Admin Dose 90 MG; Start 02/11/17 at 12:00 Aspirin (Halfprin) 81 mg DAILY PO Last administered on 02/22/17 09:05; Admin Dose 81 MG; Start 02/11/17 at 12:00 Atorvastatin Calcium 80 mg 80 mg HS NGT Last administered on 02/21/17 21:32; Admin Dose 80 MG; Start 02/11/17 at 21:00 Dextrose/Sodium Chloride 1,000 ml @ 40 mls/hr Q24H IV Last administered on 17:00; Admin Dose 40 MLS/HR; Start 02/12/17 at 21:30 Piperacillin Sod/ Tazobactam Sod (Zosyn 2.25gm/ 50ml (Pmx)) 50 ml @ 200 mls/hr Q8 IVPB Last administered on 02/22/17 05:59; Admin Dose 200 MLS/HR; Start at 13:00 Vancomycin HCl (Vancomycin Oral Syringe) 250 mg Q6 NGT Last administered on 05:59; Admin Dose 250 MG; Start 02/15/17 at 18:00 IV Flush (NS 10 ml) 10 ml PRN PRN IV FLUSH LINE; Start 02/15/17 at 20:00 Insulin Aspart (Novolog Insulin Pen) NOVOLOG *MILD* [place]I... Q6 SC ; Start at 06:00 Amiodarone HCl 400 mg 400 mg BID PO Last administered on 02/21/17 21:32; Admin Dose 400 MG; Start 02/19/17 at 14:30 Vancomycin HCl 250 ml @ 125 mls/hr Q96H IVPB Last administered on 02/21/17 10 :00; Admin Dose 125 MLS/HR; Start 02/21/17 at 10:00 Caspofungin 35 mg/ Sodium Chloride 250 ml @ 250 mls/hr Q24H IV Last administered on 02/21/17 12:00; Admin Dose 250 MLS/HR; Start 02/21/17 at 12:00 Norepinephrine/ Dextrose (Levophed/D5W) 500 ml @ 1.87 mls/hr TITRATE IV ; Start 02/22/17 at 06:30 HUBERT KUNZ NP Feb 22, 2017 09:27
--- NOTE | 2017-02-22 10:09 | CONS ---
Date/Time of Note Date/Time of Note DATE: 02/22/17 TIME: 10:05 Assessment/Plan Assessment/Plan Additional Assessment/Plan Ventilator setting; AC of 20, tidal volume 600, PEEP of 10, 75% FiO2. Patient currently on Levophed at 16 mics per minute. Chest x-ray was reviewed from today which is again showing diffuse bilateral pneumonia and pulmonary edema with cardiomegaly. Endotracheal tube is at an adequate level. Next Assessment recommendations; 1. P patient admitted with cardiac arrest status post emergent coronary angiography with stenting of circumflex lesion. 2. Severe cardia myopathy with severe bilateral pneumonia as well as pulmonary edema. 3. Acute renal failure, on hemodialysis. 4. Massive fluid overload. Getting daily hemodialysis. 5. Paroxysmal atrial fibrillation, patient in sinus rhythm, maintained on amiodarone enterally. 6. Persistent hypotension. Continue current supportive care. Patient will be ultrafiltrated today. Prognosis is very guarded. 35 minutes of critical care time was spent evaluating the patient. Consultation Date/Type/Reason Admit Date/Time Feb 10, 2017 at 08:37 Initial Consult Date 02/10/17 Type of Consultation: Pulmonary/critical care Referring Provider: HUBERT KUNZ NP 24 HR Interval Summary Free Text/Dictation Patient condition remains critical. Still requiring full ventilator support at high FiO2, also is hypotensive requiring continuous pressor support. General exam; elderly male, on ventilator, orally intubated, unresponsive. Currently in no distress. Exam/Review of Systems Vital Signs Vitals Vital Signs Date Time Temp Pulse Resp B/P Pulse Ox O2 Delivery O2 Flow Rate FiO2 02/22/17 09:20 114 20 93 75 02/22/17 06:15 73/55 Mechanical Ventilator 02/22/17 04:00 98.4 Intake and Output 02/21/17 02/21/17 02/22/17 15:00 23:00 07:00 Intake Total 1110 ml 910 ml 590 ml Output Total 100 ml 3800 ml 20 ml Balance 1010 ml -2890 ml 570 ml Exam HEENT exam; supple neck, positive JVD. No lymphadenopathy. Midline trachea. No thyromegaly. Orally intubated. Patient has fair dentition. Pupils are small bilaterally. Chest exam; diffuse bilateral crackles. S1-S2 audible, no murmurs. Regular rhythm. Abdomen exam; soft, nondistended. No organomegaly. Bowel sounds audible. Extremity exam; patient with generalized 3+ anasarca. Pulses 1+. 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 Results Result Diagram: 02/22/17 0500 02/22/17 0500 Results 24 hrs Laboratory Tests Test 02/21/17 17:37 02/21/17 23:51 02/22/17 05:00 02/22/17 06:06 Bedside Glucose 109 128 114 White Blood Count 25.9 H Red Blood Count 3.57 L Hemoglobin 10.8 L Hematocrit 32.1 L Mean Corpuscular Volume 89.9 Mean Corpuscular Hemoglobin 30.3 Mean Corpuscular Hemoglobin Concent 33.6 Red Cell Distribution Width 16.1 H Platelet Count 491 H Mean Platelet Volume 10.0 Neutrophils % 86.3 H Lymphocytes % 3.6 L Monocytes % 6.5 Eosinophils % 0.3 Basophils % 0.2 Nucleated Red Blood Cells % 0.9 H Neutrophils # 22.4 H Lymphocytes # 0.9 Monocytes # 1.7 H Eosinophils # 0.1 Basophils # 0.0 Nucleated Red Blood Cells # 0.2 H Sodium Level 135 Potassium Level 4.3 Chloride Level 98 Carbon Dioxide Level 18 L Anion Gap 23 H Blood Urea Nitrogen 61 H Creatinine 6.33 H Glucose Level 108 Calcium Level 7.8 L Magnesium Level 2.3 Medications Medications Current Medications Ondansetron HCl (Zofran Inj) 4 mg Q6H PRN IV NAUSEA AND/OR VOMITING Last administered on 02/20/17 06:13; Admin Dose 4 MG; Start 02/10/17 at 12:30 Acetaminophen (Tylenol Tab) 650 mg Q6H PRN PO PAIN LEVEL 1-3 OR FEVER Last administered on 02/22/17 06:25; Admin Dose 650 MG; Start 02/10/17 at 12:30 Acetaminophen/ Hydrocodone Bitart ([place] (5/325)) 1 tab Q6H PRN PO PAIN LEVEL 4 -6; Start 02/10/17 at 12:30 Morphine Sulfate (morphine) 2 mg Q4H PRN IV PAIN LEVEL 7-10 Last administered on 02/13/17 10:10; Admin Dose 2 MG; Start 02/10/17 at 12:30 Miscellaneous Information 1 ea NOTE XX ; Start 02/10/17 at 13:30 Glucose (Glutose) 15 gm Q15M PRN PO DECREASED GLUCOSE; Start 02/10/17 at 13:30 Glucose (Glutose) 22.5 gm Q15M PRN PO DECREASED GLUCOSE; Start 02/10/17 at 13: 30 Dextrose (D50w Syringe) 25 ml Q15M PRN IV DECREASED GLUCOSE Last administered on 02/15/17 17:53; Admin Dose 25 ML; Start 02/10/17 at 13:30 Dextrose (D50w Syringe) 50 ml Q15M PRN IV DECREASED GLUCOSE Last administered on 02/16/17 16:21; Admin Dose 50 ML; Start 02/10/17 at 13:30 Glucagon (Glucagen) 1 mg Q15M PRN IM DECREASED GLUCOSE; Start 02/10/17 at 13:30 Glucose (Glutose) 15 gm Q15M PRN BUCCAL DECREASED GLUCOSE; Start 02/10/17 at 13 :30 Pantoprazole (Protonix Iv) 40 mg BID@06,18 IV Last administered on 02/22/17 05 :59; Admin Dose 40 MG; Start 02/11/17 at 06:00 Ticagrelor (Brilinta) 90 mg BID PO Last administered on 02/22/17 09:06; Admin Dose 90 MG; Start 02/11/17 at 12:00 Aspirin (Halfprin) 81 mg DAILY PO Last administered on 02/22/17 09:05; Admin Dose 81 MG; Start 02/11/17 at 12:00 Atorvastatin Calcium 80 mg 80 mg HS NGT Last administered on 02/21/17 21:32; Admin Dose 80 MG; Start 02/11/17 at 21:00 Dextrose/Sodium Chloride 1,000 ml @ 40 mls/hr Q24H IV Last administered on 17:00; Admin Dose 40 MLS/HR; Start 02/12/17 at 21:30 Piperacillin Sod/ Tazobactam Sod (Zosyn 2.25gm/ 50ml (Pmx)) 50 ml @ 200 mls/hr Q8 IVPB Last administered on 02/22/17 05:59; Admin Dose 200 MLS/HR; Start at 13:00 Vancomycin HCl (Vancomycin Oral Syringe) 250 mg Q6 NGT Last administered on 05:59; Admin Dose 250 MG; Start 02/15/17 at 18:00 IV Flush (NS 10 ml) 10 ml PRN PRN IV FLUSH LINE; Start 02/15/17 at 20:00 Insulin Aspart (Novolog Insulin Pen) NOVOLOG *MILD* ALGORI... Q6 SC ; Start at 06:00 Amiodarone HCl 400 mg 400 mg BID PO Last administered on 02/21/17 21:32; Admin Dose 400 MG; Start 02/19/17 at 14:30 Vancomycin HCl 250 ml @ 125 mls/hr Q96H IVPB Last administered on 02/21/17 10 :00; Admin Dose 125 MLS/HR; Start 02/21/17 at 10:00 Caspofungin 35 mg/ Sodium Chloride 250 ml @ 250 mls/hr Q24H IV Last administered on 02/21/17 12:00; Admin Dose 250 MLS/HR; Start 02/21/17 at 12:00 Norepinephrine/ Dextrose (Levophed/D5W) 500 ml @ 1.87 mls/hr TITRATE IV ; Start 02/22/17 at 06:30 ANGELINA VALDEZ 28, 2017 10:09
--- NOTE | 2017-02-22 10:27 | CONS ---
Date/Time of Note Date/Time of Note DATE: 02/22/17 TIME: 10:24 Assessment/Plan Assessment/Plan Additional Assessment/Plan S/p Cardiac Arrest CAD s/p PCI of OM, s/p IABP Atrial fibrillation with RVR Renal failure on HD VDRF Severe encephalopathy Cardioembolic stroke involving martines radiata Anemia C diff Sinus tachycardia and hypotension started on levophed Clinically non responsive had HD 3.5 lts removed Recommend albumin infusion Wean off Levophed if MAP > 60mmHg Continue amiodarone Continue Vent Support and pulmonary toiletry Continue HD as scheduled Continue Brilinta and ASA Continue Lipitor Continue antibiotics Consultation Date/Type/Reason Admit Date/Time Feb 10, 2017 at 08:37 Initial Consult Date 02/13/17 Type of Consultation: Pulmonary/critical care Referring Provider: HUBERT KUNZ [employer]OOK [employer]AIL[employer] Exam/Review of Systems Vital Signs Vitals Vital Signs Date Time Temp Pulse Resp B/P Pulse Ox O2 Delivery O2 Flow Rate FiO2 02/22/17 09:20 114 20 93 75 02/22/17 06:15 73/55 Mechanical Ventilator 02/22/17 04:00 98.4 Intake and Output 02/21/17 02/21/17 02/22/17 14:59 22:59 06:59 Intake Total 1135 ml 900 ml 710 ml Output Total 100 ml 3800 ml 20 ml Balance 1035 ml -2900 ml 690 ml Exam Constitutional: non-verbal, other (Intubated) Respiratory: other (Mechanical breath sounds heard bilaterally) Cardiovascular: Tachycardic, no m/r/g Gastrointestinal: nl liver, spleen, non-tender, soft Extremities: normal pulses Results Result Diagram: 02/22/17 0500 02/22/17 0500 Results 24 hrs Laboratory Tests Test 02/21/17 17:37 02/21/17 23:51 02/22/17 05:00 02/22/17 06:06 Bedside Glucose 109 128 114 White Blood Count 25.9 H Red Blood Count 3.57 L Hemoglobin 10.8 L Hematocrit 32.1 L Mean Corpuscular Volume 89.9 Mean Corpuscular Hemoglobin 30.3 Mean Corpuscular Hemoglobin Concent 33.6 Red Cell Distribution Width 16.1 H Platelet Count 491 H Mean Platelet Volume 10.0 Neutrophils % 86.3 H Lymphocytes % 3.6 L Monocytes % 6.5 Eosinophils % 0.3 Basophils % 0.2 Nucleated Red Blood Cells % 0.9 H Neutrophils # 22.4 H Lymphocytes # 0.9 Monocytes # 1.7 H Eosinophils # 0.1 Basophils # 0.0 Nucleated Red Blood Cells # 0.2 H Sodium Level 135 Potassium Level 4.3 Chloride Level 98 Carbon Dioxide Level 18 L Anion Gap 23 H Blood Urea Nitrogen 61 H Creatinine 6.33 H Glucose Level 108 Calcium Level 7.8 L Magnesium Level 2.3 Medications Medications Current Medications Ondansetron HCl (Zofran Inj) 4 mg Q6H PRN IV NAUSEA AND/OR VOMITING Last administered on 02/20/17 06:13; Admin Dose 4 MG; Start 02/10/17 at 12:30 Acetaminophen (Tylenol Tab) 650 mg Q6H PRN PO PAIN LEVEL 1-3 OR FEVER Last administered on 02/22/17 06:25; Admin Dose 650 MG; Start 02/10/17 at 12:30 Acetaminophen/ Hydrocodone Bitart ([place] (5/325)) 1 tab Q6H PRN PO PAIN LEVEL 4 -6; Start 02/10/17 at 12:30 Morphine Sulfate (morphine) 2 mg Q4H PRN IV PAIN LEVEL 7-10 Last administered on 02/13/17 10:10; Admin Dose 2 MG; Start 02/10/17 at 12:30 Miscellaneous Information 1 ea NOTE XX ; Start 02/10/17 at 13:30 Glucose (Glutose) 15 gm Q15M PRN PO DECREASED GLUCOSE; Start 02/10/17 at 13:30 Glucose (Glutose) 22.5 gm Q15M PRN PO DECREASED GLUCOSE; Start 02/10/17 at 13: 30 Dextrose (D50w Syringe) 25 ml Q15M PRN IV DECREASED GLUCOSE Last administered on 02/15/17 17:53; Admin Dose 25 ML; Start 02/10/17 at 13:30 Dextrose (D50w Syringe) 50 ml Q15M PRN IV DECREASED GLUCOSE Last administered on 02/16/17 16:21; Admin Dose 50 ML; Start 02/10/17 at 13:30 Glucagon (Glucagen) 1 mg Q15M PRN IM DECREASED GLUCOSE; Start 02/10/17 at 13:30 Glucose (Glutose) 15 gm Q15M PRN BUCCAL DECREASED GLUCOSE; Start 02/10/17 at 13 :30 Pantoprazole (Protonix Iv) 40 mg BID@06,18 IV Last administered on 02/22/17 05 :59; Admin Dose 40 MG; Start 02/11/17 at 06:00 Ticagrelor (Brilinta) 90 mg BID PO Last administered on 02/22/17 09:06; Admin Dose 90 MG; Start 02/11/17 at 12:00 Aspirin (Halfprin) 81 mg DAILY PO Last administered on 02/22/17 09:05; Admin Dose 81 MG; Start 02/11/17 at 12:00 Atorvastatin Calcium 80 mg 80 mg HS NGT Last administered on 02/21/17 21:32; Admin Dose 80 MG; Start 02/11/17 at 21:00 Dextrose/Sodium Chloride 1,000 ml @ 40 mls/hr Q24H IV Last administered on 17:00; Admin Dose 40 MLS/HR; Start 02/12/17 at 21:30 Piperacillin Sod/ Tazobactam Sod (Zosyn 2.25gm/ 50ml (Pmx)) 50 ml @ 200 mls/hr Q8 IVPB Last administered on 02/22/17 05:59; Admin Dose 200 MLS/HR; Start at 13:00 Vancomycin HCl (Vancomycin Oral Syringe) 250 mg Q6 NGT Last administered on 05:59; Admin Dose 250 MG; Start 02/15/17 at 18:00 IV Flush (NS 10 ml) 10 ml PRN PRN IV FLUSH LINE; Start 02/15/17 at 20:00 Insulin Aspart (Novolog Insulin Pen) NOVOLOG *MILD* ALGORI... Q6 SC ; Start at 06:00 Amiodarone HCl 400 mg 400 mg BID PO Last administered on 02/21/17 21:32; Admin Dose 400 MG; Start 02/19/17 at 14:30 Vancomycin HCl 250 ml @ 125 mls/hr Q96H IVPB Last administered on 02/21/17 10 :00; Admin Dose 125 MLS/HR; Start 02/21/17 at 10:00 Caspofungin 35 mg/ Sodium Chloride 250 ml @ 250 mls/hr Q24H IV Last administered on 02/21/17 12:00; Admin Dose 250 MLS/HR; Start 02/21/17 at 12:00 Norepinephrine/ Dextrose (Levophed/D5W) 500 ml @ 1.87 mls/hr TITRATE IV ; Start 02/22/17 at 06:30 ALEXANDER ROJO M.D. Feb 22, 2017 10:26
[2017-02-22] MEDS ORDERED: ALBUMIN HUMAN 25% 200 ML ONE (11:50)
--- NOTE | 2017-02-22 11:54 | CONS ---
Date/Time of Note Date/Time of Note DATE: 02/22/17 TIME: 11:51 Consult Date/Type/Reason Admit Date/Time Feb 10, 2017 at 08:37 Initial Consult Date 02/13/17 Type of Consultation: Neurology Reason for Consultation encephalopathy post cardiac arrest Ordering Provider: HUBERT KUNZ MASTER SCHEDULER Subjective receiving dialysis, febrile on levophed BP: 90/50 less grimacing to noxious Objective Vital Signs Date Time Temp Pulse Resp B/P Pulse Ox O2 Delivery O2 Flow Rate FiO2 02/22/17 10:30 112 20 79/67 90 02/22/17 10:00 Mechanical Ventilator 02/22/17 09:20 75 02/22/17 04:00 98.4 Intake and Output 02/21/17 02/21/17 02/22/17 15:00 23:00 07:00 Intake Total 1110 ml 910 ml 609 ml Output Total 100 ml 3800 ml 20 ml Balance 1010 ml -2890 ml 589 ml Exam unable to arouse unable to open his eyes to noxious or sternal rub breathing w ventilator CN: pupils more dilated today 5 mm reactive to 4 mm bilateral able to Doll's corneals are intact bilaterally, weak gag reflex Motor: no withdrawal to noxious no grimace to noxious Results/Medications Result Diagram: 02/22/17 0500 02/22/17 0500 Results 24 hrs Laboratory Tests Test 02/21/17 17:37 02/21/17 23:51 02/22/17 05:00 02/22/17 06:06 Bedside Glucose 109 128 114 White Blood Count 25.9 H Red Blood Count 3.57 L Hemoglobin 10.8 L Hematocrit 32.1 L Mean Corpuscular Volume 89.9 Mean Corpuscular Hemoglobin 30.3 Mean Corpuscular Hemoglobin Concent 33.6 Red Cell Distribution Width 16.1 H Platelet Count 491 H Mean Platelet Volume 10.0 Neutrophils % 86.3 H Lymphocytes % 3.6 L Monocytes % 6.5 Eosinophils % 0.3 Basophils % 0.2 Nucleated Red Blood Cells % 0.9 H Neutrophils # 22.4 H Lymphocytes # 0.9 Monocytes # 1.7 H Eosinophils # 0.1 Basophils # 0.0 Nucleated Red Blood Cells # 0.2 H Sodium Level 135 Potassium Level 4.3 Chloride Level 98 Carbon Dioxide Level 18 L Anion Gap 23 H Blood Urea Nitrogen 61 H Creatinine 6.33 H Glucose Level 108 Calcium Level 7.8 L Magnesium Level 2.3 Medications Current Medications Ondansetron HCl (Zofran Inj) 4 mg Q6H PRN IV NAUSEA AND/OR VOMITING Last administered on 02/20/17 06:13; Admin Dose 4 MG; Start 02/10/17 at 12:30 Acetaminophen (Tylenol Tab) 650 mg Q6H PRN PO PAIN LEVEL 1-3 OR FEVER Last administered on 02/22/17 06:25; Admin Dose 650 MG; Start 02/10/17 at 12:30 Acetaminophen/ Hydrocodone Bitart ([place] (5/325)) 1 tab Q6H PRN PO PAIN LEVEL 4 -6; Start 02/10/17 at 12:30 Morphine Sulfate (morphine) 2 mg Q4H PRN IV PAIN LEVEL 7-10 Last administered on 02/13/17 10:10; Admin Dose 2 MG; Start 02/10/17 at 12:30 Miscellaneous Information 1 ea NOTE XX ; Start 02/10/17 at 13:30 Glucose (Glutose) 15 gm Q15M PRN PO DECREASED GLUCOSE; Start 02/10/17 at 13:30 Glucose (Glutose) 22.5 gm Q15M PRN PO DECREASED GLUCOSE; Start 02/10/17 at 13: 30 Dextrose (D50w Syringe) 25 ml Q15M PRN IV DECREASED GLUCOSE Last administered on 02/15/17 17:53; Admin Dose 25 ML; Start 02/10/17 at 13:30 Dextrose (D50w Syringe) 50 ml Q15M PRN IV DECREASED GLUCOSE Last administered on 02/16/17 16:21; Admin Dose 50 ML; Start 02/10/17 at 13:30 Glucagon (Glucagen) 1 mg Q15M PRN IM DECREASED GLUCOSE; Start 02/10/17 at 13:30 Glucose (Glutose) 15 gm Q15M PRN BUCCAL DECREASED GLUCOSE; Start 02/10/17 at 13 :30 Pantoprazole (Protonix Iv) 40 mg BID@,18 IV Last administered on 02/22/17 05 :59; Admin Dose 40 MG; Start 02/11/17 at 06:00 Ticagrelor (Brilinta) 90 mg BID PO Last administered on 02/22/17 09:06; Admin Dose 90 MG; Start 02/11/17 at 12:00 Aspirin (Halfprin) 81 mg DAILY PO Last administered on 02/22/17 09:05; Admin Dose 81 MG; Start 02/11/17 at 12:00 Atorvastatin Calcium 80 mg 80 mg HS NGT Last administered on 02/21/17 21:32; Admin Dose 80 MG; Start 02/11/17 at 21:00 Dextrose/Sodium Chloride 1,000 ml @ 40 mls/hr Q24H IV Last administered on 17:00; Admin Dose 40 MLS/HR; Start 02/12/17 at 21:30 Piperacillin Sod/ Tazobactam Sod (Zosyn 2.25gm/ 50ml (Pmx)) 50 ml @ 200 mls/hr Q8 IVPB Last administered on 02/22/17 05:59; Admin Dose 200 MLS/HR; Start at 13:00 Vancomycin HCl (Vancomycin Oral Syringe) 250 mg Q6 NGT Last administered on 05:59; Admin Dose 250 MG; Start 02/15/17 at 18:00 IV Flush (NS 10 ml) 10 ml PRN PRN IV FLUSH LINE; Start 02/15/17 at 20:00 Insulin Aspart (Novolog Insulin Pen) NOVOLOG *MILD* ALGORI... Q6 SC ; Start at 06:00 Amiodarone HCl 400 mg 400 mg BID PO Last administered on 02/21/17 21:32; Admin Dose 400 MG; Start 02/19/17 at 14:30 Vancomycin HCl 250 ml @ 125 mls/hr Q96H IVPB Last administered on 02/21/17 10 :00; Admin Dose 125 MLS/HR; Start 02/21/17 at 10:00 Caspofungin 35 mg/ Sodium Chloride 250 ml @ 250 mls/hr Q24H IV Last administered on 02/21/17 12:00; Admin Dose 250 MLS/HR; Start 02/21/17 at 12:00 Norepinephrine 16 mg/Dextrose 500 ml @ 1.87 mls/hr TITRATE IV Last administered on 02/22/17 07:00; Admin Dose 18.75 MLS/HR; Start 02/22/17 at 06: 30 Phenylephrine HCl 160 mg/Dextrose 500 ml @ 18.75 mls/ hr TITRATE IV ; Start at 12:00 Albumin Human (Albumin Human 25%) 100 ml @ 100 mls/hr ONCE ONCE IV ; Start at 12:00; Stop 02/22/17 at 12:59 Assessment/Plan Chief Complaint/Hosp Course 66 year old male admitted with STEMI with 100% left circumflex vessel occlusion requiring MIRA with intra-aortic balloon pump admitted to ICU for further management severe encephalopathy, failed weaning trial with ARF receiving dialysis with new onset afib persistent encephalopathy. MRI showed a tiny right martines radiata infarct presumably cardioembolic, no areas of involvement to suggest hypoxic ischemic encephalopathy Carotid Duplex: unrevealing EEG: consistent with encephalopathy without epileptiform discharges Repeat EEG done over weekend shows severe encephalopathy no seizures Recommendations: severe encephalopathy, no improvement in exam Repeat EEG- reviewed by Dr. Perez unable to add official note into chart due to dictation system being down showed severe encephalopathy no seizures will also repeat MRI Brain without contrast to evaluate for further cardioembolic strokes given new onset afib this is still pending may continue on current antiplatelet regimen with ASA and Brilinta maintain normotensive blood pressure will follow Problems: CRISTOPHER NEWELL MD Feb 22, 2017 11:54
[2017-02-22] MEDS: PHENYLephrine 160 MG in DEXTROSE 5% 484 ML IV SCH (12:00)
[2017-02-22] MEDS ORDERED: ALBUMIN HUMAN 25% 100 ML IV ONE (12:00)
[2017-02-22] MEDS: AMIODARONE 200 MG TAB PO SCH ×2 (13:00→21:00)
[2017-02-22] MEDS: CASPOFUNGIN 35 MG in SOD CHLORIDE 0.9% 250 ML IV SCH (14:25)
--- NOTE | 2017-02-22 16:47 | CONS ---
Date/Time of Note Date/Time of Note DATE: 02/22/17 TIME: 16:43 Assessment/Plan Assessment/Plan Additional Assessment/Plan 1. Oliguric acute kidney injury, likely secondary to ischemic acute tubular necrosis from ST-elevation myocardial infarction and cardiogenic shock. did not improve,d started on HD on due to Oliguric NEFTALI with fluid overaload 2. Cardiogenic shock. 3. Acute respiratory failure from cardiac arrest, currently intubated on ventilator. 4. Metabolic acidosis secondary to acute renal failure. 5. No significant past medical history, as per the family. PLAN: started on HD for fluid overload, and acute renal failure during this admission pt remains intubated,fluid overloaded, BP stable, s/p HD x 3 days in row- 8.3 L removed in last three days Pt will likely be a [facility] HD patient will follow up Consultation Date/Type/Reason Admit Date/Time Feb 10, 2017 at 08:37 Initial Consult Date 02/10/17 Type of Consultation: NEPHROLOGY Referring Provider: HUBERT KUNZ BLENDING MACHINE FEEDER 24 HR Interval Summary Free Text/Dictation afebrile, BP stable , s/p HD today 2.5 L removed, remains intubated Exam/Review of Systems Vital Signs Vitals Vital Signs Date Time Temp Pulse Resp B/P Pulse Ox O2 Delivery O2 Flow Rate FiO2 02/22/17 15:10 121 20 93 80 02/22/17 10:30 79/67 02/22/17 10:00 Mechanical Ventilator 02/22/17 04:00 98.4 Intake and Output 02/21/17 02/21/17 02/22/17 15:00 23:00 07:00 Intake Total 1110 ml 910 ml 609 ml Output Total 100 ml 3800 ml 20 ml Balance 1010 ml -2890 ml 589 ml Exam GENERAL: The patient is currently sedated, intubated on ventilator. HEENT: ET tube in place. NECK: Supple. No jugular venous distention. No lymphadenopathy. LUNGS: Bilateral coarse breath sounds with minimal expiratory wheezing. HEART: S1, S2, tachycardia, no murmur. ABDOMEN: Soft, nontender, nondistended. EXTREMITIES: 1+ pitting edema GENITOURINARY: Mckeon catheter in place. Results Result Diagram: 02/22/17 0500 02/22/17 0500 Results 24 hrs Laboratory Tests Test 02/21/17 17:37 02/21/17 23:51 02/22/17 05:00 02/22/17 06:06 Bedside Glucose 109 128 114 White Blood Count 25.9 H Red Blood Count 3.57 L Hemoglobin 10.8 L Hematocrit 32.1 L Mean Corpuscular Volume 89.9 Mean Corpuscular Hemoglobin 30.3 Mean Corpuscular Hemoglobin Concent 33.6 Red Cell Distribution Width 16.1 H Platelet Count 491 H Mean Platelet Volume 10.0 Neutrophils % 86.3 H Lymphocytes % 3.6 L Monocytes % 6.5 Eosinophils % 0.3 Basophils % 0.2 Nucleated Red Blood Cells % 0.9 H Neutrophils # 22.4 H Lymphocytes # 0.9 Monocytes # 1.7 H Eosinophils # 0.1 Basophils # 0.0 Nucleated Red Blood Cells # 0.2 H Sodium Level 135 Potassium Level 4.3 Chloride Level 98 Carbon Dioxide Level 18 L Anion Gap 23 H Blood Urea Nitrogen 61 H Creatinine 6.33 H Glucose Level 108 Calcium Level 7.8 L Magnesium Level 2.3 Test 02/22/17 12:21 Bedside Glucose 102 Medications Medications Current Medications Ondansetron HCl (Zofran Inj) 4 mg Q6H PRN IV NAUSEA AND/OR VOMITING Last administered on 02/20/17 06:13; Admin Dose 4 MG; Start 02/10/17 at 12:30 Acetaminophen (Tylenol Tab) 650 mg Q6H PRN PO PAIN LEVEL 1-3 OR FEVER Last administered on 02/22/17 06:25; Admin Dose 650 MG; Start 02/10/17 at 12:30 Acetaminophen/ Hydrocodone Bitart ([place] (5/325)) 1 tab Q6H PRN PO PAIN LEVEL 4 -6; Start 02/10/17 at 12:30 Morphine Sulfate (morphine) 2 mg Q4H PRN IV PAIN LEVEL 7-10 Last administered on 02/13/17 10:10; Admin Dose 2 MG; Start 02/10/17 at 12:30 Miscellaneous Information 1 ea NOTE XX ; Start 02/10/17 at 13:30 Glucose (Glutose) 15 gm Q15M PRN PO DECREASED GLUCOSE; Start 02/10/17 at 13:30 Glucose (Glutose) 22.5 gm Q15M PRN PO DECREASED GLUCOSE; Start 02/10/17 at 13: 30 Dextrose (D50w Syringe) 25 ml Q15M PRN IV DECREASED GLUCOSE Last administered on 02/15/17 17:53; Admin Dose 25 ML; Start 02/10/17 at 13:30 Dextrose (D50w Syringe) 50 ml Q15M PRN IV DECREASED GLUCOSE Last administered on 02/16/17 16:21; Admin Dose 50 ML; Start 02/10/17 at 13:30 Glucagon (Glucagen) 1 mg Q15M PRN IM DECREASED GLUCOSE; Start 02/10/17 at 13:30 Glucose (Glutose) 15 gm Q15M PRN BUCCAL DECREASED GLUCOSE; Start 02/10/17 at 13 :30 Pantoprazole (Protonix Iv) 40 mg BID@06,18 IV Last administered on 02/22/17 05 :59; Admin Dose 40 MG; Start 02/11/17 at 06:00 Ticagrelor (Brilinta) 90 mg BID PO Last administered on 02/22/17 09:06; Admin Dose 90 MG; Start 02/11/17 at 12:00 Aspirin (Halfprin) 81 mg DAILY PO Last administered on 02/22/17 09:05; Admin Dose 81 MG; Start 02/11/17 at 12:00 Atorvastatin Calcium 80 mg 80 mg HS NGT Last administered on 02/21/17 21:32; Admin Dose 80 MG; Start 02/11/17 at 21:00 Dextrose/Sodium Chloride 1,000 ml @ 40 mls/hr Q24H IV Last administered on 17:00; Admin Dose 40 MLS/HR; Start 02/12/17 at 21:30 Piperacillin Sod/ Tazobactam Sod (Zosyn 2.25gm/ 50ml (Pmx)) 50 ml @ 200 mls/hr Q8 IVPB Last administered on 02/22/17 14:26; Admin Dose 200 MLS/HR; Start at 13:00 Vancomycin HCl (Vancomycin Oral Syringe) 250 mg Q6 NGT Last administered on 12:00; Admin Dose 250 MG; Start 02/15/17 at 18:00 IV Flush (NS 10 ml) 10 ml PRN PRN IV FLUSH LINE; Start 02/15/17 at 20:00 Insulin Aspart (Novolog Insulin Pen) NOVOLOG *MILD* ALGORI... Q6 SC ; Start at 06:00 Amiodarone HCl 400 mg 400 mg BID PO Last administered on 02/22/17 13:00; Admin Dose 400 MG; Start 02/19/17 at 14:30 Vancomycin HCl 250 ml @ 125 mls/hr Q96H IVPB Last administered on 02/21/17 10 :00; Admin Dose 125 MLS/HR; Start 02/21/17 at 10:00 Caspofungin 35 mg/ Sodium Chloride 250 ml @ 250 mls/hr Q24H IV Last administered on 02/22/17 14:25; Admin Dose 250 MLS/HR; Start 02/21/17 at 12:00 Norepinephrine 16 mg/Dextrose 500 ml @ 1.87 mls/hr TITRATE IV Last administered on 02/22/17 07:00; Admin Dose 18.75 MLS/HR; Start 02/22/17 at 06: 30 Phenylephrine HCl/ Dextrose (Zach-Syneph/D5W) 500 ml @ 18.75 mls/ hr TITRATE IV ; Start 02/22/17 at 12:00 SAILAJA LOUIE MD Feb 22, 2017 16:46
[2017-02-22] MEDS: DEXTROSE 50% 50 ML SYRINGE IV PRN (17:25)
--- NOTE | 2017-02-22 17:25 | CONS ---
Date/Time of Note Date/Time of Note DATE: 02/22/17 TIME: 17:24 Consultation Date/Type/Reason Admit Date/Time Feb 10, 2017 at 08:37 Reason for Consultation This is Dr. Marcy Hutchison dictating infectious disease consult on Yefri Antonio date of admission is 02/10 date of consultation and dictation is 2016. Reason for consultation is antibiotic management Patient is a 66-year-old male who comes in with a witnessed cardiac arrest while he was at work. CPR was performed by EMS on arrival. His downtime was 7 minutes. He had another cardiac arrest and ventricular fibrillation for which he was shocked twice in the emergency room with return of spontaneous circulation. On admission his white count was 22.9. Currently he is off hypothermic measures but is doing very poorly. He has an ET tube, an OG tube, a Mckeon catheter, a left arm PICC line, a right groin hemodialysis catheter. The patient has C. difficile colitis, his white count is 25.9 BUN creatinine 61/ 6.33 He is on pressors to maintain his blood pressure. Patient is on vancomycin and caspofungin as well as Zosyn. His urine grew out strep agalactiae or group B strep in the urine on the ; on the he was found to have C. difficile toxin. Chest x-ray from today shows interval increase in patchy infiltrates throughout both lungs with interval development of small to moderate right pleural effusion. 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 He has an ET tube and OG tube, Mckeon catheter, PICC line, and right groin catheter for dialysis SHEENT as noted Neck is supple Chest bilateral coarse rhonchi bilaterally Heart without murmur gallops Abdomen is soft nontender without organosplenomegaly or masses extremities 1+ pitting edema Genitourinary: Mckeon catheter in place Rectal: Deferred Neurological: Patient sedated on respirator Impression plan: Patient has leukocytosis which may be related to C. difficile, increased pneumonia, line sepsis, and a variety of other causes. I will check blood cultures, sputum and urine. If his mental status does not improve, he should be considered for hospice care. Thank you for this rice drier. Constitutional: requiring IVF, requiring O2 Social History Smoking Status: Unknown if ever smoked Exam/Review of Systems Vital Signs Vitals Vital Signs Date Time Temp Pulse Resp B/P Pulse Ox O2 Delivery O2 Flow Rate FiO2 02/22/17 16:00 118 02/22/17 15:10 20 93 80 02/22/17 10:30 79/67 02/22/17 10:00 Mechanical Ventilator 02/22/17 04:00 98.4 Intake and Output 02/21/17 02/21/17 02/22/17 15:00 23:00 07:00 Intake Total 1110 ml 910 ml 609 ml Output Total 100 ml 3800 ml 20 ml Balance 1010 ml -2890 ml 589 ml Results Result Diagram: 02/22/17 0500 02/22/17 0500 Results 24 hrs Laboratory Tests Test 02/21/17 17:37 02/21/17 23:51 02/22/17 05:00 02/22/17 06:06 Bedside Glucose 109 128 114 White Blood Count 25.9 H Red Blood Count 3.57 L Hemoglobin 10.8 L Hematocrit 32.1 L Mean Corpuscular Volume 89.9 Mean Corpuscular Hemoglobin 30.3 Mean Corpuscular Hemoglobin Concent 33.6 Red Cell Distribution Width 16.1 H Platelet Count 491 H Mean Platelet Volume 10.0 Neutrophils % 86.3 H Lymphocytes % 3.6 L Monocytes % 6.5 Eosinophils % 0.3 Basophils % 0.2 Nucleated Red Blood Cells % 0.9 H Neutrophils # 22.4 H Lymphocytes # 0.9 Monocytes # 1.7 H Eosinophils # 0.1 Basophils # 0.0 Nucleated Red Blood Cells # 0.2 H Sodium Level 135 Potassium Level 4.3 Chloride Level 98 Carbon Dioxide Level 18 L Anion Gap 23 H Blood Urea Nitrogen 61 H Creatinine 6.33 H Glucose Level 108 Calcium Level 7.8 L Magnesium Level 2.3 Test 02/22/17 12:21 Bedside Glucose 102 Medications Medications Current Medications Ondansetron HCl (Zofran Inj) 4 mg Q6H PRN IV NAUSEA AND/OR VOMITING Last administered on 02/20/17 06:13; Admin Dose 4 MG; Start 02/10/17 at 12:30 Acetaminophen (Tylenol Tab) 650 mg Q6H PRN PO PAIN LEVEL 1-3 OR FEVER Last administered on 02/22/17 06:25; Admin Dose 650 MG; Start 02/10/17 at 12:30 Acetaminophen/ Hydrocodone Bitart ([place] (5/325)) 1 tab Q6H PRN PO PAIN LEVEL 4 -6; Start 02/10/17 at 12:30 Morphine Sulfate (morphine) 2 mg Q4H PRN IV PAIN LEVEL 7-10 Last administered on 02/13/17 10:10; Admin Dose 2 MG; Start 02/10/17 at 12:30 Miscellaneous Information 1 ea NOTE XX ; Start 02/10/17 at 13:30 Glucose (Glutose) 15 gm Q15M PRN PO DECREASED GLUCOSE; Start 02/10/17 at 13:30 Glucose (Glutose) 22.5 gm Q15M PRN PO DECREASED GLUCOSE; Start 02/10/17 at 13: 30 Dextrose (D50w Syringe) 25 ml Q15M PRN IV DECREASED GLUCOSE Last administered on 02/15/17 17:53; Admin Dose 25 ML; Start 02/10/17 at 13:30 Dextrose (D50w Syringe) 50 ml Q15M PRN IV DECREASED GLUCOSE Last administered on 02/16/17 16:21; Admin Dose 50 ML; Start 02/10/17 at 13:30 Glucagon (Glucagen) 1 mg Q15M PRN IM DECREASED GLUCOSE; Start 02/10/17 at 13:30 Glucose (Glutose) 15 gm Q15M PRN BUCCAL DECREASED GLUCOSE; Start 02/10/17 at 13 :30 Pantoprazole (Protonix Iv) 40 mg BID@,18 IV Last administered on 02/22/17 05 :59; Admin Dose 40 MG; Start 02/11/17 at 06:00 Ticagrelor (Brilinta) 90 mg BID PO Last administered on 02/22/17 09:06; Admin Dose 90 MG; Start 02/11/17 at 12:00 Aspirin (Halfprin) 81 mg DAILY PO Last administered on 02/22/17 09:05; Admin Dose 81 MG; Start 02/11/17 at 12:00 Atorvastatin Calcium 80 mg 80 mg HS NGT Last administered on 02/21/17 21:32; Admin Dose 80 MG; Start 02/11/17 at 21:00 Dextrose/Sodium Chloride 1,000 ml @ 40 mls/hr Q24H IV Last administered on 17:00; Admin Dose 40 MLS/HR; Start 02/12/17 at 21:30 Piperacillin Sod/ Tazobactam Sod (Zosyn 2.25gm/ 50ml (Pmx)) 50 ml @ 200 mls/hr Q8 IVPB Last administered on 02/22/17 14:26; Admin Dose 200 MLS/HR; Start at 13:00 Vancomycin HCl (Vancomycin Oral Syringe) 250 mg Q6 NGT Last administered on 12:00; Admin Dose 250 MG; Start 02/15/17 at 18:00 IV Flush (NS 10 ml) 10 ml PRN PRN IV FLUSH LINE; Start 02/15/17 at 20:00 Insulin Aspart (Novolog Insulin Pen) NOVOLOG *MILD* ALGORI... Q6 SC ; Start at 06:00 Amiodarone HCl 400 mg 400 mg BID PO Last administered on 02/22/17 13:00; Admin Dose 400 MG; Start 02/19/17 at 14:30 Vancomycin HCl 250 ml @ 125 mls/hr Q96H IVPB Last administered on 02/21/17 10 :00; Admin Dose 125 MLS/HR; Start 02/21/17 at 10:00 Caspofungin 35 mg/ Sodium Chloride 250 ml @ 250 mls/hr Q24H IV Last administered on 02/22/17 14:25; Admin Dose 250 MLS/HR; Start 02/21/17 at 12:00 Norepinephrine 16 mg/Dextrose 500 ml @ 1.87 mls/hr TITRATE IV Last administered on 02/22/17 07:00; Admin Dose 18.75 MLS/HR; Start 02/22/17 at 06: 30 Phenylephrine HCl/ Dextrose (Zach-Syneph/D5W) 500 ml @ 18.75 mls/ hr TITRATE IV ; Start 02/22/17 at 12:00 MARCY HUTCHISON MD Feb 22, 2017 17:25
[2017-02-22] MEDS ORDERED: ERTAPENEM SODIUM 1 GM in SOD CHLORIDE 0.9% 100 ML IVPB SCH (17:30)
[2017-02-22] MEDS ORDERED: NORepinephrine 32 MG in DEXTROSE 5% 218 ML IV SCH (20:00)
[2017-02-22 20:29] LABS: HEMATOCRIT 26.8 % (42.0-52.0); HEMOGLOBIN 8.9 g/dl (14.0-18.0)
[2017-02-22] MEDS ORDERED: VASOPRESSIN 60 UNIT in DEXTROSE 5% 57 ML IV SCH (21:00)
[2017-02-22] MEDS: ATORVASTATIN 80 MG TAB NGT SCH (21:00)
[2017-02-22] MEDS ORDERED: PANTOPRAZOLE IV 80 MG in SOD CHLORIDE 0.9% 100 ML IV SCH (21:30)
--- NOTE | 2017-02-22 23:54 | EN ---
Date/Time of Note Date/Time of Note DATE: 02/22/17 TIME: 23:51 Event Note Medicine Medicine Event Note family meeting had at bedside with and daughters. Discussed gravity of patient's overall condition and new GI bleed. After an extensive discussion, the family decided to make the patient a DNR. Patient's code status was changed to DNR. KHUSHI HICKS Feb 22, 2017 23:54
[2017-02-23] VITALS (22 sets, daily range): BP systolic 83–97; BP diastolic 48–77; PULSE 103–113; RESP 20
[2017-02-23] MEDS: INSULIN ASPART [NOVOLOG] 3 ML PEN SC SCH
[2017-02-23] MEDS: DEXTROSE 50% 50 ML SYRINGE IV PRN ×3 (00:22→03:14)
[2017-02-23] MEDS: VANCOMYCIN HCL 250 MG/5ML POSYG NGT SCH (00:27)
[2017-02-23] MEDS ORDERED: EPINEPHrine 4 MG in DEXTROSE 5% 246 ML IV SCH (03:30)
[2017-02-23] MEDS: PHENYLephrine 160 MG in DEXTROSE 5% 484 ML IV SCH (04:28)
--- NOTE | 2017-02-23 05:37 | EN ---
Date/Time of Note Date/Time of Note DATE: 02/23/17 TIME: 05:34 Event Note Medicine Medicine Event Note Pronouncement note Patient seen and examined at the bedside. Patient non-responsive to vebral commands. Patient non-responsive to noxious tactile stimuli. Patient non- responsive to vigorous sternal rub. Pupils fixed and non reactive to light bilaterally. Asystole observed on telemetry monitoring at 5:01AM. Patient time of /pronouncement at 5:01AM. Nurse called the family and they are aware, they will be coming in shortly. Primary team aware. KHUSHI HICKS Feb 23, 2017 05:37
--- NOTE | 2017-02-23 08:37 | CONS ---
Date/Time of Note Date/Time of Note DATE: 02/23/17 TIME: : Assessment/Plan Assessment/Plan Chief Complaint/Hosp Course Impression: 1. GIB 2. Cardiac arrest and Cardiogenic shock. 3. CAD. Status post coronary artery stenting. 4. Transaminitis without hyperbilirubinemia. 5. C. difficile colitis. 6. dysphagia Recommendation: - Monitor H&H closely. Transfuse as needed. - patient too unstable for any endoscopic procedure - continue supportive care - extremely poor prognosis - Avoid hepatotoxic medications. - continue enteral vancomycin. - continue tube feed Problems: Consultation Date/Type/Reason Admit Date/Time Feb 10, 2017 at 08:37 Date of Consultation: Feb 23, 2017 Type of Consultation: GI Reason for Consultation BLEEDING ON [place] Hx of Present Illness patient non-verbal so history obtained from chart review. From what I can gather, patient had Cardiac arrest. Status post left heart catheterization and coronary angioplasty with placement of a stent and placement of intraaortic balloon pump. He also has Cardiogenic shock. Most probably secondary to underlying cardiac arrest. The patient is currently on pressors to optimize blood pressure. The patient is S/P intraaortic counterpulsation therapy. He is on antiplatelet therapy. 2D echocardiogram showing preserved left ventricular ejection fraction. He has normocytic, normochromic anemia. W/u showed positive occult blood. He is on tube feedings. GI consulted for his GI bleeding causing his anemia. Subjective hx not possible: pt non-verbal Constitutional: requiring IVF, requiring O2 Past Medical History Medical History: coronary artery disease, diabetes, GERD, GI bleed Past Surgical History Past Surgical Hx: angioplasty Family History Significant Family History: no pertinent family hx Social History Alcohol Use: none Smoking Status: Unknown if ever smoked Drug Use: none Exam/Review of Systems Vital Signs Vitals Vital Signs Date Time Temp Pulse Resp B/P Pulse Ox O2 Delivery O2 Flow Rate FiO2 02/23/17 04:45 105 20 83/51 58 Mechanical Ventilator 02/23/17 04:00 96.9 02/23/17 03:07 100 Intake and Output 02/22/17 02/22/17 02/23/17 15:00 23:00 07:00 Intake Total 1326 ml 922.61 ml 639.73 ml Output Total 3250 ml 100 ml 800 ml Balance -1924 ml 822.61 ml -160.27 ml Exam Constitutional: non-verbal Psych: confusion Head: atraumatic, normocephalic Eyes: nl lids ENMT: mucosa pink and moist, nl external ears & nose, nl lips & teeth, nl nasal mucosa & septum Neck: non-tender, supple Respiratory: clear to auscultation, normal air movement Cardiovascular: nl pulses, regular rate and rhythm Gastrointestinal: bowel sounds, non-tender, soft Neurological: confused, lethargic, unresponsive Results Result Diagram: 02/22/17201902/22/17 0500 Results 24 hrs Laboratory Tests Test 02/22/17 12:21 02/22/17 17:21 02/22/17 17:35 02/22/17 20:00 Bedside Glucose 102 69 L 162 Stool Occult Blood POSITIVE Test 02/22/17 20:20 02/23/17 00:20 02/23/17 00:35 02/23/17 00:50 Hemoglobin 8.9 L Hematocrit 26.8 L Bedside Glucose 56 L 69 L 96 Test 02/23/17 01:06 02/23/17 02:58 02/23/17 03:13 02/23/17 03:30 Bedside Glucose 81 51 L 73 102 Test 02/23/17 03:49 Bedside Glucose 87 Medications Medications Current Medications Ondansetron HCl (Zofran Inj) 4 mg Q6H PRN IV NAUSEA AND/OR VOMITING Last administered on 02/20/17 06:13; Admin Dose 4 MG; Start 02/10/17 at 12:30 Acetaminophen (Tylenol Tab) 650 mg Q6H PRN PO PAIN LEVEL 1-3 OR FEVER Last administered on 02/22/17 06:25; Admin Dose 650 MG; Start 02/10/17 at 12:30 Acetaminophen/ Hydrocodone Bitart ([place] (5/325)) 1 tab Q6H PRN PO PAIN LEVEL 4 -6; Start 02/10/17 at 12:30 Morphine Sulfate (morphine) 2 mg Q4H PRN IV PAIN LEVEL 7-10 Last administered on 02/13/17 10:10; Admin Dose 2 MG; Start 02/10/17 at 12:30 Miscellaneous Information 1 ea NOTE XX ; Start 02/10/17 at 13:30 Glucose (Glutose) 15 gm Q15M PRN PO DECREASED GLUCOSE; Start 02/10/17 at 13:30 Glucose (Glutose) 22.5 gm Q15M PRN PO DECREASED GLUCOSE; Start 02/10/17 at 13: 30 Dextrose (D50w Syringe) 25 ml Q15M PRN IV DECREASED GLUCOSE Last administered on 02/23/17 03:14; Admin Dose 25 ML; Start 02/10/17 at 13:30 Dextrose (D50w Syringe) 50 ml Q15M PRN IV DECREASED GLUCOSE Last administered on 02/16/17 16:21; Admin Dose 50 ML; Start 02/10/17 at 13:30 Glucagon (Glucagen) 1 mg Q15M PRN IM DECREASED GLUCOSE; Start 02/10/17 at 13:30 Glucose (Glutose) 15 gm Q15M PRN BUCCAL DECREASED GLUCOSE; Start 02/10/17 at 13 :30 Ticagrelor (Brilinta) 90 mg BID PO Last administered on 02/22/17 09:06; Admin Dose 90 MG; Start 02/11/17 at 12:00 Aspirin (Halfprin) 81 mg DAILY PO Last administered on 02/22/17 09:05; Admin Dose 81 MG; Start 02/11/17 at 12:00 Atorvastatin Calcium 80 mg 80 mg HS NGT Last administered on 02/21/17 21:32; Admin Dose 80 MG; Start 02/11/17 at 21:00 Dextrose/Sodium Chloride (D5-1/2ns) 1,000 ml @ 40 mls/hr Q24H IV Last administered on 02/22/17 03:00; Admin Dose 40 MLS/HR; Start 02/12/17 at 21:30 Vancomycin HCl (Vancomycin Oral Syringe) 250 mg Q6 NGT Last administered on 00:27; Admin Dose 250 MG; Start 02/15/17 at 18:00 IV Flush (NS 10 ml) 10 ml PRN PRN IV FLUSH LINE; Start 02/15/17 at 20:00 Insulin Aspart (Novolog Insulin Pen) NOVOLOG *MILD* ALGORI... Q6 SC ; Start at 06:00 Amiodarone HCl 400 mg 400 mg BID PO Last administered on 02/22/17 13:00; Admin Dose 400 MG; Start 02/19/17 at 14:30 Vancomycin HCl 250 ml @ 125 mls/hr Q96H IVPB Last administered on 02/21/17 10 :00; Admin Dose 125 MLS/HR; Start 02/21/17 at 10:00 Caspofungin 35 mg/ Sodium Chloride 250 ml @ 250 mls/hr Q24H IV Last administered on 02/22/17 14:25; Admin Dose 250 MLS/HR; Start 02/21/17 at 12:00 Phenylephrine HCl 160 mg/Dextrose 500 ml @ 18.75 mls/ hr TITRATE IV Last administered on 02/23/17 04:28; Admin Dose 56.25 MLS/HR; Start 02/22/17 at 12: 00 Ertapenem 1 gm/ Sodium Chloride 100 ml @ 200 mls/hr Q24H IVPB Last administered on 02/22/17 17:30; Admin Dose 200 MLS/HR; Start 02/22/17 at 17:30 Norepinephrine 32 mg/Dextrose 250 ml @ 0.46 mls/hr TITRATE IV Last administered on 02/23/17 00:02; Admin Dose 14.06 MLS/HR; Start 02/22/17 at 20: 00 Vasopressin 60 unit/Dextrose 60 ml @ 1.2 mls/hr Q12H IV Last administered on 02:56; Admin Dose 1.2 MLS/HR; Start 02/22/17 at 21:00 Pantoprazole 80 mg/Sodium Chloride 100 ml @ 10 mls/hr Q10H IV Last administered on 02/22/17 23:54; Admin Dose 10 MLS/HR; Start 02/22/17 at 21:30 Epinephrine/ Dextrose (EPINEPHrine/D5W) 250 ml @ 3.75 mls/hr TITRATE IV Last administered on 02/23/17 04:20; Admin Dose 3.75 MLS/HR; Start 02/23/17 at 03:30 NOREEN IBARRA MD Feb 23, 2017 08:37
--- NOTE | 2017-02-23 17:42 | DES ---
Date/Time of Note Date/Time of Note DATE: 02/23/17 TIME: 17:41 Discharge/ Summary Admission/Discharge Info Admit Date/Time Feb 10, 2017 at 08:37 Discharge Date/Time Feb 23, 2017 at 05:01 Final Diagnosis 1. Cardiac arrest. 2. STEMI. 3. Cardiogenic shock. 4. Sepsis with underlying septic shock. 5. CAD. 6. Urinary tract infection. 7. C. difficile colitis. 8. Aspiration pneumonia. 9. Normocytic, normochromic anemia. 10. Acute kidney injury. 11. Type 2 diabetes mellitus. 12. Transaminitis without hyperbilirubinemia. 13. Obesity. 14. Acute encephalopathy. Preliminary Cause of 1. Cardiac arrest dated 02/10/2017. 2. Cardiogenic shock dated 02/10/2017. 3. Sepsis with underlying septic shock dated 02/10/2017. 4. Aspiration pneumonia dated 02/22/2017. Hx of Present Illness This is a 66-year-old male who has no past medical history as per the family, who had a witnessed cardiac arrest while he was at work. CPR was performed by EMS on arrival. The approximate downtime was 7 minutes, as per the ER physician. The patient had ROSC in the field. In the ER, the blood pressure was 110/78, with a pulse. He went to another cardiac arrest with loss of pulse and ventricular fibrillation and he had to be shocked twice in the ER, with return of spontaneous circulation. The patient was already intubated. The patient also had a low blood pressure and so he was started on pressors. The patient underwent emergent cardiac catheterization with intervention to the 100% occlusion of the obtuse marginal of left circumflex artery with placement of a drug-eluting stent. The patient was transferred to the intensive care unit for further management. Hospital Course The patient was admitted status post cardiac arrest. The patient underwent emergent left heart catheterization and coronary angioplasty with placement of a stent and placement of an intra-aortic balloon pump. The patient was not started on hypothermia protocol since the patient was moving and was weakly following commands as per report. The patient went into cardiogenic shock and the patient was placed on multiple pressors to optimize blood pressure. He was started on dual antiplatelet therapy and high-dose statins for his underlying CAD. The patient also had underlying sepsis with underlying urinary tract infection and aspiration pneumonia. The patient was maintained on appropriate anti- biotics. The patient also developed C. difficile colitis during the hospital course. Consequently, the patient was started on appropriate antibiotics. He also had underlying normocytic normochromic anemia. The patient was newly diagnosed with diabetes mellitus. The patient had a hemoglobin A1c of 6.2. He was maintained on sliding scale insulin. The patient was also noticed a transaminitis with hyperbilirubinemia. This was thought to be secondary to his underlying shock state. The patient also had underlying acute kidney injury that became worse that necessitated the initiation of hemodialysis. The patient's neuro status was unclear and it was suspected that he had some extent of anoxic brain injury. Hence, neurology consult was obtained. The patient underwent a brain MRI and electroencephalography. The MRI and EEG was showing evidence of a metabolic encephalopathy. The patient was not able to wake up or follow any commands despite being off sedation for more than 48 hours. Meanwhile, the patient's family was informed about the poor prognosis. Some of the family members wanted to proceed with a tracheostomy and PEG tube placement. On 02/23/2017, the patient went into V. fib cardiac arrest and shortly into asystole. The patient's CODE STATUS was changed to DNR earlier on the morning of 02/23/2017. The patient was pronounced on 02/23/2017 at 0501. The patient's family members were present at the bedtime and the family members were given time to spend with their loved one. Case discussed with Dr. Almazan. Pending Labs/Cultures Brain MRI IMPRESSION: 1. Punctate 2 mm area of diffusion restriction right martines radiata white matter, suggestive of acute/recent white matter ischemia. 2. No intracranial hemorrhage, mass lesion or hydrocephalous. 3. Mild peripheral and central cerebral volume loss, within normal limits for age. 4. Mild to moderate patchy periventricular and subcortical white matter lesions , and a chronic microangiopathic changes. 5. No evidence of abnormal signal in the basal ganglia or loss of normal and a soft to the to suggest extensive hypoxic ischemic injury at this time. 2D Echocardiogram Conclusions Normal left ventricular systolic function. Normal left ventricular cavity size. Moderate concentric left ventricular hypertrophy. Ejection fraction is visually estimated at 55 %. Normal right ventricular size. Normal right ventricular systolic function. Mitral valve leaflets appear mildly thickened. Mild mitral annular calcification. There is trace to mild mitral valve regurgitation. No significant aortic stenosis or insufficiency. Aortic cusps appear mildly calcified. Normal appearance of the tricuspid valve. Estimated peak PA systolic pressure 37 mmHg. There is mild tricuspid regurgitation. Electroencephalography INTERPRETATION: This is an abnormal EEG because of the presence of generalized bihemispheric background slowing with low amplitude waves without any epileptiform activity, consistent with encephalopathy. Please correlate these findings with the patient's clinical picture. Laboratory Tests Name: GALEN UMAÑA Age/Sex: 66/M Attend Dr: MARIAJOSE ALMAZAN Acct: [id number] MR# : [id number] : 1950 Location: [place] [address]-A Admit: 02/10/17 Specimen: [id number] Status: Resulted Faisal: 02/22/17 Rcvd: 02/22 Source: ENDOTRACHE Sp Descrip: Procedure Result Microbiology GRAM STAIN Final POLYMORPH. LEUKOCYTE 3+ GRAM NEGATIVE RODS 4+ RESPIRATORY CULTURE Preliminary Organism 1 GRAM NEGATIVE ABE QUANTITY 2+ POST EXPIRATION RESULTS Test 02/22/17 20:00 02/22/17 20:20 02/23/17 00:20 02/23/17 00:35 Stool Occult Blood POSITIVE (NEGATIVE) Hemoglobin 8.9g/dl (14.0-18.0) Hematocrit 26.8% (42.0-52.0) Bedside Glucose 56mg/dL (70-220) 69mg/dL (70-220) Name: GALEN UMAÑA Age/Sex: 66/M Attend Dr: MARIAJOSE ALMAZAN Acct: [id number] MR# : [id number] : 1950 Location: [facility]-A Admit: 02/10/17 Specimen: [id number] Status: Complete Faisal: 02/12/17-399 Rcvd: 02/12-433 Source: FECES Sp Descrip: Procedure Result Microbiology C DIFFICILE DNA AMPLIFICATION Final CYTOTOXIGENIC C DIFFICILE POSITIVE (Ref Range Neg) Phoned to MARIAH,ICU,TYRA,PHARM,1054,02/12/17,AD Name: GALEN UMAÑA Age/Sex: 66/M Attend Dr: MARIAJOSE ALMAZAN Acct: [id number] MR# : [id number] : 1950 Location: ICU 110-A Admit: 02/10/17 Specimen: [id number] Status: Complete Faisal: 02/10/17-1399 Rcvd: 02/10 Source: TOLU Sales Descrip: Procedure Result Microbiology URINE CULTURE Final Organism 1 STREP AGALACTIAE - (GROUP B) COLONY COUNT >100,000 CFU/ml Susceptibility testing for Streptococcus Pyogenes Group A or Streptococcus Group Agalactiae Group B is not usually performed due to predictable susceptibiltiy to penicillin Test 02/23/17 00:50 02/23/17 01:06 02/23/17 02:58 02/23/17 03:13 Bedside Glucose 96mg/dL (70-220) 81mg/dL (70-220) 51mg/dL (70-220) 73mg/dL (70-220) Test 02/23/17 03:30 02/23/17 03:49 Bedside Glucose 102mg/dL (70-220) 87mg/dL (70-220) Microbiology Date/Time Source Procedure Growth Status 02/22/17 20:21 Endotracheal Tube Gram Stain - Final Resulted 02/22/17 20:21 Respiratory Culture - Preliminary Gram Negative Abe Resulted HUBERT KUNZ NP Feb 23, 2017 17:41
== END 2017-02-23 05:01 | disposition expired | DRG 270 ==
LOC: E/R 07:29 → SDS 07:40 → ICU 08:37
PROVIDERS: ADMIT Internal Medicine; ATTEND Family Medicine
PROC: 4A023N7 Measurement of Cardiac Sampling and Pressure, Left Heart, Percutaneous Approach (ICD-10-PCS; 2017-02-10)
PROC: B211YZZ Fluoroscopy of Multiple Coronary Arteries using Other Contrast (ICD-10-PCS; 2017-02-10)
PROC: 5A1955Z Respiratory Ventilation, Greater than 96 Consecutive Hours (ICD-10-PCS; 2017-02-10)
PROC: 027034Z Dilation of Coronary Artery, One Artery with Drug-eluting Intraluminal Device, Percutaneous Approach (ICD-10-PCS; principal; 2017-02-10 07:30)
PROC: 5A02210 Assistance with Cardiac Output using Balloon Pump, Continuous (ICD-10-PCS; 2017-02-10 07:30)
PROC: 5A12012 Performance of Cardiac Output, Single, Manual (ICD-10-PCS; 2017-02-11)
PROC: 5A2204Z Restoration of Cardiac Rhythm, Single (ICD-10-PCS; 2017-02-11)
PROC: 5A1D60Z (ICD-10-PCS; 2017-02-14)
PROC: 06HY33Z Insertion of Infusion Device into Lower Vein, Percutaneous Approach (ICD-10-PCS; 2017-02-14)
PROC: 02H633Z Insertion of Infusion Device into Right Atrium, Percutaneous Approach (ICD-10-PCS; 2017-02-15)
DX: I21.09 ST elevation (STEMI) myocardial infarction involving other coronary artery of anterior wall (principal); A41.9 Sepsis, unspecified organism; J96.00 Acute respiratory failure, unspecified whether with hypoxia or hypercapnia; I49.01 Ventricular fibrillation; I63.9 Cerebral infarction, unspecified; N17.0 Acute kidney failure with tubular necrosis; R57.0 Cardiogenic shock; R65.21 Severe sepsis with septic shock; J69.0 Pneumonitis due to inhalation of food and vomit; G93.41 Metabolic encephalopathy; N39.0 Urinary tract infection, site not specified; A04.7 Enterocolitis due to Clostridium difficile; E87.2 Acidosis; E87.1 Hypo-osmolality and hyponatremia; K92.2 Gastrointestinal hemorrhage, unspecified; I46.9 Cardiac arrest, cause unspecified; D64.9 Anemia, unspecified; E11.9 Type 2 diabetes mellitus without complications; I25.10 Atherosclerotic heart disease of native coronary artery without angina pectoris; E66.9 Obesity, unspecified; R74.0 Nonspecific elevation of levels of transaminase and lactic acid dehydrogenase [LDH]; E83.51 Hypocalcemia; Z66 Do not resuscitate; I48.91 Unspecified atrial fibrillation; F15.10 Other stimulant abuse, uncomplicated; R73.9 Hyperglycemia, unspecified; I48.0 Paroxysmal atrial fibrillation; Z68.31 Body mass index [BMI] 31.0-31.9, adult
CPT/HCPCS: 36415; 36430; 36569; 36600; 70551; 71010; 74000; 76775; 76937; 80048; 80053; 80061; 80076; 80202; 80307; 81001; 81003; 82270; 82330; 82550; 82553; 82570; 82803; 82962; 83036; 83735; 83880; 84100; 84300; 84439; 84443; 84484; 84560; 85014; 85018; 85025; 85610; 85730; 86850; 86900; 86901; 86920; 87040; 87070; 87075; 87081; 87086; 89190; 89220; 90935; 92950; 93005; 93306; 93458; 93880; 93970; 94002; 94003; 94770; 95819; 96374; J1940; C1725; C1726; C1751; C1752; C1769; C1874; C1887; C1894; C9113; C9600; J0171; J0282; J0610; J1265; J1335; J1644; J1815; J2001; J2060; J2270; J2370; J2405; J2543; J2765; J3010; J3370; J3475; J3480; J7030; J7040; J7042; J7050; J7060; J7070; P9047; P9059